=== PATIENT | male | born 1970 | race Caucasian/White ===

== ENCOUNTER → 2017-03-10 | Outpatient (CLI) | payer SELFPAY ==
--- NOTE | 2017-03-10 11:47 | Diagnostic Imaging Report ---
PROCEDURE: MR imaging cervical spine without contrast. TECHNIQUE: Multiplanar, multisequence MR imaging of the cervical spine was performed without contrast. INDICATION: Neck pain. FINDINGS: There is satisfactory alignment of the posterior spinal line. The vertebral body heights are preserved. There is a T2 hyperintense lesion seen within C4 vertebral body measuring 0.6 cm in size. This is associated with isointense T1 signal and is favored to be a vertebral body hemangioma. There is disc desiccation at all levels. The spinal cord has normal caliber, contour and signal. The foramen magnum and upper cervical canal are widely patent. C2/3: There is no disc herniation, no spinal canal stenosis. The foramina demonstrates mild narrowing on the left and no significant narrowing on the right side. C3/4: There is no disc herniation and no spinal canal stenosis. There is uncovertebral and facet hypertrophy resulting in mild foraminal stenosis bilaterally. C4/5: There is no disc herniation. No spinal canal stenosis. The foramina demonstrate no significant stenosis. C5/6: There is no significant disc herniation. No spinal canal stenosis. No foraminal narrowing. C6/7: There is a spur disc complex with minimal spinal canal stenosis reducing the AP dimension of the canal to 9.5 mm. No cord compression. There is foraminal stenosis of moderate degree on the left and minimal stenosis on the right side. C7/T1: No disc herniation, no spinal canal or foraminal stenosis. IMPRESSION: No high-grade stenosis or cord compression at any level. Dictated by: Dictated on workstation # [id number]
== END ==
LOC: RAD 10:23
PROVIDERS: ATTEND Nurse Practitioner Community Health
DX: M54.2 Cervicalgia (principal); G62.9 Polyneuropathy, unspecified; M25.511 Pain in right shoulder; M25.512 Pain in left shoulder
CPT/HCPCS: 72141

== ENCOUNTER 2019-05-06 17:37 | Emergency (ER) | payer SELFPAY ==
[~2019-05-06] VITALS: Ht 175 cm; Wt 124.0 kg
[2019-05-06] MEDS ORDERED: NS IV 1000 ML 1,000 ML IV SCH ×2 (17:57)
[2019-05-06] MEDS ORDERED: PIPERACILLIN SODIUM/TAZOBACTAM 4.5 GM in NS (IVPB) 100 ML IV ONE (18:00)
[2019-05-06] MEDS ORDERED: fentaNYL INJECTION 100 MCG/2 ML AMP IVP ONE (18:00)
[2019-05-06] MEDS ORDERED: VANCOMYCIN INJECTION 1,000 MG in NS (IVPB) 250 ML IV ONE (18:00)
--- NOTE | 2019-05-06 18:09 | ED EENT ---
History of Present Illness General Chief Complaint: Oral/Throat Problems Stated Complaint: THROAT PROBLEMS Nursing Triage Note: patient complaint of abscess of throat, [facility] walk in clinic. recieved antibiotic shot, and po antibiotics. pt trouble swalling, trouble breathing. stated rt side, swelling. Fever of 102 at home Source: patient, spouse Exam Limitations: no limitations History of Present Illness Date Seen by Provider: May 06, 2019 Time Seen by Provider: 17:51 Initial Comments The patient presents to ER from home with his and chief complaint of 2 days of progressively worsening swelling and pain 8 out of 10 presently in his right anterior throat causing pressure on his windpipe and making it impossible to swallow his own secretions since this afternoon. Yesterday the [facility] urgent care prescribed him Augmentin with return precautions. Since he developed fever 101 this afternoon he went to the ER per instructions. No previous cysts or abscesses. He has Crohn's not on any meds. He had Augmenting 1 tablet this AM and last oral intake was around noon. No local GI Dr. Never been to ENT. No SOA. Vocal changes since yesterday. Had a cholecystectomoy and appendectomy. Not on any other meds. PCP at [facility]. Allergies and Home Medications Allergies Coded Allergies: No Known Drug Allergies (Unverified , 04/22/12) Patient Home Medication List Home Medication List Reviewed: Yes Review of Systems Review of Systems Constitutional: chills; No diaphoresis; fever, malaise Eyes: Denies Blindness, Denies Blurred Vision Ears: Denies Dizziness, Denies Pain Nose: denies clots, denies congestion Mouth: see HPI; denies clots, denies loose teeth Throat: pain, swelling (r); denies discharge; hoarse, painful swallowing, difficulty with fluids Respiratory: No cough, No short of breath Cardiovascular: No chest pain, No edema Gastrointestinal: No abdominal pain, No nausea Neurological: Denies Depressed All Other Systems Reviewed Negative Unless Noted: Yes Past Fdjwjgn-Qtpnuv-Qxyice Hx Patient Social History Alcohol Use: Denies Use Recreational Drug Use: No Smoking Status: Never a Smoker Recent Foreign Travel: No Contact w/Someone Who Travel: No Recent Infectious Disease Expo: No Past Medical History Reproductive Disorders: No Sexually Transmitted Disease: No HIV/AIDS: No Crohns Disease Adverse Reaction/Blood Tranf: No Physical Exam Vital Signs Vital Signs - First Documented 05/06/19 17:45 Temp 37.2 Pulse 150 Resp 20 Height, Weight, BMI Height: '" Weight: lbs. oz. kg; 40.00 BMI Method: General Appearance: WD/WN, mild distress Eyes: bilateral eye normal inspection, bilateral eye PERRL, bilateral eye EOMI Ears: bilateral ear auricle normal, bilateral ear canal normal, bilateral ear TM normal Nose: normal inspection; No active bleeding, No discharge Mouth/Throat: normal mouth inspection, pharynx normal, dental tenderness; No excessive drooling Neck: lymphadenopathy (R), tender lateral (r) Cardiovascular: normal peripheral pulses, regular rate, rhythm, no edema Respiratory: lungs clear, normal breath sounds, no respiratory distress, no accessory muscle use Neurologic/Psychiatric: alert, normal mood/affect, oriented x 3 Skin: normal color, warm/dry Progress/Results/Core Measures Results/Orders Lab Results Laboratory Tests Test 05/06/19 18:05 05/06/19 19:13 05/06/19 20:20 05/07/19 00:42 Range/Units White Blood Count 16.6 H 4.3-11.0 10^3/uL Red Blood Count 5.66 4.35-5.85 10^6/uL Hemoglobin 16.0 13.3-17.7 G/DL Hematocrit 46 40-54 % Mean Corpuscular Volume 81 80-99 FL Mean Corpuscular Hemoglobin 28 25-34 PG Mean Corpuscular Hemoglobin Concent 35 32-36 G/DL Red Cell Distribution Width 13.5 10.0-14.5 % Platelet Count 341 130-400 10^3/uL Mean Platelet Volume 10.3 7.4-10.4 FL Neutrophils (%) (Auto) 76 H 42-75 % Lymphocytes (%) (Auto) 14 12-44 % Monocytes (%) (Auto) 11 0-12 % Eosinophils (%) (Auto) 0 0-10 % Basophils (%) (Auto) 0 0-10 % Neutrophils # (Auto) 12.5 H 1.8-7.8 X 10^3 Lymphocytes # (Auto) 2.3 1.0-4.0 X 10^3 Monocytes # (Auto) 1.7 H 0.0-1.0 X 10^3 Eosinophils # (Auto) 0.0 0.0-0.3 10^3/uL Basophils # (Auto) 0.0 0.0-0.1 10^3/uL Neutrophils % (Manual) 80 % Lymphocytes % (Manual) 10 % Monocytes % (Manual) 10 % Blood Morphology Comment NORMAL Prothrombin Time 15.2 H 12.2-14.7 SEC INR Comment 1.2 0.8-1.4 Activated Partial Thromboplast Time 28 24-35 SEC Sodium Level 135 135-145 MMOL/L Potassium Level 3.4 L 3.6-5.0 MMOL/L Chloride Level 100 98-107 MMOL/L Carbon Dioxide Level 22 21-32 MMOL/L Anion Gap 13 5-14 MMOL/L Blood Urea Nitrogen 7 7-18 MG/DL Creatinine 0.94 0.60-1.30 MG/DL Estimat Glomerular Filtration Rate > 60 BUN/Creatinine Ratio 7 Glucose Level 350 H 70-105 MG/DL Lactic Acid Level 2.18 *H 1.57 0.50-2.00 MMOL/L Calcium Level 9.3 8.5-10.1 MG/DL Corrected Calcium 9.2 8.5-10.1 MG/DL Total Bilirubin 1.5 H 0.1-1.0 MG/DL Aspartate Amino Transf (AST/SGOT) 13 5-34 U/L Alanine Aminotransferase (ALT/SGPT) 17 0-55 U/L Alkaline Phosphatase 95 40-136 U/L Total Protein 8.1 6.4-8.2 GM/DL Albumin 4.1 3.2-4.5 GM/DL Urine Color YELLOW Urine Clarity CLEAR Urine pH 5.5 5-9 Urine Specific [place] 1.025 H 1.016-1.022 Urine Protein 1+ H NEGATIVE Urine Glucose (UA) 2+ H NEGATIVE Urine Ketones 1+ H NEGATIVE Urine Nitrite NEGATIVE NEGATIVE Urine Bilirubin 1+ H NEGATIVE Urine Urobilinogen 1.0 < = 1.0 MG/DL Urine Leukocyte Esterase NEGATIVE NEGATIVE Urine RBC (Auto) TRACE-I NEGATIVE Urine RBC 0-2 /HPF Urine WBC 0-2 /HPF Urine Crystals PRESENT H /LPF Urine Amorphous Sediment FEW JOSE URATES H /LPF Urine Bacteria TRACE /HPF Urine Casts NONE /LPF Urine Mucus MODERATE H /LPF Urine Culture Indicated NO My Orders Orders - DESTINI VIERA Ct Neck (Soft Tissue) W (05/06/19 17:57) Cbc With Automated Diff (05/06/19 17:57) Comprehensive Metabolic Panel (05/06/19 17:57) Blood Culture (05/06/19 17:57) Sputum Culture (05/06/19 17:57) Urinalysis (05/06/19 17:57) Urine Culture (05/06/19 17:57) Protime With Inr (05/06/19 17:57) Partial Thromboplastin Time (05/06/19 17:57) Chest 1 View, Ap/Pa Only (05/06/19 17:57) Ed Iv/Invasive Line Start (05/06/19 17:57) Ed Iv/Invasive Line Start (05/06/19 17:57) Vital Signs Adult Sepsis Patie Q15M (05/06/19 17:57) O2 (05/06/19 17:57) Remove Rings In Anticipation O (05/06/19 17:57) Lactic Acid Analyzer (05/06/19 17:57) Ns Iv 1000 Ml (Sodium Chloride 0.9%) (05/06/19 17:57) Piperacillin Sodium/Tazobactam (Zosyn Vi (05/06/19 18:00) Vancomycin Injection (Vancomycin Injecti (05/06/19 18:00) Ed Iv/Invasive Line Start (05/06/19 17:57) Ns Iv 1000 Ml (Sodium Chloride 0.9%) (05/06/19 17:57) Fentanyl Injection (Sublimaze Injection (05/06/19 18:00) Manual Differential (05/06/19 18:05) Insulin (Regular) Human (Humulin R (Per (05/06/19 18:45) Iohexol Injection (Omnipaque 350 Mg/Ml 1 (05/06/19 19:00) Received Contrast (Hold Metformin- Contr (05/06/19 19:00) Ns (Ivpb) (Sodium Chloride 0.9% Ivpb Bag (05/06/19 19:00) Iohexol Injection (Omnipaque 350 Mg/Ml 1 (05/06/19 19:45) Received Contrast (Hold Metformin- Contr (05/06/19 19:45) Ns (Ivpb) (Sodium Chloride 0.9% Ivpb Bag (05/06/19 19:45) Ketorolac Injection (Toradol Injection) (05/06/19 21:15) Dexamethasone Injection (Decadron Inject (05/06/19 22:00) Ns W/Kcl 20 Meq/L (Ns Iv W/Kcl 20 Meq/L) (05/06/19 22:30) Accucheck Stat ONCE (05/07/19 00:43) Medications Given in ED Current Medications Medications Dose Ordered Sig/Tono Route Start Time Stop Time Status Last Admin Dose Admin Dexamethasone Sodium Phosphate 10 mg ONCE ONCE IV 05/06/19 22:00 05/06/19 22:01 DC 05/06/19 22:03 10 MG Fentanyl Citrate 50 mcg ONCE ONCE IVP 05/06/19 18:00 05/06/19 18:03 DC 05/06/19 18:21 50 MCG Insulin Human Regular 5 unit ONCE ONCE SC 05/06/19 18:45 05/06/19 18:46 DC 05/06/19 18:58 5 UNIT Iohexol 75 ml ONCE ONCE IV 05/06/19 19:45 05/06/19 19:46 DC 05/06/19 19:45 75 ML Ketorolac Tromethamine 30 mg ONCE ONCE IVP 05/06/19 21:15 05/06/19 21:16 DC 05/06/19 21:26 30 MG Piperacillin Sod/ Tazobactam Sod 4.5 gm/Sodium Chloride 100 ml @ 200 mls/hr ONCE ONCE IV 05/06/19 18:00 05/06/19 18:29 DC 05/06/19 18:58 200 MLS/HR Potassium Chloride/Sodium Chloride 1,000 ml @ 250 mls/hr Q4H ONCE IV 05/06/19 22:30 05/07/19 02:29 05/06/19 22:57 250 MLS/HR Sodium Chloride 100 ml ONCE ONCE IV 05/06/19 19:45 05/06/19 19:46 DC 05/06/19 19:46 80 ML Vancomycin HCl 1000 mg/Sodium Chloride 250 ml @ 250 mls/hr ONCE ONCE IV 05/06/19 18:00 05/06/19 18:59 DC 05/06/19 19:50 250 MLS/HR Vital Signs/I&O 05/06/19 05/06/19 05/06/19 05/06/19 17:45 19:04 19:04 20:14 Temp 37.2 Pulse 150 137 137 125 Resp 20 17 17 22 B/P (MAP) 159/115 159/115 (130) 151/99 (116) Pulse Ox 93 93 93 O2 Delivery Room Air Room Air Room Air 05/06/19 05/06/19 22:05 22:26 Temp 37.6 Pulse 124 112 Resp 19 20 B/P (MAP) 160/90 (113) 160/90 Pulse Ox 95 95 O2 Delivery Room Air Room Air Progress Progress Note #1: Time: 18:14 Progress Note Febrile tachycardia: Septic workup. 2 L based on an ideal body weight of 92 kg adjusted. We'll select Zosyn and vancomycin and get a CT of the neck with IV contrast. Fentanyl 50 migrans for pain. Progress Note #2: Time: 21:13 Progress Note The patient felt feverish so staff checked his temperature at 102.9 tympanic. We have offered rectal Tylenol or Toradol noting there is a small possibility this could irritate his Crohn's. He has been in remission with his Crohn's for many years and not on any medications to control it and he has stated he would prefer Toradol. Progress Note #3: Time: 21:55 Progress Note Patient was seen and examined by ear nose and throat surgeon Dr. Ross who feels like the phlegmon is not amenable to surgical drainage at this time because the sepsis would recommend hospitalization. He would like since the patient is having some airway compression and vocal changes to have the patient in the ICU. Unfortunately we are on ICU diversion. We will seek care at [place], [place]. The patient is comfortable at this time. Diagnostic Imaging Diagonstic Imaging: CT (With IV contrast) Plain Films/CT/US/NM/MRI: other (soft tissue neck) Comments NAME: [facility] REC#: [id number] PT STATUS: REG ER : 1970 PHYSICIAN: DESTINI VIERA MD ADMIT DATE: 05/06/19/ER Signed Date of Exam:05/06/19 CT NECK (SOFT TISSUE) W PROCEDURE: CT neck soft tissue with contrast. TECHNIQUE: Multiple contiguous axial images were obtained through the neck after the administration of contrast. Auto Exposure Controls were utilized during the CT exam to meet ALARA standards for radiation dose reduction. INDICATION: Pharyngitis and fever. FINDINGS: The findings are unremarkable at the skull base. Adenoidal tissue and the uvula are mildly prominent. The epiglottis is unremarkable. No oropharyngeal abnormality is identified; however, there is moderate mural thickening to the right of midline at the hypopharynx which effaces the right piriform sinus and causes leftward deviation and distortion of the airway to the level of the vocal cords. Area of presumed cellulitis and phlegmon measures approximately 3.9 x 1.9 cm with several tiny low-density foci which could represent very early abscesses. There are also prominent deep cervical lymph nodes, greater on the right. Right retro-mandibular nodule reaches 1.2 cm in diameter. Great vessels in the neck appear to be widely patent. No other focal inflammation or organized fluid collection is identified. IMPRESSION: Right hypopharyngeal cellulitis with probable phlegmon and possible early abscess formation distorting the right piriform sinus and airway at the level of the vestibule. Vocal cords appear to be intact. Direct visualization would be of use. Dictated by: Dictated on workstation # [id number] Dict: 05/06/192002 Trans: 05/06/192023 [id number] Interpreted by: JOCELYN RIOS MD Electronically signed by: JOCELYN RIOS MD 05/06/192023 Reviewed: Reviewed by Me Diagonstic Imaging: Xray Plain Films/CT/US/NM/MRI: chest Comments NAME: [facility] REC#: [id number] PT STATUS: REG ER : 1970 PHYSICIAN: DESTINI VIERA MD ADMIT DATE: 05/06/19/ER Signed Date of Exam:05/06/19 CHEST 1 VIEW, AP/PA ONLY Indication: Pharyngitis Portable upright AP view of the chest is obtained. COMPARISON: No previous study is available for comparison at this time. FINDINGS: Heart size and pulmonary vasculature are within normal limits, and the lungs are clear, bilaterally. IMPRESSION: Unremarkable chest. Dictated by: Dictated on workstation # [id number] Dict: 05/06/191918 Trans: 05/06/191918 [id number] Interpreted by: JOCELYN RIOS MD Electronically signed by: JOCELYN RIOS MD 05/06/191918 Reviewed: Reviewed by Me Consults : Consulting Physician: JIM ROSS MD Consults Notes 2039: Discussed the case with Dr. Ross, ear nose and throat surgeon and he agrees to come see the patient. Departure Impression Primary Impression: Peritonsillar cellulitis Additional Impressions: Tracheal deviation Sepsis Qualified Codes: A41.9 - Sepsis, unspecified organism Disposition: XFER SHT-TRM HOSP Condition: Stable Transfer Transfer Reason: Diversion (ICU) Time Spoke to Accepting Phy: 22:30 Transfer Progress Notes 2219: Dr Lozoya, machine rough rounder at [place], [place] says he is happy to consult but declined to admit. He wants us to go through ENT and make sure that they are willing to accept the patient. He said it would be reasonable for either ENT to admit or the hospitalist to admit and he is happy to consult. 2224: Discussed the case with Dr. Montano, ear nose and throat surgeon. She agrees to consult on the patient but will not be admitting and defers to the hospitalist. She agrees with the plan thus far. 2229: Discussed the case with Dr. Nugent, hospitalist and he agrees to admit the patient to the unit. Transfer Time: 00:45 Transfer Facility: [place], [place] Method of Transfer: EMS Departure-Patient Inst. Referrals: [facility] (PCP/Family) Primary Care Physician DESTINI VIERA May 06, 2019 18:09
[2019-05-06 18:13] LABS: BASOPHILS % (AUTO) 0 % (0-10); EOSINOPHILS % (AUTO) 0 % (0-10); HEMATOCRIT 46 % (40-54); LYMPHOCYTES # (AUTO) 2.3 X 10^3 (1.0-4.0); LYMPHOCYTES % (AUTO) 14 % (12-44); MEAN CORPUSCULAR HEMOGLOBIN 28 PG (25-34); MEAN CORPUSCULAR HGB CONC 35 G/DL (32-36); MEAN CORPUSCULAR VOLUME 81 FL (80-99); MEAN PLATELET VOLUME 10.3 FL (7.4-10.4); MONOCYTES # (AUTO) 1.7 X 10^3 (0.0-1.0); MONOCYTES % (AUTO) 11 % (0-12); NEUTROPHILS # (AUTO) 12.5 X 10^3 (1.8-7.8); NEUTROPHILS % (AUTO) 76 % (42-75); PLATELET COUNT 341 10^3/uL (130-400); RED CELL DISTRIBUTION WIDTH 13.5 % (10.0-14.5); WHITE BLOOD COUNT 16.6 10^3/uL (4.3-11.0)
[2019-05-06 18:24] LABS: INR 1.2 (0.8-1.4); PROTHROMBIN TIME PATIENT 15.2 SEC (12.2-14.7)
[2019-05-06 18:34] LABS: ALANINE AMINOTRANSFERASE 17 U/L (0-55); ALBUMIN 4.1 GM/DL (3.2-4.5); ALKALINE PHOSPHATASE 95 U/L (40-136); BILIRUBIN,TOTAL 1.5 MG/DL (0.1-1.0); BUN/CREATININE RATIO 7; CALCIUM 9.3 MG/DL (8.5-10.1); CARBON DIOXIDE 22 MMOL/L (21-32); CHLORIDE 100 MMOL/L (98-107); CREATININE SERUM 0.94 MG/DL (0.60-1.30); GFR ESTIMATED > 60; GLUCOSE 350 MG/DL (70-105); POTASSIUM 3.4 MMOL/L (3.6-5.0); SODIUM 135 MMOL/L (135-145); TOTAL PROTEIN 8.1 GM/DL (6.4-8.2)
[2019-05-06] MEDS ORDERED: inSUlin (REGULAR) HUMAN 1 UNIT/0.01 ML (CHARGE PER UNIT) SC ONE (18:45)
[2019-05-06 18:49] LABS: LYMPHOCYTES % (MANUAL) 10 %; MONOCYTES % (MANUAL) 10 %; NEUTROPHILS % (MANUAL) 80 %; RBC MORPH NORMAL
[2019-05-06] MEDS ORDERED: NS 100 ML (IVPB) BAG IV ONE ×2 (19:00→19:45)
[2019-05-06] MEDS ORDERED: HOLD METFORMIN - RECEIVED CONTRAST 20 ML VIAL IV SCH ×2 (19:00→19:45)
[2019-05-06] MEDS ORDERED: IOHEXOL 350 MG/ML 100 ML (OMNIPAQUE 350) VIAL IV ONE ×2 (19:00→19:45)
[2019-05-06 19:04] VITALS: BP 159/115
[2019-05-06 19:19] LABS: CLARITY,URINE CLEAR; COLOR,URINE YELLOW; GLUCOSE, URINE (UA) 2+ (NEGATIVE); KETONES,URINE 1+ (NEGATIVE); LEUKOCYTE ESTERASE ,URINE NEGATIVE (NEGATIVE); NITRITE,URINE NEGATIVE (NEGATIVE); PH,URINE 5.5 (5-9); PROTEIN,URINE 1+ (NEGATIVE)
--- NOTE | 2019-05-06 19:21 | Diagnostic Imaging Report ---
Indication: Pharyngitis Portable upright AP view of the chest is obtained. COMPARISON: No previous study is available for comparison at this time. FINDINGS: Heart size and pulmonary vasculature are within normal limits, and the lungs are clear, bilaterally. IMPRESSION: Unremarkable chest. Dictated by: Dictated on workstation # [id number]
[2019-05-06 19:51] LABS: BACTERIA,URINE TRACE /HPF; RBC,URINE 0-2 /HPF; WBC,URINE 0-2 /HPF
[2019-05-06 19:52] LABS: AMORPHOUS SEDIMENT,UR FEW AMOR URATES /LPF
[2019-05-06 19:53] LABS: BILIRUBIN,URINE 1+ (NEGATIVE)
--- NOTE | 2019-05-06 20:10 | Diagnostic Imaging Report ---
PROCEDURE: CT neck soft tissue with contrast. TECHNIQUE: Multiple contiguous axial images were obtained through the neck after the administration of contrast. Auto Exposure Controls were utilized during the CT exam to meet ALARA standards for radiation dose reduction. INDICATION: Pharyngitis and fever. FINDINGS: The findings are unremarkable at the skull base. Adenoidal tissue and the uvula are mildly prominent. The epiglottis is unremarkable. No oropharyngeal abnormality is identified; however, there is moderate mural thickening to the right of midline at the hypopharynx which effaces the right piriform sinus and causes leftward deviation and distortion of the airway to the level of the vocal cords. Area of presumed cellulitis and phlegmon measures approximately 3.9 x 1.9 cm with several tiny low-density foci which could represent very early abscesses. There are also prominent deep cervical lymph nodes, greater on the right. Right retro-mandibular nodule reaches 1.2 cm in diameter. Great vessels in the neck appear to be widely patent. No other focal inflammation or organized fluid collection is identified. IMPRESSION: Right hypopharyngeal cellulitis with probable phlegmon and possible early abscess formation distorting the right piriform sinus and airway at the level of the vestibule. Vocal cords appear to be intact. Direct visualization would be of use. Dictated by: Dictated on workstation # [id number]
[2019-05-06 20:14] VITALS: BP 151/99
[2019-05-06] MEDS ORDERED: KETOROLAC 30 MG/ML VIAL IVP ONE (21:15)
--- NOTE | 2019-05-06 21:41 | NUR ---
dr danielle here seeing the patient.
[2019-05-06] MEDS ORDERED: DEXAMETHASONE 4 MG/ML SDV (DECADRON) IV ONE (22:00)
[2019-05-06 22:05] VITALS: BP 160/90
[2019-05-06] MEDS ORDERED: NS W/KCL 20 MEQ/L 1,000 ML IV ONE (22:30)
--- NOTE | 2019-05-06 23:40 | NUR ---
informed pt/family of anticipated wait time for recieving bed assignment from [facility]. no needs at this time. bp cuff exchanged. call light in reach.
[2019-05-07 00:50] VITALS: BP 154/103
== END 2019-05-07 00:50 | disposition short-term general hospital (02) ==
LOC: EDUNIT# 17:37 → ER 17:38
DX: A41.9 Sepsis, unspecified organism (principal); J36 Peritonsillar abscess; J39.8 Other specified diseases of upper respiratory tract
CPT/HCPCS: 36415; 70491; 71045; 80053; 81000; 82962; 83605; 85007; 85027; 85610; 85730; 87040; 87088; 96361; 96365; 96367; 96372; 96375

== ENCOUNTER 2020-04-08 19:22 | Inpatient (IN) | payer SELFPAY ==
[~2020-04-08] VITALS: Ht 185.4 cm; Wt 137.1 kg
[2020-04-08] MEDS ORDERED: ACETAMINOPHEN 500 MG TAB (TYLENOL) ONE (19:26)
[2020-04-08] MEDS ORDERED: NS IV 1000 ML 1,000 ML ONE (19:26)
[2020-04-08] MEDS ORDERED: IBUPROFEN 800 MG (MOTRIN) TAB PO ONE (19:26)
[2020-04-08] MEDS ORDERED: IBUPROFEN 800 MG (MOTRIN) TAB PO STA (19:31)
[2020-04-08] MEDS ORDERED: ACETAMINOPHEN 500 MG TAB (TYLENOL) PO STA (19:31)
--- NOTE | 2020-04-08 19:40 | NUR ---
97.4 oral temp 102.3 axillary temp
--- NOTE | 2020-04-08 19:40 | ED General ---
General Chief Complaint: Fever-Adult/Adol Stated Complaint: FEVER/LETHARGIC Source of Information: EMS, Old Records (ALL PMH IS FROM OLD RECORDS-ONE VISIT IN 2019 AND ONE VISIT IN 2012) Exam Limitations: Other (PT VERY LETHARGIC AND NOT TALKING MUCH) History of Present Illness Date Seen by Provider: Apr 08, 2020 Time Seen by Provider: 19:20 Initial Comments PT ARRIVES VIA EMS FROM HOME FAMILY CALLED EMS FOR PT WITH LETHARGY ALL DAY TODAY PT REPORTEDLY WAS SEEN BY DR. LIU YESTERDAY AND DX WITH BILATERAL EAR INFECTION AND GIVEN RX'S FOR AMOXIL, ANTIVERT, ZOFRAN EMS REPORT THAT PT HAD TEMP OF 104.2--FAMILY UNAWARE, AND HAVE NOT GIVEN PT ANYTHING FOR SYMPTOMS O2 SAT 86% ON ROOM AIR--NO REPORTED HISTORY OF RESPIRATORY PROBLEMS OR HX OF NEED FOR OXYGEN PT IS DIABETIC, BUT DOES NOT TAKE MEDICATION OR CHECK BLOOD GLUCOSE OR FOLLOW DIET--BLOOD GLUCOSE >300 FOR EMS PT HAS HAD NAUSEA/VOMITING/DIARRHEA, BUT IS UNKNOWN HOW MANY EPISODES PT WAS INCONTINENT OF URINE AT HOME HAS NOT TAKEN ANYTHING FOR SYMPTOMS NO OTHER INFORMATION IS OBTAINABLE AT THIS TIME. WAS CONTACTED LATER AND REPORTS THAT PT BEGAN HAVING SYMPTOMS APPROXIMATELY 1 WEEK AGO, WITH DECREASED INTAKE THE LAST 4-5 DAYS, AND TODAY VERY LETHARGIC AND COULD NOT GET OUT OF BED ALL DAY TODAY NO REPORTED COUGH UNAWARE THAT PT HAD FEVER. STATES HE DOES NOT GO TO DR/DOES NOT HAVE A DR. AND WILL NOT TAKE MEDICATION EVEN IF IT IS PRESCRIBED, AND CANNOT AFFORD ANY MEDICATION HE DOES NOT HAVE INSURANCE. SHE REPORTS THAT PT IS TO BE A FULL CODE SHE REPORTS THAT ONLY SHE AND PT LIVE IN HOME, AND NO SICK CONTACTS AND SHE HAS NOT BEEN ILL NO Allergies and Home Medications Allergies Coded Allergies: No Known Drug Allergies (Unverified , 04/22/12) Patient Home Medication List Home Medication List Reviewed: Yes Review of Systems Review of Systems Constitutional: see HPI, fever, malaise, weakness, other (VERY LIMITED) Respiratory: see HPI (UNKNOWN IF HE HAS HAD COUGH OR SHORTNESS OF BREATH) Gastrointestinal: see HPI, diarrhea, loss of appetite, nausea, vomiting Past Eliukyg-Xgnjhn-Afterv Hx Past Med/Social Hx: Reviewed and Corrections made Patient Social History Alcohol Use: Denies Use Recreational Drug Use: No Smoking Status: Never a Smoker Recent Hopitalizations: No Seasonal Allergies Seasonal Allergies: No Past Medical History Surgeries: Yes (appendectomy, partial colecomy) Abdominal, Appendectomy, Bowel Surgery, Gallbladder Respiratory: No Cardiac: Yes Hypertension Neurological: No Reproductive Disorders: No Sexually Transmitted Disease: No HIV/AIDS: No Genitourinary: No Gastrointestinal: Yes (APPY;CHERYL; PARTIAL COLECTOMY) Crohns Disease, Gall Bladder Disease Musculoskeletal: No Endocrine: Yes (MTP-[id number]-PGAN NOT TAKE MEDS, CHECK GLUCOSE OR FOLLOW DIET) Diabetes, Non-Insulin dep HEENT: Yes (04/2019--PERTONSILLAR ABSCESS/TRANSFERRED TO [place].NO SURGERY ) Cancer: No Psychosocial: No Integumentary: No Blood Disorders: No Adverse Reaction/Blood Tranf: No Physical Exam Vital Signs Capillary Refill : Height, Weight, BMI Height: '" Weight: lbs. oz. kg; 40.00 BMI Method: General Appearance: Other (VERY LETHARGIC, MINIMALLY VERBAL, SKIN VERY WARM AND FLUSHED) HEENT: PERRL/EOMI Neck: Normal Inspection Respiratory: Normal Breath Sounds (BUT DECREASED AERATION IN BASES), No Accessory Muscle Use, No Respiratory Distress Cardiovascular: No Edema, No Murmur, Tachycardia (130'S) Gastrointestinal: Non Tender, Soft Extremity: No Pedal Edema Neurologic/Psychiatric: Other (LETHARGIC, GROSS MOTOR/SENSORY INTACT, MINIMALLY VERBAL --ANSWERS A FEW YES/NO QUESTIONS. ) Skin: Other (FLUSHED, VERY WARM, ) Focused Exam Lactate Level 04/08/20 19:43: Lactic Acid Level 3.23*H Lactic Acid Level Laboratory Tests Test 04/08/20 19:43 Lactic Acid Level 3.23 MMOL/L (0.50-2.00) *H Progress/Results/Core Measures Suspected Sepsis SIRS Temperature: Pulse: Respiratory Rate: Laboratory Tests 04/08/20 19:43: White Blood Count 7.1 Blood Pressure / Mean: 04/08/20 19:43: Lactic Acid Level 3.23*H Laboratory Tests 04/08/20 19:43: Creatinine 1.52H, INR Comment 1.2, Platelet Count 290, Total Bilirubin 0.8 Results/Orders Lab Results Laboratory Tests Test 04/08/20 19:43 04/08/20 20:00 04/08/20 20:20 Range/Units White Blood Count 7.1 4.3-11.0 10^3/uL Red Blood Count 6.00 H 4.30-5.52 10^6/uL Hemoglobin 16.5 13.3-17.7 g/dL Hematocrit 49 40-54 % Mean Corpuscular Volume 82 80-99 fL Mean Corpuscular Hemoglobin 28 25-34 pg Mean Corpuscular Hemoglobin Concent 34 32-36 g/dL Red Cell Distribution Width 12.6 10.0-14.5 % Platelet Count 290 130-400 10^3/uL Mean Platelet Volume 11.5 9.0-12.2 fL Immature Granulocyte % (Auto) 0 % Neutrophils (%) (Auto) 75 42-75 % Lymphocytes (%) (Auto) 18 12-44 % Monocytes (%) (Auto) 7 0-12 % Eosinophils (%) (Auto) 0 0-10 % Basophils (%) (Auto) 0 0-10 % Neutrophils # (Auto) 5.3 1.8-7.8 10^3/uL Lymphocytes # (Auto) 1.3 1.0-4.0 10^3/uL Monocytes # (Auto) 0.5 0.0-1.0 10^3/uL Eosinophils # (Auto) 0.0 0.0-0.3 10^3/uL Basophils # (Auto) 0.0 0.0-0.1 10^3/uL Immature Granulocyte # (Auto) 0.0 0.0-0.1 10^3/uL Erythrocyte Sedimentation Rate 20 0-30 MM/HR Prothrombin Time 15.2 H 12.2-14.7 SEC INR Comment 1.2 0.8-1.4 Activated Partial Thromboplast Time 28 24-35 SEC D-Dimer 0.99 H 0.00-0.49 UG/ML Sodium Level 136 135-145 MMOL/L Potassium Level 2.6 L 3.6-5.0 MMOL/L Chloride Level 99 98-107 MMOL/L Carbon Dioxide Level 21 21-32 MMOL/L Anion Gap 16 H 5-14 MMOL/L Blood Urea Nitrogen 20 H 7-18 MG/DL Creatinine 1.52 H 0.60-1.30 MG/DL Estimat Glomerular Filtration Rate 49 BUN/Creatinine Ratio 13 Glucose Level 402 *H 70-105 MG/DL Lactic Acid Level 3.23 *H 0.50-2.00 MMOL/L Calcium Level 8.8 8.5-10.1 MG/DL Corrected Calcium 9.0 8.5-10.1 MG/DL Magnesium Level 2.2 1.6-2.4 MG/DL Total Bilirubin 0.8 0.1-1.0 MG/DL Aspartate Amino Transf (AST/SGOT) 31 5-34 U/L Alanine Aminotransferase (ALT/SGPT) 31 0-55 U/L Alkaline Phosphatase 68 40-136 U/L Lactate Dehydrogenase 367 H 125-220 U/L Total Creatine Kinase 229 H 30-200 U/L Creatine Kinase MB 0.5 <6.6 NG/ML Myoglobin 99.9 H 10.0-92.0 NG/ML C-Reactive Protein High Sensitivity 13.72 H 0.00-0.50 MG/DL B-Type Natriuretic Peptide 11.5 <100.0 PG/ML Total Protein 7.9 6.4-8.2 GM/DL Albumin 3.7 3.2-4.5 GM/DL Amylase Level 26 25-125 U/L Lipase 41 8-78 U/L Procalcitonin 0.21 H <0.10 NG/ML Coronavirus 2019 (RADHA) Positive H Negative Monoscreen NEGATIVE NEGATIVE Group A Streptococcus Screen NEGATIVE NEGATIVE Urine Color YELLOW Urine Clarity SL CLOUDY Urine pH 6.0 5-9 Urine Specific [place] 1.010 L 1.016-1.022 Urine Protein 1+ H NEGATIVE Urine Glucose (UA) 3+ H NEGATIVE Urine Ketones NEGATIVE NEGATIVE Urine Nitrite NEGATIVE NEGATIVE Urine Bilirubin NEGATIVE NEGATIVE Urine Urobilinogen 0.2 < = 1.0 MG/DL Urine Leukocyte Esterase NEGATIVE NEGATIVE Urine RBC (Auto) TRACE-I NEGATIVE Urine RBC RARE /HPF Urine WBC 0-2 /HPF Urine Squamous Epithelial Cells NONE /HPF Urine Crystals NONE /LPF Urine Bacteria TRACE /HPF Urine Casts PRESENT /LPF Urine Hyaline Casts RARE /LPF Urine Mucus SMALL H /LPF Urine Culture Indicated CULTURE PENDING Urine Opiates Screen NEGATIVE NEGATIVE Urine Oxycodone Screen NEGATIVE NEGATIVE Urine Methadone Screen NEGATIVE NEGATIVE Urine Propoxyphene Screen NEGATIVE NEGATIVE Urine Barbiturates Screen NEGATIVE NEGATIVE Ur Tricyclic Antidepressants Screen NEGATIVE NEGATIVE Urine Phencyclidine Screen NEGATIVE NEGATIVE Urine Amphetamines Screen NEGATIVE NEGATIVE Urine Methamphetamines Screen NEGATIVE NEGATIVE Urine Benzodiazepines Screen NEGATIVE NEGATIVE Urine Cocaine Screen NEGATIVE NEGATIVE Urine Cannabinoids Screen NEGATIVE NEGATIVE Blood Gas Puncture Site L RAD Blood Gas Patient Temperature 38.4 Arterial Blood pH 7.42 7.37-7.43 Arterial Blood Partial Pressure CO2 34 L 35-45 MMHG Arterial Blood Partial Pressure O2 56 L 79-93 MMHG Arterial Blood HCO3 21 L 23-27 MMOL/L Arterial Blood Total CO2 22.3 21.0-31.0 MMOL/L Arterial Blood Oxygen Saturation 85 L 94-100 % Arterial Blood Base Excess -2.2 -2.5-2.5 MMOL/L Shan Test YES-POS Blood Gas Ventilator Setting NO Blood Gas Inspired Oxygen 5LPM Micro Results Microbiology 04/08/20 Influenza Types A,B Antigen (SOPHIA) - Final, Complete My Orders Orders - ROMEO KIM DO Ns Iv 1000 Ml (Sodium Chloride 0.9%) (04/08/20 19:) Ibuprofen Tablet (Motrin Tablet) (04/08/20:) Acetaminophen Tablet (Tylenol Tablet) (04/08/20:) Ed Iv/Invasive Line Start (04/08/20:31) Ekg Tracing (04/08/20:31) Catheter(Urinary) Insert & Ass 03,15 (04/08/20:31) O2 (04/08/20:31) Monitor-Rhythm Ecg Trace Only (04/08/20:) Chest 1 View, Ap/Pa Only (04/08/20:) Amylase (04/08/20:31) Arterial Blood Gas (04/08/20:31) BNP (04/08/20:31) Cbc With Automated Diff (04/08/20:) Comprehensive Metabolic Panel (04/08/20:) Creatine Kinase (04/08/20:) Creatine Kinase Mb (04/08/20:31) Hs C Reactive Protein (04/08/20:) Fibrin Degradation Products (04/08/20:31) Drug Screen Stat (Urine) (04/08/20:) Lactic Acid Analyzer (04/08/20:) Lipase (04/08/20:31) Magnesium (04/08/20:) Procalcitonin (Pct) (04/08/20:) Protime With Inr (04/08/20:31) Partial Thromboplastin Time (04/08/20:31) Ua Culture If Indicated (04/08/20 19:31) Blood Culture (04/08/20 19:31) Influenza A And B Antigens (04/08/20 19:31) Erythrocyte Sedimentation Rate (04/08/20 19:31) Myoglobin Serum (04/08/20 19:31) Ed Iv/Invasive Line Start (04/08/20 19:31) Ns Iv 1000 Ml (Sodium Chloride 0.9%) (04/08/20 19:45) Acetaminophen Tablet (Tylenol Tablet) (04/08/20 19:31) Ibuprofen Tablet (Motrin Tablet) (04/08/20 19:31) LDH (04/08/20 19:31) Coronavirus Sars-Cov-2 So 2018 (04/08/20 19:31) Covid 19 Inhouse Test (04/08/20 19:31) Urine Culture (04/08/20 19:31) Ed Iv/Invasive Line Start (04/08/20 19:31) Vital Signs Adult Sepsis Patie Q15M (04/08/20 19:31) Remove Rings In Anticipation O (04/08/20 19:31) Monotest (04/08/20 19:45) Rapid Strep A Screen (04/08/20 19:45) Arterial Blood Draw (04/08/20 ) Ct Angio Chest W (04/08/20 20:29) Ns W/Kcl 40 Meq/L (Ns Iv W/Kcl 40 Meq/L) (04/08/20 20:30) Insulin (Regular) Human (Novolin R (Per (04/08/20 20:30) Ed Iv/Invasive Line Start (04/08/20 20:30) Ns Iv 1000 Ml (Sodium Chloride 0.9%) (04/08/20 20:30) Dexamethasone Injection (Decadron Inje (04/08/20 20:45) Ceftriaxone For Iv Use (Rocephin For I (04/08/20 20:45) Azithromycin Injection (Zithromax Inject (04/08/20 20:45) Iohexol Injection (Omnipaque 350 Mg/Ml 1 (04/08/20 20:45) Received Contrast (Hold Metformin- Contr (04/08/20 20:45) Ns (Ivpb) (Sodium Chloride 0.9% Ivpb Bag (04/08/20 20:45) Iohexol Injection (Omnipaque 350 Mg/Ml 1 (04/08/20 21:30) Received Contrast (Hold Metformin- Contr (04/08/20 21:30) Ns (Ivpb) (Sodium Chloride 0.9% Ivpb Bag (04/08/20 21:30) Ed Iv/Invasive Line Start (04/08/20 21:32) Ns Iv 1000 Ml (Sodium Chloride 0.9%) (04/08/20 21:45) Enoxaparin Injection (Lovenox Injection) (04/08/20 22:00) Medications Given in ED Current Medications Medications Dose Ordered Sig/Tono Route Start Time Stop Time Status Last Admin Dose Admin Azithromycin 500 mg/Sodium Chloride 250 ml @ 250 mls/hr ONCE ONCE IV 04/08/20 20:45 04/08/20 21:44 DC 04/08/20 21:43 250 MLS/HR Ceftriaxone Sodium 1000 mg/ Sterile Water 10 ml @ 200 mls/hr ONCE ONCE IV 04/08/20 20:45 04/08/20 20:47 DC 04/08/20 21:44 200 MLS/HR Dexamethasone Sodium Phosphate 6 mg ONCE ONCE IV 04/08/20 20:45 04/08/20 20:46 DC 04/08/20 21:44 6 MG Insulin Human Regular 20 unit ONCE ONCE IV 04/08/20 20:30 04/08/20 20:31 DC 04/08/20 21:44 20 UNIT Iohexol 100 ml ONCE ONCE IV 04/08/20 20:45 04/08/20 20:46 DC 04/08/20 21:26 100 ML Sodium Chloride 100 ml ONCE ONCE IV 04/08/20 20:45 04/08/20 20:46 DC 04/08/20 21:26 80 ML Vital Signs/I&O Capillary Refill : Progress Note : Progress Note PLACED IN ISOLATION ROOM PPE WORN AT ALL TIMES COVID-19 TESTING PERFORMED PT AND INFORMED OF NEED FOR QUARANTINE O2 SAT 85-86% ON ROOM AIR--UP TO MID TO UPPER 90'S ON O2 AT 4L/NC GIVEN IV FLUIDS GIVEN TYLENOL AND MOTRIN WITH DECREASE IN TEMPERATURE AT TIME OF ADMIT GIVEN DECADRON GIVEN ROCEPHIN AND ZITHROMAX GIVEN LOVENOX FOR DVT PROPHYLAXIS GIVEN INSULIN NO DETERIORATION IN PT'S CONDITION DURING ER STAY ECG Initial ECG Impression Date: Apr 08, 2020 Initial ECG Impression Time: 19:59 Initial ECG Rate: 120 Initial ECG Rhythm: S.Tach Initial ECG Impression: Nonspecific Changes Initial ECG Comparisson: No Previous ECG Available Diagnostic Imaging Comments CXR--PER RADIOLOGIST REPORT AT 2108 IMPRESSION: Patchy groundglass infiltrates in the mid to lower lung field on both sides is suspicious for atypical pneumonia. Follow-up is recommended. CT CHEST ANGIOGRAM--PER RADIOLOGIST REPORT AT 2144 IMPRESSION: No CT evidence of pulmonary emboli, aortic dissection or aneurysm. There are patchy groundglass infiltrates throughout both lungs, suspicious for atypical pneumonia such as Covid pneumonia. The findings are moderate to severe. Reviewed: Reviewed by Me Departure Communication (Admissions) 2103--SPOKE WITH DR. MERCADO, HOSPITALIST, ACCEPTS PT FOR ADMIT. ADVISES TO ORDER REMDESIVIR AND CONVALESCENT PLASMA, WELL ANTIBIOTICS Impression Primary Impression: Pneumonia due to COVID-19 virus Additional Impressions: Acute respiratory failure due to COVID-19 Sepsis Uncontrolled diabetes mellitus Dehydration Renal insufficiency Hypokalemia Non-compliance Disposition: ADMITTED INPATIENT Condition: Stable Admissions Decision to Admit Reason: Admit from ER (General) Decision to Admit/Date: Apr 08, 2020 Time/Decision to Admit Time: 21:00 Departure-Patient Inst. Referrals: [facility] (PCP/Family) Primary Care Physician ROMEO KIM DO Apr 08, 2020 19:40
--- NOTE | 2020-04-08 19:42 | NUR ---
room air 86% 95% on 5 liters via nasal cannula 125 hr 33 resp 132/90
[2020-04-08] MEDS ORDERED: NS IV 1000 ML 1,000 ML IV SCH ×3 (19:45→21:45)
[2020-04-08 19:59] LABS: BASOPHILS % (AUTO) 0 % (0-10); EOSINOPHILS % (AUTO) 0 % (0-10); HEMATOCRIT 49 % (40-54); HEMOGLOBIN 16.5 g/dL (13.3-17.7); LYMPHOCYTES # (AUTO) 1.3 10^3/uL (1.0-4.0); LYMPHOCYTES % (AUTO) 18 % (12-44); MEAN CORPUSCULAR HEMOGLOBIN 28 pg (25-34); MEAN CORPUSCULAR HGB CONC 34 g/dL (32-36); MEAN CORPUSCULAR VOLUME 82 fL (80-99); MEAN PLATELET VOLUME 11.5 fL (9.0-12.2); MONOCYTES # (AUTO) 0.5 10^3/uL (0.0-1.0); MONOCYTES % (AUTO) 7 % (0-12); NEUTROPHILS # (AUTO) 5.3 10^3/uL (1.8-7.8); NEUTROPHILS % (AUTO) 75 % (42-75); PLATELET COUNT 290 10^3/uL (130-400); WHITE BLOOD COUNT 7.1 10^3/uL (4.3-11.0)
[2020-04-08 20:10] LABS: BILIRUBIN,URINE NEGATIVE (NEGATIVE); CLARITY,URINE SL CLOUDY; COLOR,URINE YELLOW; GLUCOSE, URINE (UA) 3+ (NEGATIVE); KETONES,URINE NEGATIVE (NEGATIVE); LEUKOCYTE ESTERASE ,URINE NEGATIVE (NEGATIVE); NITRITE,URINE NEGATIVE (NEGATIVE); PROTEIN,URINE 1+ (NEGATIVE)
[2020-04-08 20:12] LABS: FIBRIN DEGRADATION PRODUCTS 0.99 UG/ML (0.00-0.49); INR 1.2 (0.8-1.4); PROTHROMBIN TIME PATIENT 15.2 SEC (12.2-14.7)
[2020-04-08 20:16] LABS: BACTERIA,URINE TRACE /HPF; HYALINE CASTS, URINE RARE /LPF; RBC,URINE RARE /HPF; WBC,URINE 0-2 /HPF
[2020-04-08 20:17] LABS: ERYTHROCYTE SEDIMENTATION RATE 20 MM/HR (0-30)
[2020-04-08 20:19] LABS: ALBUMIN 3.7 GM/DL (3.2-4.5); BILIRUBIN,TOTAL 0.8 MG/DL (0.1-1.0); CALCIUM 8.8 MG/DL (8.5-10.1); CREATININE SERUM 1.52 MG/DL (0.60-1.30); MAGNESIUM 2.2 MG/DL (1.6-2.4); POTASSIUM 2.6 MMOL/L (3.6-5.0); TOTAL PROTEIN 7.9 GM/DL (6.4-8.2)
[2020-04-08 20:21] LABS: AMPHETAMINE SCREEN, URINE NEGATIVE (NEGATIVE); BARBITURATE SCREEN URINE NEGATIVE (NEGATIVE); BENZODIAZEPINES SCREEN URINE NEGATIVE (NEGATIVE); CANNABINOID SCREEN, URINE NEGATIVE (NEGATIVE); COCAINE SCREEN URINE NEGATIVE (NEGATIVE); METHADONE STAT NEGATIVE (NEGATIVE); METHAMPHETAMINE SCREEN URINE S NEGATIVE (NEGATIVE); OPIATE SCREEN URINE NEGATIVE (NEGATIVE); OXYCODONE STAT NEGATIVE (NEGATIVE); PROPOXYPHENE STAT NEGATIVE (NEGATIVE); TRICYCLIC ANTIDEPRESSANTS SCRE NEGATIVE (NEGATIVE)
[2020-04-08 20:24] LABS: ABG BASE EXCESS -2.2 MMOL/L (-2.5-2.5); ABG OXYGEN SATURATION 85 % (94-100); ABG PCO2 34 MMHG (35-45); ABG PH 7.42 (7.37-7.43); ABG PO2 56 MMHG (79-93); ABG TCO2 22.3 MMOL/L (21.0-31.0)
[2020-04-08 20:25] LABS: ALLENS TEST YES-POS; INSPIRED O2 5LPM; VENTILATOR NO
[2020-04-08 20:26] LABS: PATIENT TEMP 38.4
[2020-04-08] MEDS ORDERED: NS W/KCL 40 MEQ/L 1,000 ML IV SCH (20:30)
[2020-04-08] MEDS ORDERED: inSUlin (REGULAR) HUMAN 1 UNIT/0.01 ML (CHARGE PER UNIT) IV ONE (20:30)
[2020-04-08 20:39] LABS: CREATINE KINASE MB 0.5 NG/ML (<6.6)
[2020-04-08] MEDS ORDERED: cefTRIAXone FOR IV USE 1,000 MG in WATER (STERILE) FOR INJECTION 10 ML IV ONE (20:45)
[2020-04-08] MEDS ORDERED: IOHEXOL 350 MG/ML 100 ML (OMNIPAQUE 350) VIAL IV ONE ×2 (20:45→21:30)
[2020-04-08] MEDS ORDERED: HOLD METFORMIN - RECEIVED CONTRAST 20 ML VIAL IV SCH ×2 (20:45→21:30)
[2020-04-08] MEDS ORDERED: AZITHROMYCIN INJECTION 500 MG in NS (IVPB) 250 ML IV ONE (20:45)
[2020-04-08] MEDS ORDERED: NS 100 ML (IVPB) BAG IV ONE ×2 (20:45→21:30)
--- NOTE | 2020-04-08 20:51 | Diagnostic Imaging Report ---
INDICATION: Hypoxia and fever. EXAMINATION: Frontal chest was obtained at 8:18 p.m. COMPARISON: 7:20 p.m. FINDINGS: Heart is borderline in size. There are patchy infiltrates in the mid to lower lung field on both sides suspicious for atypical pneumonia. There is no pneumothorax or pleural fluid. IMPRESSION: Patchy groundglass infiltrates in the mid to lower lung field on both sides is suspicious for atypical pneumonia. Follow-up is recommended. Dictated by: Dictated on workstation # [id number]
--- NOTE | 2020-04-08 21:41 | Diagnostic Imaging Report ---
INDICATION: Fever, lethargy and shortness of breath. TECHNIQUE: Multiple contiguous axial images were obtained through the chest after uneventful bolus administration of intravenous contrast. 3D reconstructed CTA MIP acquisitions were also performed. Auto Exposure Controls were utilized during the CT exam to meet ALARA standards for radiation dose reduction. COMPARISON: There is no prior chest CTA for comparison. FINDINGS: The thoracic aorta shows no evidence of aneurysm or dissection. Great vessel origins are patent. The pulmonary parenchymal vessels are well-opacified with no CT evidence of pulmonary emboli. There is no adenopathy in the mediastinum or tina. There is no pleural or pericardial fluid. Visualized portions of the upper abdomen demonstrate diffuse fatty infiltration of the liver. Patient has had previous cholecystectomy. Lung parenchymal windows demonstrate patchy groundglass infiltrates throughout both lungs, compatible with atypical pneumonia of moderate to severe nature. IMPRESSION: No CT evidence of pulmonary emboli, aortic dissection or aneurysm. There are patchy groundglass infiltrates throughout both lungs, suspicious for atypical pneumonia such as Covid pneumonia. The findings are moderate to severe. Dictated by: Dictated on workstation # [id number]
[2020-04-08] MEDS ORDERED: ENOXAPARIN 40 MG/0.4 ML (LOVENOX) SYR SC ONE (22:00)
--- NOTE | 2020-04-08 22:20 | NUR ---
FLUIDS CONTINUED ON FLOOR.
--- NOTE | 2020-04-08 23:19 | NUR ---
RAHAT MARIE admitted to room 405-1, with an admitting diagnosis of COVID, ARF, SEPSIS, DEHYDRATION, UNCONTROLLED DIABETES, on 04/08/20 from ED via CART, accompanied by STAFF. RAHAT MARIE introduced to surroundings, call light, bed controls, phone, TV, temperature control, lights, meal times, smoking policy, visitor policy, side rail policy, bathrooms and showers. Patient Rights given to patient in the handbook. RAHAT MARIE verbalizes understanding that [facility] is not responsible for the loss or damage to any personal effects or valuables that are kept in the patients posession during their hospitalization. The following Patient Care Plans were discussed with the : Discharge Planning, , and. RAHAT MARIE verbalizes understanding of Interdisciplinary Patient Education. Patient and/or family were informed about the Rapid Response Team and its purpose.
[2020-04-08] MEDS ORDERED: IBUPROFEN 800 MG (MOTRIN) TAB PO PRN (23:30)
[2020-04-08] MEDS ORDERED: ONDANSETRON 4 MG/2 ML (SDV) Z0FRAN IV PRN (23:30)
[2020-04-08] MEDS ORDERED: ACETAMINOPHEN 500 MG TAB (TYLENOL) PO PRN (23:30)
[2020-04-08 23:34] VITALS: BP 125/59
[2020-04-09] VITALS (11 sets, daily range): BP systolic 125–176; BP diastolic 59–96
[2020-04-09] MEDS ORDERED: ENOXAPARIN 40 MG/0.4 ML (LOVENOX) SYR ONE (00:08)
--- NOTE | 2020-04-09 00:11 | NUR ---
JUDD WAS CONTACTED ABOUT LOVENOX NOT BEING GIVEN DOWN IN ER AND THAT IT STILL NEEDS TO BE GIVEN.
[2020-04-09] MEDS: NS W/KCL 20 MEQ/L 1,000 ML IV SCH ×3 (00:20→12:12)
--- NOTE | 2020-04-09 00:46 | NUR ---
ER dose of Lovenox administered. Cazares catheter inserted using 18F Coude catheter. Patient tolerated well.
[2020-04-09] MEDS ORDERED: RT-ALBUTEROL INHALER HFA (VENTOLIN HFA) 18 GM IH PRN (01:45)
--- NOTE | 2020-04-09 04:33 | NUR ---
Patient states that he does not believe he has COVID-19, "that is just something the doctors tell everyone".
[2020-04-09 04:42] LABS: BASOPHILS % (AUTO) 0 % (0-10); EOSINOPHILS % (AUTO) 0 % (0-10); HEMATOCRIT 44 % (40-54); HEMOGLOBIN 14.7 g/dL (13.3-17.7); LYMPHOCYTES # (AUTO) 0.8 10^3/uL (1.0-4.0); LYMPHOCYTES % (AUTO) 11 % (12-44); MEAN CORPUSCULAR HEMOGLOBIN 28 pg (25-34); MEAN CORPUSCULAR HGB CONC 34 g/dL (32-36); MEAN CORPUSCULAR VOLUME 83 fL (80-99); MEAN PLATELET VOLUME 11.3 fL (9.0-12.2); MONOCYTES # (AUTO) 0.3 10^3/uL (0.0-1.0); MONOCYTES % (AUTO) 4 % (0-12); NEUTROPHILS # (AUTO) 5.8 10^3/uL (1.8-7.8); NEUTROPHILS % (AUTO) 84 % (42-75); PLATELET COUNT 246 10^3/uL (130-400); WHITE BLOOD COUNT 6.9 10^3/uL (4.3-11.0)
[2020-04-09 04:56] LABS: ALBUMIN 3.2 GM/DL (3.2-4.5); CHLORIDE 107 MMOL/L (98-107); POTASSIUM 3.6 MMOL/L (3.6-5.0); SODIUM 137 MMOL/L (135-145)
[2020-04-09 04:57] LABS: CALCIUM 7.8 MG/DL (8.5-10.1)
[2020-04-09 04:58] LABS: TOTAL PROTEIN 6.5 GM/DL (6.4-8.2)
[2020-04-09 05:00] LABS: BILIRUBIN,TOTAL 0.7 MG/DL (0.1-1.0); CARBON DIOXIDE 16 MMOL/L (21-32)
[2020-04-09 05:02] LABS: ALKALINE PHOSPHATASE 59 U/L (40-136); CREATININE SERUM 1.25 MG/DL (0.60-1.30); GFR ESTIMATED > 60
[2020-04-09 05:03] LABS: BUN/CREATININE RATIO 18
[2020-04-09 05:05] LABS: ALANINE AMINOTRANSFERASE 27 U/L (0-55)
[2020-04-09 05:06] LABS: GLUCOSE 448 MG/DL (70-105)
[2020-04-09] MEDS: inSUlin ASPART (NovoLOG) 1 UNIT/0.01 ML (CHARGE PER UNIT) SC SCH ×3 (05:31→16:59)
--- NOTE | 2020-04-09 05:56 | History & Physical-Hospitalist ---
History of Present Illness HPI/Chief Complaint CC: SOB HPI: This is a 50yoWM clinic Pt of [facility] who has no medical history since he never goes to the doctor who presented with Covid-positive swab results with SOB of hypoxia. He was found to have new onset DM and appears to have high risk for severe JOSÉ MIGUEL. He was placed on protocol for Covid-19 treatment along with oxygen supplementation and overall he will be monitored closely for decompensation because he appears to be very high risk for intubation and respiratory failure. Lovenox was changed to 60 mg BID due to increased BMI. He is a lifetime nonsmoker and does not drink alcohol. He lives at home with his partner and he is retired from the [employer] in [place]. Source: patient, RN/MD Exam Limitations: clinical condition Date Seen 04/09/20 Time Seen by a Provider: 10:00 Attending Physician Loyda Stone MD PCP [facility] Referring Physician Date of Admission Apr 08, 2020 at 21:00 Home Medications & Allergies Home Medications Reviewed patient Home Medication Reconciliation performed by pharmacy medication reconciliations tax technician and/or nursing. Patients Allergies have been reviewed. Allergies Allergies Coded Allergies No Known Drug Allergies (Unverified04/22/12) Past Vmitgtg-Dtvaxv-Frrhab Hx Past Med/Social Hx: Reviewed Nursing Past Med/Soc Hx, Reviewed and Corrections made Patient Social History Marrital Status: cohabiting Employed/Student: retired Alcohol Use: Denies Use Recreational Drug Use: No Smoking Status: Never a Smoker 2nd Hand Smoke Exposure: No Recent Foreign Travel: No Contact w/other who traveled: No Recent Hopitalizations: No Recent Infectious Disease Expo: Yes (pt covid positive) Seasonal Allergies Seasonal Allergies: No Past Medical History Surgeries: Abdominal, Appendectomy, Bowel Surgery, Gallbladder Cardiac: Hypertension Reproductive: No Sexually Transmitted Disease: No HIV/AIDS: No Gastrointestinal: Crohns Disease, Gall Bladder Disease Endocrine: Diabetes, Non-Insulin dep History of Blood Disorders: No Adverse Reaction to Blood Bahena: No Review of Systems Constitutional: see HPI, malaise, weakness Respiratory: cough, dyspnea on exertion Psychiatric/Neurological: Depressed Physical Exam Physical Exam Vital Signs Vital Signs - First Documented 04/08/20 04/09/20 19:25 01:25 Temp 39.1 Pulse 125 Resp 33 B/P (MAP) 132/90 (104) Pulse Ox 96 O2 Delivery Nasal Cannula O2 Flow Rate 5.00 FiO2 28 Capillary Refill : Less Than 3 Seconds Height, Weight, BMI Height: '" Weight: lbs. oz. kg; 35.28 BMI Method: General Appearance: Anxious, Chronically ill, Mild Distress, Obese Eyes: Right Eye Normal Inspection, Right Eye PERRL HEENT: PERRL/EOMI, Normal ENT Inspection, Pharynx Normal, Moist Mucous Me mbranes Neck: Full Range of Motion, Normal Inspection, Non Tender Respiratory: Chest Non Tender, Lungs Clear, Normal Breath Sounds, Accessory Muscle Use, Decreased Breath Sounds Cardiovascular: Regular Rate, Rhythm, No Edema, No Gallop, No JVD, No Murmur, Normal Peripheral Pulses Gastrointestinal: Normal Bowel Sounds, No Organomegaly, No Pulsatile Mass, Non Tender, Soft Back: Normal Inspection, No CVA Tenderness, No Vertebral Tenderness Extremity: Normal Capillary Refill, Normal Inspection, Normal Range of Motion, Non Tender, No Calf Tenderness, No Pedal Edema Neurologic/Psychiatric: Alert, Oriented x3, No Motor/Sensory Deficits, Normal M ood/Affect Skin: Normal Color, Warm/Dry Lymphatic: No Adenopathy Results Results/Procedures Labs Laboratory Tests 04/08/20 19:43 04/09/20 04:26 04/09/20 16:15 04/09/20 18:35 04/09/20 21:50 04/10/20 00:03 04/10/20 02:52 Patient resulted labs reviewed. Assessment/Plan Admission Diagnosis Assessment: COVID-19 PNA Hypoxia Lactic acidosis DM OOC HTN Obesity Presumed JOSÉ MIGUEL Plan: O2 ICU transfer Control sugars High risk for intubation Admission Status: Inpatient Order (span 2 midnights) Reason for Inpatient Admission: COVID-19 hypoxia Diagnosis/Problems Diagnosis/Problems (1) Acute respiratory failure due to COVID-19 Status: Acute (2) Pneumonia due to COVID-19 virus Status: Acute (3) Uncontrolled diabetes mellitus Status: Acute (4) Sepsis (5) Dehydration Status: Acute (6) Non-compliance Status: Acute (7) Renal insufficiency Status: Acute Clinical Quality Measures DVT/VTE Risk/Contraindication: Risk Factor Score Per Nursin RFS Level Per Nursing on Admit: 4+=Very High WISAM LIPSCOMB DO Apr 09, 2020 05:56
--- NOTE | 2020-04-09 05:57 | NUR ---
Patient had a critical glucose of 448. Dr Stone notified. 12UNITS SSI administered per order. Patient asked if he could use the toilet for BM. This nurse suggested patient use BSC instead due to weakness. Patient did have some incontinence of stool in the bed. Patient was assisted to BSC, very weak. Patient had a large, brown liquid stool. Patient reports liquid stools are normal for him.
[2020-04-09] MEDS: RT-ALBUTEROL INHALER HFA (VENTOLIN HFA) 18 GM IH SCH ×3 (07:16→14:30)
[2020-04-09] MEDS ORDERED: REMDESIVIR 200 MG/NS 250 ML IVPB IV ONE ×2 (09:00)
[2020-04-09] MEDS: FAMOTIDINE 20MG/2ML IV (PEPCID) IV SCH (09:57)
[2020-04-09] MEDS: ENOXAPARIN 60 MG/0.6 ML (LOVENOX) SYR SC SCH ×2 (13:21→21:32)
--- NOTE | 2020-04-09 14:03 | NUR ---
"RD ASSESSMENT PMHx: HTN; Crohn's disease; DM (hx of non-compliance); PT INTERACTION: Note pt currently in COVID isolation, per chart review. Note all diet information for nutrition assessment is per Diamante RN, or per chart review. Diamante states current appetite appears good. Note avg PO intake 50% x2meal, per chart review. Diamante states some issues with diarrhea. Note pt has hx of Crohn's disease, per chart review. Note last BM was 04/09, and pt not currently on bowel regimen per chart review. Note recent 7# wt loss x11mon, per chart review. Note unable to determine current level of DM management, and not unable to determine recent HbA1c, per chart review. Note pt has hx of DM non-compliance, per chart review. Note abnormal lab values of BUN 23 H; glu 448 H; and Ca 7.4 L, per chart review. Est. kcal needs: 6890-7526 kcal | 15-18 kcal/kg Est. Pro needs: 96-120 g Pro | 0.8-1.0 g Pro/kg PES STATEMENT: Inadequate oral intake (NI-2.1) related to loss of appetite, as evidenced by chart review, communication with RN, and avg PO intake 50% x2meal. INTERVENTION: Continue with current diet order of Clear Liquid diet. Pt may benefit from diet advancement, if medically able and as tolerated. Pt may benefit from nutrition supplementation if PO intake declines. Did not offer diet education on DM management d/t isolation precautions. Will continue to follow and reassess as pt needs, intake, and status change. Sherrie ISABEL, MS RD LD [phone] cell"
[2020-04-09] MEDS ORDERED: MECL-149 PO (14:11)
[2020-04-09] MEDS ORDERED: AMOX500C2 PO (14:11)
--- NOTE | 2020-04-09 14:11 | NUR ---
SPOKE WITH THE PT (CALLED THE ROOM PHONE), CALLED HIS (HARJIT) AND WENT THRU THE EXT MED HISTORY TO COMPLETE THE MED REC PT WAS NOT ABLE TO GIVE ME ANY INFORMATION ABOUT HIS MEDICATIONS- WHEN I SPOKE WITH HARJIT SHE LET ME KNOW THAT THE ONLY THING RAHAT WAS TAKING IS AMOXICILLIN 500MG AND MECLIZINE 25MG FILLED ON 04-07-2020. OTC MEDS: NONE
[2020-04-09] MEDS ORDERED: inSUlin (REGULAR) HUMAN 1 UNIT/0.01 ML (CHARGE PER UNIT) SC NR (16:15)
[2020-04-09] MEDS ORDERED: LACTATED RINGERS 1,000 ML IV SCH (17:00)
[2020-04-09] MEDS ORDERED: POTASSIUM CL 10MEQ/50ML IVPB 50 ML IV SCH ×3 (17:00→18:15)
[2020-04-09 17:08] LABS: ALBUMIN 3.2 GM/DL (3.2-4.5); CHLORIDE 106 MMOL/L (98-107); POTASSIUM 3.2 MMOL/L (3.6-5.0); SODIUM 135 MMOL/L (135-145)
[2020-04-09 17:09] LABS: CALCIUM 8.1 MG/DL (8.5-10.1)
[2020-04-09 17:10] LABS: TOTAL PROTEIN 6.7 GM/DL (6.4-8.2)
[2020-04-09 17:11] LABS: CARBON DIOXIDE 14 MMOL/L (21-32)
[2020-04-09 17:12] LABS: BILIRUBIN,TOTAL 0.6 MG/DL (0.1-1.0)
[2020-04-09 17:13] LABS: ALKALINE PHOSPHATASE 57 U/L (40-136); PHOSPHORUS 1.5 MG/DL (2.3-4.7)
[2020-04-09 17:14] LABS: CREATININE SERUM 1.17 MG/DL (0.60-1.30); GFR ESTIMATED > 60
[2020-04-09 17:15] LABS: BUN/CREATININE RATIO 16; GLUCOSE 542 MG/DL (70-105)
[2020-04-09 17:16] LABS: MAGNESIUM 2.1 MG/DL (1.6-2.4)
[2020-04-09 17:17] LABS: ALANINE AMINOTRANSFERASE 27 U/L (0-55)
[2020-04-09] MEDS ORDERED: POTASSIUM PHOSPHATE INJ 30 MM in NS (IVPB) 250 ML IV ONE (17:30)
[2020-04-09] MEDS ORDERED: 1/2 NS IV SOLUTION 1,000 ML IV ONE (17:37)
[2020-04-09] MEDS ORDERED: D5 1/2 NS 1000 ML IV SOLUTION 1,000 ML IV ONE (17:37)
--- NOTE | 2020-04-09 17:44 | NUR ---
Dr Galvan and Dr Yañez notified of patient's critical lactic acid level, Dr Galvan placed orders for patient to be transferred to ICU due to concern for DKA. Patient informed and report given to ICU nurse Jessica. Patient transferred at 1740.
[2020-04-09] MEDS ORDERED: D5 1/2 NS 1000 ML IV SOLUTION 1,000 ML IV SCH (18:15)
[2020-04-09] MEDS ORDERED: 1/2 NS IV SOLUTION 1,000 ML IV SCH (18:15)
[2020-04-09] MEDS ORDERED: D5 LR IV SOLUTION 1,000 ML IV ONE (18:16)
[2020-04-09 18:46] LABS: HEMOGLOBIN 14.3 g/dL (13.3-17.7); MEAN PLATELET VOLUME 11.2 fL (9.0-12.2); WHITE BLOOD COUNT 10.3 10^3/uL (4.3-11.0)
[2020-04-09 18:55] LABS: CHLORIDE 106 MMOL/L (98-107); POTASSIUM 2.8 MMOL/L (3.6-5.0); SODIUM 136 MMOL/L (135-145)
[2020-04-09 18:56] LABS: CALCIUM 8.1 MG/DL (8.5-10.1)
[2020-04-09 18:58] LABS: CARBON DIOXIDE 18 MMOL/L (21-32)
[2020-04-09 19:00] LABS: CREATININE SERUM 1.03 MG/DL (0.60-1.30); GFR ESTIMATED > 60; PHOSPHORUS 1.3 MG/DL (2.3-4.7)
[2020-04-09 19:01] LABS: BUN/CREATININE RATIO 17
[2020-04-09 19:03] LABS: MAGNESIUM 2.1 MG/DL (1.6-2.4)
[2020-04-09] MEDS: LACTATED RINGERS 1,000 ML IV SCH ×2 (19:09→20:34)
[2020-04-09 19:14] LABS: GLUCOSE 446 MG/DL (70-105)
[2020-04-09] MEDS: POTASSIUM CL 10MEQ/50ML IVPB 50 ML IV SCH ×6 (19:30→22:30)
[2020-04-09] MEDS: D5 LR IV SOLUTION 1,000 ML IV SCH ×2 (19:34→23:05)
[2020-04-09 20:31] LABS: BILIRUBIN,URINE NEGATIVE (NEGATIVE); CLARITY,URINE CLEAR; COLOR,URINE YELLOW; GLUCOSE, URINE (UA) 3+ (NEGATIVE); KETONES,URINE TRACE (NEGATIVE); LEUKOCYTE ESTERASE ,URINE NEGATIVE (NEGATIVE); NITRITE,URINE NEGATIVE (NEGATIVE); PROTEIN,URINE TRACE (NEGATIVE)
[2020-04-09 20:52] LABS: RBC,URINE >100 /HPF
[2020-04-09 20:53] LABS: AMORPHOUS SEDIMENT,UR RARE AMOR URATES /LPF; BACTERIA,URINE TRACE /HPF
[2020-04-09] MEDS ORDERED: inSUlin (REGULAR) HUMAN 1 UNIT/0.01 ML (CHARGE PER UNIT) SC SCH (21:00)
[2020-04-09] MEDS ORDERED: ENOXAPARIN 40 MG/0.4 ML (LOVENOX) SYR SC SCH (21:00)
[2020-04-09] MEDS ORDERED: WATER (STERILE) FOR INJECTION 10 ML ONE (21:30)
[2020-04-09] MEDS ORDERED: cefTRIAXone 1,000 MG IV (ROCEPHIN) VIAL ONE (21:30)
[2020-04-09] MEDS: AZITHROMYCIN INJECTION 500 MG in NS (IVPB) 250 ML IV SCH (21:31)
[2020-04-09] MEDS: cefTRIAXone FOR IV USE 1,000 MG in WATER (STERILE) FOR INJECTION 10 ML IV SCH (21:35)
[2020-04-09 22:58] LABS: CHLORIDE 105 MMOL/L (98-107); POTASSIUM 3.3 MMOL/L (3.6-5.0); SODIUM 135 MMOL/L (135-145)
[2020-04-09 22:59] LABS: CALCIUM 7.9 MG/DL (8.5-10.1)
[2020-04-09 23:00] LABS: GLUCOSE 357 MG/DL (70-105)
[2020-04-09 23:01] LABS: CARBON DIOXIDE 18 MMOL/L (21-32)
[2020-04-09 23:04] LABS: CREATININE SERUM 0.96 MG/DL (0.60-1.30); GFR ESTIMATED > 60; PHOSPHORUS 1.7 MG/DL (2.3-4.7)
[2020-04-09 23:05] LABS: BUN/CREATININE RATIO 16
[2020-04-09 23:06] LABS: MAGNESIUM 2.2 MG/DL (1.6-2.4)
[2020-04-10] VITALS (23 sets, daily range): BP systolic 129–177; BP diastolic 73–101
[2020-04-10 00:34] LABS: CHLORIDE 105 MMOL/L (98-107); POTASSIUM 3.4 MMOL/L (3.6-5.0); SODIUM 138 MMOL/L (135-145)
[2020-04-10 00:35] LABS: GLUCOSE 257 MG/DL (70-105)
[2020-04-10] MEDS: D5 LR IV SOLUTION 1,000 ML IV SCH ×3 (00:35→06:36)
[2020-04-10] MEDS: LACTATED RINGERS 1,000 ML IV SCH ×5 (00:35→09:00)
[2020-04-10 00:37] LABS: CARBON DIOXIDE 19 MMOL/L (21-32)
[2020-04-10 00:39] LABS: CREATININE SERUM 0.97 MG/DL (0.60-1.30); GFR ESTIMATED > 60; PHOSPHORUS 2.8 MG/DL (2.3-4.7)
[2020-04-10 00:40] LABS: BUN/CREATININE RATIO 14
[2020-04-10 00:42] LABS: MAGNESIUM 2.2 MG/DL (1.6-2.4)
[2020-04-10] MEDS: inSUlin ASPART (NovoLOG) 1 UNIT/0.01 ML (CHARGE PER UNIT) SC SCH ×6 (00:52→20:22)
[2020-04-10 03:08] LABS: BASOPHILS % (AUTO) 0 % (0-10); EOSINOPHILS % (AUTO) 0 % (0-10); HEMATOCRIT 38 % (40-54); HEMOGLOBIN 12.9 g/dL (13.3-17.7); LYMPHOCYTES # (AUTO) 0.9 10^3/uL (1.0-4.0); LYMPHOCYTES % (AUTO) 11 % (12-44); MEAN CORPUSCULAR HEMOGLOBIN 28 pg (25-34); MEAN CORPUSCULAR HGB CONC 34 g/dL (32-36); MEAN CORPUSCULAR VOLUME 82 fL (80-99); MEAN PLATELET VOLUME 11.3 fL (9.0-12.2); MONOCYTES # (AUTO) 0.5 10^3/uL (0.0-1.0); MONOCYTES % (AUTO) 6 % (0-12); NEUTROPHILS # (AUTO) 7.3 10^3/uL (1.8-7.8); NEUTROPHILS % (AUTO) 83 % (42-75); PLATELET COUNT 289 10^3/uL (130-400); WHITE BLOOD COUNT 8.7 10^3/uL (4.3-11.0)
[2020-04-10 03:30] LABS: CHLORIDE 106 MMOL/L (98-107); POTASSIUM 3.1 MMOL/L (3.6-5.0); SODIUM 138 MMOL/L (135-145)
[2020-04-10 03:31] LABS: CALCIUM 7.8 MG/DL (8.5-10.1)
[2020-04-10 03:32] LABS: GLUCOSE 215 MG/DL (70-105)
[2020-04-10 03:34] LABS: CARBON DIOXIDE 21 MMOL/L (21-32)
[2020-04-10 03:36] LABS: CREATININE SERUM 0.86 MG/DL (0.60-1.30); GFR ESTIMATED > 60; PHOSPHORUS 3.4 MG/DL (2.3-4.7)
[2020-04-10 03:37] LABS: BUN/CREATININE RATIO 16
[2020-04-10 03:38] LABS: MAGNESIUM 2.1 MG/DL (1.6-2.4)
--- NOTE | 2020-04-10 05:04 | Pulmonary Consultation ---
History of Present Illness History of Present Illness Date Seen by Provider: Apr 10, 2020 Time Seen by Provider: 04:58 Date of Admission History of Present Illness 50yo admitted to 4th floor secondary to COVID and worsening SOB. Pt transferred to ICU last night secondary to acute DKA and worsening SOB. Allergies and Home Medications Allergies Coded Allergies: No Known Drug Allergies (Unverified , 04/22/12) Home Medications Amoxicillin 500 Mg Capsule, 500 MG PO BID, (Reported) FILLED 04-07-2020 #20/ DAY SUPPLY Meclizine HCl 25 Mg Tablet, 25 MG PO Q6H PRN for DIZZINESS, (Reported) Past Ivwmjkw-Jqhhqn-Sufzxy Hx Past Med/Social Hx: Reviewed and Corrections made Patient Social History Alcohol Use: Denies Use Smoking Status: Never a Smoker 2nd Hand Smoke Exposure: No Recent Infectious Disease Expo: Yes (pt covid positive) Recent Hopitalizations: No Physical Abuse: No Sexual Abuse: No Mistreated: No Fear: No Seasonal Allergies Seasonal Allergies: No Past Medical History Surgeries: Yes Abdominal, Appendectomy, Bowel Surgery, Gallbladder Respiratory: No Cardiac: Yes Hypertension Neurological: No Reproductive Disorders: No Sexually Transmitted Disease: No HIV/AIDS: No Genitourinary: No Gastrointestinal: Yes (APPY;CHERYL; PARTIAL COLECTOMY) Crohns Disease, Gall Bladder Disease Musculoskeletal: No Endocrine: Yes (ELN-[id number] NOT TAKE MEDS, CHECK GLUCOSE OR FOLLOW DIET) Diabetes, Non-Insulin dep HEENT: Yes (04/2019--PERTONSILLAR ABSCESS/TRANSFERRED TO [facility].NO SURGERY ) Cancer: No Psychosocial: No Integumentary: No Blood Disorders: No Adverse Reaction/Blood Tranf: No Sepsis Event Evaluation Height, Weight, BMI Height: '" Weight: lbs. oz. kg; 35.28 BMI Method: Exam Exam Vital Signs Date Time Temp Pulse Resp B/P (MAP) Pulse Ox O2 Delivery O2 Flow Rate FiO2 04/10/20 03:03 91 Vapotherm 30.00 60 04/10/20 02:00 75 150/88 (108) 94 Vapotherm 30.00 70.00 04/10/20 01:11 Vapotherm 30.00 70.00 04/10/20 01:00 80 153/90 (111) 90 Vapotherm 30.00 60.00 04/10/20 00:57 81 04/10/20 00:17 Vapotherm 30.00 60.00 04/10/20 00:05 93 Vapotherm 30.00 60 04/10/20 00:00 92 163/95 (117) 89 High Flow N/C 12.00 04/09/20 23:47 36.0 04/09/20 23:00 88 157/91 (113) 95 High Flow N/C 12.00 04/09/20 22:00 96 18 157/95 (115) 89 High Flow N/C 12.00 04/09/20 21:00 96 18 153/91 (111) 90 High Flow N/C 12.00 04/09/20 20:00 105 18 150/92 (111) 92 High Flow N/C 12.00 04/09/20 20:00 91 High Flow N/C 12.00 04/09/20 19:26 36.1 04/09/20 19:00 103 18 170/92 (118) 90 High Flow N/C 12.00 04/09/20 19:00 98 04/09/20 18:17 37.0 High Flow N/C 12.00 04/09/20 16:00 36.4 108 18 137/79 (98) 90 Nasal Cannula 4.00 04/09/20 14:30 94 Nasal Cannula 3.00 04/09/20 12:09 84 04/09/20 12:00 35.6 81 16 152/76 (101) 95 Nasal Cannula 3.00 04/09/20 10:29 93 Nasal Cannula 3.00 04/09/20 08:29 35.3 82 20 176/96 (122) 94 Nasal Cannula 3.00 04/09/20 08:00 90 Nasal Cannula 4.00 04/09/20 06:30 76 I & O 04/10/20 07:00 Intake Total 1450 ml Output Total 2400 ml Balance -950 ml Height & Weight Height: '" Weight: lbs. oz. kg; 35.28 BMI Method: General Appearance: Other (VERY LETHARGIC, MINIMALLY VERBAL, SKIN VERY WARM AND FLUSHED) HEENT: PERRL/EOMI Neck: Normal Inspection Respiratory: Normal Breath Sounds (BUT DECREASED AERATION IN BASES), No Accessory Muscle Use, No Respiratory Distress Cardiovascular: No Edema, No Murmur, Tachycardia (130'S) Capillary Refill: Less Than 3 Seconds Extremity: No Pedal Edema Neurologic/Psychiatric: Other (LETHARGIC, GROSS MOTOR/SENSORY INTACT, MINIMALLY VERBAL --ANSWERS A FEW YES/NO QUESTIONS. ) Skin: Other (FLUSHED, VERY WARM, ) Results Lab Laboratory Tests 04/08/20 19:43 04/09/20 04:26 04/09/20 16:15 04/09/20 18:35 04/09/20 21:50 04/10/20 00:03 04/10/20 02:52 Assessment/Plan Assessment/Plan Acute respiratory failure secondary to COVID -Currently on Vapotherm at 60% -Currently on Remdesivir - Will D/C secondary to pt requiring high flow oxygen -Decadron -CVP -Repeat DDIMer -Influenza is negative Secondary pneumonia -Continue rocephin and azithromycin -Rae cultures Hypokalemia -Replace Gi/DVT ppx MAREN SINGH DO Apr 10, 2020 05:04
[2020-04-10] MEDS: POTASSIUM CL 10MEQ/50ML IVPB 50 ML IV SCH ×4 (05:35→14:49)
[2020-04-10] MEDS ORDERED: inSUlin ASPART (NovoLOG) 1 UNIT/0.01 ML (CHARGE PER UNIT) SC SCH (06:00)
[2020-04-10] MEDS: RT-ALBUTEROL INHALER HFA (VENTOLIN HFA) 18 GM IH SCH ×4 (06:35→19:05)
--- NOTE | 2020-04-10 07:35 | Diagnostic Imaging Report ---
CHEST 1 VIEW, AP/PA ONLY Indication: Dyspnea. Comparison: 04/08/2020 Findings: Worsening of multifocal peripheral pulmonary consolidations in both lungs. No pleural effusion or pneumothorax. Normal cardiomediastinal silhouette. Impression: 1. Worsening of bibasilar pulmonary consolidations likely due to multifocal pneumonia. Dictated by: Dictated on workstation # [id number]
--- NOTE | 2020-04-10 08:52 | Progress Note - Hospitalist ---
Subjective HPI/CC On Admission Date Seen by Provider: Apr 10, 2020 CC: SOB HPI: This is a 50yoWM clinic Pt of [facility] who has no medical history since he never goes to the doctor who presented with Covid-positive swab results with SOB of hypoxia. He was found to have new onset DM and appears to have high risk for severe JOSÉ MIGUEL. He was placed on protocol for Covid-19 treatment along with oxygen supplementation and overall he will be monitored closely for decompensation because he appears to be very high risk for intubation and respiratory failure. Lovenox was changed to 60 mg BID due to increased BMI. He is a lifetime nonsmoker and does not drink alcohol. He lives at home with his partner and he is retired from the [employer] in [place]. Focused Exam Lactate Level 04/09/20 21:50: Lactic Acid Level 2.93*H 04/10/20 00:03: Lactic Acid Level 2.46*H 04/10/20 02:52: Lactic Acid Level 2.00 Objective Exam Vital Signs Vital Signs Date Time Temp Pulse Resp B/P (MAP) Pulse Ox O2 Delivery O2 Flow Rate FiO2 04/10/20 10:18 95 Vapotherm 40.00 90 04/10/20 06:36 76 04/10/20 06:00 154/91 (112) 04/10/20 04:00 35.8 04/09/20 22:00 18 Capillary Refill : Less Than 3 SecondsLess Than 3 Seconds Results/Procedures Lab Laboratory Tests 04/09/20 16:15 04/09/20 18:35 04/09/20 21:50 04/10/20 00:03 04/10/20 02:52 Patient resulted labs reviewed. Diagnosis/Problems Diagnosis/Problems (1) Acute respiratory failure due to COVID-19 Status: Acute (2) Pneumonia due to COVID-19 virus Status: Acute (3) Uncontrolled diabetes mellitus Status: Acute (4) Sepsis (5) Dehydration Status: Acute (6) Non-compliance Status: Acute (7) Renal insufficiency Status: Acute Clinical Quality Measures DVT/VTE Risk/Contraindication: Risk Factor Score Per Nursin RFS Level Per Nursing on Admit: 4+=Very High WISAM LIPSCOMB DO Apr 10, 2020 08:52
[2020-04-10] MEDS ORDERED: REMDESIVIR 100 MG/NS 250 ML IVPB IV SCH ×2 (09:00)
[2020-04-10] MEDS: ENOXAPARIN 60 MG/0.6 ML (LOVENOX) SYR SC SCH ×2 (09:02→21:30)
[2020-04-10] MEDS: FAMOTIDINE 20MG/2ML IV (PEPCID) IV SCH (09:02)
[2020-04-10] MEDS: AZITHROMYCIN INJECTION 500 MG in NS (IVPB) 250 ML IV SCH (20:22)
[2020-04-10] MEDS ORDERED: cefTRIAXone 1,000 MG IV (ROCEPHIN) VIAL ONE (21:14)
[2020-04-10] MEDS ORDERED: WATER (STERILE) FOR INJECTION 10 ML ONE (21:15)
[2020-04-10] MEDS: cefTRIAXone FOR IV USE 1,000 MG in WATER (STERILE) FOR INJECTION 10 ML IV SCH (21:30)
[2020-04-11] VITALS (27 sets, daily range): BP systolic 129–175; BP diastolic 86–111
[2020-04-11] MEDS: inSUlin ASPART (NovoLOG) 1 UNIT/0.01 ML (CHARGE PER UNIT) SC SCH ×7 (00:06→23:40)
[2020-04-11] MEDS: LACTATED RINGERS 1,000 ML IV SCH ×2 (00:56→08:24)
[2020-04-11 02:25] LABS: BASOPHILS % (AUTO) 0 % (0-10); EOSINOPHILS % (AUTO) 0 % (0-10)
[2020-04-11 02:26] LABS: HEMATOCRIT 34 % (40-54); HEMOGLOBIN 11.5 g/dL (13.3-17.7); LYMPHOCYTES # (AUTO) 0.8 10^3/uL (1.0-4.0); LYMPHOCYTES % (AUTO) 12 % (12-44); MEAN CORPUSCULAR HEMOGLOBIN 28 pg (25-34); MEAN CORPUSCULAR HGB CONC 34 g/dL (32-36); MEAN CORPUSCULAR VOLUME 83 fL (80-99); MEAN PLATELET VOLUME 11.5 fL (9.0-12.2); MONOCYTES # (AUTO) 0.5 10^3/uL (0.0-1.0); MONOCYTES % (AUTO) 7 % (0-12); NEUTROPHILS # (AUTO) 5.3 10^3/uL (1.8-7.8); NEUTROPHILS % (AUTO) 80 % (42-75); WHITE BLOOD COUNT 6.6 10^3/uL (4.3-11.0)
[2020-04-11 02:35] LABS: PLATELET COUNT 223 10^3/uL (130-400)
[2020-04-11 02:40] LABS: CHLORIDE 107 MMOL/L (98-107); POTASSIUM 3.2 MMOL/L (3.6-5.0); SODIUM 140 MMOL/L (135-145)
[2020-04-11 02:41] LABS: CALCIUM 7.4 MG/DL (8.5-10.1)
[2020-04-11 02:42] LABS: GLUCOSE 181 MG/DL (70-105)
[2020-04-11 02:43] LABS: CARBON DIOXIDE 19 MMOL/L (21-32)
[2020-04-11 02:45] LABS: PHOSPHORUS 2.5 MG/DL (2.3-4.7)
[2020-04-11 02:46] LABS: CREATININE SERUM 0.62 MG/DL (0.60-1.30); GFR ESTIMATED > 60
[2020-04-11 02:47] LABS: BUN/CREATININE RATIO 19
[2020-04-11 02:48] LABS: MAGNESIUM 1.7 MG/DL (1.6-2.4)
--- NOTE | 2020-04-11 05:12 | Pulmonary Progress Note ---
Subjective Time Seen by a Provider: 05:09 Subjective/Events-last exam Pt is requiring 100% Vapotherm. Sepsis Event Evaluation Height, Weight, BMI Height: '" Weight: lbs. oz. kg; 35.28 BMI Method: Focused Exam Lactate Level 04/09/20 21:50: Lactic Acid Level 2.93*H 04/10/20 00:03: Lactic Acid Level 2.46*H 04/10/20 02:52: Lactic Acid Level 2.00 Exam Exam Vital Signs Date Time Temp Pulse Resp B/P (MAP) Pulse Ox O2 Delivery O2 Flow Rate FiO2 04/11/20 05:00 72 173/104 (127) 92 Vapotherm 30.00 100.00 04/11/20 04:00 64 165/101 (119) 95 Vapotherm 30.00 100.00 04/11/20 03:00 72 175/106 (131) 93 Vapotherm 30.00 100.00 04/11/20 02:10 93 Vapotherm 40.00 90 04/11/20 02:00 79 160/95 (120) 86 Vapotherm 30.00 100.00 04/11/20 01:00 67 152/93 (114) 90 Vapotherm 30.00 100.00 04/11/20 00:44 68 04/11/20 00:00 72 154/93 (105) 96 Vapotherm 30.00 100.00 04/10/20 23:17 Vapotherm 30.00 100.00 04/10/20 23:09 35.0 04/10/20 23:00 75 160/100 (126) 92 Vapotherm 30.00 70.00 04/10/20 22:00 69 151/97 (115) 97 Vapotherm 30.00 70.00 04/10/20 21:50 94 Vapotherm 40.00 90 04/10/20 21:00 79 157/98 (117) 92 Vapotherm 30.00 70.00 04/10/20 20:00 86 158/101 (134) 95 Vapotherm 30.00 70.00 04/10/20 20:00 95 Vapotherm 40.00 90 04/10/20 20:00 Vapotherm 30.00 70.00 04/10/20 19:26 35.8 04/10/20 19:05 95 Vapotherm 40.00 90 04/10/20 19:00 85 157/99 (113) 95 04/10/20 19:00 85 157/99 (118) 95 Vapotherm 30.00 70.00 04/10/20 19:00 89 04/10/20 18:15 96 93 04/10/20 18:00 96 157/88 (111) 92 Vapotherm 30.00 70.00 04/10/20 18:00 95 157/88 (113) 92 04/10/20 17:15 95 91 04/10/20 17:00 83 177/98 (124) 88 Vapotherm 30.00 70.00 04/10/20 17:00 94 177/98 (125) 90 04/10/20 16:15 90 90 04/10/20 16:00 96 157/99 (118) 91 Vapotherm 30.00 70.00 04/10/20 15:55 36.6 04/10/20 15:00 93 152/88 (109) 93 Vapotherm 30.00 70.00 04/10/20 14:07 96 Vapotherm 40.00 90 04/10/20 14:00 77 134/75 (94) 92 Vapotherm 30.00 70.00 04/10/20 13:00 83 129/73 (91) 90 Vapotherm 30.00 70.00 04/10/20 12:34 78 04/10/20 12:00 78 162/89 (113) 92 Vapotherm 30.00 70.00 04/10/20 10:18 95 Vapotherm 40.00 90 04/10/20 10:00 80 148/90 (109) 88 Vapotherm 30.00 70.00 04/10/20 09:00 80 148/90 (109) 90 Vapotherm 30.00 70.00 04/10/20 08:00 71 150/91 (110) 94 Vapotherm 30.00 70.00 04/10/20 08:00 95 Vapotherm 40.00 100 04/10/20 07:00 74 148/93 (111) 96 Vapotherm 30.00 70.00 04/10/20 06:36 76 04/10/20 06:35 95 Vapotherm 35.00 80 04/10/20 06:00 79 154/91 (112) 86 Vapotherm 30.00 70.00 I & O 04/11/20 07:00 Intake Total 1790 ml Output Total 2175 ml Balance -385 ml Height & Weight Height: '" Weight: lbs. oz. kg; 35.28 BMI Method: General Appearance: Anxious, Chronically ill, Moderate Distress, Obese HEENT: PERRL/EOMI, Normal ENT Inspection, Pharynx Normal, Moist Mucous Membranes Neck: Full Range of Motion, Normal Inspection, Non Tender Respiratory: Chest Non Tender, Lungs Clear, Normal Breath Sounds, Accessory Muscle Use, Decreased Breath Sounds Cardiovascular: Regular Rate, Rhythm, No Edema, No Gallop, No JVD, No Murmur, Normal Peripheral Pulses Capillary Refill: Less Than 3 Seconds Extremity: Normal Capillary Refill, Normal Inspection, Normal Range of Motion, Non Tender, No Calf Tenderness, No Pedal Edema Neurologic/Psychiatric: Alert, Oriented x3, No Motor/Sensory Deficits, Normal Mood/Affect Skin: Normal Color, Warm/Dry Lymphatic: No Adenopathy Results Lab Laboratory Tests 04/09/20 16:15 04/09/20 18:35 04/09/20 21:50 04/10/20 00:03 04/10/20 02:52 04/11/20 02:07 Assessment/Plan Assessment/Plan Acute respiratory failure secondary to COVID -Currently on Vapotherm at 100% -BiPAP prn -Low threshold for intubation - Remdesivir - Does not qualify -Decadron -CVP -Repeat DDIMer -Influenza is negative Secondary pneumonia -Continue rocephin and azithromycin -Rae cultures Agitation -Start risperdol and PRN Haldol -PRN Morphine Hypokalemia -Replace Gi/DVT ppx MAREN SINGH DO Apr 11, 2020 05:12
[2020-04-11] MEDS ORDERED: morphine INJ 4 MG/ML 1 ML (VIAL/SYRINGE) IVP PRN (05:15)
[2020-04-11] MEDS: MAGNESIUM 1 GM/100 ML IVPB 100 ML IV SCH ×3 (05:15→08:22)
[2020-04-11] MEDS ORDERED: HALOPERIDOL 5 MG/ML (HALDOL) VIAL IM PRN (05:15)
[2020-04-11] MEDS: RT-ALBUTEROL INHALER HFA (VENTOLIN HFA) 18 GM IH SCH ×5 (06:34→23:43)
[2020-04-11] MEDS ORDERED: POTASSIUM PHOSPHATE INJ 30 MM in NS (IVPB) 250 ML IV ONE (08:00)
--- NOTE | 2020-04-11 08:02 | Diagnostic Imaging Report ---
Indication: Dyspnea Portable chest shows cardiomegaly with normal vascularity. There are bilateral infiltrates. There is no effusion or pneumothorax. Right arm PICC line is present with tip in the right atrium. IMPRESSION: Stable infiltrates compared to 04/10/2020. The PICC line tip is in the inferior right atrium. Dictated by: Dictated on workstation # [id number]
[2020-04-11] MEDS: FAMOTIDINE 20MG/2ML IV (PEPCID) IV SCH (08:23)
[2020-04-11] MEDS: risperiDONE 0.5 MG (RisperDAL) TABLET PO SCH ×2 (08:23→20:58)
[2020-04-11] MEDS: ENOXAPARIN 60 MG/0.6 ML (LOVENOX) SYR SC SCH ×2 (08:23→20:57)
--- NOTE | 2020-04-11 10:09 | NUR ---
Spoke with Kristina Pt's at this time with an update
[2020-04-11] MEDS: meTOprolol TARTRATE 25 MG (LOPRESSOR) TABLET PO SCH ×2 (16:37→20:58)
[2020-04-11] MEDS ORDERED: cefTRIAXone 1,000 MG IV (ROCEPHIN) VIAL ONE (20:40)
[2020-04-11] MEDS ORDERED: WATER (STERILE) FOR INJECTION 10 ML ONE (20:40)
[2020-04-11] MEDS: AZITHROMYCIN INJECTION 500 MG in NS (IVPB) 250 ML IV SCH (20:57)
[2020-04-11] MEDS: cefTRIAXone FOR IV USE 1,000 MG in WATER (STERILE) FOR INJECTION 10 ML IV SCH (20:57)
--- NOTE | 2020-04-11 21:00 | NUR ---
Telephone update given to patient at this time.
[2020-04-12] VITALS (24 sets, daily range): BP systolic 135–169; BP diastolic 46–102
[2020-04-12] MEDS: RT-ALBUTEROL INHALER HFA (VENTOLIN HFA) 18 GM IH SCH ×6 (02:27→21:32)
[2020-04-12 03:15] LABS: BASOPHILS % (AUTO) 0 % (0-10); EOSINOPHILS % (AUTO) 0 % (0-10); HEMATOCRIT 38 % (40-54); HEMOGLOBIN 12.7 g/dL (13.3-17.7); LYMPHOCYTES # (AUTO) 1.1 10^3/uL (1.0-4.0); LYMPHOCYTES % (AUTO) 14 % (12-44); MEAN CORPUSCULAR HEMOGLOBIN 28 pg (25-34); MEAN CORPUSCULAR HGB CONC 34 g/dL (32-36); MEAN CORPUSCULAR VOLUME 82 fL (80-99); MEAN PLATELET VOLUME 11.1 fL (9.0-12.2); MONOCYTES # (AUTO) 0.6 10^3/uL (0.0-1.0); MONOCYTES % (AUTO) 8 % (0-12); NEUTROPHILS # (AUTO) 5.8 10^3/uL (1.8-7.8); NEUTROPHILS % (AUTO) 77 % (42-75); PLATELET COUNT 320 10^3/uL (130-400); WHITE BLOOD COUNT 7.6 10^3/uL (4.3-11.0)
[2020-04-12 03:31] LABS: CHLORIDE 105 MMOL/L (98-107); POTASSIUM 2.9 MMOL/L (3.6-5.0); SODIUM 143 MMOL/L (135-145)
[2020-04-12 03:32] LABS: CALCIUM 7.9 MG/DL (8.5-10.1)
[2020-04-12 03:33] LABS: ABG BASE EXCESS 5.8 MMOL/L (-2.5-2.5); ABG OXYGEN SATURATION 68 % (94-100); ABG PCO2 45 MMHG (35-45); ABG PH 7.44 (7.37-7.43); ABG TCO2 31.6 MMOL/L (21.0-31.0)
[2020-04-12 03:33] LABS: GLUCOSE 201 MG/DL (70-105)
[2020-04-12 03:35] LABS: CARBON DIOXIDE 27 MMOL/L (21-32)
[2020-04-12 03:37] LABS: CREATININE SERUM 0.69 MG/DL (0.60-1.30); GFR ESTIMATED > 60; PHOSPHORUS 3.3 MG/DL (2.3-4.7)
[2020-04-12 03:38] LABS: BUN/CREATININE RATIO 23
[2020-04-12 03:52] LABS: ABG PO2 38 MMHG (79-93)
[2020-04-12 03:53] LABS: ALLENS TEST NO; INSPIRED O2 85%; VENTILATOR NO
[2020-04-12 03:54] LABS: PATIENT TEMP 36
[2020-04-12] MEDS: MAGNESIUM 1 GM/100 ML IVPB 100 ML IV SCH (04:21)
[2020-04-12] MEDS: inSUlin ASPART (NovoLOG) 1 UNIT/0.01 ML (CHARGE PER UNIT) SC SCH ×6 (04:21→23:05)
[2020-04-12] MEDS: KCL 20 MEQ TAB (K-DUR) PO SCH (04:22)
[2020-04-12] MEDS: LACTATED RINGERS 1,000 ML IV SCH ×2 (04:23→23:46)
--- NOTE | 2020-04-12 05:11 | Pulmonary Progress Note ---
Subjective Date Seen by a Provider: Apr 12, 2020 Time Seen by a Provider: 05:09 Subjective/Events-last exam Pt is on BiPAP currently at 60% Sepsis Event Evaluation Height, Weight, BMI Height: '" Weight: lbs. oz. kg; 35.28 BMI Method: Focused Exam Lactate Level 04/09/20 21:50: Lactic Acid Level 2.93*H 04/10/20 00:03: Lactic Acid Level 2.46*H 04/10/20 02:52: Lactic Acid Level 2.00 Exam Exam Vital Signs Date Time Temp Pulse Resp B/P (MAP) Pulse Ox O2 Delivery O2 Flow Rate FiO2 04/12/20 05:00 55 14 155/96 (115) 91 NIV Bilevel 85.00 04/12/20 04:00 56 14 154/99 (117) 92 NIV Bilevel 85.00 04/12/20 03:00 64 14 154/95 (114) 91 NIV Bilevel 85.00 04/12/20 02:30 36.0 NIV Bilevel 85.00 04/12/20 02:27 59 15 94 90.00 04/12/20 02:00 56 14 162/89 (113) 96 NIV Bilevel 90.00 04/12/20 01:00 62 14 147/81 (103) 93 NIV Bilevel 90.00 04/12/20 00:48 62 04/12/20 00:00 67 14 151/84 (106) 94 NIV Bilevel 90.00 04/11/20 23:43 60 16 94 90.00 04/11/20 23:35 36.5 NIV Bilevel 90.00 04/11/20 23:00 72 14 134/90 (105) 96 NIV Bilevel 90.00 04/11/20 22:00 74 14 129/86 (100) 95 NIV Bilevel 90.00 04/11/20 21:30 NIV Bilevel 90.00 04/11/20 21:05 Vapotherm 40.00 100.00 04/11/20 21:00 65 14 155/105 (122) 92 NIV Bilevel 90.00 04/11/20 20:59 NIV Bilevel 90.00 04/11/20 20:02 58 16 95 90.00 04/11/20 20:00 65 14 166/100 (122) 96 NIV Bilevel 85.00 04/11/20 20:00 95 NIV Bilevel 90 04/11/20 19:11 61 04/11/20 19:00 35.6 65 14 153/94 (113) 92 NIV Bilevel 90.00 04/11/20 18:00 66 159/94 (115) 93 Vapotherm 30.00 100.00 04/11/20 17:00 70 172/109 (130) 92 Vapotherm 30.00 100.00 04/11/20 16:25 36.2 70 95 80 04/11/20 16:00 70 163/102 (122) 95 Vapotherm 30.00 100.00 04/11/20 15:29 36.2 04/11/20 15:00 72 174/104 (127) 95 Vapotherm 30.00 100.00 04/11/20 14:22 Vapotherm 30.00 80.00 04/11/20 14:18 71 22 97 80.00 04/11/20 14:00 68 97 Vapotherm 30.00 100.00 04/11/20 13:00 74 158/93 (114) 93 Vapotherm 30.00 100.00 04/11/20 12:43 73 04/11/20 12:00 76 133/111 (118) 96 Vapotherm 30.00 100.00 04/11/20 11:40 35.9 04/11/20 11:00 75 152/92 (112) 93 Vapotherm 30.00 100.00 04/11/20 10:26 67 16 92 100.00 04/11/20 10:00 68 144/89 (107) 92 Vapotherm 30.00 100.00 04/11/20 09:00 67 154/92 (112) 91 Vapotherm 30.00 100.00 04/11/20 08:00 95 NIV Bilevel 100.00 93 04/11/20 08:00 75 154/97 (116) 90 Vapotherm 30.00 100.00 04/11/20 07:30 36.1 04/11/20 07:00 66 151/94 (113) 92 Vapotherm 30.00 100.00 04/11/20 06:36 68 04/11/20 06:35 74 19 91 100.00 04/11/20 06:00 70 159/100 (119) 94 Vapotherm 30.00 100.00 I & O 04/12/20 07:00 Intake Total 1605 ml Output Total 2300 ml Balance -695 ml Height & Weight Height: '" Weight: lbs. oz. kg; 35.28 BMI Method: General Appearance: Anxious, Chronically ill, Moderate Distress, Obese HEENT: PERRL/EOMI, Normal ENT Inspection, Pharynx Normal, Moist Mucous Membranes Neck: Full Range of Motion, Normal Inspection, Non Tender Respiratory: Chest Non Tender, Lungs Clear, Normal Breath Sounds, Accessory Muscle Use, Decreased Breath Sounds Cardiovascular: Regular Rate, Rhythm, No Edema, No Gallop, No JVD, No Murmur, Normal Peripheral Pulses Capillary Refill: Less Than 3 Seconds Extremity: Normal Capillary Refill, Normal Inspection, Normal Range of Motion, Non Tender, No Calf Tenderness, No Pedal Edema Neurologic/Psychiatric: Alert, Oriented x3, No Motor/Sensory Deficits, Normal Mood/Affect Skin: Normal Color, Warm/Dry Lymphatic: No Adenopathy Results Lab Laboratory Tests 04/11/20 02:07 04/12/20 02:58 Assessment/Plan Assessment/Plan Acute respiratory failure secondary to COVID -Currently on BiPAP 85% -ABG is venous -Low threshold for intubation -CXR pending - Remdesivir - Does not qualify -Decadron -CVP -Repeat DDIMer -Influenza is negative Secondary pneumonia -Continue rocephin and azithromycin -Rae cultures Hypokalemia -Replace Agitation -Start risperdol and PRN Haldol -PRN Morphine Gi/DVT ppx MAREN SINGH DO Apr 12, 2020 05:11
[2020-04-12] MEDS: POTASSIUM CL 10MEQ/50ML IVPB 50 ML IV SCH ×6 (05:17→11:26)
--- NOTE | 2020-04-12 08:39 | Diagnostic Imaging Report ---
INDICATION: Dyspnea. Comparison made to prior examination 04/11/2020. FINDINGS: Heart size is stable. There are patchy bilateral pulmonary infiltrates. There is no pleural effusion or pneumothorax. Mediastinum is unremarkable. The right upper extremity PICC line has its tip in the superior vena cava. IMPRESSION: Patchy bilateral pulmonary infiltrates suspect for atypical pneumonia possibly COVID. An underlying central pulmonary venous congestion cannot be excluded. Dictated by: Dictated on workstation # [id number]
[2020-04-12] MEDS: FAMOTIDINE 20MG/2ML IV (PEPCID) IV SCH (08:48)
[2020-04-12] MEDS: risperiDONE 0.5 MG (RisperDAL) TABLET PO SCH ×2 (08:48→20:36)
[2020-04-12] MEDS: meTOprolol TARTRATE 25 MG (LOPRESSOR) TABLET PO SCH ×2 (08:48→20:36)
[2020-04-12] MEDS: ENOXAPARIN 60 MG/0.6 ML (LOVENOX) SYR SC SCH ×2 (08:50→20:36)
--- NOTE | 2020-04-12 09:49 | NUR ---
Updated pt's , Kristina at this time.
[2020-04-12] MEDS: AZITHROMYCIN INJECTION 500 MG in NS (IVPB) 250 ML IV SCH (19:34)
[2020-04-12] MEDS ORDERED: cefTRIAXone 1,000 MG IV (ROCEPHIN) VIAL ONE (19:56)
[2020-04-12] MEDS ORDERED: WATER (STERILE) FOR INJECTION 10 ML ONE (19:56)
[2020-04-12] MEDS: cefTRIAXone FOR IV USE 1,000 MG in WATER (STERILE) FOR INJECTION 10 ML IV SCH (20:36)
--- NOTE | 2020-04-12 20:43 | NUR ---
Patient wallet placed in his tennis shoe.
--- NOTE | 2020-04-12 21:23 | NUR ---
Telephone update given to patient at this time.
--- NOTE | 2020-04-12 23:15 | NUR ---
Call to E ICU to report SBP in the 160's. Orders to follow.
[2020-04-12] MEDS: LABETALOL HCL 20 MG/4 ML VIAL IV PRN (23:40)
[2020-04-13] VITALS (27 sets, daily range): BP systolic 144–188; BP diastolic 81–111
[2020-04-13] MEDS: RT-ALBUTEROL INHALER HFA (VENTOLIN HFA) 18 GM IH SCH ×7 (02:15→23:04)
[2020-04-13] MEDS: LABETALOL HCL 20 MG/4 ML VIAL IV PRN ×3 (02:39→16:57)
[2020-04-13 03:06] LABS: BASOPHILS % (AUTO) 0 % (0-10); EOSINOPHILS % (AUTO) 0 % (0-10); HEMATOCRIT 38 % (40-54); HEMOGLOBIN 12.8 g/dL (13.3-17.7); LYMPHOCYTES # (AUTO) 1.3 10^3/uL (1.0-4.0); LYMPHOCYTES % (AUTO) 17 % (12-44); MEAN CORPUSCULAR HEMOGLOBIN 28 pg (25-34); MEAN CORPUSCULAR HGB CONC 34 g/dL (32-36); MEAN CORPUSCULAR VOLUME 83 fL (80-99); MEAN PLATELET VOLUME 10.9 fL (9.0-12.2); MONOCYTES # (AUTO) 0.6 10^3/uL (0.0-1.0); MONOCYTES % (AUTO) 8 % (0-12); NEUTROPHILS # (AUTO) 5.4 10^3/uL (1.8-7.8); NEUTROPHILS % (AUTO) 73 % (42-75); PLATELET COUNT 339 10^3/uL (130-400); WHITE BLOOD COUNT 7.4 10^3/uL (4.3-11.0)
[2020-04-13 03:27] LABS: MAGNESIUM 1.9 MG/DL (1.6-2.4); PHOSPHORUS 3.7 MG/DL (2.3-4.7)
[2020-04-13] MEDS: inSUlin ASPART (NovoLOG) 1 UNIT/0.01 ML (CHARGE PER UNIT) SC SCH ×5 (04:44→20:10)
[2020-04-13] MEDS: MAGNESIUM 1 GM/100 ML IVPB 100 ML IV SCH (04:45)
[2020-04-13] MEDS: KCL 20 MEQ TAB (K-DUR) PO SCH (04:45)
[2020-04-13] MEDS: POTASSIUM CL 10MEQ/50ML IVPB 50 ML IV SCH ×5 (04:45→07:29)
--- NOTE | 2020-04-13 07:50 | Diagnostic Imaging Report ---
EXAMINATION: Chest 1 view HISTORY: COVID positive. Followup. COMPARISON: 04/12/2020. FINDINGS: Stable right PICC. Unchanged patchy opacities are seen throughout the lungs. No large pleural effusion or pneumothorax. Stable cardiac silhouette. IMPRESSION: 1. Stable chest with stable patchy opacities throughout the lungs. 2. Stable right PICC. Dictated by: Dictated on workstation # [id number]
[2020-04-13] MEDS: meTOprolol TARTRATE 25 MG (LOPRESSOR) TABLET PO SCH ×2 (08:30→20:10)
[2020-04-13] MEDS: risperiDONE 0.5 MG (RisperDAL) TABLET PO SCH ×2 (08:30→20:11)
[2020-04-13] MEDS: FAMOTIDINE 20MG/2ML IV (PEPCID) IV SCH (08:30)
[2020-04-13] MEDS: ENOXAPARIN 60 MG/0.6 ML (LOVENOX) SYR SC SCH ×2 (08:35→20:11)
[2020-04-13 09:44] LABS: ALANINE AMINOTRANSFERASE 22 U/L (0-55); ALBUMIN 2.6 GM/DL (3.2-4.5); ALKALINE PHOSPHATASE 58 U/L (40-136); BILIRUBIN,TOTAL 0.6 MG/DL (0.1-1.0); BUN/CREATININE RATIO 24; CALCIUM 7.8 MG/DL (8.5-10.1); CARBON DIOXIDE 26 MMOL/L (21-32); CHLORIDE 103 MMOL/L (98-107); CREATININE SERUM 0.63 MG/DL (0.60-1.30); GFR ESTIMATED > 60; GLUCOSE 141 MG/DL (70-105); POTASSIUM 3.2 MMOL/L (3.6-5.0); SODIUM 142 MMOL/L (135-145); TOTAL PROTEIN 5.4 GM/DL (6.4-8.2)
--- NOTE | 2020-04-13 10:39 | Progress Note - Hospitalist ---
MYNOR MCGARRY, 04/13/20 1039: Subjective HPI/CC On Admission CC: SOB HPI: This is a 50yoWM clinic Pt of [facility] who has no medical history since he never goes to the doctor who presented with Covid-positive swab results with SOB of hypoxia. He was found to have new onset DM and appears to have high risk for severe JOSÉ MIGUEL. He was placed on protocol for Covid-19 treatment along with oxygen supplementation and overall he will be monitored closely for decompensation because he appears to be very high risk for intubation and respiratory failure. Lovenox was changed to 60 mg BID due to increased BMI. He is a lifetime nonsmoker and does not drink alcohol. He lives at home with his partner and he is retired from the [employer] system in [place]. Subjective/Events-last exam Mr. Escudero was seen and examined by Dr. Bowers in the ICU for acute hypoxic respiratory failure secondary to COVID19. Patient states he feels he is improvin g. He is currently on vapotherm 40% FiO2, satting 97%. His CXR today is improved from prior. Currently on day 4 of both decadron and rocephin, completed course of azithromycin 04/12. I&O net negative for entire admission. Objective Exam Vital Signs Vital Signs Date Time Temp Pulse Resp B/P (MAP) Pulse Ox O2 Delivery O2 Flow Rate FiO2 04/13/20 10:00 74 154/89 (110) 95 Vapotherm 40.00 90.00 04/13/20 08:21 36.1 04/13/20 08:08 95 04/13/20 02:15 17 Capillary Refill : Less Than 3 SecondsLess Than 3 Seconds Respiratory: Lungs Clear, Normal Breath Sounds Cardiovascular: Regular Rate, Rhythm, Normal Peripheral Pulses Gastrointestinal: Non Tender, Soft Results/Procedures Lab Laboratory Tests 04/13/20 02:47 Patient resulted labs reviewed. Assessment/Plan Assessment and Plan Assess & Plan/Chief Complaint Acute respiratory failure secondary to COVID19 infection * Currently on vapotherm 40% FiO2, satting 97% * Will monitor closely for decompensation * CXR improved * Patient does not qualify for remdesivir * Decadron day 4 Secondary pneumonia * Continue rocephin, day 4 * Completed course of azithromycin 04/12 * Albuterol Hypertension * Will monitor closely * Does not have a current diagnosis of hypertension prior to admission Hypokalemia * Replace Agitation * Continue risperdol and PRN haldol * PRN Morphine Diet: CHO 60g GI/DVT ppx: famotidine, lovenox FULL CODE Clinical Quality Measures DVT/VTE Risk/Contraindication: Risk Factor Score Per Nursin RFS Level Per Nursing on Admit: 4+=Very High ELLYN BOWERS MD 04/13/20 1503: Subjective HPI/CC On Admission Date Seen by Provider: Apr 13, 2020 Time Seen by Provider: 08:35 Review of Systems Pulmonary: Dyspnea Neurological: Weakness Objective Exam General Appearance: Obese, Other Neck: Other (Short full neck) Respiratory: Chest Non Tender, Lungs Clear, Normal Breath Sounds, No Accessory Muscle Use, Other (Increased respiratory rate) Cardiovascular: Regular Rate, Rhythm Gastrointestinal: Non Tender, Soft Extremity: Pedal Edema Neurologic/Psychiatric: Alert, Oriented x3, Normal Mood/Affect Results/Procedures Imaging: Reviewed Imaging Films, Reviewed Imaging Report Supervisory-Addendum Brief Verification & Attestation Participated in pt care: history, MDM, physical Personally performed: exam, history, MDM, supervision of care Care discussed with: Medical Student, other (Nursing) Procedures: n/a Mr. Sanchez seems to be better today. He was alert and oriented and had eaten today. He had no complaints and no questions other than when was he going to get out of here. Oxygenation slightly improved from yesterday MYNOR MCGARRY, Apr 13, 2020 10:39 ELLYN BOWERS MD Apr 13, 2020 15:03
--- NOTE | 2020-04-13 14:30 | NUR ---
Initial visit: Pt was tearful and shared feelings of fear. During our conversation, he transitioned to sharing feelings of hopefulness and trust in God. He does not have a lane community at this time, and states he and his feel "alone" in the community. Pt shared that his personal lane in God is helping him through this time of struggle and uncertainty. Volunteer Assistant facilitated sharing of the pt's personal beliefs as a means of reflection and encouraging inner strength. He is communicating with his on his cellphone. Pt welcomed prayer. Volunteer Assistant closed the room curtain for privacy upon exiting.
[2020-04-13] MEDS: cefTRIAXone FOR IV USE 1,000 MG in WATER (STERILE) FOR INJECTION 10 ML IV SCH (20:10)
[2020-04-13] MEDS: LACTATED RINGERS 1,000 ML IV SCH (21:21)
[2020-04-14] VITALS (17 sets, daily range): BP systolic 132–183; BP diastolic 84–113
[2020-04-14] MEDS: RT-ALBUTEROL INHALER HFA (VENTOLIN HFA) 18 GM IH SCH ×4 (02:32→14:24)
[2020-04-14 03:40] LABS: BASOPHILS % (AUTO) 0 % (0-10); EOSINOPHILS # (AUTO) 0.1 10^3/uL (0.0-0.3); EOSINOPHILS % (AUTO) 1 % (0-10); HEMATOCRIT 39 % (40-54); HEMOGLOBIN 12.9 g/dL (13.3-17.7); LYMPHOCYTES # (AUTO) 1.6 10^3/uL (1.0-4.0); LYMPHOCYTES % (AUTO) 19 % (12-44); MEAN CORPUSCULAR HEMOGLOBIN 28 pg (25-34); MEAN CORPUSCULAR HGB CONC 34 g/dL (32-36); MEAN CORPUSCULAR VOLUME 83 fL (80-99); MEAN PLATELET VOLUME 10.5 fL (9.0-12.2); MONOCYTES # (AUTO) 0.7 10^3/uL (0.0-1.0); MONOCYTES % (AUTO) 8 % (0-12); NEUTROPHILS # (AUTO) 5.9 10^3/uL (1.8-7.8); NEUTROPHILS % (AUTO) 69 % (42-75); PLATELET COUNT 355 10^3/uL (130-400); WHITE BLOOD COUNT 8.5 10^3/uL (4.3-11.0)
[2020-04-14 03:48] LABS: CHLORIDE 103 MMOL/L (98-107); POTASSIUM 3.1 MMOL/L (3.6-5.0); SODIUM 142 MMOL/L (135-145)
[2020-04-14 03:50] LABS: GLUCOSE 170 MG/DL (70-105)
[2020-04-14 03:51] LABS: CARBON DIOXIDE 29 MMOL/L (21-32)
[2020-04-14 03:53] LABS: PHOSPHORUS 3.3 MG/DL (2.3-4.7)
[2020-04-14 03:54] LABS: BUN/CREATININE RATIO 17; CREATININE SERUM 0.69 MG/DL (0.60-1.30); GFR ESTIMATED > 60
[2020-04-14 03:56] LABS: MAGNESIUM 1.8 MG/DL (1.6-2.4)
[2020-04-14] MEDS: POTASSIUM CL 10MEQ/50ML IVPB 50 ML IV SCH (04:23)
[2020-04-14] MEDS: MAGNESIUM 1 GM/100 ML IVPB 100 ML IV SCH (04:23)
[2020-04-14] MEDS: KCL 20 MEQ TAB (K-DUR) PO SCH (04:24)
[2020-04-14] MEDS: inSUlin ASPART (NovoLOG) 1 UNIT/0.01 ML (CHARGE PER UNIT) SC SCH ×4 (07:17→20:34)
[2020-04-14] MEDS: ENOXAPARIN 60 MG/0.6 ML (LOVENOX) SYR SC SCH ×2 (08:40→20:33)
[2020-04-14] MEDS: risperiDONE 0.5 MG (RisperDAL) TABLET PO SCH ×2 (08:41→20:33)
[2020-04-14] MEDS: meTOprolol TARTRATE 25 MG (LOPRESSOR) TABLET PO SCH ×2 (08:41→20:33)
[2020-04-14] MEDS: FAMOTIDINE 20MG/2ML IV (PEPCID) IV SCH (08:41)
[2020-04-14] MEDS ORDERED: KCL 20 MEQ TAB (K-DUR) PO ONE ×2 (09:00→11:00)
--- NOTE | 2020-04-14 09:42 | Diagnostic Imaging Report ---
Clinical indications: Patient is COVID positive with shortness of air. IC management. Exam: Portable chest x-ray upright view. Comparisons: Chest x-ray dated 04/13/2020. Findings: There is slight improved aeration of the left superior perihilar region. Otherwise remainder of the bilateral patchy lung infiltrates are stable. Is no pleural effusion or normal thorax. Upper limits of normal heart size for portable projection. Pulmonary vasculature is obscured. Right PICC line again seen in stable position. IMPRESSION: There is slight improved aeration of the left superior perihilar region. Otherwise stable diffuse bilateral lung infiltrates. Dictated by: Dictated on workstation # [id number]
--- NOTE | 2020-04-14 11:20 | Progress Note - Hospitalist ---
MYNOR MCGARRY, 04/14/20 1120: Subjective HPI/CC On Admission Time Seen by Provider: 08:40 Subjective/Events-last exam Mr. Escudero was seen and examined by Dr. Bowers in the ICU for acute hypoxic respiratory failure secondary to COVID19. Patient is lethargic today and dysarthric. Having increased oxygen requirements, now on vapotherm 85% FiO2. Patient is requesting BiPAP but currently stable on vapotherm. Objective Exam Vital Signs Vital Signs Date Time Temp Pulse Resp B/P (MAP) Pulse Ox O2 Delivery O2 Flow Rate FiO2 04/14/20 10:31 91 Vapotherm 35.00 85 04/14/20 10:00 77 145/90 (108) 04/14/20 09:11 36.5 04/13/20 02:15 17 Capillary Refill : Less Than 3 SecondsLess Than 3 Seconds General Appearance: Mild Distress Respiratory: Crackles (R lung) Cardiovascular: Regular Rate, Rhythm, Normal Peripheral Pulses Gastrointestinal: Normal Bowel Sounds, Soft Neurologic/Psychiatric: Motor Weakness Results/Procedures Lab Laboratory Tests 04/14/20 03:30 Patient resulted labs reviewed. Imaging: Reviewed Imaging Films, Reviewed Imaging Report Assessment/Plan Assessment and Plan Assess & Plan/Chief Complaint Acute respiratory failure secondary to COVID19 infection * Currently on vapotherm 85% FiO2, 35 flow rate, satting 95-98% * Will monitor closely for decompensation * CXR improved * Patient does not qualify for remdesivir * Decadron day 5 * Up to chair with meals to increase strength * Will d/c Cazares to help with mobility Secondary pneumonia * Continue rocephin, day 5 * Completed course of azithromycin 04/12 * Albuterol Hypertension * Will monitor closely * Does not have a current diagnosis of hypertension prior to admission Hypokalemia * Replace Agitation * Continue risperdol and PRN haldol * PRN Morphine Diet: CHO 60g GI/DVT ppx: famotidine, lovenox FULL CODE Critical Care: Critically Ill Patient Clinical Quality Measures DVT/VTE Risk/Contraindication: Risk Factor Score Per Nursin RFS Level Per Nursing on Admit: 4+=Very High ELLYN BOWERS MD 04/14/20 1335: Subjective HPI/CC On Admission Date Seen by Provider: Apr 14, 2020 Supervisory-Addendum Brief Verification & Attestation Participated in pt care: history, MDM, physical Personally performed: exam, history, MDM, supervision of care Care discussed with: Medical Student, other (Nurse) Procedures: n/a Results interpretation: Verified all documentation Verification and Attestation of Medical Student E/M Service A medical student performed and documented this service in my presence. I reviewed and verified all information documented by the medical student and made modifications to such information, when appropriate. I personally performed the physical exam and medical decision making. Ellyn Bowers, Apr 14, 2020,13:35 Patient is very marginal. Potassium is slightly low today. He seems more lethargic today than he had been and actually just wants to go home. We discussed getting him up to a chair which he would like to do we also discussed discussed taking out his Cazares catheter but he can almost not even sit up without full assistance so I fear that that would tax him anything more. He remains precarious MYNOR MCGARRY, Apr 14, 2020 11:20 ELLYN BOWERS MD Apr 14, 2020 13:35
--- NOTE | 2020-04-14 17:00 | NUR ---
Patient arrived to room via wheelchair. Report received from RHYS Ch. I agree with previous RN's assessment and will assume care at this time. Patient sitting up in bed eating dinner with all belongings and call light within reach. Will continue to monitor.
[2020-04-14] MEDS ORDERED: cefTRIAXone 1,000 MG IV (ROCEPHIN) VIAL ONE (19:43)
[2020-04-14] MEDS ORDERED: WATER (STERILE) FOR INJECTION 10 ML ONE (19:43)
[2020-04-14] MEDS: cefTRIAXone FOR IV USE 1,000 MG in WATER (STERILE) FOR INJECTION 10 ML IV SCH (20:33)
[2020-04-14] MEDS: LACTATED RINGERS 1,000 ML IV SCH (20:44)
[2020-04-15 00:07] VITALS: BP 156/89
[2020-04-15 04:02] VITALS: BP 145/86
[2020-04-15 04:36] LABS: BASOPHILS % (AUTO) 0 % (0-10); EOSINOPHILS # (AUTO) 0.1 10^3/uL (0.0-0.3); EOSINOPHILS % (AUTO) 1 % (0-10); HEMATOCRIT 40 % (40-54); HEMOGLOBIN 13.3 g/dL (13.3-17.7); LYMPHOCYTES # (AUTO) 1.9 10^3/uL (1.0-4.0); LYMPHOCYTES % (AUTO) 19 % (12-44); MEAN CORPUSCULAR HEMOGLOBIN 28 pg (25-34); MEAN CORPUSCULAR HGB CONC 33 g/dL (32-36); MEAN CORPUSCULAR VOLUME 84 fL (80-99); MEAN PLATELET VOLUME 10.6 fL (9.0-12.2); MONOCYTES # (AUTO) 0.8 10^3/uL (0.0-1.0); MONOCYTES % (AUTO) 8 % (0-12); NEUTROPHILS # (AUTO) 6.8 10^3/uL (1.8-7.8); NEUTROPHILS % (AUTO) 69 % (42-75); PLATELET COUNT 379 10^3/uL (130-400); WHITE BLOOD COUNT 9.9 10^3/uL (4.3-11.0)
[2020-04-15 04:48] LABS: CHLORIDE 103 MMOL/L (98-107); POTASSIUM 3.5 MMOL/L (3.6-5.0); SODIUM 142 MMOL/L (135-145)
[2020-04-15 04:49] LABS: CALCIUM 8.2 MG/DL (8.5-10.1)
[2020-04-15 04:50] LABS: GLUCOSE 147 MG/DL (70-105)
[2020-04-15 04:51] LABS: CARBON DIOXIDE 30 MMOL/L (21-32)
[2020-04-15 04:53] LABS: PHOSPHORUS 3.7 MG/DL (2.3-4.7)
[2020-04-15 04:54] LABS: CREATININE SERUM 0.68 MG/DL (0.60-1.30); GFR ESTIMATED > 60
[2020-04-15 04:55] LABS: BUN/CREATININE RATIO 21
[2020-04-15 04:56] LABS: MAGNESIUM 1.9 MG/DL (1.6-2.4)
[2020-04-15] MEDS: inSUlin ASPART (NovoLOG) 1 UNIT/0.01 ML (CHARGE PER UNIT) SC SCH ×4 (05:10→20:37)
[2020-04-15] MEDS: MAGNESIUM 1 GM/100 ML IVPB 100 ML IV SCH (05:10)
[2020-04-15] MEDS: POTASSIUM CL 10MEQ/50ML IVPB 50 ML IV SCH (05:10)
[2020-04-15] MEDS: KCL 20 MEQ TAB (K-DUR) PO SCH (05:13)
[2020-04-15] MEDS ORDERED: KCL 20 MEQ TAB (K-DUR) PO ONE (05:15)
[2020-04-15] MEDS: RT-ALBUTEROL INHALER HFA (VENTOLIN HFA) 18 GM IH SCH ×5 (07:16→21:19)
[2020-04-15 07:37] VITALS: BP 157/90
--- NOTE | 2020-04-15 08:05 | Progress Note - Hospitalist ---
Subjective HPI/CC On Admission Date Seen by Provider: Apr 15, 2020 Time Seen by Provider: 12:00 Subjective/Events-last exam Patient doing well Much improved Weaning O2 DC cath Review of Systems General: Fatigue, Malaise Objective Exam Vital Signs Vital Signs Date Time Temp Pulse Resp B/P (MAP) Pulse Ox O2 Delivery O2 Flow Rate FiO2 04/15/20 19:36 111 18 94 High Flow N/C 4.00 04/15/20 16:47 152/84 (106) 04/15/20 15:47 36.1 04/15/20 14:18 70 Capillary Refill : Less Than 3 SecondsLess Than 3 Seconds General Appearance: No Apparent Distress, WD/WN, Chronically ill Respiratory: Chest Non Tender, Lungs Clear, Normal Breath Sounds, No Accessory Muscle Use, No Respiratory Distress Cardiovascular: Regular Rate, Rhythm, No Edema, No Gallop, No JVD, No Murmur, Normal Peripheral Pulses Neurologic/Psychiatric: Alert, Oriented x3, No Motor/Sensory Deficits, Depressed Affect Results/Procedures Lab Laboratory Tests 04/15/20 04:18 Patient resulted labs reviewed. Imaging: Reviewed Imaging Films, Reviewed Imaging Report Assessment/Plan Assessment and Plan Assess & Plan/Chief Complaint Assessment: COVID-19 PNA Hypoxia Lactic acidosis DM OOC HTN Obesity Presumed JOSÉ MIGUEL Plan: O2 ICU transfer Control sugars High risk for intubation 04/15/20: Improved Weaning O2 DC catheter Monitor closely Critical Care Critically Ill Patient Diagnosis/Problems Diagnosis/Problems (1) Acute respiratory failure due to COVID-19 Status: Acute (2) Pneumonia due to COVID-19 virus Status: Acute (3) Uncontrolled diabetes mellitus Status: Acute (4) Sepsis (5) Dehydration Status: Acute (6) Non-compliance Status: Acute (7) Renal insufficiency Status: Acute Clinical Quality Measures DVT/VTE Risk/Contraindication: Risk Factor Score Per Nursin RFS Level Per Nursing on Admit: 4+=Very High WISAM LIPSCOMB DO Apr 15, 2020 08:05
[2020-04-15] MEDS: ENOXAPARIN 60 MG/0.6 ML (LOVENOX) SYR SC SCH ×2 (10:34→20:37)
[2020-04-15] MEDS: FAMOTIDINE 20MG/2ML IV (PEPCID) IV SCH (10:34)
[2020-04-15] MEDS: meTOprolol TARTRATE 25 MG (LOPRESSOR) TABLET PO SCH ×2 (10:35→20:36)
[2020-04-15] MEDS: risperiDONE 0.5 MG (RisperDAL) TABLET PO SCH ×2 (10:35→20:36)
--- NOTE | 2020-04-15 10:40 | NUR ---
PT VAPOTHERM DECREASED TO 30L @ 75% AT THIS TIME. PT TOLERATES WELL. O2 SATS MAINTAIN AT 92%.
[2020-04-15 11:26] VITALS: BP 149/91
[2020-04-15 15:47] VITALS: BP 183/106
[2020-04-15] MEDS: LABETALOL HCL 20 MG/4 ML VIAL IV PRN (16:31)
[2020-04-15 16:47] VITALS: BP 152/84
[2020-04-16 00:12] VITALS: BP 130/60
[2020-04-16] MEDS: RT-ALBUTEROL INHALER HFA (VENTOLIN HFA) 18 GM IH SCH ×6 (02:26→22:16)
[2020-04-16 05:23] LABS: BASOPHILS % (AUTO) 0 % (0-10); EOSINOPHILS # (AUTO) 0.1 10^3/uL (0.0-0.3); EOSINOPHILS % (AUTO) 1 % (0-10); HEMATOCRIT 40 % (40-54); HEMOGLOBIN 13.1 g/dL (13.3-17.7); LYMPHOCYTES # (AUTO) 1.9 10^3/uL (1.0-4.0); LYMPHOCYTES % (AUTO) 22 % (12-44); MEAN CORPUSCULAR HEMOGLOBIN 28 pg (25-34); MEAN CORPUSCULAR HGB CONC 33 g/dL (32-36); MEAN CORPUSCULAR VOLUME 85 fL (80-99); MEAN PLATELET VOLUME 10.5 fL (9.0-12.2); MONOCYTES # (AUTO) 0.7 10^3/uL (0.0-1.0); MONOCYTES % (AUTO) 8 % (0-12); NEUTROPHILS # (AUTO) 5.8 10^3/uL (1.8-7.8); NEUTROPHILS % (AUTO) 66 % (42-75); PLATELET COUNT 350 10^3/uL (130-400); WHITE BLOOD COUNT 8.8 10^3/uL (4.3-11.0)
[2020-04-16 05:45] LABS: CHLORIDE 106 MMOL/L (98-107); POTASSIUM 3.5 MMOL/L (3.6-5.0); SODIUM 143 MMOL/L (135-145)
[2020-04-16 05:46] LABS: CALCIUM 8.3 MG/DL (8.5-10.1)
[2020-04-16 05:47] LABS: GLUCOSE 142 MG/DL (70-105)
[2020-04-16 05:48] LABS: CARBON DIOXIDE 29 MMOL/L (21-32)
[2020-04-16] MEDS: POTASSIUM CL 10MEQ/50ML IVPB 50 ML IV SCH (05:49)
[2020-04-16] MEDS: inSUlin ASPART (NovoLOG) 1 UNIT/0.01 ML (CHARGE PER UNIT) SC SCH ×4 (05:50→21:02)
[2020-04-16 05:51] LABS: CREATININE SERUM 0.68 MG/DL (0.60-1.30); GFR ESTIMATED > 60; PHOSPHORUS 4.6 MG/DL (2.3-4.7)
[2020-04-16 05:52] LABS: BUN/CREATININE RATIO 26
[2020-04-16 05:53] LABS: MAGNESIUM 2.1 MG/DL (1.6-2.4)
[2020-04-16] MEDS: MAGNESIUM 1 GM/100 ML IVPB 100 ML IV SCH (05:54)
[2020-04-16] MEDS: KCL 20 MEQ TAB (K-DUR) PO SCH (05:55)
[2020-04-16] MEDS ORDERED: KCL 20 MEQ TAB (K-DUR) PO ONE (06:00)
[2020-04-16 07:37] VITALS: BP 179/105
[2020-04-16] MEDS: meTOprolol TARTRATE 25 MG (LOPRESSOR) TABLET PO SCH ×2 (09:52→21:01)
[2020-04-16] MEDS: FAMOTIDINE 20MG/2ML IV (PEPCID) IV SCH (09:52)
[2020-04-16] MEDS: ENOXAPARIN 60 MG/0.6 ML (LOVENOX) SYR SC SCH ×2 (09:53→21:01)
[2020-04-16] MEDS: LABETALOL HCL 20 MG/4 ML VIAL IV PRN (10:01)
[2020-04-16] MEDS ORDERED: lisINopril 20 MG (PRINIVIL) TABLET PO SCH (12:15)
[2020-04-16] MEDS ORDERED: risperiDONE 0.5 MG (RisperDAL) TABLET PO PRN (12:15)
--- NOTE | 2020-04-16 12:38 | Progress Note ---
Subjective Subjective/Events-last exam Patient doing well this AM. Off oxygen. Has been up walking around the room. Appetite improving Review of Systems Pulmonary: Dyspnea, Cough Cardiovascular: No: Chest Pain, Palpitations Gastrointestinal: No: Nausea, Vomiting, Abdominal Pain Neurological: No: Weakness, Incoordination Objective Exam Last Set of Vital Signs Vital Signs Date Time Temp Pulse Resp B/P (MAP) Pulse Ox O2 Delivery O2 Flow Rate FiO2 04/16/20 10:55 97 Room Air 3.00 04/16/20 07:37 36.0 99 20 179/105 (129) 04/15/20 14:18 70 Capillary Refill : Less Than 3 SecondsLess Than 3 Seconds I&O Intake and Output 04/16/20 00:00 Intake Total 1570 ml Output Total 1525 ml Balance 45 ml Intake Oral 1560 ml IV Total 10 ml Output Urine Total 1525 ml # Voids 3 General: Alert, Oriented X3, Cooperative, No Acute Distress HEENT: Mucous Memb Moist/[place] Lungs: Clear to Auscultation, Normal Air Movement Heart: Regular Rate, No Murmurs Abdomen: Normal Bowel Sounds, Soft, No Tenderness, No Masses Extremities: No Edema, No Tenderness/Swelling Neuro: Normal Speech, Strength at 5/5 X4 Ext, Sensation Intact, Cranial Nerves 3-12 NL Psych/Mental Status: Mental Status NL, Mood NL Results/Procedures Lab Laboratory Tests 04/15/20 15:45: Glucometer 344H 04/15/20 19:36: Glucometer 323H 04/16/20 05:11: White Blood Count 8.8, Red Blood Count 4.75, Hemoglobin 13.1L, Hematocrit 40, Mean Corpuscular Volume 85, Mean Corpuscular Hemoglobin 28, Mean Corpuscular Hemoglobin Concent 33, Red Cell Distribution Width 13.0, Platelet Count 350, Mean Platelet Volume 10.5, Immature Granulocyte % (Auto) 3, Neutrophils (%) (Auto) 66, Lymphocytes (%) (Auto) 22, Monocytes (%) (Auto) 8, Eosinophils (%) (Auto) 1, Basophils (%) (Auto) 0, Neutrophils # (Auto) 5.8, Lymphocytes # (Auto) 1.9, Monocytes # (Auto) 0.7, Eosinophils # (Auto) 0.1, Basophils # (Auto) 0.0, Immature Granulocyte # (Auto) 0.3H, Sodium Level 143, Potassium Level 3.5L, Chloride Level 106, Carbon Dioxide Level 29, Anion Gap 8, Blood Urea Nitrogen 18, Creatinine 0.68, Estimat Glomerular Filtration Rate > 60, BUN/Creatinine Ratio 26, Glucose Level 142H, Calcium Level 8.3L, Phosphorus Level 4.6, Magnesium Level 2.1 04/16/20 10:53: Glucometer 212H Microbiology 04/09/20 MRSA Screen - Final, Complete MRSA not isolated 04/08/20 Urine Culture - Final, Complete NO GROWTH 04/08/20 Blood Culture - Final, Complete No growth Assessment/Plan Assessment/Plan Assessment & Plan 50 yo M that was admitted for acute respiratory failure due to Covid, now improving and off oxygen Acute Respiratory Failure: Resolved Sepsis: Resolved Covid-19 Hypoxia Type 2 Diabetes: New Diagnosis HTN RADHA: Resolved Plan: - Ambulatory oxygen study and continuous nocturnal oxygen - Titration steroids - Will start Metformin 500 mg BID, will likely need second medication - Start Lisinopril for HTN and renal protection - Continue Lovenox - Close f.u with PCP Wisam Espinosa Clinical Quality Measures DVT/VTE Risk/Contraindication: Risk Factor Score Per Nursin RFS Level Per Nursing on Admit: 4+=Very High LYDIA SLAUGHTER MD Apr 16, 2020 12:38
--- NOTE | 2020-04-16 13:29 | NUR ---
PT DID NOT DROP BELOW 92% DURING WALK STUDY ON ROOM AIR. Addendum: 04/16/20 at 1329 by MAYO MURO RT Amended: Links added.
[2020-04-16 15:40] VITALS: BP 179/102
--- NOTE | 2020-04-16 18:23 | NUR ---
"RD ASSESSMENT PMHx: HTN; Crohn's disease; DM (hx of non-compliance); PT INTERACTION: Note pt is currently in COVID isolation per chart review. Note all diet information for follow-up is per Xuan JOINER or per chart review. Xuan states pt is eating good. Note avg PO intake 69% x4d, per chart review. Xuan states no issues with n/v/c/d that she is aware of. Note last BM was 04/16, and pt not currently on bowel regimen per chart review. Est. kcal needs: 3700-1224 kcal | 15-18 kcal/kg Est. Pro needs: 113-142 g Pro | 0.8-1.0 g Pro/kg PES STATEMENT: Inadequate oral intake (NI-2.1) related to loss of appetite, as evidenced by chart review, and avg PO intake 69% x4d. INTERVENTION: Continue with current diet order of Regular diet. Pt may benefit from consistent CHO diet restriction as pt has hx of DM. Will continue to follow and reassess as pt needs, intake, and status change. Sherrie ISABEL, MS RD LD [phone] cell"
[2020-04-16] MEDS: lisINopril 20 MG (PRINIVIL) TABLET PO SCH (21:01)
[2020-04-17 00:03] VITALS: BP 178/110
[2020-04-17] MEDS: RT-ALBUTEROL INHALER HFA (VENTOLIN HFA) 18 GM IH SCH ×3 (02:12→11:04)
[2020-04-17] MEDS: inSUlin ASPART (NovoLOG) 1 UNIT/0.01 ML (CHARGE PER UNIT) SC SCH (05:21)
[2020-04-17 06:21] LABS: BASOPHILS % (AUTO) 0 % (0-10); EOSINOPHILS # (AUTO) 0.1 10^3/uL (0.0-0.3); EOSINOPHILS % (AUTO) 1 % (0-10); HEMATOCRIT 41 % (40-54); HEMOGLOBIN 13.5 g/dL (13.3-17.7); LYMPHOCYTES # (AUTO) 2.4 10^3/uL (1.0-4.0); LYMPHOCYTES % (AUTO) 27 % (12-44); MEAN CORPUSCULAR HEMOGLOBIN 28 pg (25-34); MEAN CORPUSCULAR HGB CONC 33 g/dL (32-36); MEAN CORPUSCULAR VOLUME 85 fL (80-99); MEAN PLATELET VOLUME 10.9 fL (9.0-12.2); MONOCYTES # (AUTO) 0.8 10^3/uL (0.0-1.0); MONOCYTES % (AUTO) 9 % (0-12); NEUTROPHILS # (AUTO) 5.2 10^3/uL (1.8-7.8); NEUTROPHILS % (AUTO) 60 % (42-75); PLATELET COUNT 373 10^3/uL (130-400); WHITE BLOOD COUNT 8.6 10^3/uL (4.3-11.0)
[2020-04-17 06:34] LABS: CHLORIDE 106 MMOL/L (98-107); POTASSIUM 3.9 MMOL/L (3.6-5.0); SODIUM 143 MMOL/L (135-145)
[2020-04-17 06:35] LABS: CALCIUM 8.5 MG/DL (8.5-10.1); GLUCOSE 124 MG/DL (70-105)
[2020-04-17 06:37] LABS: CARBON DIOXIDE 29 MMOL/L (21-32)
[2020-04-17] MEDS: KCL 20 MEQ TAB (K-DUR) PO SCH (06:38)
[2020-04-17 06:39] LABS: CREATININE SERUM 0.71 MG/DL (0.60-1.30); GFR ESTIMATED > 60; PHOSPHORUS 4.6 MG/DL (2.3-4.7)
[2020-04-17 06:40] LABS: BUN/CREATININE RATIO 24
[2020-04-17 06:41] LABS: MAGNESIUM 2.1 MG/DL (1.6-2.4)
[2020-04-17 08:00] VITALS: BP 166/94
[2020-04-17] MEDS: ENOXAPARIN 60 MG/0.6 ML (LOVENOX) SYR SC SCH (08:36)
[2020-04-17] MEDS: meTOprolol TARTRATE 25 MG (LOPRESSOR) TABLET PO SCH (08:36)
[2020-04-17] MEDS: lisINopril 20 MG (PRINIVIL) TABLET PO SCH (08:36)
--- NOTE | 2020-04-17 11:11 | Discharge Summary ---
Diagnosis/Chief Complaint Date of Admission Apr 08, 2020 at 21:00 Date of Discharge 04/17/2020 Admission Diagnosis Admission Diagnosis Covid-19 Hypoxia Non Insulin Dependent DM HTN Obesity BMI 39 Discharge Diagnosis See Above Discharge Summary-Simple/Stand Consultations Dr Galvan: Pulm Discharge Physical Examination Allergies: Coded Allergies: No Known Drug Allergies (Unverified , 04/22/12) Vitals & I&Os Vital Sign - Last 12Hours Date Time Temp Pulse Resp B/P (MAP) Pulse Ox O2 Delivery O2 Flow Rate FiO2 04/17/20 11:04 90 Room Air 04/17/20 08:00 35.7 104 18 166/94 (118) 04/16/20 19:54 93 04/16/20 10:55 3.00 Intake and Output 04/17/20 00:00 Intake Total 900 ml Balance 900 ml General Appearance: Alert, Oriented X3, Cooperative, Other (Hard of hearing) Respiratory: Clear to Auscultation, Normal Air Movement, Other (Normal work of breathing) Cardiovascular: Regular Rate, No Murmurs Abdominal: Normal Bowel Sounds, Soft, No Tenderness Extremities: No Edema, No Tenderness/Swelling Skin: No Rashes Neuro: Strength at 5/5 X4 Ext, Sensation Intact, Cranial Nerves 3-12 NL Psych/Mental Status: Mental Status NL, Mood NL Hospital Course Was the Problem List Reviewed?: Yes See final discharge diagnosis. Discussion & Recommendations 50 yo M that presented with worsening shortness of breath and hypoxia after testing positive with COVID-19. Patient was found to have A1c >11 and HTN. Previ ously not under treatment for either. Was started on medications for DM and HTN. Patient was able to titrate off oxygen at rest, with activity and at night and did not have any oxygen needs. Will have close f.u with new PCP Wisam Espinosa. Discharge Condition at discharge Stable Instructions to patient/family Please see electronic discharge instructions given to patient. Discharge Medications Reviewed and agree with Discharge Medication list on patient's Discharge Instruction sheet Clinical Quality Measures DVT/VTE Risk/Contraindication: Risk Factor Score Per Nursin RFS Level Per Nursing on Admit: 4+=Very High Copy Copies To 1: SANUJ, LYDIA Rocha MD Apr 17, 2020 11:11
[2020-04-17] MEDS ORDERED: METF-478 PO (11:17)
[2020-04-17] MEDS ORDERED: PRD20T PO (11:17)
[2020-04-17] MEDS ORDERED: METO-333 PO (11:17)
[2020-04-17] MEDS ORDERED: LISI-552 PO (11:17)
--- NOTE | 2020-04-17 11:20 | Discharge Summary ---
Discharge [facility] Reconcile Patient Problems Problems Reviewed?: Yes Discharge Medications New, Converted or Re-Newed RX: Transmitted to Pharmacy New Medications: Metformin HCl (Metformin HCl ER) 500 Mg Tab.er.24 500 MG PO DAILY, #30 TAB Prednisone (Prednisone) 20 Mg Tab 20 MG PO DAILY, #20 TAB Take 3 tabs(60mg)daily x 3 days then 2 tabs x 3 days then 1 tab x 3 days, then 1/2 tab daily x 4 days Lisinopril (Lisinopril) 20 Mg Tablet 20 MG PO DAILY, #30 TAB Metoprolol Tartrate (Metoprolol Tartrate) 25 Mg Tablet 25 MG PO BID, #60 TAB Discontinued Medications: Amoxicillin (Amoxicillin) 500 Mg Capsule 500 MG PO BID, CAP FILLED 04-07-2020 #20/10 DAY SUPPLY Meclizine HCl (Meclizine HCl) 25 Mg Tablet 25 MG PO Q6H PRN for DIZZINESS, TAB Patient Instructions Goal/Follow Up Appt: F.u with Wisam Espinosa on Apr 25 @ 1140 Activity & Diet Discharge Diet: ADA Diet Activity as Tolerated: Yes Orders-Post D/C & Referrals Pneu Vac Indicated: Yes Copy Copies To 1: Wisam BILLS HOLLY R MD Apr 17, 2020 11:20
== END 2020-04-17 12:00 | disposition home or self-care (01) | DRG 871 ==
LOC: EDUNIT# 19:22 → ER 19:23 → 4TH 21:00 → EDLOC 21:00 → ICU 04-09 17:35 → 4TH 04-14 17:32
PROVIDERS: ADMIT Internal Medicine; ATTEND Internal Medicine
PROC: XW033E5 Introduction of Remdesivir Anti-infective into Peripheral Vein, Percutaneous Approach, New Technology Group 5 (ICD-10-PCS; principal; 2020-04-09)
DX: A41.9 Sepsis, unspecified organism (principal); U07.1 COVID-19; E11.10 Type 2 diabetes mellitus with ketoacidosis without coma; J12.82 Pneumonia due to coronavirus disease 2019; J96.01 Acute respiratory failure with hypoxia; N17.9 Acute kidney failure, unspecified; I10 Essential (primary) hypertension; E86.0 Dehydration; E87.6 Hypokalemia; R45.1 Restlessness and agitation; E66.9 Obesity, unspecified; Z68.39 Body mass index [BMI] 39.0-39.9, adult; R32 Unspecified urinary incontinence; Z91.19 Patient's noncompliance with other medical treatment and regimen; H66.93 Otitis media, unspecified, bilateral; G47.33 Obstructive sleep apnea (adult) (pediatric); Z79.2 Long term (current) use of antibiotics
CPT/HCPCS: 36415; 36569; 36600; 71045; 71275; 76937; 80048; 80053; 80306; 81000; 82010; 82150; 82550; 82553; 82728; 82805; 82962; 83036; 83605; 83615; 83690; 83735; 83874; 83880; 84100; 84145; 85025; 85027; 85379; 85610; 85652; 85730; 86141; 86308; 86900; 86901; 87040; 87081; 87088; 87430; 87635; 87804; 93005; 93041; 94640; 94660; 94760; 94761; 96374; 96375

== ENCOUNTER → 2020-08-16 | Outpatient (CLI) | payer SELFPAY ==
[~2020-08-16] MED LIST: AMOX500C2 PO; LISI20TA26 PO; MECL-149 PO; METF-478 PO; METO-333 PO; PRD20T PO
--- NOTE | 2020-08-16 15:17 | Diagnostic Imaging Report ---
PROCEDURE: CT head without contrast. TECHNIQUE: Multiple contiguous axial images were obtained through the brain without the use of intravenous contrast. Auto Exposure Controls were utilized during the CT exam to meet ALARA standards for radiation dose reduction. INDICATION: Slurred speech. Correlation is made with prior head CT from 04/23/2012. Ventricular size and sulcal pattern appears stable. Patient has several lacunar infarcts have occurred since prior CT from 2012 in the left basal ganglia in the region of the left caudate head as well as internal capsule on the left side. No sulcal effacement or midline shift is identified. No acute intra-axial or extra-axial hemorrhage is detected. Cisterns are patent. Visualized paranasal sinuses are clear. IMPRESSION: Chronic changes. No acute intracranial process is detected. Dictated by: Dictated on workstation # [id number]
== END ==
LOC: RAD 14:32
PROVIDERS: ATTEND Physician Assistant
DX: R47.81 Slurred speech (principal); R26.9 Unspecified abnormalities of gait and mobility
CPT/HCPCS: 70450

== ENCOUNTER 2020-09-12 08:29 | Emergency (ER) | payer SELFPAY ==
[~2020-09-12] VITALS: Ht 175 cm; Wt 127.2 kg
[2020-09-12] MEDS ORDERED: NS IV 1000 ML 1,000 ML IV ONE (08:45)
[2020-09-12 08:47] LABS: BASOPHILS # (AUTO) 0.1 10^3/uL (0.0-0.1); BASOPHILS % (AUTO) 1 % (0-10); EOSINOPHILS # (AUTO) 0.2 10^3/uL (0.0-0.3); EOSINOPHILS % (AUTO) 2 % (0-10); HEMATOCRIT 43 % (40-54); HEMOGLOBIN 14.9 g/dL (13.3-17.7); LYMPHOCYTES # (AUTO) 2.4 10^3/uL (1.0-4.0); LYMPHOCYTES % (AUTO) 23 % (12-44); MEAN CORPUSCULAR HEMOGLOBIN 28 pg (25-34); MEAN CORPUSCULAR HGB CONC 34 g/dL (32-36); MEAN CORPUSCULAR VOLUME 82 fL (80-99); MEAN PLATELET VOLUME 9.8 fL (9.0-12.2); MONOCYTES # (AUTO) 0.8 10^3/uL (0.0-1.0); MONOCYTES % (AUTO) 7 % (0-12); NEUTROPHILS % (AUTO) 67 % (42-75); PLATELET COUNT 300 10^3/uL (130-400); WHITE BLOOD COUNT 10.3 10^3/uL (4.3-11.0)
[2020-09-12 08:56] LABS: ALBUMIN 3.9 GM/DL (3.2-4.5)
[2020-09-12 08:57] LABS: CHLORIDE 102 MMOL/L (98-107); POTASSIUM 3.1 MMOL/L (3.6-5.0); SODIUM 141 MMOL/L (135-145)
[2020-09-12 08:58] LABS: CALCIUM 9.1 MG/DL (8.5-10.1)
[2020-09-12 08:59] LABS: GLUCOSE 211 MG/DL (70-105); TOTAL PROTEIN 7.2 GM/DL (6.4-8.2)
[2020-09-12 09:00] LABS: CARBON DIOXIDE 25 MMOL/L (21-32)
[2020-09-12 09:01] LABS: BILIRUBIN,TOTAL 1.1 MG/DL (0.1-1.0)
[2020-09-12 09:02] LABS: ALKALINE PHOSPHATASE 78 U/L (40-136)
[2020-09-12 09:03] LABS: CREATININE SERUM 0.94 MG/DL (0.60-1.30); GFR ESTIMATED > 60
[2020-09-12 09:04] LABS: BUN/CREATININE RATIO 6
[2020-09-12 09:05] LABS: ALANINE AMINOTRANSFERASE 10 U/L (0-55)
--- NOTE | 2020-09-12 09:09 | ED Neurological Problem ---
General Chief Complaint: Neurological Problems Stated Complaint: WEAKNESS,POSSIBLE TIA Source: patient, EMS Exam Limitations: no limitations History of Present Illness Date Seen by Provider: Sep 12, 2020 Time Seen by Provider: 08:35 Initial Comments Here with report of global weakness. Patient apparently had COVID-19 infection in April and has had prolonged weakness afterwards. He apparently had a mini stroke about 3 weeks ago. He was recovering from that and today was taking a shower when he became significantly weak and had difficulty with speech. Did not seem to be left-sided or right-sided. He was able to get his 's attention who called EMS. They noted that he had significant weakness and was n ot speaking very much. This is subsequently improved and he is more near baseline on arrival to the ED. He remembers the details. He is alert and oriented and follows simple commands and answers questions appropriately. Denies any pain. Denies being on any blood thinners. Was well at 7 AM and symptoms onset at 0750. Timing/Duration: 1/2 hour Severity: moderate Associated Symptoms: No fever/chills, No nausea/vomiting; trouble walking, we akness Allergies and Home Medications Allergies Coded Allergies: No Known Drug Allergies (Unverified , 04/22/12) Home Medications Lisinopril 20 Mg Tablet, 20 MG PO DAILY Prescribed by: LYDIA SLAUGHTER on 04/17/201116 Metformin HCl 500 Mg Tab.er.24, 500 MG PO DAILY Prescribed by: LYDIA SLAUGHTER on 04/17/201116 Metoprolol Tartrate 25 Mg Tablet, 25 MG PO BID Prescribed by: LYDIA SLAUGHTER on 04/17/201116 Prednisone 20 Mg Tab, 20 MG PO DAILY Take 3 tabs(60mg)daily x 3 days then 2 tabs x 3 days then 1 tab x 3 days, then 1/2 tab daily x 4 days Prescribed by: LYDIA SLUAGHTER on 04/17/20 111 Patient Home Medication List Home Medication List Reviewed: Yes Review of Systems Review of Systems Constitutional: see HPI; No chills, No fever Eyes: Blurred Vision; Denies Pain Ears, Nose, Mouth, Throat: denies nose pain, denies throat pain Respiratory: No cough Cardiovascular: No chest pain, No edema Gastrointestinal: No abdominal pain, No nausea, No vomiting Genitourinary: no symptoms reported Musculoskeletal: no symptoms reported Skin: no symptoms reported Psychiatric/Neurological: See HPI All Other Systems Reviewed Negative Unless Noted: Yes Past Bfyemzx-Uypqbu-Azqdky Hx Past Med/Social Hx: Reviewed Nursing Past Med/Soc Hx Patient Social History Alcohol Use: Denies Use Smoking Status: Never a Smoker 2nd Hand Smoke Exposure: No Recent Hopitalizations: No Seasonal Allergies Seasonal Allergies: No Past Medical History Surgeries: Yes Abdominal, Appendectomy, Bowel Surgery, Gallbladder Respiratory: No Cardiac: Yes Hypertension Neurological: No Reproductive Disorders: No Sexually Transmitted Disease: No HIV/AIDS: No Genitourinary: No Gastrointestinal: Yes (APPY;CHERYL; PARTIAL COLECTOMY) Crohns Disease, Gall Bladder Disease Musculoskeletal: No Endocrine: Yes ([id number] NOT TAKE MEDS, CHECK GLUCOSE OR FOLLOW DIET) Diabetes, Non-Insulin dep HEENT: Yes (04/2019--PERTONSILLAR ABSCESS/TRANSFERRED TO LOWNDES.NO SURGERY ) Cancer: No Psychosocial: No Integumentary: No Blood Disorders: No Adverse Reaction/Blood Tranf: No Family Medical History Reviewed Nursing Family Hx Physical Exam Vital Signs Vital Signs - First Documented 09/12/20 08:29 Temp 35.3 Pulse 91 Resp 18 B/P (MAP) 149/99 (116) Pulse Ox 94 O2 Delivery Room Air Capillary Refill : Height, Weight, BMI Height: '" Weight: lbs. oz. kg; 35.28 BMI Method: General Appearance: WD/WN, no apparent distress Neck: full range of motion, supple Progress/Results/Core Measures Results/Orders Lab Results Laboratory Tests Test 09/12/20 08:34 09/12/20 10:33 Range/Units White Blood Count 10.3 4.3-11.0 10^3/uL Red Blood Count 5.26 4.30-5.52 10^6/uL Hemoglobin 14.9 13.3-17.7 g/dL Hematocrit 43 40-54 % Mean Corpuscular Volume 82 80-99 fL Mean Corpuscular Hemoglobin 28 25-34 pg Mean Corpuscular Hemoglobin Concent 34 32-36 g/dL Red Cell Distribution Width 12.9 10.0-14.5 % Platelet Count 300 130-400 10^3/uL Mean Platelet Volume 9.8 9.0-12.2 fL Immature Granulocyte % (Auto) 0 % Neutrophils (%) (Auto) 67 42-75 % Lymphocytes (%) (Auto) 23 12-44 % Monocytes (%) (Auto) 7 0-12 % Eosinophils (%) (Auto) 2 0-10 % Basophils (%) (Auto) 1 0-10 % Neutrophils # (Auto) 7.0 1.8-7.8 10^3/uL Lymphocytes # (Auto) 2.4 1.0-4.0 10^3/uL Monocytes # (Auto) 0.8 0.0-1.0 10^3/uL Eosinophils # (Auto) 0.2 0.0-0.3 10^3/uL Basophils # (Auto) 0.1 0.0-0.1 10^3/uL Immature Granulocyte # (Auto) 0.0 0.0-0.1 10^3/uL Prothrombin Time 14.4 12.2-14.7 SEC INR Comment 1.1 0.8-1.4 Activated Partial Thromboplast Time 20 L 24-35 SEC D-Dimer <= 0.27 0.00-0.49 UG/ML Sodium Level 141 135-145 MMOL/L Potassium Level 3.1 L 3.6-5.0 MMOL/L Chloride Level 102 98-107 MMOL/L Carbon Dioxide Level 25 21-32 MMOL/L Anion Gap 14 5-14 MMOL/L Blood Urea Nitrogen 6 L 7-18 MG/DL Creatinine 0.94 0.60-1.30 MG/DL Estimat Glomerular Filtration Rate > 60 BUN/Creatinine Ratio 6 Glucose Level 211 H 70-105 MG/DL Calcium Level 9.1 8.5-10.1 MG/DL Corrected Calcium 9.2 8.5-10.1 MG/DL Total Bilirubin 1.1 H 0.1-1.0 MG/DL Aspartate Amino Transf (AST/SGOT) 10 5-34 U/L Alanine Aminotransferase (ALT/SGPT) 10 0-55 U/L Alkaline Phosphatase 78 40-136 U/L Troponin I < 0.028 <0.028 NG/ML Total Protein 7.2 6.4-8.2 GM/DL Albumin 3.9 3.2-4.5 GM/DL Urine Color YELLOW Urine Clarity CLEAR Urine pH 7.0 5-9 Urine Specific [place] 1.015 L 1.016-1.022 Urine Protein NEGATIVE NEGATIVE Urine Glucose (UA) NEGATIVE NEGATIVE Urine Ketones NEGATIVE NEGATIVE Urine Nitrite NEGATIVE NEGATIVE Urine Bilirubin NEGATIVE NEGATIVE Urine Urobilinogen 0.2 < = 1.0 MG/DL Urine Leukocyte Esterase NEGATIVE NEGATIVE Urine RBC (Auto) NEGATIVE NEGATIVE Urine RBC NONE /HPF Urine WBC 0-2 /HPF Urine Crystals PRESENT H /LPF Urine Amorphous Sediment FEW JOSE URATES H /LPF Urine Bacteria NEGATIVE /HPF Urine Casts PRESENT /LPF Urine Hyaline Casts 0-2 H /LPF Urine Mucus SMALL H /LPF Urine Culture Indicated NO My Orders Orders - MARIE HINOJOSA MD Cbc With Automated Diff (09/12/20 08:39) Protime With Inr (09/12/20 08:39) Partial Thromboplastin Time (09/12/20 08:39) Comprehensive Metabolic Panel (09/12/20 08:39) Fibrin Degradation Products (09/12/20 08:39) Troponin I (09/12/20 08:39) Ua Culture If Indicated (09/12/20 08:39) Chest 1 View, Ap/Pa Only (09/12/20 08:39) Ekg Tracing (09/12/20 08:39) Nothing By Mouth (09/12/20 Breakfast) Accucheck Stat ONCE (09/12/20 08:39) Ed Iv/Invasive Line Start (09/12/20 08:39) Vital Signs Stroke Patient Q15M (09/12/20 08:39) Ct Head Wo-R/O Stroke (09/12/20 08:39) O2 (09/12/20 08:39) Intake & Output 06,14,22 (09/12/20 08:39) Monitor-Rhythm Ecg Trace Only (09/12/20 08:39) Dysphagia Screening Tool (09/12/20 08:39) Lipid Panel (09/13/20 06:00) Ns Iv 1000 Ml (Sodium Chloride 0.9%) (09/12/20 08:45) Medications Given in ED Current Medications Medications Dose Ordered Sig/Tono Route Start Time Stop Time Status Last Admin Dose Admin Sodium Chloride 1,000 ml @ 0 mls/hr Q0M ONCE IV 09/12/20 08:45 09/12/20 08:46 DC 09/12/20 09:45 1,000 MLS/HR Vital Signs/I&O 09/12/20 08:29 Temp 35.3 Pulse 91 Resp 18 B/P (MAP) 149/99 (116) Pulse Ox 94 O2 Delivery Room Air Progress Progress Note : Progress Note Seen and evaluated. Stroke screen initiated. Normal saline 1 L bolus ordered. Monitor patient. 1125: Patient has resolved symptoms and has improved after fluid administration. at bedside and agrees that patient is at baseline. No new acute findings. Safe for discharge home at this point. I did discuss the case with Dr. López. She will assist with setting up appointment at clinic this week for recheck and further evaluation. Patient is not on aspirin so we will initiate full dose aspirin today. states that she will give that to him as soon as she gets home. He is currently not on anything for hyperglycemia as well. They are working through different options at the clinic and I will defer to the clinic for that as well as consideration for statin due to history of stroke. This was discussed with Dr. López as well. I will send a copy of the chart to the clinic. Discharged home with return precautions. Patient and family verbalized understanding of instructions and agreement with plan. Initial ECG Impression Date: Sep 12, 2020 Initial ECG Impression Time: 08:49 Initial ECG Rate: 84 Initial ECG Rhythm: Normal Sinus Comment Sinus rhythm with left ventricular hypertrophy. Normal axis. No evidence of ST elevation PR. Interpreted by me. Similar to previous of 04/08/2020 but rate is slower. Diagnostic Imaging Diagonstic Imaging: CT Plain Films/CT/US/NM/MRI: head Comments [facility], [place] NAME: RAHAT MARIE [facility] REC#: [id number] PT STATUS: REG ER : 1970 PHYSICIAN: MARIE HINOJOSA MD ADMIT DATE: 09/12/20/ER Draft Date of Exam:09/12/20 CT HEAD WO-R/O STROKE PROCEDURE: CT head wo r/o stroke. TECHNIQUE: Multiple contiguous axial images were obtained through the brain without the use of intravenous contrast. Auto Exposure Controls were utilized during the CT exam to meet ALARA standards for radiation dose reduction. INDICATION: Weakness and possible stroke. COMPARISON: 08/16/2020. FINDINGS: The ventricular size is stable. Areas of old infarcts in the left basal ganglia, right basal ganglia, and adjacent to the frontal horns bilaterally appear stable. There is no sulcal effacement. There is no midline shift. No acute intra-axial or extra-axial hemorrhage is detected. The cisterns are patent. The visualized paranasal sinuses are clear. IMPRESSION: Stable chronic changes since the examination of 1 month earlier. No acute intracranial process is detected. Dictated on workstation # [id number] Dict: 09/12/20 0906 Trans: 09/12/20 0909 [id number] Interpreted by: STEVAN VOGEL MD Electronically signed by: Diagonstic Imaging: Xray Plain Films/CT/US/NM/MRI: chest Comments [facility] [place] NAME: RAHAT MARIE [facility] REC#: [id number] PT STATUS: REG ER : 1970 PHYSICIAN: MARIE HINOJOSA MD ADMIT DATE: 09/12/20/ER Draft Date of Exam:09/12/20 CHEST 1 VIEW, AP/PA ONLY INDICATION: Weakness. Time of exam 9:59 AM Correlation is made with prior chest from 04/14/2020. The heart size is normal. The pulmonary vascularity is unremarkable. The lungs are clear. No infiltrate, effusion or pneumothorax is detected. Impression: No acute cardiopulmonary process is detected. Dictated on workstation # [id number] Dict: 09/12/20 1012 Trans: 09/12/20 1015 [facility] [id number] Interpreted by: STEAVN VOGEL MD Electronically signed by: Departure Impression Primary Impression: Transient cerebral ischemia Qualified Codes: G45.9 - Transient cerebral ischemic attack, unspecified Additional Impression: Dehydration Disposition: 01 HOME, SELF-CARE Condition: Improved Departure-Patient Inst. Decision time for Depature: 11:41 Referrals: [facility] (PCP/Family) Primary Care Physician Patient Instructions: Dehydration, Adult (DC), Transient Ischemic Attack (DC) Add. Discharge Instructions: All discharge instructions reviewed with patient and/or family. Voiced understanding. Drink an adequate amount of fluids and eat a normal diet. Avoid sugars or salt in your diet. Follow-up with the clinic this week for recheck and further evaluation. If you have not heard from the call center by this afternoon, call them for your appointment. Your case was discussed with Dr. López who was assisting with the appointment. You should initiate aspirin 325 mg 1 tablet daily of the enteric-coated aspirin and continue this until instructed different by your doctor. Return for worse pain, fever, vomiting, weakness, breathing problems, slurred speech, vision problems or other concerns as needed. Copy Copies To 1: JAGDEEP LÓPEZ MD, TIMOTHY D MD Sep 12, 2020 09:09
[2020-09-12 09:10] LABS: FIBRIN DEGRADATION PRODUCTS <= 0.27 UG/ML (0.00-0.49); INR 1.1 (0.8-1.4); PARTIAL THROMBOPLASTIN TIME 20 SEC (24-35); PROTHROMBIN TIME PATIENT 14.4 SEC (12.2-14.7)
--- NOTE | 2020-09-12 10:15 | Diagnostic Imaging Report ---
INDICATION: Weakness. Time of exam 9:59 AM Correlation is made with prior chest from 04/14/2020. The heart size is normal. The pulmonary vascularity is unremarkable. The lungs are clear. No infiltrate, effusion or pneumothorax is detected. Impression: No acute cardiopulmonary process is detected. Dictated by: Dictated on workstation # [id number]
[2020-09-12 10:42] LABS: BILIRUBIN,URINE NEGATIVE (NEGATIVE); CLARITY,URINE CLEAR; COLOR,URINE YELLOW; GLUCOSE, URINE (UA) NEGATIVE (NEGATIVE); KETONES,URINE NEGATIVE (NEGATIVE); LEUKOCYTE ESTERASE ,URINE NEGATIVE (NEGATIVE); NITRITE,URINE NEGATIVE (NEGATIVE); PROTEIN,URINE NEGATIVE (NEGATIVE)
[2020-09-12 10:55] LABS: BACTERIA,URINE NEGATIVE /HPF; WBC,URINE 0-2 /HPF
[2020-09-12 10:56] LABS: AMORPHOUS SEDIMENT,UR FEW AMOR URATES /LPF; HYALINE CASTS, URINE 0-2 /LPF
[2020-09-12 11:48] VITALS: BP 183/102
== END 2020-09-12 11:57 | disposition home or self-care (01) ==
LOC: EDUNIT# 08:29 → ER 08:30
DX: G45.9 Transient cerebral ischemic attack, unspecified (principal); E86.0 Dehydration; I10 Essential (primary) hypertension; E11.65 Type 2 diabetes mellitus with hyperglycemia; Z79.84 Long term (current) use of oral hypoglycemic drugs; Z79.899 Other long term (current) drug therapy
CPT/HCPCS: 36415; 70450; 71045; 80053; 81000; 84484; 85025; 85379; 85610; 85730; 93005; 93041

== ENCOUNTER 2021-03-02 08:16 | Emergency (ER) | payer SELFPAY ==
[~2021-03-02] VITALS: Ht 175 cm; Wt 127.0 kg
--- NOTE | 2021-03-02 08:51 | ED General ---
General Chief Complaint: General Problems/Pain Stated Complaint: FALL Source of Information: Patient, Caregiver (family - step son), Old Records Exam Limitations: No Limitations History of Present Illness Date Seen by Provider: Mar 02, 2021 Time Seen by Provider: 08:30 Initial Comments Patient is a 51-year-old male who presents to the emergency department by ambulance today with a chief complaint of generalized weakness. His stepson is at the bedside for further history. Relates that he had a hospitalization with [facility] in March of this year. He has had progressive decline and disability since that time. According to the medical record and the son TIA versus stroke earlier in the year. Patient has a history of hypertension and diabetes. He is on Plavix. He did have 2 falls yesterday, he states he just feels weak. No reported fevers or chills. A little bit of a cough. No real shortness of breath or chest pain. No abdominal pain. He has chronic diarrhea. No swelling in his legs or cramping in his calves. No problems with urination. Patient denies headache. He complains of a little dizziness with standing. Soy who is at the bedside states that his mom is out of town in [place] about 2 hours away and when she is gone his brother assists their stepdad. This morning he was over at the house and they were trying to get him up into the bathroom when he became so weak in the knees they had to set them down twice. He is treated at [facility] and reportedly saw his providers on Thursday and Thursday of this week Patient has small abrasions to the left elbow and left knee as a result of falls yesterday. All other review of systems reviewed and negative except as stated. Timing/Duration: 5-6 Days Severity: Moderate Modifying Factors: improves with Immobilization Associated Systoms: Weakness, Other (dizzy with standing) Allergies and Home Medications Allergies Coded Allergies: No Known Drug Allergies (Unverified , 04/22/12) Patient Home Medication List Home Medication List Reviewed: Yes Lisinopril (Lisinopril) 20 Mg Tablet, 20 MG PO DAILY Prescribed by: LYDIA SLAUGHTER on 04/17/20 111 Metformin HCl (Metformin HCl ER) 500 Mg Tab.er.24, 500 MG PO DAILY Prescribed by: LYDIA SLAUGHTER on 04/17/20 111 Metoprolol Tartrate (Metoprolol Tartrate) 25 Mg Tablet, 25 MG PO BID Prescribed by: LYDIA SLAUGHTER on 04/17/201116 Prednisone (Prednisone) 20 Mg Tab, 20 MG PO DAILY Prescribed by: LYDIA SLAUGHTER on 04/17/20 111 Review of Systems Review of Systems Constitutional: see HPI EENTM: no symptoms reported Respiratory: cough Cardiovascular: no symptoms reported Gastrointestinal: diarrhea (chronic) Genitourinary: no symptoms reported Musculoskeletal: no symptoms reported Skin: other (abrasions) Psychiatric/Neurological: Other (dizziness) All Other Systems Reviewed Negative Unless Noted: Yes Past Mzggyjo-Ixxstu-Ygxerv Hx Seasonal Allergies Seasonal Allergies: No Past Medical History Surgeries: Yes Abdominal, Appendectomy, Bowel Surgery, Gallbladder Respiratory: No Cardiac: Yes Hypertension Neurological: No Reproductive Disorders: No Sexually Transmitted Disease: No HIV/AIDS: No Genitourinary: No Gastrointestinal: Yes (APPY;CHERYL; PARTIAL COLECTOMY) Crohns Disease, Gall Bladder Disease Musculoskeletal: No Endocrine: Yes ([id number]-[id number] NOT TAKE MEDS, CHECK GLUCOSE OR FOLLOW DIET) Diabetes, Non-Insulin dep HEENT: Yes (04/2019--PERTONSILLAR ABSCESS/TRANSFERRED TO SPEED.NO SURGERY ) Cancer: No Psychosocial: No Integumentary: No Blood Disorders: No Adverse Reaction/Blood Tranf: No Physical Exam Vital Signs Vital Signs - First Documented 03/02/21 03/02/21 08:17 09:08 Temp 35.8 Pulse 87 Resp 18 B/P (MAP) 131/87 (102) Pulse Ox 95 O2 Delivery Nasal Cannula O2 Flow Rate 2.00 FiO2 95 Capillary Refill : Height, Weight, BMI Height: '" Weight: lbs. oz. kg; 41.00 BMI Method: General Appearance: No Apparent Distress, WD/WN Eyes: Bilateral Eye Normal Inspection, Bilateral Eye PERRL, Bilateral Eye EOMI HEENT: PERRL/EOMI Neck: Normal Inspection Respiratory: Lungs Clear, Normal Breath Sounds, No Accessory Muscle Use, No Respiratory Distress, Other (O2 sats 90-96% on RA) Cardiovascular: Regular Rate, Rhythm (80's), Normal Peripheral Pulses Gastrointestinal: Normal Bowel Sounds, Non Tender, Soft Extremity: Normal Inspection, Normal Range of Motion, No Calf Tenderness, No Pedal Edema Neurologic/Psychiatric: Alert, Oriented x3, No Motor/Sensory Deficits, Other (flat affect; slow responses; a little confused as to when he last saw his PCP) Skin: Normal Color, Warm/Dry, Other (abrasions left elbow and left knee) Focused Exam Lactate Level 03/02/21 09:00: Lactic Acid Level 3.74*H 03/02/21 11:19: Lactic Acid Level 1.94 Lactic Acid Level Laboratory Tests Test 03/02/21 09:00 03/02/21 11:19 Lactic Acid Level 3.74 MMOL/L (0.50-2.00) *H 1.94 MMOL/L (0.50-2.00) Progress/Results/Core Measures Suspected Sepsis SIRS Temperature: Pulse: Respiratory Rate: Laboratory Tests 03/02/21 08:30: White Blood Count 10.7 Blood Pressure / Mean: 03/02/21 09:00: Lactic Acid Level 3.74*H 03/02/21 11:19: Lactic Acid Level 1.94 Laboratory Tests 03/02/21 08:30: Creatinine 1.24, INR Comment 1.1, Platelet Count 354, Total Bilirubin 1.2H Results/Orders Lab Results Laboratory Tests Test 03/02/21 00:00 03/02/21 08:22 03/02/21 08:30 03/02/21 09:00 Range/Units Glucometer 284 H 70-110 MG/DL White Blood Count 10.7 4.3-11.0 10^3/uL Red Blood Count 5.30 4.30-5.52 10^6/uL Hemoglobin 14.9 13.3-17.7 g/dL Hematocrit 45 40-54 % Mean Corpuscular Volume 84 80-99 fL Mean Corpuscular Hemoglobin 28 25-34 pg Mean Corpuscular Hemoglobin Concent 33 32-36 g/dL Red Cell Distribution Width 13.0 10.0-14.5 % Platelet Count 354 130-400 10^3/uL Mean Platelet Volume 10.4 9.0-12.2 fL Immature Granulocyte % (Auto) 1 % Neutrophils (%) (Auto) 69 42-75 % Lymphocytes (%) (Auto) 20 12-44 % Monocytes (%) (Auto) 9 0-12 % Eosinophils (%) (Auto) 2 0-10 % Basophils (%) (Auto) 1 0-10 % Neutrophils # (Auto) 7.3 1.8-7.8 10^3/uL Lymphocytes # (Auto) 2.1 1.0-4.0 10^3/uL Monocytes # (Auto) 1.0 0.0-1.0 10^3/uL Eosinophils # (Auto) 0.2 0.0-0.3 10^3/uL Basophils # (Auto) 0.1 0.0-0.1 10^3/uL Immature Granulocyte # (Auto) 0.1 0.0-0.1 10^3/uL Prothrombin Time 14.6 12.2-14.7 SEC INR Comment 1.1 0.8-1.4 Activated Partial Thromboplast Time 26 24-35 SEC D-Dimer 0.28 0.00-0.49 UG/ML Sodium Level 139 135-145 MMOL/L Potassium Level 3.3 L 3.6-5.0 MMOL/L Chloride Level 98 98-107 MMOL/L Carbon Dioxide Level 29 21-32 MMOL/L Anion Gap 12 5-14 MMOL/L Blood Urea Nitrogen 18 7-18 MG/DL Creatinine 1.24 0.60-1.30 MG/DL Estimat Glomerular Filtration Rate 61 BUN/Creatinine Ratio 15 Glucose Level 291 H 70-105 MG/DL Calcium Level 9.3 8.5-10.1 MG/DL Corrected Calcium 9.4 8.5-10.1 MG/DL Total Bilirubin 1.2 H 0.1-1.0 MG/DL Aspartate Amino Transf (AST/SGOT) 9 5-34 U/L Alanine Aminotransferase (ALT/SGPT) 15 0-55 U/L Alkaline Phosphatase 93 40-136 U/L Total Protein 7.3 6.4-8.2 GM/DL Albumin 3.9 3.2-4.5 GM/DL Lactic Acid Level 3.74 *H 0.50-2.00 MMOL/L Test 03/02/21 11:19 Range/Units Lactic Acid Level 1.94 0.50-2.00 MMOL/L My Orders Orders - DOMITILA ABEL MD Cbc With Automated Diff (03/02/21 08:44) Comprehensive Metabolic Panel (03/02/21 08:44) Blood Culture (03/02/21 08:44) Sputum Culture (03/02/21 08:44) Urinalysis (03/02/21 08:44) Urine Culture (03/02/21 08:44) Protime With Inr (03/02/21 08:44) Partial Thromboplastin Time (03/02/21 08:44) Chest 1 View, Ap/Pa Only (03/02/21 08:44) Ed Iv/Invasive Line Start (03/02/21 08:44) Ed Iv/Invasive Line Start (03/02/21 08:44) Vital Signs Adult Sepsis Patie Q15M (03/02/21 08:44) O2 (03/02/21 08:44) Remove Rings In Anticipation O (03/02/21 08:44) Lactic Acid Analyzer (03/02/21 08:44) Fibrin Degradation Products (03/02/21 08:44) Ns Iv 1000 Ml (Sodium Chloride 0.9%) (03/02/21 09:45) Bladder Scan (03/02/21 09:39) General/Regular (03/02/21 Lunch) Vital Signs/I&O 03/02/21 03/02/21 08:17 09:08 Temp 35.8 Pulse 87 Resp 18 B/P (MAP) 131/87 (102) Pulse Ox 95 95 O2 Delivery Nasal Cannula Nasal Cannula O2 Flow Rate 2.00 2.00 FiO2 95 Capillary Refill : Progress Note #1: Time: 10:11 Progress Note Bladder scan revealed only about 36ml. Will load with fluids, rest of workup unremarkable except for lactic acid. Which is slightly greater than 3. Suspect dehydration rather than sepsis. Patient without any infectious complaints. No fever, tachycardia (although betablocker on board). no source for infection as of yet. No urine has been evaluated yet, however. Will reassess. Progress Note #2: Time: 12:35 Progress Note Still waiting on voided specimen from patient. He has been treated with a liter of normal saline here in the department, he has been drinking water and offered a lunch tray. His labs show that his lactic acid has improved. On reassessment the patient looks much better. Vital signs remained stable, his eyes are little brighter. His is now present at the bedside and states that even she feels like he looks better than yesterday. Would like to have a urine to prove that he has no urinary tract infection however it looks like we may not get one. He is asymptomatic from urinary tract infection. Will offer discharge and see if they want to follow-up with their primary care provider through [facility] to check his urine later next week. I spoke with the and the patient, they are agreeable, would like to maybe go ahead and be discharged home. If he develops any symptoms over the weekend such as dysuria, urgency or frequency or fever they will recheck with her primary care provider at [facility]. We will get him sitting up in the bed and standi ng and make sure that he is able to get around independently. He looks good, feels a lot better after his IV fluids. Departure Impression Primary Impression: Generalized weakness Additional Impression: Dehydration Disposition: HOME, SELF-CARE Condition: Stable Departure-Patient Inst. Decision time for Depature: 12:41 Referrals: [facility] (PCP/Family) Primary Care Physician Patient Instructions: Weakness ED, Dehydration, Adult (DC) Add. Discharge Instructions: Try to push fluids over the course of the next 24 hours in order to maintain hydration. Continue your daily medications as prescribed. If you develop any burning with urination or fever, nausea or abdominal pain please come back to the emergency room for reevaluation. Please follow-up with your primary care physician as needed. Copy Copies To 1: BLAYNE ONEILL KATHRYN M MD Mar 02, 2021 08:51
[2021-03-02 08:53] LABS: BASOPHILS # (AUTO) 0.1 10^3/uL (0.0-0.1); BASOPHILS % (AUTO) 1 % (0-10); EOSINOPHILS # (AUTO) 0.2 10^3/uL (0.0-0.3); EOSINOPHILS % (AUTO) 2 % (0-10); HEMATOCRIT 45 % (40-54); HEMOGLOBIN 14.9 g/dL (13.3-17.7); LYMPHOCYTES # (AUTO) 2.1 10^3/uL (1.0-4.0); LYMPHOCYTES % (AUTO) 20 % (12-44); MEAN CORPUSCULAR HEMOGLOBIN 28 pg (25-34); MEAN CORPUSCULAR HGB CONC 33 g/dL (32-36); MEAN CORPUSCULAR VOLUME 84 fL (80-99); MEAN PLATELET VOLUME 10.4 fL (9.0-12.2); MONOCYTES % (AUTO) 9 % (0-12); NEUTROPHILS # (AUTO) 7.3 10^3/uL (1.8-7.8); NEUTROPHILS % (AUTO) 69 % (42-75); PLATELET COUNT 354 10^3/uL (130-400); WHITE BLOOD COUNT 10.7 10^3/uL (4.3-11.0)
[2021-03-02 08:57] LABS: ALBUMIN 3.9 GM/DL (3.2-4.5)
[2021-03-02 08:58] LABS: POTASSIUM 3.3 MMOL/L (3.6-5.0)
[2021-03-02 08:59] LABS: CALCIUM 9.3 MG/DL (8.5-10.1)
[2021-03-02 09:00] LABS: TOTAL PROTEIN 7.3 GM/DL (6.4-8.2)
[2021-03-02 09:02] LABS: BILIRUBIN,TOTAL 1.2 MG/DL (0.1-1.0); FIBRIN DEGRADATION PRODUCTS 0.28 UG/ML (0.00-0.49); INR 1.1 (0.8-1.4); PROTHROMBIN TIME PATIENT 14.6 SEC (12.2-14.7)
[2021-03-02 09:04] LABS: CREATININE SERUM 1.24 MG/DL (0.60-1.30)
--- NOTE | 2021-03-02 09:21 | Diagnostic Imaging Report ---
Portable erect AP chest at 9:07. Indication: Increased weakness, lethargy. The heart size is at the upper limits of normal but stable when compared to 09/12/2020. The lungs remain clear. There still no sign of failure, pneumonia or pleural effusion. The mediastinum is not widened. The osseous structures are intact. Impression: Stable chest. There has been no adverse change since the prior exam. Dictated by: Dictated on workstation # [id number]
[2021-03-02] MEDS ORDERED: NS IV 1000 ML 1,000 ML IV SCH (09:45)
[2021-03-02 12:58] VITALS: BP 128/69
== END 2021-03-02 13:17 | disposition home or self-care (01) ==
LOC: EDUNIT# 08:16 → ER 08:18
DX: S80.212A Abrasion, left knee, initial encounter (principal); S50.312A Abrasion of left elbow, initial encounter; E86.0 Dehydration; R29.6 Repeated falls; I10 Essential (primary) hypertension; E11.9 Type 2 diabetes mellitus without complications; Z90.49 Acquired absence of other specified parts of digestive tract; Z91.14 Patient's other noncompliance with medication regimen; Z86.16 Personal history of COVID-19; Z79.52 Long term (current) use of systemic steroids; Z79.01 Long term (current) use of anticoagulants; Z79.84 Long term (current) use of oral hypoglycemic drugs; Z79.899 Other long term (current) drug therapy; W19.XXXA Unspecified fall, initial encounter
CPT/HCPCS: 36415; 71045; 80053; 82947; 83605; 85025; 85379; 85610; 85730; 87040

== ENCOUNTER 2021-04-11 16:47 | Emergency (ER) | payer SELFPAY ==
[~2021-04-11] VITALS: Ht 175.3 cm; Wt 127.0 kg
[2021-04-11] MEDS ORDERED: LACTATED RINGERS 2,000 ML IV SCH (17:45)
--- NOTE | 2021-04-11 17:46 | ED General ---
General Chief Complaint: Abdominal/GI Problems Stated Complaint: DIARRHEA Nursing Triage Note: PT AMBULATE TO ROOM WITH C/O DIARRHEA X2 DAYS. PT DENIES N/V, ABD PAIN. PT REPORTS HX OF CROHNS DISEASE. PT REPORTS MULTIPLE STROKES RELATED TO COVID. Source of Information: Patient, Family Exam Limitations: No Limitations (DOMITILA ABEL MD) History of Present Illness Date Seen by Provider: Apr 11, 2021 Time Seen by Provider: 17:38 Initial Comments Patient is a 51-year-old male who presents to the emergency room with a chief complaint of generalized weakness, fatigue, multiple episodes of diarrhea over the last week and a half. He does this on a [id number]-gf-[id number] basis, his states usually when he gets IV fluids it perks him up and he improves. He has a history of severe COVID-pneumonia/respiratory failure and subsequent ischemic strokes that lit left him quite debilitated. He follows at [facility]. He is unable to see a GI doctor for the recurrent bouts of diarrhea secondary to insurance problems. anticipates having insurance within the next week. Patient denies any recent illnesses such as fevers, chills, upper respiratory congestion. No chest pain or shortness of breath. No abdominal pain. No black or bloody stools. He has urinated fairly frequently throughout the day every time he has a bowel movement. reports too numerous to count stools, nonblack nonbloody. He does state that he feels very weak, he is a little lightheaded and dizzy when he stands up. Of note he is significantly tachycardic with a heart rate of 137 on my initial evaluation All other review of systems reviewed and negative except as stated. Timing/Duration: 1 Week (1 to 2 weeks) Severity: Moderate Associated Systoms: Malaise, Weakness (DOMITILA ABEL MD) Allergies and Home Medications Allergies Coded Allergies: No Known Drug Allergies (Unverified , 04/22/12) Patient Home Medication List Home Medication List Reviewed: Yes (DOMITILA ABEL MD) Lisinopril (Lisinopril) 20 Mg Tablet, 20 MG PO DAILY Prescribed by: LYDIA SLAUGHTER on 04/17/20 111 Metformin HCl (Metformin HCl ER) 500 Mg Tab.er.24, 500 MG PO DAILY Prescribed by: LYDIA SLAUGHTER on 04/17/20 1117 Metoprolol Tartrate (Metoprolol Tartrate) 25 Mg Tablet, 25 MG PO BID Prescribed by: LYDIA SLAUGHTER on 04/17/201116 Prednisone (Prednisone) 20 Mg Tab, 20 MG PO DAILY Prescribed by: LYDIA SLAUGHTER on 04/17/201116 Review of Systems Review of Systems Constitutional: see HPI EENTM: no symptoms reported Respiratory: no symptoms reported Gastrointestinal: diarrhea Genitourinary: no symptoms reported Musculoskeletal: no symptoms reported Skin: no symptoms reported (DOMITILA ABEL MD) All Other Systems Reviewed Negative Unless Noted: Yes (DOMITILA ABEL MD) Past Lmesdje-Jbjasj-Xrqpop Hx Patient Social History Tobacco Use?: No Smoking Status: Never a Smoker Smokeless Tobacco Frequency: Never a User Use of E-Cig and/or Vaping dev: No Use of E-Cig and/or Vaping Tam: Never a User Substance use?: No Alcohol Use?: No (DOMITILA ABEL MD) Immunizations Up To Date First/Initial COVID19 Vaccinat: 03/2020 Second COVID19 Vaccination Cole: 03/2020 COVID19 Vaccine Emt Intermediate: WeDuc (DOMITILA ABEL MD) Seasonal Allergies Seasonal Allergies: No (DOMITILA ABEL MD) Past Medical History Surgery/Hospitalization HX: POST COVID, DIABETES, AND CROHNS DISEASE Surgeries: Yes Abdominal, Appendectomy, Bowel Surgery, Gallbladder Respiratory: No Cardiac: Yes Hypertension Neurological: No Reproductive Disorders: No Sexually Transmitted Disease: No HIV/AIDS: No Genitourinary: No Gastrointestinal: Yes (APPY;CHERYL; PARTIAL COLECTOMY) Crohns Disease, Gall Bladder Disease Musculoskeletal: No Endocrine: Yes (EUA-[id number] NOT TAKE MEDS, CHECK GLUCOSE OR FOLLOW DIET) Diabetes, Non-Insulin dep HEENT: Yes (04/2019--PERTONSILLAR ABSCESS/TRANSFERRED TO [place].NO SURGERY ) Cancer: No Psychosocial: No Integumentary: No Blood Disorders: No Adverse Reaction/Blood Tranf: No (DOMITILA ABEL MD) Physical Exam Vital Signs Vital Signs - First Documented 04/11/21 16:57 Temp 36.8 Pulse 135 Resp 19 B/P (MAP) 120/95 (103) O2 Delivery Room Air (JUDY,ROMEO K DO) Vital Signs Capillary Refill : Less Than 3 Seconds (DOMITILA ABEL MD) Height, Weight, BMI Height: '" Weight: lbs. oz. kg; 41.00 BMI Method: General Appearance: No Apparent Distress Eyes: Bilateral Eye Normal Inspection, Bilateral Eye PERRL, Bilateral Eye EOMI HEENT: PERRL/EOMI, Moist Mucous Membranes Neck: Normal Inspection Respiratory: Lungs Clear, Normal Breath Sounds, No Accessory Muscle Use, No Respiratory Distress Cardiovascular: Regular Rate, Rhythm, Normal Peripheral Pulses, Tachycardia (137) Gastrointestinal: Non Tender, Soft, Abnormal Bowel Sounds (Hypoactive) Extremity: Normal Capillary Refill, Normal Inspection, Normal Range of Motion, No Pedal Edema Neurologic/Psychiatric: Alert, Oriented x3, No Motor/Sensory Deficits, Normal Mood/Affect, Other (At neurologic baseline per . Slow deliberate speech, flat affect) Skin: Normal Color, Warm/Dry (DOMITILA ABEL MD) Progress/Results/Core Measures Suspected Sepsis SIRS Temperature: Pulse: 135 Respiratory Rate: 19 Blood Pressure 120 /95 Mean: 103 (DOMITILA ABEL MD) Results/Orders Lab Results Laboratory Tests Test 04/11/21 17:04 04/11/21 18:58 04/11/21 19:55 Range/Units White Blood Count 9.0 4.3-11.0 10^3/uL Red Blood Count 5.25 4.30-5.52 10^6/uL Hemoglobin 14.8 13.3-17.7 g/dL Hematocrit 44 40-54 % Mean Corpuscular Volume 83 80-99 fL Mean Corpuscular Hemoglobin 28 25-34 pg Mean Corpuscular Hemoglobin Concent 34 32-36 g/dL Red Cell Distribution Width 13.2 10.0-14.5 % Platelet Count 328 130-400 10^3/uL Mean Platelet Volume 10.7 9.0-12.2 fL Immature Granulocyte % (Auto) 0 % Neutrophils (%) (Auto) 57 42-75 % Lymphocytes (%) (Auto) 28 12-44 % Monocytes (%) (Auto) 10 0-12 % Eosinophils (%) (Auto) 5 0-10 % Basophils (%) (Auto) 0 0-10 % Neutrophils # (Auto) 5.1 1.8-7.8 10^3/uL Lymphocytes # (Auto) 2.5 1.0-4.0 10^3/uL Monocytes # (Auto) 0.9 0.0-1.0 10^3/uL Eosinophils # (Auto) 0.5 H 0.0-0.3 10^3/uL Basophils # (Auto) 0.0 0.0-0.1 10^3/uL Immature Granulocyte # (Auto) 0.0 0.0-0.1 10^3/uL Sodium Level 138 135-145 MMOL/L Potassium Level 3.1 L 3.6-5.0 MMOL/L Chloride Level 101 98-107 MMOL/L Carbon Dioxide Level 23 21-32 MMOL/L Anion Gap 14 5-14 MMOL/L Blood Urea Nitrogen 7 7-18 MG/DL Creatinine 0.96 0.60-1.30 MG/DL Estimat Glomerular Filtration Rate 95 BUN/Creatinine Ratio 7 Glucose Level 504 *H 70-105 MG/DL Calcium Level 8.9 8.5-10.1 MG/DL Beta-Hydroxybutyrate (Chem panel) 0.10 0.00-0.27 MMOL/L Urine Color YELLOW Urine Clarity CLEAR Urine pH 6.0 5-9 Urine Specific [place] 1.010 L 1.016-1.022 Urine Protein NEGATIVE NEGATIVE Urine Glucose (UA) 3+ H NEGATIVE Urine Ketones NEGATIVE NEGATIVE Urine Nitrite NEGATIVE NEGATIVE Urine Bilirubin NEGATIVE NEGATIVE Urine Urobilinogen 0.2 < = 1.0 MG/DL Urine Leukocyte Esterase NEGATIVE NEGATIVE Urine RBC (Auto) NEGATIVE NEGATIVE Urine RBC NONE /HPF Urine WBC NONE /HPF Urine Squamous Epithelial Cells 0-2 /HPF Urine Crystals NONE /LPF Urine Bacteria NEGATIVE /HPF Urine Casts NONE /LPF Urine Mucus NEGATIVE /LPF Urine Culture Indicated NO Glucometer 316 H 70-110 MG/DL (JUDY,ROMEO K DO) My Orders Orders - JDUY,ROMEO K DO Insulin (Regular) Human (Novolin R (Per (04/11/21 18:30) Ed Iv/Invasive Line Start (04/11/21 18:21) Ns Iv 1000 Ml (Sodium Chloride 0.9%) (04/11/21 18:30) Potassium Chloride (Tablet) (Klor Con Ta (04/11/21 18:30) Ua Culture If Indicated (04/11/21 18:28) Beta Hydroxybutyrate (04/11/21 18:28) Accucheck Stat ONCE (04/11/21 19:30) Ed Iv/Invasive Line Start (04/11/21 19:57) Ns Iv 1000 Ml (Sodium Chloride 0.9%) (04/11/21 20:00) Accucheck Stat ONCE (04/11/21 20:08) (ROMEO TAYLOR DO) Medications Given in ED Current Medications Medications Dose Ordered Sig/Tono Route Start Time Stop Time Status Last Admin Dose Admin Insulin Human Regular 15 unit ONCE ONCE IV 04/11/21 18:30 04/11/21 18:31 DC 04/11/21 18:52 15 UNIT Potassium Chloride 40 meq ONCE ONCE PO 04/11/21 18:30 04/11/21 18:31 DC 04/11/21 18:52 40 MEQ (ROMEO TAYLOR DO) Vital Signs/I&O 04/11/21 16:57 Temp 36.8 Pulse 135 Resp 19 B/P (MAP) 120/95 (103) O2 Delivery Room Air (ROMEO TAYLOR DO) Vital Signs/I&O Capillary Refill : Less Than 3 Seconds (DOMITILA ABEL MD) Blood Pressure Mean: 103 Progress Note : Time: 17:46 Progress Note care passed to Dr Taylor with labs pending and pending re-evaluation after IVF bolus (DOMITILA ABEL MD) Progress Note : Progress Note 1800--ASSUMED CARE OF PATIENT FROM DR. ABEL, LABS PENDING, PT WITH HR AROUND 110'S AT THIS TIME AND PT HAS NO COMPLAINTS. PT WATCHING PORNOGRAPHIC MATERIAL ON HIS PHONE AT THIS TIME. PT HAS BEEN GIVEN IV FLUIDS AND ORAL POTASSIUM REPEAT ACCUCHECK 316. REPEAT ACCUCHECK PRIOR TO DISMISSAL 293 NO COMPLAINTS AT DISMISSAL (ROMEO TAYLOR DO) ECG Initial ECG Impression Date: Apr 11, 2021 Initial ECG Impression Time: 18:01 Initial ECG Rate: 128 Initial ECG Rhythm: S.Tach Initial ECG Impression: Nonspecific Changes (ROMEO TAYLOR DO) Departure Communication (Admissions) 1939--DISCUSSED WITH DR. SLAUGHTER. WILL HAVE PT FOLLOW UP IN CLINIC AND FOR THE FUTURE, CAN ARRANGE FOR OUTPATIENT IV FLUIDS NEEDED. (ROMEO TAYLOR DO) Impression Primary Impression: Generalized weakness Additional Impressions: Uncontrolled diabetes mellitus Dehydration Hypokalemia Disposition: 01 HOME, SELF-CARE Condition: Improved Departure-Patient Inst. Referrals: [facility] (PCP/Family) Primary Care Physician Patient Instructions: DIABETES, Dehydration, Adult (DC), Diarrhea in Adolescents and Adults Add. Discharge Instructions: CONTINUE YOUR MEDICATIONS PRESCRIBED CHECK YOUR BLOOD SUGARS AT LEAST 3 TIMES A DAY AND KEEP DIARY FOLLOW UP WITH [facility] IN THE NEXT FEW DAYS FOR FOLLOW UP CARE. RETURN TO ER IF SYMPTOMS WORSEN All discharge instructions reviewed with patient and/or family. Voiced understanding. DOMITILA ABEL MD Apr 11, 2021 17:46 ROMEO TAYLOR DO Apr 11, 2021 18:43
[2021-04-11 17:50] LABS: BASOPHILS % (AUTO) 0 % (0-10); EOSINOPHILS # (AUTO) 0.5 10^3/uL (0.0-0.3); EOSINOPHILS % (AUTO) 5 % (0-10); HEMATOCRIT 44 % (40-54); HEMOGLOBIN 14.8 g/dL (13.3-17.7); LYMPHOCYTES # (AUTO) 2.5 10^3/uL (1.0-4.0); LYMPHOCYTES % (AUTO) 28 % (12-44); MEAN CORPUSCULAR HEMOGLOBIN 28 pg (25-34); MEAN CORPUSCULAR HGB CONC 34 g/dL (32-36); MEAN CORPUSCULAR VOLUME 83 fL (80-99); MEAN PLATELET VOLUME 10.7 fL (9.0-12.2); MONOCYTES # (AUTO) 0.9 10^3/uL (0.0-1.0); MONOCYTES % (AUTO) 10 % (0-12); NEUTROPHILS # (AUTO) 5.1 10^3/uL (1.8-7.8); NEUTROPHILS % (AUTO) 57 % (42-75); PLATELET COUNT 328 10^3/uL (130-400)
[2021-04-11 17:51] LABS: POTASSIUM 3.1 MMOL/L (3.6-5.0)
[2021-04-11 17:52] LABS: CALCIUM 8.9 MG/DL (8.5-10.1)
[2021-04-11 17:56] LABS: CREATININE SERUM 0.96 MG/DL (0.60-1.30)
[2021-04-11] MEDS ORDERED: NS IV 1000 ML 1,000 ML IV SCH ×2 (18:30→20:00)
[2021-04-11] MEDS ORDERED: inSUlin (REGULAR) HUMAN 1 UNIT/0.01 ML (CHARGE PER UNIT) IV ONE (18:30)
[2021-04-11] MEDS ORDERED: KCL 10 MEQ TAB (MICRO K) PO ONE (18:30)
[2021-04-11 19:05] LABS: BILIRUBIN,URINE NEGATIVE (NEGATIVE); CLARITY,URINE CLEAR; COLOR,URINE YELLOW; GLUCOSE, URINE (UA) 3+ (NEGATIVE); KETONES,URINE NEGATIVE (NEGATIVE); LEUKOCYTE ESTERASE ,URINE NEGATIVE (NEGATIVE); NITRITE,URINE NEGATIVE (NEGATIVE); PROTEIN,URINE NEGATIVE (NEGATIVE)
[2021-04-11 19:12] LABS: BACTERIA,URINE NEGATIVE /HPF; SQUAMOUS EPITHELIAL CELL,UR 0-2 /HPF
[2021-04-11 20:47] VITALS: BP 151/112
== END 2021-04-11 20:47 | disposition home or self-care (01) ==
LOC: EDUNIT# 16:47 → ER 16:49
DX: R53.1 Weakness (principal); R19.7 Diarrhea, unspecified; K50.90 Crohn's disease, unspecified, without complications; E86.0 Dehydration; E87.6 Hypokalemia; E11.65 Type 2 diabetes mellitus with hyperglycemia; J44.9 Chronic obstructive pulmonary disease, unspecified; I10 Essential (primary) hypertension; Z86.16 Personal history of COVID-19; Z79.84 Long term (current) use of oral hypoglycemic drugs; Z91.19 Patient's noncompliance with other medical treatment and regimen; Z86.73 Personal history of transient ischemic attack (TIA), and cerebral infarction without residual deficits; Z79.52 Long term (current) use of systemic steroids
CPT/HCPCS: 36415; 80048; 81000; 82010; 82947; 85025; 93005; 96361; 96374

== ENCOUNTER 2021-05-07 16:06 | Emergency (ER) | payer SELFPAY ==
[~2021-05-07] VITALS: Ht 175 cm; Wt 126.0 kg
[2021-05-07 16:13] VITALS: BP 166/86
[2021-05-07 16:34] LABS: BASOPHILS # (AUTO) 0.1 10^3/uL (0.0-0.1); BASOPHILS % (AUTO) 1 % (0-10); EOSINOPHILS # (AUTO) 0.3 10^3/uL (0.0-0.3); EOSINOPHILS % (AUTO) 3 % (0-10); HEMATOCRIT 47 % (40-54); HEMOGLOBIN 15.6 g/dL (13.3-17.7); LYMPHOCYTES # (AUTO) 2.6 10^3/uL (1.0-4.0); LYMPHOCYTES % (AUTO) 29 % (12-44); MEAN CORPUSCULAR HEMOGLOBIN 28 pg (25-34); MEAN CORPUSCULAR HGB CONC 33 g/dL (32-36); MEAN CORPUSCULAR VOLUME 84 fL (80-99); MEAN PLATELET VOLUME 10.7 fL (9.0-12.2); MONOCYTES # (AUTO) 0.9 10^3/uL (0.0-1.0); MONOCYTES % (AUTO) 10 % (0-12); NEUTROPHILS # (AUTO) 5.1 10^3/uL (1.8-7.8); NEUTROPHILS % (AUTO) 57 % (42-75); PLATELET COUNT 304 10^3/uL (130-400); WHITE BLOOD COUNT 8.9 10^3/uL (4.3-11.0)
[2021-05-07 16:36] LABS: ALBUMIN 4.2 GM/DL (3.2-4.5)
[2021-05-07 16:37] LABS: CHLORIDE 100 MMOL/L (98-107); POTASSIUM 3.4 MMOL/L (3.6-5.0); SODIUM 135 MMOL/L (135-145)
[2021-05-07 16:38] LABS: CALCIUM 9.5 MG/DL (8.5-10.1)
[2021-05-07 16:39] LABS: TOTAL PROTEIN 7.7 GM/DL (6.4-8.2)
[2021-05-07 16:40] LABS: CARBON DIOXIDE 21 MMOL/L (21-32)
[2021-05-07 16:41] LABS: BILIRUBIN,TOTAL 1.3 MG/DL (0.1-1.0)
[2021-05-07 16:43] LABS: ALKALINE PHOSPHATASE 111 U/L (40-136); CREATININE SERUM 1.19 MG/DL (0.60-1.30); FIBRIN DEGRADATION PRODUCTS <= 0.27 UG/ML (0.00-0.49); GFR ESTIMATED 73; INR 1.1 (0.8-1.4); PARTIAL THROMBOPLASTIN TIME 30 SEC (24-35); PROTHROMBIN TIME PATIENT 14.2 SEC (12.2-14.7)
[2021-05-07 16:44] LABS: BUN/CREATININE RATIO 8
[2021-05-07 16:46] LABS: ALANINE AMINOTRANSFERASE 19 U/L (0-55)
[2021-05-07 16:54] LABS: GLUCOSE 510 MG/DL (70-105)
[2021-05-07] MEDS ORDERED: inSUlin (REGULAR) HUMAN 1 UNIT/0.01 ML (CHARGE PER UNIT) SC STA (16:57)
--- NOTE | 2021-05-07 16:57 | Diagnostic Imaging Report ---
EXAMINATION: Chest 1 view HISTORY: Weakness. COMPARISON: 03/02/2021. FINDINGS: The lungs are clear without edema or pneumonia. No pleural effusion or pneumothorax. Heart size is normal. IMPRESSION: 1. Clear lungs. Dictated by: Dictated on workstation # [id number]
--- NOTE | 2021-05-07 16:58 | Diagnostic Imaging Report ---
PROCEDURE: CT head wo r/o stroke. TECHNIQUE: Multiple contiguous axial images were obtained through the brain without the use of intravenous contrast. Auto Exposure Controls were utilized during the CT exam to meet ALARA standards for radiation dose reduction. INDICATION: Left upper and lower extremity weakness. Previous history of CVA. COMPARISON: 09/12/2020. FINDINGS: The midline structures are not displaced. Several small old lacunar sized infarcts are seen in the deep white matter with encephalomalacia. There is no midline shift, mass effect, hydrocephalus, or hemorrhage. Santana-white differentiation is otherwise reasonably well maintained and there is no sulcal effacement. There are no abnormal extra-axial fluid collections or hemorrhage. The basilar cisterns appear normal. The sinuses, orbits, and mastoid air cells are unremarkable. Bone windows show no calvarial changes. IMPRESSION: There are a few scattered areas of old lacunar sized infarcts with associated small areas of encephalomalacia. Overall, no acute finding is identified by nonenhanced CT criteria. If symptoms warrant or persist, an MRI would be of further value. Dictated by: Dictated on workstation # [id number]
[2021-05-07] MEDS ORDERED: NS IV 1000 ML 1,000 ML IV ONE ×2 (17:00→18:00)
--- NOTE | 2021-05-07 17:44 | ED Neurological Problem ---
General Chief Complaint: Neuro-Stroke Like Symptoms Stated Complaint: LEFT SIDE WEAKNESS Nursing Triage Note: PT AMB TO RM 3 PT CO OF WEAKNESS OF L UPPER AN LOWER EXT. 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 PT IS ALERT, SPEECH IS SLOW. Source: patient, family Exam Limitations: no limitations (MARIE HINOJOSA MD) History of Present Illness Date Seen by Provider: May 07, 2021 Time Seen by Provider: 16:20 Initial Comments Here with report of increasing weakness over the last few days including areas of previous stroke on the left side. Speech is slow but patient is alert and oriented and is able to describe current symptoms and history. Apparently had multiple strokes after Covid infection. He is typically incontinent of urine and stool. He is usually able to move around with a walker but has had increasing left-sided weakness over the last 48 hours. He is diabetic. Denies fever, chills, sore throat, runny nose or cough. Denies any other illness or symptoms other than the weakness and fatigue. Timing/Duration: increasing, other (2 days) Severity: moderate Associated Symptoms: fatigue; No fever/chills, No nausea/vomiting; slurred speech (Chronic), trouble walking, weakness (MARIE HINOJOSA MD) Allergies and Home Medications Allergies Coded Allergies: No Known Drug Allergies (Unverified , 04/22/12) Patient Home Medication List Home Medication List Reviewed: Yes (MARIE HINOJOSA MD) Lisinopril (Lisinopril) 20 Mg Tablet, 20 MG PO DAILY Prescribed by: LYDIA SLAUGHTER on 04/17/201116 Metoprolol Tartrate (Metoprolol Tartrate) 25 Mg Tablet, 25 MG PO BID Prescribed by: LYDIA SLAUGHTER on 04/17/201116 Discontinued Medications Metformin HCl (Metformin HCl ER) 500 Mg Tab.er.24, 500 MG PO DAILY Discontinued Reason: No Longer Taking Prescribed by: LYDIA SLAUGHTER on 04/17/201116 Last Action: Discontinued Prednisone (Prednisone) 20 Mg Tab, 20 MG PO DAILY Discontinued Reason: No Longer Taking Prescribed by: LYDIA SLAUGHTER on 04/17/201116 Last Action: Discontinued Review of Systems Review of Systems Constitutional: see HPI; No chills; fever Ears, Nose, Mouth, Throat: denies nose pain, denies throat pain Respiratory: No cough, No short of breath Cardiovascular: No chest pain, No edema Gastrointestinal: No nausea, No vomiting Genitourinary: No dysuria, No pain Musculoskeletal: see HPI Skin: no symptoms reported Psychiatric/Neurological: See HPI (MARIE HINOJOSA MD) All Other Systems Reviewed Negative Unless Noted: Yes (MARIE HINOJOSA MD) Past Muqcsvb-[id number]-Nuacdj Hx Patient Social History Tobacco Use?: No Substance use?: No Alcohol Use?: No Pt feels they are or have been: No (MARIE HINOJOSA MD) Immunizations Up To Date First/Initial COVID19 Vaccinat: 03/2020 Second COVID19 Vaccination Cole: 03/2020 (MARIE HINOJOSA MD) Seasonal Allergies Seasonal Allergies: No (MARIE HINOJOSA MD) Past Medical History Surgery/Hospitalization HX: POST COVID, DIABETES, AND CROHNS DISEASE, STROKES Surgeries: Yes Abdominal, Appendectomy, Bowel Surgery, Gallbladder Respiratory: No Cardiac: Yes Hypertension Neurological: No Reproductive Disorders: No Sexually Transmitted Disease: No HIV/AIDS: No Genitourinary: No Gastrointestinal: Yes (APPY;CHERYL; PARTIAL COLECTOMY) Crohns Disease, Gall Bladder Disease Musculoskeletal: No Endocrine: Yes ([id number] NOT TAKE MEDS, CHECK GLUCOSE OR FOLLOW DIET) Diabetes, Non-Insulin dep HEENT: Yes (04/2019--PERTONSILLAR ABSCESS/TRANSFERRED TO [place].NO SURGERY ) Cancer: No Psychosocial: No Integumentary: No Blood Disorders: No Adverse Reaction/Blood Tranf: No (MARIE HINOJOSA MD) Family Medical History Reviewed Nursing Family Hx (MARIE HINOJOSA MD) No Pertinent Family Hx (MARIE HINOJOSA MD) Physical Exam Vital Signs Vital Signs - First Documented 05/07/21 16:13 Temp 35.9 Pulse 110 Resp 18 B/P (MAP) 166/86 (112) Pulse Ox 92 O2 Delivery Room Air (DESTINI VIERA) Vital Signs Capillary Refill : Less Than 3 Seconds (MARIE HINOJOSA MD) Height, Weight, BMI Height: '" Weight: lbs. oz. kg; 41.00 BMI Method: General Appearance: WD/WN, no apparent distress HEENT: PERRL/EOMI, pharynx normal Neck: full range of motion, supple Respiratory: lungs clear, normal breath sounds Cardiovascular: no murmur, tachycardia Peripheral Pulses: 2+ Dorsalis Pedis (R), 2+ Left Dors-Pedis (L), 2+ Radial Pulses (R), 2+ Radial Pulses (L) Gastrointestinal: non tender, soft Back: normal inspection, no CVA tenderness, no vertebral tenderness Extremities: non-tender, no calf tenderness Neurologic/Psychiatric: alert, oriented x 3 Crainal Nerves: abnormal speech Coordination/Gait: ABN nose to finger (L) Motor/Sensory: weak motor strength LUE, weak motor strength LLE Skin: normal color, warm/dry (MARIE HINOJOSA MD) Stroke NIH Stroke Scale Assessment Level of Consciousness: 0=Alert (0), Level of Consciousness-Questions: 0=Answers both month/age (0), LOC Commands: 0=Performs both tasks (0), Visual Venegas: 0=No visual loss (0), Facial Movement (Facial Paresis): 0=Normal symmetrical mnt (0), Motor Function-Arms Right: 0=No drift (0), Motor Function-Arms Left: 2=Some effort/gravity (2), Motor Function-Legs Right: 0=No drift (0), Motor Function-Legs Left: 2=Some effort/gravity (2), Limb Ataxia: 2=Present in two limbs (2), Sensory: 0=Normal:no loss (0), Best Language: 0=No aphasia (0), Dysarthria: 1=Mild to moderate loss (1), Extinction & Inattention: 0=No abnormality (0), Total: Progress/Results/Core Measures Results/Orders Lab Results Laboratory Tests Test 05/07/21 16:16 05/07/21 17:45 05/07/21 19:18 Range/Units White Blood Count 8.9 4.3-11.0 10^3/uL Red Blood Count 5.54 H 4.30-5.52 10^6/uL Hemoglobin 15.6 13.3-17.7 g/dL Hematocrit 47 40-54 % Mean Corpuscular Volume 84 80-99 fL Mean Corpuscular Hemoglobin 28 25-34 pg Mean Corpuscular Hemoglobin Concent 33 32-36 g/dL Red Cell Distribution Width 12.6 10.0-14.5 % Platelet Count 304 130-400 10^3/uL Mean Platelet Volume 10.7 9.0-12.2 fL Immature Granulocyte % (Auto) 0 % Neutrophils (%) (Auto) 57 42-75 % Lymphocytes (%) (Auto) 29 12-44 % Monocytes (%) (Auto) 10 0-12 % Eosinophils (%) (Auto) 3 0-10 % Basophils (%) (Auto) 1 0-10 % Neutrophils # (Auto) 5.1 1.8-7.8 10^3/uL Lymphocytes # (Auto) 2.6 1.0-4.0 10^3/uL Monocytes # (Auto) 0.9 0.0-1.0 10^3/uL Eosinophils # (Auto) 0.3 0.0-0.3 10^3/uL Basophils # (Auto) 0.1 0.0-0.1 10^3/uL Immature Granulocyte # (Auto) 0.0 0.0-0.1 10^3/uL Prothrombin Time 14.2 12.2-14.7 SEC INR Comment 1.1 0.8-1.4 Activated Partial Thromboplast Time 30 24-35 SEC D-Dimer <= 0.27 0.00-0.49 UG/ML Sodium Level 135 135-145 MMOL/L Potassium Level 3.4 L 3.6-5.0 MMOL/L Chloride Level 100 98-107 MMOL/L Carbon Dioxide Level 21 21-32 MMOL/L Anion Gap 14 5-14 MMOL/L Blood Urea Nitrogen 10 7-18 MG/DL Creatinine 1.19 0.60-1.30 MG/DL Estimat Glomerular Filtration Rate 73 BUN/Creatinine Ratio 8 Glucose Level 510 *H 70-105 MG/DL Calcium Level 9.5 8.5-10.1 MG/DL Corrected Calcium 9.3 8.5-10.1 MG/DL Total Bilirubin 1.3 H 0.1-1.0 MG/DL Aspartate Amino Transf (AST/SGOT) 12 5-34 U/L Alanine Aminotransferase (ALT/SGPT) 19 0-55 U/L Alkaline Phosphatase 111 40-136 U/L Troponin I < 0.028 <0.028 NG/ML Total Protein 7.7 6.4-8.2 GM/DL Albumin 4.2 3.2-4.5 GM/DL Glucometer 391 H 70-110 MG/DL Urine Color YELLOW Urine Clarity CLEAR Urine pH 5.5 5-9 Urine Specific [place] 1.010 L 1.016-1.022 Urine Protein NEGATIVE NEGATIVE Urine Glucose (UA) 3+ H NEGATIVE Urine Ketones NEGATIVE NEGATIVE Urine Nitrite NEGATIVE NEGATIVE Urine Bilirubin NEGATIVE NEGATIVE Urine Urobilinogen 0.2 < = 1.0 MG/DL Urine Leukocyte Esterase NEGATIVE NEGATIVE Urine RBC (Auto) NEGATIVE NEGATIVE Urine RBC NONE /HPF Urine WBC RARE /HPF Urine Squamous Epithelial Cells 0-2 /HPF Urine Crystals NONE /LPF Urine Bacteria TRACE /HPF Urine Casts NONE /LPF Urine Mucus NEGATIVE /LPF Urine Culture Indicated NO (DESTINI VIERA) Medications Given in ED Current Medications Medications Dose Ordered Sig/Tono Route Start Time Stop Time Status Last Admin Dose Admin Sodium Chloride 1,000 ml @ 0 mls/hr Q0M ONCE IV 05/07/21 17:00 05/07/21 17:01 DC 05/07/21 16:56 1,000 MLS/HR Sodium Chloride 1,000 ml @ 0 mls/hr Q0M ONCE IV 05/07/21 18:00 05/07/21 18:01 DC 05/07/21 18:03 1,000 MLS/HR (DESTINI VIERA) Vital Signs/I&O 05/07/21 05/07/21 16:13 16:13 Temp 35.9 Pulse 110 Resp 18 B/P (MAP) 166/86 (112) Pulse Ox 92 94 O2 Delivery Room Air (DESTINI VIERA) Blood Pressure Mean: 112 Progress Progress Note : Progress Note Seen and evaluated. IV, labs, UA, chest x-ray, CT head stroke protocol initiated. Normal saline 1 L bolus ordered. 1700: Blood sugar noted to be quite elevated and regular insulin 15 units subcu ordered. Pending UA. Monitor patient. 1800: Repeat normal saline 1 L bolus. We are still trying to obtain UA. Labs are otherwise unremarkable except for the hyperglycemia which we are treating now. CT does not show a new findings. I have discussed the case with Dr. Slaughter and she will try to get a clinic appointment this week to initiate insulin therapy for hyperglycemia. This was discussed with the patient and family as well. They are very appreciative of that. Monitor patient. (MARIE HINOJOSA MD) Progress Note : Time: 18:38 Progress Note Assumed care of the patient at shift change. Patient is set up to follow-up [facility] Dr. Slaughter this week to initiate insulin therapy for hyperglycemia. Patient's sugar has responded to insulin. Education on diabetes and diet have been shared with the patient and will be reinforced by this provider. Waiting on a urinalysis because of the elevated blood glucose and history of urinary frequency concern for UTI. (DESTINI VIERA) Initial ECG Impression Date: May 07, 2021 Initial ECG Impression Time: 16:16 Initial ECG Rate: 108 Initial ECG Rhythm: S.Tach Comment Sinus tachycardia with normal axis. LVH noted. No evidence of ST elevation FL. Similar to 09/12/2020. Interpreted by me. (MARIE HINOJOSA MD) Diagnostic Imaging Diagonstic Imaging: CT Plain Films/CT/US/NM/MRI: head Comments [facility], [place] NAME: RAHAT [facility] REC#: [id number] PT STATUS: REG ER : 1970 PHYSICIAN: MARIE HINOJOSA MD ADMIT DATE: 05/07/21/ER Draft Date of Exam:05/07/21 CT HEAD WO-R/O STROKE PROCEDURE: CT head wo r/o stroke. TECHNIQUE: Multiple contiguous axial images were obtained through the brain without the use of intravenous contrast. Auto Exposure Controls were utilized during the CT exam to meet ALARA standards for radiation dose reduction. INDICATION: Left upper and lower extremity weakness. Previous history of CVA. COMPARISON: 09/12/2020. FINDINGS: The midline structures are not displaced. Several small old lacunar sized infarcts are seen in the deep white matter with encephalomalacia. There is no midline shift, mass effect, hydrocephalus, or hemorrhage. Santana-white differentiation is otherwise reasonably well maintained and there is no sulcal effacement. There are no abnormal extra-axial fluid collections or hemorrhage. The basilar cisterns appear normal. The sinuses, orbits, and mastoid air cells are unremarkable. Bone windows show no calvarial changes. IMPRESSION: There are a few scattered areas of old lacunar sized infarcts with associated small areas of encephalomalacia. Overall, no acute finding is identified by nonenhanced CT criteria. If symptoms warrant or persist, an MRI would be of further value. Dictated on workstation # [id number] Dict: 05/07/211651 Trans: 05/07/211656 [id number] Interpreted by: NYA PRASAD MD Electronically signed by: Dayan Imaging: Xray Plain Films/CT/US/NM/MRI: chest Comments [facility], [place] NAME: RAHAT [facility] REC#: [id number] PT STATUS: REG ER : 1970 PHYSICIAN: MARIE HINOJOSA MD ADMIT DATE: 05/07/21/ER Signed Date of Exam:05/07/21 CHEST 1 VIEW, AP/PA ONLY EXAMINATION: Chest 1 view HISTORY: Weakness. COMPARISON: 03/02/2021. FINDINGS: The lungs are clear without edema or pneumonia. No pleural effusion or pneumothorax. Heart size is normal. IMPRESSION: 1. Clear lungs. Dictated by: Dictated on workstation # [id number] Dict: 05/07/211653 Trans: 05/07/211704 [id number] Interpreted by: LOGAN ROMERO MD Electronically signed by: LOGAN ROMERO MD 05/07/211704 (MARIE HINOJOSA MD) Departure Impression Primary Impression: Uncontrolled diabetes mellitus with hyperglycemia, without long-term current use of insulin Additional Impressions: Left-sided weakness Dehydration Disposition: 01 HOME, SELF-CARE Condition: Stable Departure-Patient Inst. Decision time for Depature: 19:34 (DESTINI VIERA) Referrals: [facility] (PCP/Family) Primary Care Physician Patient Instructions: Dehydration, Adult ED, High Blood Sugar, Adult ED Add. Discharge Instructions: All discharge instructions reviewed with patient and/or family. Voiced understanding. Drink plenty of nonsugary fluids and eat a diet low in sugar and carbohydrates. You need to follow-up with the clinic this week for recheck and further evaluation. You can work with them for possibly starting insulin. I did discuss the case with Dr. Slaughter and she will work to get your appointment this week. Call the clinic tomorrow afternoon if he has not heard from them for appointment. Let them know that the case was discussed with Dr. Slaughter. Return for worse pain, fever, vomiting, weakness, breathing problems or other concerns as needed. MARIE HINOJOSA MD May 07, 2021 17:44 DESTINI VIERA May 07, 2021 18:39
[2021-05-07 19:23] LABS: BILIRUBIN,URINE NEGATIVE (NEGATIVE); CLARITY,URINE CLEAR; COLOR,URINE YELLOW; GLUCOSE, URINE (UA) 3+ (NEGATIVE); KETONES,URINE NEGATIVE (NEGATIVE); LEUKOCYTE ESTERASE ,URINE NEGATIVE (NEGATIVE); NITRITE,URINE NEGATIVE (NEGATIVE); PH,URINE 5.5 (5-9); PROTEIN,URINE NEGATIVE (NEGATIVE)
[2021-05-07 19:31] LABS: BACTERIA,URINE TRACE /HPF; SQUAMOUS EPITHELIAL CELL,UR 0-2 /HPF; WBC,URINE RARE /HPF
== END 2021-05-07 19:56 | disposition home or self-care (01) ==
LOC: EDUNIT# 16:06 → ER 16:08
DX: E11.65 Type 2 diabetes mellitus with hyperglycemia (principal); I10 Essential (primary) hypertension; Z79.4 Long term (current) use of insulin; Z79.899 Other long term (current) drug therapy
CPT/HCPCS: 36415; 70450; 71045; 80053; 81000; 82947; 84484; 85025; 85379; 85610; 85730; 93005; 93041

== ENCOUNTER 2021-10-05 19:16 | Inpatient (IN) | payer MEDICAID ==
[~2021-10-05] VITALS: Ht 172 cm; Wt 125.4 kg
[2021-10-05 19:43] LABS: BASOPHILS # (AUTO) 0.1 10^3/uL (0.0-0.1); BASOPHILS % (AUTO) 1 % (0-10); EOSINOPHILS # (AUTO) 0.4 10^3/uL (0.0-0.3); EOSINOPHILS % (AUTO) 4 % (0-10); HEMATOCRIT 45 % (40-54); HEMOGLOBIN 14.6 g/dL (13.3-17.7); LYMPHOCYTES # (AUTO) 2.4 10^3/uL (1.0-4.0); LYMPHOCYTES % (AUTO) 26 % (12-44); MEAN CORPUSCULAR HEMOGLOBIN 27 pg (25-34); MEAN CORPUSCULAR HGB CONC 33 g/dL (32-36); MEAN CORPUSCULAR VOLUME 84 fL (80-99); MEAN PLATELET VOLUME 10.4 fL (9.0-12.2); MONOCYTES # (AUTO) 0.7 10^3/uL (0.0-1.0); MONOCYTES % (AUTO) 8 % (0-12); NEUTROPHILS # (AUTO) 5.8 10^3/uL (1.8-7.8); NEUTROPHILS % (AUTO) 62 % (42-75); PLATELET COUNT 355 10^3/uL (130-400); WHITE BLOOD COUNT 9.4 10^3/uL (4.3-11.0)
--- NOTE | 2021-10-05 19:54 | ED Neurological Problem ---
General Chief Complaint: Neuro-Stroke Like Symptoms Stated Complaint: POSS STROKE Nursing Triage Note: TO ED VIA [facility] FROM HOME. 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 POSSIBLE HX OF TIA'S DURING TIME OF HAVING COVID APPROX 1 YEAR AGO. BLOOD SUGAR 265 MG/DL EN ROUTE FOR EMS. PT AWAKE ON ARRIVAL AND TAKEN IMMEDIATELY TO CT. Source: EMS Exam Limitations: clinical condition History of Present Illness Date Seen by Provider: Oct 05, 2021 Time Seen by Provider: 19:43 Initial Comments Patient is a 51yo male, h/o COVID about 1.5y ago and multiple neurologic insults during hospitalization for Covid at that time (TIA vs strokes). He has had chronic debility since then with several ED visits for weakness and strokelike symptoms. Apparently his sons were at home with him and he had a fall in the bathroom with increased weakness to the left side. Unsure of LOC as sons are not here at this time for history. The patient (with significantly slurred speech) is able to tell me that his is working in [place] - which is consistent with prior visits to our ER. He does state he has a mild headache. Otherwise his speech is so slurred he is very difficult to understand. GLobally he is able to move all 4 extremities (with weakness) and appears to have intact sensation throughout. He appears to be cognizant of his surroundings. ROS quite difficult due to difficulty with speech, Timing/Duration: 1-3 hours Severity: moderate Associated Symptoms: nausea/vomiting (?), slurred speech, weakness Allergies and Home Medications Allergies Coded Allergies: No Known Drug Allergies (Unverified , 04/22/12) Patient Home Medication List Home Medication List Reviewed: Yes Lisinopril (Lisinopril) 20 Mg Tablet, 20 MG PO DAILY Prescribed by: LYDIA SLAUGHTER on 04/17/20 1117 Metoprolol Tartrate (Metoprolol Tartrate) 25 Mg Tablet, 25 MG PO BID Prescribed by: LYDIA SLAUGHTER on 04/17/20 1117 Review of Systems Review of Systems Constitutional: see HPI uanable to obtain due to patient's significant slurred speech Past Nqduaqx-Hirknb-Mvxugm Hx Immunizations Up To Date First/Initial COVID19 Vaccinat: 03/2020 Second COVID19 Vaccination Cole: 03/2020 Third COVID19 Vaccination Date: 03/2020 Seasonal Allergies Seasonal Allergies: No Past Medical History Surgery/Hospitalization HX: POST COVID, DIABETES, AND CROHNS DISEASE, STROKES Surgeries: Yes Abdominal, Appendectomy, Bowel Surgery, Gallbladder Respiratory: No Cardiac: Yes Hypertension Neurological: No Reproductive Disorders: No Sexually Transmitted Disease: No HIV/AIDS: No Genitourinary: No Gastrointestinal: Yes (APPY;CHERYL; PARTIAL COLECTOMY) Crohns Disease, Gall Bladder Disease Musculoskeletal: No Endocrine: Yes (SAL-LUWHDFSPA-QNBC NOT TAKE MEDS, CHECK GLUCOSE OR FOLLOW DIET) Diabetes, Non-Insulin dep HEENT: Yes (04/2019--PERTONSILLAR ABSCESS/TRANSFERRED TO [facility].NO SURGERY ) Cancer: No Psychosocial: No Integumentary: No Blood Disorders: No Adverse Reaction/Blood Tranf: No Family Medical History No Pertinent Family Hx Physical Exam Vital Signs Vital Signs - First Documented 10/05/21 10/05/21 19:17 19:59 Temp 36.9 Pulse 99 Resp 16 B/P (MAP) 151/84 (106) Pulse Ox 94 O2 Delivery Room Air O2 Flow Rate 2.00 Capillary Refill : Less Than 3 Seconds Height, Weight, BMI Height: '" Weight: lbs. oz. kg; 41.00 BMI Method: General Appearance: WD/WN, no apparent distress HEENT: PERRL/EOMI, other (dry oral mucosa) Respiratory: lungs clear, normal breath sounds, no respiratory distress, no accessory muscle use Cardiovascular: regular rate, rhythm Gastrointestinal: normal bowel sounds, non tender, soft, other (obese) Extremities: normal inspection Neurologic/Psychiatric: no motor/sensory deficits, alert, normal mood/affect Crainal Nerves: PERRL, abnormal speech; No facial asymmetry, No facial droop, No facial paresthesias, No facial weakness, No gaze palsy, No hearing deficit (R), No hearing deficit (L), No tongue deviation to R, No tongue deviation to L Coordination/Gait: other (unable to particiapte) Motor/Sensory: No sensory deficit; weak motor strength RLE Skin: normal color, warm/dry Progress/Results/Core Measures Results/Orders Lab Results Laboratory Tests Test 10/05/21 19:10 10/05/21 19:35 10/05/21 19:42 10/05/21 19:45 Range/Units White Blood Count 9.4 4.3-11.0 10^3/uL Red Blood Count 5.33 4.30-5.52 10^6/uL Hemoglobin 14.6 13.3-17.7 g/dL Hematocrit 45 40-54 % Mean Corpuscular Volume 84 80-99 fL Mean Corpuscular Hemoglobin 27 25-34 pg Mean Corpuscular Hemoglobin Concent 33 32-36 g/dL Red Cell Distribution Width 13.5 10.0-14.5 % Platelet Count 355 130-400 10^3/uL Mean Platelet Volume 10.4 9.0-12.2 fL Immature Granulocyte % (Auto) 0 % Neutrophils (%) (Auto) 62 42-75 % Lymphocytes (%) (Auto) 26 12-44 % Monocytes (%) (Auto) 8 0-12 % Eosinophils (%) (Auto) 4 0-10 % Basophils (%) (Auto) 1 0-10 % Neutrophils # (Auto) 5.8 1.8-7.8 10^3/uL Lymphocytes # (Auto) 2.4 1.0-4.0 10^3/uL Monocytes # (Auto) 0.7 0.0-1.0 10^3/uL Eosinophils # (Auto) 0.4 H 0.0-0.3 10^3/uL Basophils # (Auto) 0.1 0.0-0.1 10^3/uL Immature Granulocyte # (Auto) 0.0 0.0-0.1 10^3/uL Sodium Level 140 135-145 MMOL/L Potassium Level 3.3 L 3.6-5.0 MMOL/L Chloride Level 103 98-107 MMOL/L Carbon Dioxide Level 21 21-32 MMOL/L Anion Gap 16 H 5-14 MMOL/L Blood Urea Nitrogen 14 7-18 MG/DL Creatinine 0.96 0.60-1.30 MG/DL Estimat Glomerular Filtration Rate 95 BUN/Creatinine Ratio 15 Glucose Level 271 H 70-105 MG/DL Calcium Level 9.2 8.5-10.1 MG/DL Corrected Calcium 9.2 8.5-10.1 MG/DL Total Bilirubin 1.1 H 0.1-1.0 MG/DL Aspartate Amino Transf (AST/SGOT) 12 5-34 U/L Alanine Aminotransferase (ALT/SGPT) 16 0-55 U/L Alkaline Phosphatase 107 40-136 U/L Troponin I < 0.028 <0.028 NG/ML Total Protein 7.7 6.4-8.2 GM/DL Albumin 4.0 3.2-4.5 GM/DL Glucometer 234 H 70-110 MG/DL Prothrombin Time 13.5 12.2-14.7 SEC INR Comment 1.0 0.8-1.4 Activated Partial Thromboplast Time 30 24-35 SEC D-Dimer 0.28 0.00-0.49 UG/ML Test 10/05/21 19:55 Range/Units Urine Color YELLOW Urine Clarity CLEAR Urine pH 5.5 5-9 Urine Specific [place] 1.010 L 1.016-1.022 Urine Protein NEGATIVE NEGATIVE Urine Glucose (UA) 3+ H NEGATIVE Urine Ketones NEGATIVE NEGATIVE Urine Nitrite NEGATIVE NEGATIVE Urine Bilirubin NEGATIVE NEGATIVE Urine Urobilinogen 1.0 < = 1.0 MG/DL Urine Leukocyte Esterase NEGATIVE NEGATIVE Urine RBC (Auto) NEGATIVE NEGATIVE Urine RBC NONE /HPF Urine WBC 0-2 /HPF Urine Squamous Epithelial Cells NONE /HPF Urine Renal Epithelial Cells NONE /HPF Urine Crystals NONE /LPF Urine Bacteria NEGATIVE /HPF Urine Casts NONE /LPF Urine Mucus NEGATIVE /LPF Urine Culture Indicated NO My Orders Orders - DOMITILA ABEL MD Cbc With Automated Diff (10/05/21 19:38) Protime With Inr (10/05/21 19:38) Partial Thromboplastin Time (10/05/21 19:38) Comprehensive Metabolic Panel (10/05/21 19:38) Fibrin Degradation Products (10/05/21 19:38) Troponin I [place] (10/05/21 19:38) Ua Culture If Indicated (10/05/21 19:38) Accucheck Stat ONCE (10/05/21 19:38) Ed Iv/Invasive Line Start (10/05/21 19:38) Ed Iv/Invasive Line Start (10/05/21 19:38) Vital Signs Stroke Patient Q15M (10/05/21 19:38) O2 (10/05/21 19:38) Intake & Output 06,14,22 (10/05/21 19:38) Monitor-Rhythm Ecg Trace Only (10/05/21 19:38) Dysphagia Screening Tool Q10MX1 (10/05/21 19:38) Post Thrombolytic Adminstratio (10/05/21 19:38) Lipid Panel (10/06/21 06:00) Ekg Tracing (10/05/21 19:40) Straight Cath For Spec.-Adult (10/05/21 19:53) Ns Iv 1000 Ml (Sodium Chloride 0.9%) (10/05/21 20:15) Ct Angio Head/Neck (10/05/21 20:53) Iohexol Injection (Omnipaque 350 Mg/Ml 1 (10/05/21 21:45) Received Contrast (Hold Metformin- Contr (10/05/21 21:45) Ns (Ivpb) (Sodium Chloride 0.9% Ivpb Bag (10/05/21 21:45) Salicylate (10/05/21 22:21) Acetaminophen (10/05/21 22:21) Drug Screen Stat (Urine) (10/05/21 22:21) Alcohol (10/05/21 22:21) Medications Given in ED Current Medications Medications Dose Ordered Sig/Tono Route Start Time Stop Time Status Last Admin Dose Admin Iohexol 75 ml ONCE ONCE IV 10/05/21 21:45 10/05/21 22:00 DC 10/05/21 21:46 75 ML Sodium Chloride 100 ml ONCE ONCE IV 10/05/21 21:45 10/05/21 22:00 DC 10/05/21 21:46 80 ML Vital Signs/I&O 10/05/21 10/05/21 19:17 19:59 Temp 36.9 Pulse 99 Resp 16 B/P (MAP) 151/84 (106) Pulse Ox 94 O2 Delivery Room Air Nasal Cannula O2 Flow Rate 2.00 Blood Pressure Mean: 106 FSBG Bedside Testing Finger Stick Blood Glucose: 234 Blood Glucose Action Taken: DR ABEL NOTIFIED Progress Progress Note #1: Time: 09:29 Progress Note family arrived ( and son). son present states that he was not present at the time of the episode at home - but he got the call about 6pm - he is not certain of exact time of onset - possibly around 5:30. even before. is very concerned about specifically his ability to speak - he is much more slurred than normal. I re-examined him again - he is almost symmetrically weak in all extremities - much better able to overcome gravity and hold strength in UE than LE. sensation intact. Unable to assess limb ataxia due to his profound weakness. Progress Note #2: Time: 22:12 Progress Note discussed with Dr Montes - JASPAL stroke/neuro. recommends MRI and outpatient workup for neurologic decline. Not a candidate for any intervention (TPA or clot retrieval). Progress Note #3: Time: 22:20 Progress Note Discussed plan of care as recommended by JASPAL neuro with the . She states that her is telling her that he took 8 acetaminophen tablets at some point today but he cannot articulate at what time. He is using his phone to try to communicate with her. He does have a neurologist that he sees at [place], Dr. Grant. He has had previous MRI at [place]. We will admit for monitoring and add toxicology labs. He is on Plavix already. discussed with Dr Mosher - will admit to Step down Initial ECG Impression Date: Oct 05, 2021 Initial ECG Impression Time: 19:40 Initial ECG Rate: 96 Initial ECG Rhythm: Normal Sinus Initial ECG Intervals DC 215 QRS 108 QTc 430 Comment NO ectopy no ST elevation or depression observed Diagnostic Imaging Diagonstic Imaging: CT Plain Films/CT/US/NM/MRI: head Comments [facility]. [place], [place] NAME: RAHAT MARIE [facility] REC#: [id number] PT STATUS: REG ER : 1970 PHYSICIAN: JERRY JAIME ADMIT DATE: 10/05/21/ER Draft Date of Exam:10/05/21 CT HEAD WO-R/O STROKE PROCEDURE: CT head w/o r/o stroke. TECHNIQUE: Multiple contiguous axial images were obtained through the brain without the use of intravenous contrast. Auto Exposure Controls were utilized during the CT exam to meet ALARA standards for radiation dose reduction. INDICATION: Stroke. COMPARISON: Prior examination from 05/07/2021. FINDINGS: The ventricles and sulci are within normal limits. There are a few lacunar infarcts. There is no hydrocephalus. There is no midline shift. There is no mass, hemorrhage or extra-axial fluid collection. The calvarium is intact. Sinuses and mastoid air cells are clear. IMPRESSION: Atrophy and some mild chronic microvascular ischemic disease with a few lacunar infarcts, particularly in the left basal ganglia and to a lesser degree right basal ganglia. No other acute intracranial abnormality. If there is high clinical concern for an acute CVA further evaluation with MRI should be considered. Dictated on workstation # [id number] Dict: 10/05/211952 Trans: 10/05/211956 [id number] Interpreted by: KENJI DE JESUS MD Electronically signed by: Departure Communication (Admissions) Time/Spoke to Admitting Phy: 22:[address] Mosher - Observation admission Impression Primary Impression: Generalized weakness Additional Impressions: Dysarthria Diabetes Qualified Codes: E11.9 - Type 2 diabetes mellitus without complications; Z79.4 - FCI (current) use of insulin Disposition: ADMITTED INPATIENT Condition: Stable Admissions Decision to Admit Reason: Admit from ER (General) Decision to Admit/Date: Oct 05, 2021 Time/Decision to Admit Time: 22:31 Departure-Patient Inst. Referrals: [facility][1[facility] (PCP/Family) Primary Care Physician DOMITILA ABEL MD Oct 05, 2021 19:54
[2021-10-05 19:57] LABS: ALANINE AMINOTRANSFERASE 16 U/L (0-55); ALKALINE PHOSPHATASE 107 U/L (40-136); BILIRUBIN,TOTAL 1.1 MG/DL (0.1-1.0); BUN/CREATININE RATIO 15; CALCIUM 9.2 MG/DL (8.5-10.1); CARBON DIOXIDE 21 MMOL/L (21-32); CHLORIDE 103 MMOL/L (98-107); CREATININE SERUM 0.96 MG/DL (0.60-1.30); GFR ESTIMATED 95; GLUCOSE 271 MG/DL (70-105); POTASSIUM 3.3 MMOL/L (3.6-5.0); SODIUM 140 MMOL/L (135-145); TOTAL PROTEIN 7.7 GM/DL (6.4-8.2)
--- NOTE | 2021-10-05 19:58 | Diagnostic Imaging Report ---
PROCEDURE: CT head w/o r/o stroke. TECHNIQUE: Multiple contiguous axial images were obtained through the brain without the use of intravenous contrast. Auto Exposure Controls were utilized during the CT exam to meet ALARA standards for radiation dose reduction. INDICATION: Stroke. COMPARISON: Prior examination from 05/07/2021. FINDINGS: The ventricles and sulci are within normal limits. There are a few lacunar infarcts. There is no hydrocephalus. There is no midline shift. There is no mass, hemorrhage or extra-axial fluid collection. The calvarium is intact. Sinuses and mastoid air cells are clear. IMPRESSION: Atrophy and some mild chronic microvascular ischemic disease with a few lacunar infarcts, particularly in the left basal ganglia and to a lesser degree right basal ganglia. No other acute intracranial abnormality. If there is high clinical concern for an acute CVA further evaluation with MRI should be considered. Dictated by: Dictated on workstation # [id number]
[2021-10-05 20:10] LABS: BILIRUBIN,URINE NEGATIVE (NEGATIVE); CLARITY,URINE CLEAR; COLOR,URINE YELLOW; GLUCOSE, URINE (UA) 3+ (NEGATIVE); KETONES,URINE NEGATIVE (NEGATIVE); LEUKOCYTE ESTERASE ,URINE NEGATIVE (NEGATIVE); NITRITE,URINE NEGATIVE (NEGATIVE); PH,URINE 5.5 (5-9); PROTEIN,URINE NEGATIVE (NEGATIVE)
[2021-10-05] MEDS ORDERED: NS IV 1000 ML 1,000 ML IV SCH (20:15)
[2021-10-05 20:16] LABS: FIBRIN DEGRADATION PRODUCTS 0.28 UG/ML (0.00-0.49); PROTHROMBIN TIME PATIENT 13.5 SEC (12.2-14.7)
[2021-10-05 20:22] LABS: BACTERIA,URINE NEGATIVE /HPF; WBC,URINE 0-2 /HPF
[2021-10-05] MEDS ORDERED: NS 100 ML (IVPB) BAG IV ONE (21:45)
[2021-10-05] MEDS ORDERED: HOLD METFORMIN - RECEIVED CONTRAST 20 ML VIAL IV SCH (21:45)
[2021-10-05] MEDS ORDERED: IOHEXOL 350 MG/ML 100 ML (OMNIPAQUE 350) VIAL IV ONE (21:45)
--- NOTE | 2021-10-05 21:51 | Diagnostic Imaging Report ---
PROCEDURE: CT angiography of the head and CT angiography of the neck with and without contrast. TECHNIQUE: Contiguous noncontrast images were obtained from the skull base through the vertex. After intravenous contrast administration, helical CT angiography of the neck was performed. Source data was reformatted into 3D MIP projections. Delayed post contrast acquisition was also obtained. Auto Exposure Controls were utilized during the CT exam to meet ALARA standards for radiation dose reduction. INDICATION: Right weakness and slurred speech. FINDINGS: There is prominence of the ventricles and sulci. There are lacunar infarcts in the basal ganglia bilaterally, left greater than right. There is no hydrocephalus. There is no midline shift. There is no intracranial mass, hemorrhage or extra-axial fluid collection. There is no evidence of a large vessel occlusion intracranially. Sinuses and mastoid air cells are clear. The globes and intraorbital structures are unremarkable. The nasopharyngeal, oropharyngeal and hypopharyngeal tissues are symmetrical and without mass effect. There appears to be a lymph node in the left parotid gland. Parotid gland is otherwise prominent but unremarkable. The submandibular glands are unremarkable. The thyroid gland is normal in appearance. The lung apices are clear. The common carotid arteries and internal carotid arteries are widely patent. There is no dissection, stenosis or occlusion. Right vertebral artery appears to be hypoplastic. Left vertebral artery is widely patent and fills the basilar artery. There is no significant atherosclerotic plaque about the carotid bifurcations, bilaterally. There are degenerative changes in the cervical spine. Prevertebral soft tissues are within normal limits. Epiglottis is unremarkable. IMPRESSION: 1. No evidence of large vessel occlusion intracranially. There is some atrophy and chronic microvascular ischemic disease with lacunar infarcts in basal ganglia, bilaterally, left greater than right. 2. Internal carotid arteries are widely patent. There is no dissection, stenosis or occlusion. Additionally, there is no significant plaque about either carotid bifurcation. 3. Hypoplastic right vertebral artery. Left vertebral artery is widely patent. 4. Prominent parotid glands with a lymph node in the left parotid gland. 5. No other acute abnormality in the neck. Dictated by: Dictated on workstation # [id number]
[2021-10-05 22:42] LABS: ACETAMINOPHEN < 10 UG/ML (10-30); SALICYLATE < 5.0 MG/DL (5.0-20.0)
[2021-10-05 22:42] LABS: AMPHETAMINE SCREEN, URINE NEGATIVE (NEGATIVE); BARBITURATE SCREEN URINE NEGATIVE (NEGATIVE); BENZODIAZEPINES SCREEN URINE NEGATIVE (NEGATIVE); CANNABINOID SCREEN, URINE NEGATIVE (NEGATIVE); COCAINE SCREEN URINE NEGATIVE (NEGATIVE); METHADONE STAT NEGATIVE (NEGATIVE); OPIATE SCREEN URINE NEGATIVE (NEGATIVE); OXYCODONE STAT NEGATIVE (NEGATIVE); PROPOXYPHENE STAT NEGATIVE (NEGATIVE); TRICYCLIC ANTIDEPRESSANTS SCRE NEGATIVE (NEGATIVE)
[2021-10-06] VITALS (19 sets, daily range): BP systolic 118–207; BP diastolic 67–127
[2021-10-06] MEDS ORDERED: RT-ALBUTEROL SULF 2.5 MG/3 ML PRE-MIX VIAL INH PRN (00:30)
[2021-10-06] MEDS: NS IV 1000 ML 1,000 ML IV SCH ×2 (01:29→13:46)
[2021-10-06] MEDS: inSUlin ASPART (NovoLOG) 1 UNIT/0.01 ML (CHARGE PER UNIT) SC SCH ×4 (06:44→21:13)
[2021-10-06 07:16] LABS: TRIGLYCERIDES 108 MG/DL (<150); VLDL CHOLESTEROL 22 MG/DL (5-40)
[2021-10-06 07:21] LABS: CHOLESTEROL 109 MG/DL (< 200)
[2021-10-06 07:22] LABS: HDL CHOLESTEROL 29 MG/DL (40-60)
[2021-10-06] MEDS ORDERED: lisINopril 20 MG (PRINIVIL) TABLET PO SCH (09:00)
[2021-10-06] MEDS: meTOprolol TARTRATE 25 MG (LOPRESSOR) TABLET PO SCH ×2 (09:53→21:05)
[2021-10-06] MEDS ORDERED: LIDOCAINE UROJET 2% GEL 10 ML PKG ONE (09:57)
--- NOTE | 2021-10-06 10:15 | Tele-ICU Consult ---
History of Present Illness History of Present Illness Date Seen by Provider: Oct 06, 2021 Time Seen by Provider: 10:15 Date of Admission (Tele-ICU Physician , consultation) Available chart/ vitals / labs / Images reviewed H&P is from ER notes Patient's information available about PMH, Shx, Fhx allergy reviewed in EMR. ROS as per chart and RN report Now in ICU, hemodynamically stable Video assessment done using teleICU camera, rest of exam as per RN Discussed with RN. ( Unable to assess his profound weakness via camera , patient is not talking to RN Consultants: Hospital course: (10/06) 51/M- Weakness, dysarthria, mult- tia/?cva admits since covid mid 2020. Fell at home. Imaging w/ chronic infarcts, possible MRI if cont. neuro exam changes. ? new cva. // asa, plavix, insulin. A/P Suspected CVA- as per notes - was discussed by ER MD with JASPAL neuro " Dr Montes - JASPAL stroke/neuro. recommends MRI and outpatient workup for neurologic decline. Not a candidate for any intervention (TPA or clot retrieval)." - await MRI - order neuro check q 4 - to follow - keep BP 140-180 presuming a new strole - if none , will controll BP more agressively - as per PCP - ? needs speach eval - cont Plavix HTN - as above Lines : (Central Line Necessity Reviewed) Cazares: void OG: Nutrition: Analgesia: Anxiety/ delirium VTE Prophylaxis: scd Stress Ulcer Prophylaxis: na Glycemic Control: Plans in collaboration with bedside consultants and IM MDs. Discussed with RN to reach out if any questions or concerns A total of 25 minutes of critical care time was devoted to this patient today, required to treat and/or prevent further deterioration of critical care condition ( as above ) . Allergies and Home Medications Allergies Coded Allergies: No Known Drug Allergies (Unverified , 04/22/12) Home Medications Lisinopril 20 Mg Tablet, 20 MG PO DAILY Prescribed by: LYDIA SLAUGHTER on 04/17/20 111 Metoprolol Tartrate 25 Mg Tablet, 25 MG PO BID Prescribed by: LYDIA SLAUGHTER on 04/17/20 1117 Past Medical/Social/Family Hx Immunizations Up To Date First/Initial COVID19 Vaccinat: 03/2020 Second COVID19 Vaccination Cole: 03/2020 Current Status Primary Language: Lithuanian Preferred Spoken Language: Lithuanian Review of Systems Constitutional: other Focused Exam Height, Weight, BMI Height: '" Weight: lbs. oz. kg; 41.00 BMI Method: Exam Exam Patient acknowledged, consented, and participated in this virtual visit which was conducted using real time audio/video Vital Signs Date Time Temp Pulse Resp B/P (MAP) Pulse Ox O2 Delivery O2 Flow Rate FiO2 10/06/21 08:00 104 21 159/91 (113) 95 Nasal Cannula 3.00 10/06/21 07:00 101 10/06/21 06:00 114 26 207/127 (153) 91 Nasal Cannula 3.00 10/06/21 05:00 107 26 172/107 (128) 93 Nasal Cannula 3.00 10/06/21 04:39 36.8 10/06/21 04:00 111 24 159/93 (115) 90 Nasal Cannula 3.00 10/06/21 03:00 89 25 126/83 (97) 93 Nasal Cannula 3.00 10/06/21 02:30 87 25 149/89 (109) 95 Nasal Cannula 3.00 10/06/21 02:00 86 32 165/96 (119) 94 Nasal Cannula 3.00 10/06/21 01:30 94 25 151/102 (118) 98 Nasal Cannula 3.00 10/06/21 01:00 84 27 137/81 (99) 97 Nasal Cannula 3.00 10/06/21 00:51 92 10/06/21 00:36 96 10/06/21 00:30 93 26 129/85 (100) 94 Nasal Cannula 3.00 10/06/21 00:20 36.9 99 94 21 10/06/21 00:15 101 21 133/100 (111) 94 Nasal Cannula 3.00 10/06/21 00:00 98 16 164/106 (125) 96 Nasal Cannula 3.00 10/06/21 00:00 36.2 10/05/21 23:15 36.9 98 16 161/116 97 Nasal Cannula 2.00 10/05/21 19:59 Nasal Cannula 2.00 10/05/21 19:17 36.9 99 16 151/84 (106) 94 Room Air I & O 10/06/21 07:00 Intake Total 1000 ml Balance 1000 ml Height & Weight Height: '" Weight: lbs. oz. kg; 41.00 BMI Method: General Appearance: No Apparent Distress Capillary Refill: Less Than 3 Seconds Gastrointestinal: normal bowel sounds, non tender, soft, other (obese) Results Lab Laboratory Tests 10/05/21 19:10 Assessment/Plan Assessment/Plan 1 MARC GRIMES MD Oct 06, 2021 10:15
[2021-10-06] MEDS ORDERED: LIDOCAINE UROJET 2% GEL 10 ML PKG TOP ONE (11:15)
[2021-10-06] MEDS ORDERED: amLODIPine 5 MG (NORVASC) TAB ONE (11:30)
[2021-10-06] MEDS ORDERED: amLODIPine 5 MG (NORVASC) TAB PO ONE (11:30)
[2021-10-06] MEDS: ASPIRIN 81 MG CHEW (CHILDREN'S ASA) PO SCH (11:36)
[2021-10-06] MEDS: CLOPIDOGREL 75 MG (PLAVIX) TABLET PO SCH (11:36)
--- NOTE | 2021-10-06 12:47 | History & Physical-Hospitalist ---
History of Present Illness HPI/Chief Complaint Patient is a 51yo male, h/o COVID about 1.5y ago and multiple neurologic insults during hospitalization for Covid at that time (TIA vs strokes). He has had chronic debility since then with several ED visits for weakness and strokelike symptoms. Apparently his sons were at home with him and he had a fall in the bathroom with increased weakness to the left side. Unsure of LOC as sons are not here at this time for history. The patient (with significantly slurred speech) is able to tell me that his is working in [place] - which is consistent with prior visits to our ER. He does state he has a mild headache. Otherwise his speech is so slurred he is very difficult to understand. Upon my arrival patient exhibited right neglect tongue was sticking out mildly swollen without erythema. The patient is eyes were open and did orient to voice he was slow to respond and very dysarthric unintelligible speech. He was able to follow simple commands but when asked to use his right hand to touch my finger he only moved his left hand and was able to do so with good control of the left hand. His came later in the day and reports that he had been seeing neurologist Dr. Velasquez had a rather extensive work-up was started on aspirin and Plavix but no apparent large vessel disease was noted. He had an echocardiogram gram and there is been no evidence for atrial fibrillation. He was having no neurologic issues previous to COVID infection in March 2020. He had been doing well at home until the night of his admission when his right leg apparently gave out he stumbled forward they helped him to the bed and again noted that he was dysarthric and his tongue appeared to be swollen. There were no rash issues reported he was confused but there was no loss of consciousness and no reported pallor. He had been feeling well up until that point. Date Seen 10/06/21 Time Seen by a Provider: 07:30 Attending Physician [place] PCP Admitting Physician: Sundar Archibald MD Attending Physician: Sundar Archibald MD Referring Physician Date of Admission Oct 05, 2021 at 22:29 Home Medications & Allergies Home Medications Reviewed patient Home Medication Reconciliation performed by pharmacy medication reconciliations division order technician and/or nursing. Patients Allergies have been reviewed. Allergies Allergies Coded Allergies No Known Drug Allergies (Unverified04/22/12) Past Afgiloj-Riqpad-Okaueh Hx Immunizations Up To Date First/Initial COVID19 Vaccinat: 03/2020 Second COVID19 Vaccination Cole: 03/2020 Seasonal Allergies Seasonal Allergies: No Current Status Primary Language: Lao Preferred Spoken Language: Lao Past Medical History Surgeries: Abdominal, Appendectomy, Bowel Surgery, Gallbladder Hypertension Sexually Transmitted Disease: No HIV/AIDS: No Crohns Disease, Gall Bladder Disease Diabetes, Non-Insulin dep Blood Disorders: No Adverse Reaction/Blood Tranf: No Family Medical History No Pertinent Family Hx Review of Systems Constitutional: see HPI Physical Exam Physical Exam Vital Signs Vital Signs - First Documented 10/05/21 10/05/21 10/06/21 19:17 19:59 00:20 Temp 36.9 Pulse 99 Resp 16 B/P (MAP) 151/84 (106) Pulse Ox 94 O2 Delivery Room Air O2 Flow Rate 2.00 FiO2 21 Capillary Refill : Less Than 3 Seconds Height, Weight, BMI Height: '" Weight: lbs. oz. kg; 41.00 BMI Method: General Appearance: No Apparent Distress, Obese HEENT: PERRL/EOMI, Other ( tongue mildly edematous not significantly firm no erythema no evidence for trauma no evidence for stridor) Neck: Full Range of Motion, Normal Inspection, Non Tender Respiratory: Chest Non Tender, Lungs Clear, Normal Breath Sounds, No Accessory Muscle Use, No Respiratory Distress Cardiovascular: Regular Rate, Rhythm, No Edema, No Gallop, No JVD, No Murmur, Normal Peripheral Pulses Gastrointestinal: Normal Bowel Sounds, No Organomegaly, No Pulsatile Mass, Non Tender, Soft Extremity: No Pedal Edema Neurologic/Psychiatric: Other (Mildly lethargic exhibiting right neglect with 2+ right mathematical sciences professor strength 4+ left mathematical sciences professor strength not moving the right forearm upper arm or right lower extremity. Babinski upgoing on the right but also on the left as well although much more prominent on the right) Skin: Normal Color, Warm/Dry Results Results/Procedures Labs Laboratory Tests 10/05/21 19:10 Patient resulted labs reviewed. Assessment/Plan Admission Diagnosis 1. 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 CTA of the head reveals no significant blockage reported extensive recent work-up negative. The patient had been on aspirin and Plavix for the past year according to . The stroke team at was consulted with no further recommendations other than continuing aspirin and Plavix and obtaining an MRI when available which we will do with and without contrast in the morning. 2. Possible angioedema of the tongue will hold lisinopril and continue to monitor in the unit for any evidence of airways obstruction. For this reason we will initiate n.p.o. status as well as a stroke with speech consultation for swallow evaluation in the morning. 3. History of hypertension holding antihypertensive medication for now. Admission Status: Inpatient Order (span 2 midnights) Reason for Inpatient Admission: See admission diagnosis SUNDAR ARCHIBALD MD Oct 06, 2021 12:47
[2021-10-07] VITALS (9 sets, daily range): BP systolic 124–170; BP diastolic 77–114
[2021-10-07] MEDS: NS IV 1000 ML 1,000 ML IV SCH ×2 (03:04→16:22)
[2021-10-07 06:06] LABS: POTASSIUM 3.4 MMOL/L (3.6-5.0)
[2021-10-07 06:08] LABS: CALCIUM 8.8 MG/DL (8.5-10.1)
[2021-10-07 06:12] LABS: CREATININE SERUM 0.68 MG/DL (0.60-1.30)
[2021-10-07] MEDS: inSUlin ASPART (NovoLOG) 1 UNIT/0.01 ML (CHARGE PER UNIT) SC SCH ×4 (06:18→21:23)
[2021-10-07 06:29] LABS: BASOPHILS # (AUTO) 0.1 10^3/uL (0.0-0.1); BASOPHILS % (AUTO) 1 % (0-10); EOSINOPHILS # (AUTO) 0.2 10^3/uL (0.0-0.3); EOSINOPHILS % (AUTO) 2 % (0-10); HEMATOCRIT 43 % (40-54); HEMOGLOBIN 13.2 g/dL (13.3-17.7); LYMPHOCYTES # (AUTO) 1.9 10^3/uL (1.0-4.0); LYMPHOCYTES % (AUTO) 19 % (12-44); MEAN CORPUSCULAR HEMOGLOBIN 27 pg (25-34); MEAN CORPUSCULAR HGB CONC 31 g/dL (32-36); MEAN CORPUSCULAR VOLUME 88 fL (80-99); MEAN PLATELET VOLUME 10.4 fL (9.0-12.2); MONOCYTES % (AUTO) 10 % (0-12); NEUTROPHILS # (AUTO) 7.1 10^3/uL (1.8-7.8); NEUTROPHILS % (AUTO) 69 % (42-75); PLATELET COUNT 329 10^3/uL (130-400); WHITE BLOOD COUNT 10.3 10^3/uL (4.3-11.0)
[2021-10-07 06:31] LABS: ALBUMIN 3.6 GM/DL (3.2-4.5)
[2021-10-07 06:34] LABS: TOTAL PROTEIN 6.8 GM/DL (6.4-8.2)
[2021-10-07 06:35] LABS: BILIRUBIN,TOTAL 1.5 MG/DL (0.1-1.0)
[2021-10-07 06:39] LABS: BILIRUBIN,DIRECT 0.6 MG/DL (0.0-0.3); BILIRUBIN,INDIRECT 0.9 MG/DL
--- NOTE | 2021-10-07 07:36 | Diagnostic Imaging Report ---
INDICATION: Respiratory distress. Compared 05/07/2021. FINDINGS: There is very poor expansion of the left lung with diffuse patchy left lung opacity in part atelectasis, however, pneumonia superimposed not excluded. The right lung is clear. The heart size stable. IMPRESSION: Left lung volume loss and nonspecific infiltrates, likely a combination of pneumonia and partial atelectasis. Dictated by: Dictated on workstation # [id number]
--- NOTE | 2021-10-07 09:03 | Speech Therapy Progress Note ---
Therapy Progress Note Speech pathology attempted the consulted evaluation at 0820. At this time, the patient is undergoing a procedure. ST will re-attempt as able and appropriate. Thank you. MINI ZAMORA Oct 07, 2021 09:03
[2021-10-07] MEDS ORDERED: CYAN50TA3 PO (10:03)
[2021-10-07] MEDS ORDERED: CLOP75TA28 PO (10:03)
[2021-10-07] MEDS ORDERED: INSU100I29 SC (10:03)
[2021-10-07] MEDS ORDERED: DAPA10TA PO (10:03)
[2021-10-07] MEDS ORDERED: LISI20TA26 PO (10:03)
[2021-10-07] MEDS ORDERED: LIRA0.6P3 SQ (10:03)
[2021-10-07] MEDS ORDERED: ATOR40TA70 PO (10:03)
[2021-10-07] MEDS ORDERED: FAMO20TA5 PO (10:03)
[2021-10-07] MEDS ORDERED: ASPI-1238 PO (10:03)
--- NOTE | 2021-10-07 10:35 | Consultation-Cardiology ---
HPI-Cardiology Cardiology Consultation: Date of Consultation 10/07/21 Time Seen by a Provider: 10:00 Date of Admission 10-06-21 Attending Physician [place] Admitting Physician Admitting Physician: Sundar Mosher MD Attending Physician: Julia Lipscomb DO Consulting Physician Jonnie Huang MD HPI: Chief Complaint: CVA Mr. Escudero is a 51 yr old male admitted to [facility] from the ED with CVA. He is unable to converse. He does nod his head in answer to questions. Spouse is at the bedside. She reports he lives at home with her and is mobile with use of a cane at times. He had gotten up yesterday to use the bathroom and began to fall. He grabbed a coat hook and it pulled out of the wall resulting in a fall. His sons were able to get him up and then got him into the shower to clean up. He spouse reports the sons helped him to his recliner and called EMS. He developed slurred speech, facial droop, tongue swelling and right sided weakness . He has chronic left sided weakness from a previous stroke. He is unable to move his RUE or RLE. He nods to no chest pain, SOB, palpitations. His reports he is having difficulty swallowing today. He does have sleep apnea, but is not using a CPAP. He follows with neurology services at [facility], Dr. Grant. Review of Systems-Cardiology Review of Systems Other comments ROS to the extent it could be obtained is as per HPI PWR-Vqbfks-Ltoita Hx Patient Social History 2nd Hand Smoke Exposure: No Past Medical History PMH As described under Assessment. Family Medical History Family Medical History: Pt spouse reports he has no known family h/o CAD Allergies and Home Medications Allergies Coded Allergies: CARMEN Inhibitors (Verified Allergy, Unknown, 10/07/21) angioedema Patient Home Medication List Aspirin (Aspirin EC) 81 Mg Tablet., 81 MG PO DAILY, (Reported) Entered as Reported by: RIYA HOUSTON on 10/07/21 1003 Last Action: Continued Atorvastatin Calcium (Atorvastatin Calcium) 40 Mg Tablet, 40 MG PO DAILY, (Reported) Entered as Reported by: RIYA HOUSTON on 10/07/21 1003 Last Action: Continued Clopidogrel Bisulfate (Clopidogrel) 75 Mg Tablet, 75 MG PO DAILY, (Reported) Entered as Reported by: RIYA HOUSTON on 10/07/211002 Last Action: Continued Cyanocobalamin (Vitamin B-12) (Vitamin B-12) 50 Mcg Tablet, 50 MCG PO DAILY, (Reported) Entered as Reported by: RIYA HOUSTON on 10/07/211002 Last Action: Converted Dapagliflozin Propanediol (Farxiga) 10 Mg Tablet, 10 MG PO HS, (Reported) Entered as Reported by: RIYA HOUSTON on 10/07/211002 Last Action: Converted Famotidine (Famotidine) 20 Mg Tablet, 20 MG PO BID, (Reported) Entered as Reported by: RIYA HOUSTON on 10/07/211002 Last Action: Continued Insulin Detemir (Levemir Flextouch) 100 Unit/Ml (3 Ml) Insuln.pen, 18 UNITS SC BID, (Reported) Entered as Reported by: RIYA HOUSTON on 10/07/211002 Last Action: Converted Liraglutide (Victoza 3-Luis) 0.6 Mg/0.1 Ml (18 Mg/3 Ml) Pen.injctr, 1.8 MG SQ HS, (Reported) Entered as Reported by: RIYA HOUSTON on 10/07/211002 Last Action: Converted Lisinopril (Lisinopril) 20 Mg Tablet, 20 MG PO DAILY, (Reported) Entered as Reported by: RIYA HOUSTON on 10/07/211002 Last Action: Held Discontinued Medications Lisinopril (Lisinopril) 20 Mg Tablet, 20 MG PO DAILY Discontinued Reason: No Longer Taking Prescribed by: LYDIA SLAUGHTER on 04/17/201116 Last Action: Discontinued Metoprolol Tartrate (Metoprolol Tartrate) 25 Mg Tablet, 25 MG PO BID Discontinued Reason: No Longer Taking Prescribed by: LYDIA SLAUGHTER on 04/17/201116 Last Action: Discontinued Physical Exam-Cardiology Physical Exam Vital Signs/I&O 10/08/21 10/09/21 10/09/21 10/09/21 22:12 00:00 00:25 00:40 Temp 36.5 Pulse 101 Resp 22 B/P (MAP) 171/91 (117) 167/83 (111) 169/97 (121) Pulse Ox 93 95 O2 Delivery Vapotherm Vapotherm O2 Flow Rate 30.00 30.00 80.00 FiO2 80 10/09/21 10/09/21 10/09/21 10/09/21 01:00 02:14 04:00 04:50 Temp 36.9 Pulse 97 93 Resp 16 B/P (MAP) 149/83 (105) Pulse Ox 90 92 92 O2 Delivery Vapotherm Vapotherm Vapotherm O2 Flow Rate 30.00 30.00 40.00 80.00 FiO2 80 100 10/09/21 10/09/21 10/09/21 07:00 07:12 08:00 Temp 37.1 Pulse 96 92 Resp 20 B/P (MAP) 153/85 (107) Pulse Ox 95 O2 Delivery Vapotherm Vapotherm O2 Flow Rate 40.00 40.00 95.00 95.00 10/09/21 00:00 Intake Total 100 ml Output Total 950 ml Balance -850 ml Capillary Refill : Less Than 3 Seconds Constitutional: well-developed, other (non-verbal - nods head slowly in response to questions) Neck: No carotid bruit; carotid pulses are 2 + bilaterally Respiratory: No accessory muscle use, No respiratory distress; chest expansion is symmetric, chest is bilaterally symmetric, lungs clear to auscultation Cardiovascular: regular rate-rhythm; No JVD; tachycardia, S1 and S2 Gastrointestinal: No tender; soft, round, audible bowel sounds Extremities: no lower extremity edema bilateral Neurologic/Psychiatric: other (RUE and RLE flaccid, facial droop right sided; LLE and LUE chronically weak 4/5) Skin: No rash on exposed areas, No ulcerations on exposed areas Data Review Labs Laboratory Tests 10/08/21 12:00: Glucometer 129H 10/08/21 15:28: Glucometer 114H 10/08/21 20:36: Glucometer 98 10/08/21 23:32: Glucometer 99 10/09/21 06:08: White Blood Count 8.8, Red Blood Count 4.70, Hemoglobin 13.1L, Hematocrit 40, Mean Corpuscular Volume 86, Mean Corpuscular Hemoglobin 28, Mean Corpuscular Hemoglobin Concent 33, Red Cell Distribution Width 13.2, Platelet Count 312, Mean Platelet Volume 10.1, Immature Granulocyte % (Auto) 0, Neutrophils (%) (Auto) 68, Lymphocytes (%) (Auto) 17, Monocytes (%) (Auto) 11, Eosinophils (%) (Auto) 3, Basophils (%) (Auto) 1, Neutrophils # (Auto) 6.0, Lymphocytes # (Auto) 1.5, Monocytes # (Auto) 1.0, Eosinophils # (Auto) 0.2, Basophils # (Auto) 0.1, Immature Granulocyte # (Auto) 0.0, Sodium Level 139, Potassium Level 3.3L, Chloride Level 106, Carbon Dioxide Level 24, Anion Gap 9, Blood Urea Nitrogen 10, Creatinine 0.61, Estimat Glomerular Filtration Rate 116, BUN/Creatinine Ratio 16, Glucose Level 108H, Calcium Level 8.7, Corrected Calcium 9.1, Magnesium Level 1.8, Total Bilirubin 1.6H, Aspartate Amino Transf (AST/SGOT) 10, Alanine Aminotransferase (ALT/SGPT) 8, Alkaline Phosphatase 77, Total Protein 6.8, Albumin 3.5 Microbiology 10/08/21 MRSA Screen - Final, Complete MRSA not isolated Radiology [place], [place] NAME: RAHAT ESCUDERO [facility] REC#: [id number] PT STATUS: REG ER : 1970 PHYSICIAN: JERRY JAIME ADMIT DATE: 10/05/21/ER Draft Date of Exam:10/05/21 CT HEAD WO-R/O STROKE PROCEDURE: CT head w/o r/o stroke. TECHNIQUE: Multiple contiguous axial images were obtained through the brain without the use of intravenous contrast. Auto Exposure Controls were utilized during the CT exam to meet ALARA standards for radiation dose reduction. INDICATION: Stroke. COMPARISON: Prior examination from 05/07/2021. FINDINGS: The ventricles and sulci are within normal limits. There are a few lacunar infarcts. There is no hydrocephalus. There is no midline shift. There is no mass, hemorrhage or extra-axial fluid collection. The calvarium is intact. Sinuses and mastoid air cells are clear. IMPRESSION: Atrophy and some mild chronic microvascular ischemic disease with a few lacunar infarcts, particularly in the left basal ganglia and to a lesser degree right basal ganglia. No other acute intracranial abnormality. If there is high clinical concern for an acute CVA further evaluation with MRI should be considered. Dictated on workstation # [id number] Dict: 10/05/211952 Trans: 10/05/211956 [facility] [id number] Interpreted by: KENJI DE JESUS MD Electronically signed by:NAME: RAHAT ESCUDERO [facility] REC#: [id number] PT STATUS: ADM IN : 1970 PHYSICIAN: JULIA LIPSCOMB DO ADMIT DATE: 10/06/21/[place] Draft Date of Exam:10/07/21 US CAROTID CHILO COMPLETE [id number] PROCEDURE: US carotid duplex bilateral. TECHNIQUE: Multiple Real-time grayscale images were obtained over the carotid arteries in various projections bilaterally. Additional spectral analysis and color Doppler duplex images were also obtained. INDICATION: Followup post-CVA. FINDINGS: The left carotid system and vertebral system could not be adequately interrogated due to patient position and pain. Real-time imaging shows minimal atherosclerotic plaquing within the right carotid bulb and internal and external carotid arteries. Waveforms and peak velocities are normal with normal carotid ratios. IMPRESSION: 1. Very limited exam. The right carotid artery shows no hemodynamic disease with minimal plaquing. 2. Left carotid system and vertebral arteries were not adequately evaluated due to patient's pain and position. 3. Previous CT angiography of the neck on 10/05/2021 suggested the carotid and vertebral arteries to be widely patent without significant stenosis. Parameters based on the consensus panel Santana-Scale and Doppler ultrasound criteria published January 2003, Radiology, Volume 229. DOPPLER (peak systolic velocity M/S Right Left CCA 1.12 1.33 ICA Proximal .50 NOT SEEN ICA Mid .63 NOT SEEN ICA Distal .76 NOT SEEN RATIO .68 N/A ECA .93 NOT SEEN VERT NOT SEEN NOT SEEN Dictated on workstation # [id number] Dict: 10/07/21 1034 Trans: 10/07/21 1047 [id number] Interpreted by: KADIE PERSAUD MD Electronically signed by: ECG Impression ECG Comment SR with first degree AV block A/P-Cardiology Assessment/Admission Diagnosis CVA with right sided hemiparesis, aphasia - reported h/o several CVA/TIA's following COVID infection in 2020 with left sided weakness - presents this time with righ sided hemiparesis/aphasia/dysphagia - The stroke team at was consulted with no further recommendations other than continuing aspirin and Plavix and obtaining an MRI - Management per stroke team - Follows with Dr. Grant of neurology services at [facility] - Carotid [id number]/[id number]: Very limited exam. The right carotid artery shows no hemodynamic disease with minimal plaquing. Left carotid system and vertebral arteries were not adequately evaluated due to patient's pain and position. Previous CT angiography of the neck on 10/05/2021 suggested the carotid and vertebral arteries to be widely patent without significant stenosis. ?Angioedema - Lisinopril stopped Fall at home Sleep apnea - non-complaint with sleep study ? aspiration - NPO HTN Crohn's dz - h/o colectomy DM 2 Discussion and Recomendations CVA - management per stroke team - please see recs per [facility] as above - source undetermined - consider implant of ILR to r/o possible a-fib/flutter as cause BP not well controlled - add BB Monitor lab closely Further recs will be based on hospital course We would like to thank Dr. Lipscomb for this consult EREN FLOWERS Oct 07, 2021 10:35
--- NOTE | 2021-10-07 10:46 | Physical Therapy Evaluation ---
PT Evaluation-General Medical Diagnosis Admission Date Oct 06, 2021 at 16:19 Medical Diagnosis: CVA Onset Date: Oct 06, 2021 Therapy Diagnosis Therapy Diagnosis: impaired mobility, hemiparesis Precautions Precautions/Isolations: Aspiration, Fall Prevention, Standard Precautions Referral Physician: Julia Yañez DO Reason for Referral: Evaluation/Treatment Medical History Additional Medical History Past Medical History Surgeries: Abdominal, Appendectomy, Bowel Surgery, Gallbladder Hypertension Sexually Transmitted Disease: No HIV/AIDS: No Crohns Disease, Gall Bladder Disease Diabetes, Non-Insulin dep Blood Disorders: No Adverse Reaction/Blood Tranf: No Reviewed History: Yes Social History Home: Single Level Current Living Status: Spouse Entry Into Home: Stairs Without Railing one step to enter and then another Prior Prior Level of Function SCALE: Activities may be completed with or without assistive devices. 0-Ybnamtlskg-vjnpbig completes the activity by him/herself with no assistance from a helper. 5-Set-up or Clean-up Assistance-helper sets up or cleans up; patient completes activity. Brewster assists only prior to or following the activity. 4-Supervision or Touching Assistance-helper provides verbal cues and/or touching/steadying and/or contact guard assistance as patient completes activity. Assistance may be provided throughout the activity or intermittently. 3-Partial/Moderate Assistance-helper does LESS THAN HALF the effort. Brewster lifts, holds or supports trunk or limbs, but provides less than half the effort. 2-Substantial/Maximal Assistance-helper does MORE THAN HALF the effort. Brewster lifts or holds trunk or limbs and provides more than half the effort. 4-Crvqdbvct-tedhol does ALL the effort. Patient does none of the effort to complete the activity. Or, the assistance of 2 or more helpers is required for the patient to complete the activity. If activity was not attempted, code reason: 7-Patient Refused. 9-Not Applicable-not attempted and the patient did not perform the activity before the current illness, exacerbation or injury. 10-Not Attempted due to Environmental Limitations-(lack of equipment, weather restraints, etc.). 88-Not Attempted due to Medical Conditions or Safety Concerns. Bed Mobility: 6 Transfers (B,C,W/C): 6 Gait: 6 Stairs: 6 Indoor Mobility (Ambulation): Independent Stairs: Independent Prior Devices Use: Walker (4 wheeled) PT Evaluation-Current Subjective Patient in bed pre tx, agrees to PT, states he has some low back pain. Pt/Family Goals none stated Objective Patient Orientation: Person, Unable to Assess, Non-Verbal/Aphasic Attachments: Oxygen, Cazares Catheter, IV ROM/Strength Strength Lower Extremities RLE grossly 0/5 and has increased tone Transfers Roll Left to Right (QC): 1 Sit to Lying (QC): 1 Lying to Sitting/Side of Bed(Q: 1 Patient is dependent for supine <-> sit, he is able to sit for a few minutes with mod assist for sitting balance, he leans to the right side but can help using his left arm if he has something to hold onto, he doesn't do very well by using his left arm on the bed. Patient's head leans pretty severely to the left side, he cannot right it and is resistant to assist to right it. Balance Sitting Static: Poor Sitting Dynamic: Poor Assessment/Needs Patient in bed post tx with nurse call, phone, tray, all needs met, in room. Patient has impaired mobility, hemiparesis, impaired balance. He needs assist of 2 for supine <-> sit and assist with sitting balance. Rehab Potential: Guarded PT Doll Wig Maker Rooted Hair Goals Doll Wig Maker Rooted Hair Goals PT Skilled Nursing Goals Time Frame: Oct 14, 2021 Roll Left & Right (QC): 3 Sit to Lying (QC): 3 Lying-Sitting on Side/Bed(QC): 3 Sit to Stand (QC): 3 Chair/Mme-ji-Vutab Xfer(QC): 2 PT Plan Problem List Problem List: Activity Tolerance, Functional Strength, Safety, Balance, Gait, Transfer, Bed Mobility, ROM Treatment/Plan Treatment Plan: Continue Plan of Care Treatment Plan: Bed Mobility, Education, Functional Activity Flori, Functional Strength, Gait, Safety, Therapeutic Exercise, Transfers Treatment Duration: Oct 14, 2021 Frequency: 6 times per week Estimated Hrs Per Day: .25 hour per day Patient and/or Family Agrees t: Yes Safety Risks/Education Patient Education: Correct Positioning, Safety Issues Teaching Recipient: Patient Teaching Methods: Demonstration, Discussion Response to Teaching: Reinforcement Needed Discharge Recommendations Plan Patient will perform bed mobility and transfer training, balance and endurance training, functional strengthening, and education, to improve functional mobility and independence at home. Therapy Discharge Recommendati: Scheduled Assistance, Post Acute PT Time/GCodes Time In: 1012 Time Out: 1026 Total Billed Treatment Time: 14 Total Billed Treatment 1 visit EVM 14' CHELSEA CAMARGO PT Oct 07, 2021 10:46
--- NOTE | 2021-10-07 10:47 | Diagnostic Imaging Report ---
PROCEDURE: US carotid duplex bilateral. TECHNIQUE: Multiple Real-time grayscale images were obtained over the carotid arteries in various projections bilaterally. Additional spectral analysis and color Doppler duplex images were also obtained. INDICATION: Followup post-CVA. FINDINGS: The left carotid system and vertebral system could not be adequately interrogated due to patient position and pain. Real-time imaging shows minimal atherosclerotic plaquing within the right carotid bulb and internal and external carotid arteries. Waveforms and peak velocities are normal with normal carotid ratios. IMPRESSION: 1. Very limited exam. The right carotid artery shows no hemodynamic disease with minimal plaquing. 2. Left carotid system and vertebral arteries were not adequately evaluated due to patient's pain and position. 3. Previous CT angiography of the neck on 10/05/2021 suggested the carotid and vertebral arteries to be widely patent without significant stenosis. Parameters based on the consensus panel Santana-Scale and Doppler ultrasound criteria published January 2003, Radiology, Volume 229. DOPPLER (peak systolic velocity M/S Right Left CCA 1.12 1.33 ICA Proximal .50 NOT SEEN ICA Mid .63 NOT SEEN ICA Distal .76 NOT SEEN RATIO .68 N/A ECA .93 NOT SEEN VERT NOT SEEN NOT SEEN Dictated by: Dictated on workstation # [id number]
--- NOTE | 2021-10-07 10:54 | Speech Therapy Progress Note ---
Therapy Progress Note Speech pathology re-attempted the clinical bedside swallowing evaluation at 1025. At this time, the patient was receiving care from cardiology following by an additional evaluation. Due to this, the clinician will re-attempt at a later time. Thank you. MINI ZAMORA Oct 07, 2021 10:54
[2021-10-07] MEDS: CLOPIDOGREL 75 MG (PLAVIX) TABLET PO SCH (11:32)
[2021-10-07] MEDS: ASPIRIN 81 MG CHEW (CHILDREN'S ASA) PO SCH (11:32)
[2021-10-07] MEDS: meTOprolol TARTRATE 25 MG (LOPRESSOR) TABLET PO SCH (11:32)
[2021-10-07] MEDS: ENOXAPARIN 40 MG/0.4 ML (LOVENOX) SYR SC SCH (12:09)
--- NOTE | 2021-10-07 12:13 | Progress Note - Hospitalist ---
MIKI MENDEZ A MED STUDENT 10/07/21 1213: Subjective HPI/CC On Admission Patient is a 51yo male, h/o COVID about 1.5y ago and multiple neurologic insults during hospitalization for Covid at that time (TIA vs strokes). He has had chronic debility since then with several ED visits for weakness and strokelike symptoms. Apparently his sons were at home with him and he had a fall in the bathroom with increased weakness to the left side. Unsure of LOC as sons are not here at this time for history. The patient (with significantly slurred speech) is able to tell me that his is working in [place] - which is consistent with prior visits to our ER. He does state he has a mild headache. Otherwise his speech is so slurred he is very difficult to understand. Upon my arrival patient exhibited right neglect tongue was sticking out mildly swollen without erythema. The patient is eyes were open and did orient to voice he was slow to respond and very dysarthric unintelligible speech. He was able to follow simple commands but when asked to use his right hand to touch my finger he only moved his left hand and was able to do so with good control of the left hand. His came later in the day and reports that he had been seeing neurologist Dr. Velasquez had a rather extensive work-up was started on aspirin and Plavix but no apparent large vessel disease was noted. He had an echocardiogram gram and there is been no evidence for atrial fibrillation. He was having no neurologic issues previous to COVID infection in March 2020. He had been doing well at home until the night of his admission when his right leg apparently gave out he stumbled forward they helped him to the bed and again noted that he was dysarthric and his tongue appeared to be swollen. There were no rash issues reported he was confused but there was no loss of consciousness and no reported pallor. He had been feeling well up until that point. Subjective/Events-last exam Gonzalo is a 51 yo male who was admitted for right sided weakness and slurred speech. Pt has hx of HTN, diabetes, crohns disease and multiple CVAs following COVID. Pts primary historian is his , who states at baseline prior to this event he had left sided weakness and mild slurred speech. Since this event he has developed right sided weakness and increased slurred speech. She does report his tongue swelling has improved today. MRI was recommended, but could not be co mpleted d/t body habitus. Review of Systems General: No Chills, No Night Sweats HEENT: No Head Aches, No Visual Changes Pulmonary: No Dyspnea, No Cough Cardiovascular: No: Chest Pain, Palpitations Gastrointestinal: No: Nausea, Vomiting Genitourinary: No Dysuria, No Frequency Musculoskeletal: No: neck pain, shoulder pain Neurological: Weakness, Change in speech Objective Exam Vital Signs Vital Signs Date Time Temp Pulse Resp B/P (MAP) Pulse Ox O2 Delivery O2 Flow Rate FiO2 10/07/21 11:56 105 20 151/87 (108) 94 Vapotherm 20.00 50.00 10/07/21 08:38 100 10/07/21 07:51 35.6 Capillary Refill : Less Than 3 Seconds General Appearance: WD/WN, Obese HEENT: Other (enlarged tongue with protrusion but no deviation to one side) Neck: Non Tender, Supple Respiratory: Chest Non Tender, Lungs Clear, Normal Breath Sounds Cardiovascular: Regular Rate, Rhythm, No Edema Gastrointestinal: Normal Bowel Sounds, Non Tender, Soft Extremity: Normal Capillary Refill, Pedal Edema (mild non pitting edema) Neurologic/Psychiatric: Alert, Oriented x3, Aphasia, Motor Weakness, Other (Motor strength 4+ on left upper and lower extremities, Motor strength 0 on rig ht upper and lower extremity) Skin: Normal Color, Warm/Dry Results/Procedures Lab Laboratory Tests 10/07/21 05:30 Patient resulted labs reviewed. 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 Angioedema of tongue HTN Acute CVA with Right hemiparesis and dysarthria -Carotid ultrasound -Cardiology consulted, appreciate their recommendations -EKG ordered -CT head showed atrophy and chronic ischemic microvascular changes with lunar infarcts in Left basal ganglia -CTA showed no large vessel occlusion -MRI recommended, but couldn't be done d/t body habitus -Speech therapy, Physical therapy and Occupational therapy -NPO Angioedema of tongue -Hold lisinopril -NPO -Speech therapy consulted HTN -Permissive HTN following stroke -Amlodipine and Metoprolol currently Diabetes -SSI Diet-NPO DVT prophylaxis- SCDs JULIA LIPSCOMB DO 10/08/21 0558: Subjective HPI/CC On Admission Date Seen by Provider: Oct 07, 2021 Time Seen by Provider: 09:30 Subjective/Events-last exam Pt is about the same Right sided weakness is profound In-patient rehab eval PT and OT ordered Can't fit in the MRI due to abdominal girth Lovenox will be ordered Hopefully we will be able to initiate oral medication due to dysphagia Cardiology will be consulted to evaluate cryptogenic stroke Has had issues since he suffered from Covid March 2020 Review of Systems Neurological: Change in speech, Confusion Objective Exam General Appearance: No Apparent Distress, WD/WN, Chronically ill, Obese Cardiovascular: Regular Rate, Rhythm Neurologic/Psychiatric: Alert, Oriented x3, Aphasia, Motor Weakness Assessment/Plan Assessment and Plan Assess & Plan/Chief Complaint CVA management Hold ACEi Speech therapy for diet IRF Supervisory-Addendum Brief Verification & Attestation Participated in pt care: history, MDM, physical Personally performed: exam, history, MDM, supervision of care Care discussed with: Medical Student Procedures: n/a Results interpretation: Verified all documentation Verification and Attestation of Medical Student E/M Service A medical student performed and documented this service in my presence. I reviewed and verified all information documented by the medical student and made modifications to such information, when appropriate. I personally performed the physical exam and medical decision making. Julia Lipscomb, Oct 08, 2021,05:56 MIKI MENDEZ MED STUDENT Oct 07, 2021 12:13 JULIA LIPSCOMB DO Oct 08, 2021 05:58
--- NOTE | 2021-10-07 14:19 | ST Dysphagia Evaluation ---
Speech Evaluation-General Medical Diagnosis CVA Onset Date: Oct 06, 2021 Therapy Diagnosis Therapy Diagnosis: Severe Oropharyngeal Dysphagia Precautions Precautions: Fall, Aspiration Precautions/Isolations: Aspiration, Fall Prevention, Standard Precautions Referral Referring Physician: Dr. Mosher Reason for Referral: Evaluation/Treatment Medical History Current History The patient is a 51 year-old male with a past medical history of COVID, TIA, strokes, diabetes, HTN, and Crohn's disease, who presented to [facility] with right sided weakness and slurred speech. Head CT: 10/05/2021: IMPRESSION: Atrophy and some mild chronic microvascular ischemic disease with a few lacunar infarcts, particularly in the left basal ganglia and to a lesser degree right basal ganglia. No other acute intracranial abnormality. If there is high clinical concern for an acute CVA further evaluation with MRI should be considered. CXR: 10/07/2021: Left lung volume loss and nonspecific infiltrates, likely a combination of pneumonia and partial atelectasis. Reviewed History: Yes Social History Current Living Status: Spouse Speech PLF/Current-Dysphagia Prior Level of Function The patient was unable to provide information to the clinician regarding his prior swallowing history due to his current expressive aphasia. To note, the patient is able to communicate with nonverbal gestures, facial expressions, writing, and spelling. The patient's was present who stated the patient displayed s/s of suspected aspiration with P.O. intake since his prior stroke, "coughing and choking" throughout each meal. Additionally, the patient's stated the patient has dentures but does not wear his dentures. The patient consumes a soft diet with thin liquids. At this time, the patient is currently N.P.O. Subjective The patient was re-positioned upright in bed by the clinician. Pillows were used to position head in a mid-line position, as preference to the left was displayed. Per patient's , the patient's head positioning is similar at home as his head rests to the left in his lift chair. The patient was alert and agreed to participation in the clinical bedside swallowing evaluation. The patient's remains at bedside. Cognitive Status Patient Orientation: Person, Non-Verbal/Aphasic Oral Motor Skills Dentition: Edentalous Ability to Follow Directions: Fair Oral Expression Ability: Severe Impairment Observation: Excessive Secretions Oral, Excessive Excretion Hypopharynx, Oral Cavity Suction, Hypopharynx Suction Face Facial Symmetry: Asymmetrical (Right facial droop/weakness.) Oral-Facial Assessment Oral-Facial Dentition: Normal Labial Seal Description: Poor Coordination Lingual Protrusion: Abnormal (Lingual protrusion present at rest. Open mouth posture.) Lingual ROM: Abnormal Lingual Strength: Abnormal Volitional Dry Swallow: No Voluntary Cough: No Can Clear Throat Volitionally: No Productive Cough: Yes Productive Throat Clear: Yes Dysphagia Evaluation Consistencies Presented: Thin Liquid (Ice chips, teaspoon.), Pureed Oral Phase: Anterior Spillage, Unable to Form Bolus, Reduced Oral Transit The patient was able to minimally remove the bolus item from the teaspoon. Immediate anterior spillage was present with the ice chip and teaspoon of water. Limited to zero lingual and oral manipulation was present with the ice chip. Maximum verbal prompting was required for posterior transfer of the melted ice chip material, as oral holding was present. Pharyngeal Phase: Delayed Swallow Laryngeal elevation was present to palpation. The patient demonstrated s/s of suspected aspiration with his own saliva, ice chips, teaspoons of thin liquid, and a half teaspoon of puree characterized by an immediate cough, a red face, watery eyes, a wet vocal quality and a reduction is SpO2% from 94% to 87%. SpO2% returned to 94% prior to the clinician's exit from the room. Funct. Velo/Pharyngeal Symptom: Clears Throat, Cough After Swallow, Wet Voice Dietary Recommendations: NPO Liquid Recommendations: NPO Recommendations: - Strict N.P.O. - Frequent and excellent oral care to reduce the transfer of oral bacteria to the lungs should aspiration of secretions occur. - Moist oral swabs (with the water removed) for oral comfort. - The patient should attempted to swallow his own secretions, relying less on the [place]. as his own secretions are excellent oropharyngeal swallowing rehabilitation. - Speech pathology to re-assess the oropharyngeal swallowing function daily. The results and recommendations were discussed extensively with the patient, the patient's , and the RN. All present verbalized comprehension of the material and denied additional questions at this time. Dysphagia Evaluation Summary The patient demonstrated severe oropharyngeal dysphagia characterized by reduced facial, oral, and lingual strength and coordination, a delayed onset of the pharyngeal swallow, and poor airway protection in the presence of bolus material. The patient demonstrated s/s of suspected aspiration with his own saliva, ice chips, teaspoons of thin liquid, and a half teaspoon of puree characterized by an immediate cough, a red face, watery eyes, a wet vocal quality and a reduction is SpO2% from 94% to 87%. SpO2% returned to 94% prior to the clinician's exit from the room. Speech Short Term Goals Short Term Goals Short Term Goals 1. The patient will tolerate the least restrictive consistency of P.O. trials for possible advancement of a P.O. diet consistency. Time Frame-STG: Three Weeks. 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 The patient will tolerate the least restrictive consistency without s/s of suspected aspiration. Time Frame: One Week. Speech-Plan Treatment Plan Speech Therapy Treatment Plan: Continue Plan of Care Treatment Duration: Oct 21, 2021 Frequency: 4 times per week (Four to five times per week.) Estimated Hrs Per Day: .25 hour per day Rehab Potential: Guarded Barriers to Learning: At this time, the clinician questions the patient's ability to tolerate extensive periods of skilled treatment and rehabilitation. Pt/Family Agrees to Plan: Yes Safety Risks/Education Teaching Recipient: Patient, Significant Other Teaching Methods: Discussion Response to Teaching: Verbalize Understanding, Reinforcement Needed Education Topics Provided: Results, Recommendations, S/s of Suspected Aspiration, Aspiration Risks, Aspiration Pneumonia, Anatomy and Physiology of the Swallow Function Time Speech Therapy Time In: 13:00 Speech Therapy Time Out: 13:30 Total Billed Time: 30 Billed Treatment Time 1, ANNEL MORENO [facility] Oct 07, 2021 14:19
--- NOTE | 2021-10-07 14:21 | Occupational Therapy Eval ---
OT Evaluation-General/PLF Medical Diagnosis Admission Date Oct 06, 2021 at 16:19 Medical Diagnosis: CVA Onset Date: Oct 06, 2021 Therapy Diagnosis Therapy Diagnosis: decreased ADL status and weakness Precautions Precautions/Isolations: Aspiration, Fall Prevention, Standard Precautions Referral Physician: Julia Yañez DO Medical History Additional Medical History H/o COVID 1.5yrs ago with multiple CVAs during hospitalization. Several ED admits since then d/t weakness and stroke-like symptoms. Pt also has hx of HTN, Chrohns, and DM. Current History Pt fell in bathroom leading to increased L weakness with slurred speech, R neglect tongue. Imaging shows pt suffered CVA. Social History Home: Single Level Current Living Status: Spouse Entry Into Home: Stairs Without Railing ADL-Prior Level of Function SCALE: Activities may be completed with or without assistive devices. 4-Nlucjlgbcb-pokpvjj completes the activity by him/herself with no assistance from a helper. 5-Set-up or Clean-up Assistance-helper sets up or cleans up; patient completes activity. Treadwell assists only prior to or following the activity. 4-Supervision or Touching Assistance-helper provides verbal cues and/or touching/steadying and/or contact guard assistance as patient completes activity. Assistance may be provided throughout the activity or intermittently. 3-Partial/Moderate Assistance-helper does LESS THAN HALF the effort. Treadwell lifts, holds or supports trunk or limbs, but provides less than half the effort. 2-Substantial/Maximal Assistance-helper does MORE THAN HALF the effort. Treadwell lifts or holds trunk or limbs and provides more than half the effort. 6-Cbuawxswq-yzprpu does ALL the effort. Patient does none of the effort to complete the activity. Or, the assistance of 2 or more helpers is required for the patient to complete the activity. If activity was not attempted, code reason: 7-Patient Refused. 9-Not Applicable-not attempted and the patient did not perform the activity before the current illness, exacerbation or injury. 10-Not Attempted due to Environmental Limitations-(lack of equipment, weather restraints, etc.). 88-Not Attempted due to Medical Conditions or Safety Concerns. ADL PLOF Comments provided information about pt's PLOF. In the time between covid and this recent CVA, pt was able to walk and had L sided weakness. He required some level of assistance with all ADLs. said pt could use LUE but had limited strength and coordination, RUE WFL. He receives services from different agencies, including [employer]. is primary caretaker grounds, but son will take care of pt when is at work on the weekends. 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 Pt was not able to verbally communicate, so provided eval information. Pt communicated via hand gestures with delayed response time. Mental Status/Objective Patient Orientation: Person, Non-Verbal/Aphasic Attachments: Drains, Cazares Catheter, IV, Oxygen (Vapotherm), Telemetry Current Glasses/Contacts: No Hearing Aids: No Hand Dominance: Right Upper Extremity ROM Limited in LUE; No AROM noted in RUE Upper Extremity Sensation Pt reports numbness and tingling in RUE. Was able to tell OT was touching RUE but reported the sensation was different. Upper Extremity Strength No active movement noted/palpated in RUE during evaluation. LUE grossly 2+/5 ADL-Treatment Eating (QC): 88 (NPO) Oral Hygiene (QC): 9 (Pt/ declined, as pt doesn't have teeth and doesn't complete at baseline.) Shower/Bathe Self (QC): 1 (Per clinical judgement, assist x2 required for task) Upper Body Dressing (QC): 2 (Per clinical judgment, max-total assist required.) Lower Body Dressing (QC): 1 (Per clinical judgement, assist x2 required) On/Off Footwear (QC): 1 (Per clinical judgement) Other Treatments Pt remained supine in bed throughout duration of tx. PLOF and living conditions was obtained by , but pt would use hand gestures in agreement. He participated in UE screen and used washcloth to wipe face. Pt used suction throughout tx in L hand, independently. Pt and were educated on the purpose and benefit of skilled OT services, verbalized understanding and pt gave thumbs up in approval. OT informed and pt in OT POC, they were in agreement. Per PT report, pt required total assist for supine to/from sit transfers, mod A sitting balance for a couple of minutes (leans towards R side). Post tx, pt in bed, call light in reach and all needs met, present. 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 2=Patient will verbalize/demonstrate understanding of assistive devices/modifications for ADL. 3=Patient will improve strength/tolerance for activity to enable patient to perform ADL's. OT Education/Plan Problem List/Assessment Assessment: Decreased Activ Tolerance, Decreased UE Strength, Impaired Bed Mobility, Impaired Coordination, Impaired Funct Balance, Impaired I ADL's, Impaired Self-Care Skills, Restricted Funct UE ROM Pt would benefit from skilled OT services in order to increase functional use of RUE, improve independence and safety with ADLs and functional mobility, and for neuromuscular reeducation in order to maximize LOF for safe return home with spouse. Discharge Recommendations Plan/Recommendations: Continue POC Therapy Discharge Recommendati: Post Acute OT (SNF) Comment At this time, this clinician questions pt's ability to tolerate extensive periods of skilled therapy and rehab, he would benefit from continued skilled OT service at discharge. OT currently recommends SNF at discharge. Treatment Plan/Plan of Care Patient would benefit from OT for education, treatment and training to promote independence in ADL's, mobility, safety and/or upper extremity function for ADL's. Plan of Care: ADL Retraining, Functional Mobility, UE Funct Exercise/Act, UE Neuromus Re-Ed/Coord Treatment Duration: Nov 08, 2021 Frequency: 5 times per week Estimated Hrs Per Day: .25 hour per day Rehab Potential: Guarded Time/GCodes Start Time: 13:49 Stop Time: 14:10 Total Time Billed (hr/min): 21 Billed Treatment Time 1, NEO MAK OT Oct 07, 2021 14:21
[2021-10-07] MEDS ORDERED: SALINE NASAL SPRAY (OCEAN) 45 ML BTL PRN (18:00)
[2021-10-07] MEDS: meTOprolol 5 MG/5 ML (LOPRESSOR) VIAL IV SCH (18:03)
[2021-10-07] MEDS ORDERED: NON-FORMULARY MEDICATION 1 EA EA (Dapagliflozin Propanediol (Farxiga) 10 MG) PO SCH (21:00)
[2021-10-07] MEDS ORDERED: NON-FORMULARY MEDICATION 1 EA EA (Liraglutide (Victoza 3-Pak) 1.8 MG) SQ SCH (21:00)
--- NOTE | 2021-10-07 21:07 | Consultation-Cardiology ---
HPI-Cardiology Cardiology Consultation: Date of Consultation 10/07/21 Time Seen by a Provider: 20:10 Date of Admission Attending Physician [place] Admitting Physician Admitting Physician: Sundar Mosher MD Attending Physician: Julia Yañez DO Consulting Physician RUPA BALTAZAR MD, MA, FACP, FACC, [facility], CCDS HPI: Chief Complaint: CVA Mr. Escudero is a 51 yr old male admitted to [facility] from the ED with CVA. He is unable to converse. He does nod his head in answer to questions. Spouse is at the bedside. She reports he lives at home with her and is mobile with use of a cane at times. He had gotten up yesterday to use the bathroom and began to fall. He grabbed a coat hook and it pulled out of the wall resulting in a fall. His sons were able to get him up and then got him into the shower to clean up. He spouse reports the sons helped him to his recliner and called EMS. He developed slurred speech, facial droop, tongue swelling and right sided weakness. He has chronic left sided weakness from a previous stroke. He is unable to move his RUE or RLE. He nods to no chest pain, SOB, palpitations. His reports he is having difficulty swallowing today. He does have sleep apnea, but is not using a CPAP. He follows with neurology services at [facility], Dr. Gratn. ELD-Wucbef-Cbsgmx Hx Patient Social History 2nd Hand Smoke Exposure: No Past Medical History PMH As described under Assessment. Family Medical History Family Medical History: Pt spouse reports he has no known family h/o CAD Allergies and Home Medications Allergies Coded Allergies: CARMEN Inhibitors (Verified Allergy, Unknown, 10/07/21) angioedema Patient Home Medication List Home Medication List Reviewed: Yes Aspirin (Aspirin EC) 81 Mg Tablet., 81 MG PO DAILY, (Reported) Entered as Reported by: RIYA HOUSTON on 10/07/21 100 Last Action: Continued Atorvastatin Calcium (Atorvastatin Calcium) 40 Mg Tablet, 40 MG PO DAILY, (Reported) Entered as Reported by: RIYA HOUSTON on 10/07/21 100 Last Action: Continued Clopidogrel Bisulfate (Clopidogrel) 75 Mg Tablet, 75 MG PO DAILY, (Reported) Entered as Reported by: RIYA HOUSTON on 7/02/18 1003 Last Action: Continued Cyanocobalamin (Vitamin B-12) (Vitamin B-12) 50 Mcg Tablet, 50 MCG PO DAILY, (Reported) Entered as Reported by: RIYA HOUSTON on 10/07/211002 Last Action: Converted Dapagliflozin Propanediol (Farxiga) 10 Mg Tablet, 10 MG PO HS, (Reported) Entered as Reported by: RIYA HOUSTON on 10/07/211002 Last Action: Converted Famotidine (Famotidine) 20 Mg Tablet, 20 MG PO BID, (Reported) Entered as Reported by: RIYA HOUSTON on 10/07/211002 Last Action: Continued Insulin Detemir (Levemir Flextouch) 100 Unit/Ml (3 Ml) Insuln.pen, 18 UNITS SC BID, (Reported) Entered as Reported by: RIYA HOUSTON on 10/07/211002 Last Action: Converted Liraglutide (Victoza 3-Luis) 0.6 Mg/0.1 Ml (18 Mg/3 Ml) Pen.injctr, 1.8 MG SQ HS, (Reported) Entered as Reported by: RIYA HOUSTON on 10/07/211002 Last Action: Converted Lisinopril (Lisinopril) 20 Mg Tablet, 20 MG PO DAILY, (Reported) Entered as Reported by: RIYA HOUSTON on 10/07/211002 Last Action: Held Discontinued Medications Lisinopril (Lisinopril) 20 Mg Tablet, 20 MG PO DAILY Discontinued Reason: No Longer Taking Prescribed by: LYDIA SLAUGHTER on 04/17/201116 Last Action: Discontinued Metoprolol Tartrate (Metoprolol Tartrate) 25 Mg Tablet, 25 MG PO BID Discontinued Reason: No Longer Taking Prescribed by: LYDIA SLAUGHTER on 04/17/201116 Last Action: Discontinued Physical Exam-Cardiology Physical Exam Vital Signs/I&O 10/07/21 10/07/21 10/07/21 10/07/21 11:56 12:00 13:00 16:00 Temp 36.6 35.2 Pulse 105 101 95 Resp 20 16 B/P (MAP) 151/87 (108) 160/93 (115) Pulse Ox 94 95 O2 Delivery Vapotherm Vapotherm O2 Flow Rate 20.00 25.00 50.00 80.00 10/07/21 20:00 Temp 36.0 Pulse 96 Resp 24 B/P (MAP) 129/99 (109) Pulse Ox 95 O2 Delivery Vapotherm O2 Flow Rate 30.00 80.00 10/06/21 23:59 Intake Total 0 ml Output Total 725 ml Balance -725 ml Capillary Refill : Less Than 3 Seconds Constitutional: well-developed, other (non-verbal - nods head slowly in response to questions) Neck: No carotid bruit; carotid pulses are 2 + bilaterally Respiratory: No accessory muscle use, No respiratory distress; chest expansion is symmetric, chest is bilaterally symmetric, lungs clear to auscultation Cardiovascular: regular rate-rhythm; No JVD; tachycardia, S1 and S2 Gastrointestinal: No tender; soft, round, audible bowel sounds Extremities: no lower extremity edema bilateral Neurologic/Psychiatric: other (RUE and RLE flaccid, facial droop right sided; LLE and LUE chronically weak 4/5) Skin: No rash on exposed areas, No ulcerations on exposed areas Data Review Labs Laboratory Tests 10/06/21 21:07: Glucometer 135H 10/07/21 05:30: White Blood Count 10.3, Red Blood Count 4.87, Hemoglobin 13.2L, Hematocrit 43, Mean Corpuscular Volume 88, Mean Corpuscular Hemoglobin 27, Mean Corpuscular Hemoglobin Concent 31L, Red Cell Distribution Width 13.6, Platelet Count 329, Mean Platelet Volume 10.4, Immature Granulocyte % (Auto) 0, Neutrophils (%) (Auto) 69, Lymphocytes (%) (Auto) 19, Monocytes (%) (Auto) 10, Eosinophils (%) (Auto) 2, Basophils (%) (Auto) 1, Neutrophils # (Auto) 7.1, Lymphocytes # (Auto) 1.9, Monocytes # (Auto) 1.0, Eosinophils # (Auto) 0.2, Basophils # (Auto) 0.1, Immature Granulocyte # (Auto) 0.0, Sodium Level 142, Potassium Level 3.4L, Chloride Level 107, Carbon Dioxide Level 22, Anion Gap 13, Blood Urea Nitrogen 11, Creatinine 0.68, Estimat Glomerular Filtration Rate 112, BUN/Creatinine Ratio 16, Glucose Level 147H, Calcium Level 8.8, Total Bilirubin 1.5H, Direct Bilirubin 0.6H, Indirect Bilirubin 0.9, Aspartate Amino Transf (AST/SGOT) 12, Alanine Aminotransferase (ALT/SGPT) 11, Alkaline Phosphatase 81, Total Protein 6.8, Albumin 3.6 10/07/21 11:04: Glucometer 158H 10/07/21 16:12: Glucometer 124H 10/07/21 20:33: Glucometer 116H A/P-Cardiology Assessment/Admission Diagnosis CVA with right sided hemiparesis, aphasia - reported h/o several CVA/TIA's following COVID infection in 2020 with left sided weakness - presents this time with righ sided hemiparesis/aphasia/dysphagia - The stroke team at was consulted with no further recommendations other than continuing aspirin and Plavix and obtaining an MRI - Management per stroke team - Follows with Dr. Grant of neurology services at [facility] - Carotid u/s7-02-18: Very limited exam. The right carotid artery shows no hemodynamic disease with minimal plaquing. Left carotid system and vertebral arteries were not adequately evaluated due to patient's pain and position. Previous CT angiography of the neck on 10/05/2021 suggested the carotid and vertebral arteries to be widely patent without significant stenosis. ?Angioedema - Lisinopril stopped Fall at home Sleep apnea - non-complaint with sleep study ? aspiration - NPO HTN Crohn's dz - h/o colectomy DM 2 Discussion and Recomendations CVA - management per stroke team - please see recs per [facility] as above - source undetermined - consider implant of ILR to r/o possible a-fib/flutter as cause BP not well controlled - add BB Monitor lab closely Further recs will be based on hospital course We would like to thank Dr. Yañez for this consult RUPA BALTAZAR MD FACP FAC CCDS Oct 07, 2021 21:07
[2021-10-07] MEDS: FAMOTIDINE 20 MG (PEPCID) TABLET PO SCH (21:22)
[2021-10-08] VITALS: BP 162/87
[2021-10-08] MEDS: meTOprolol 5 MG/5 ML (LOPRESSOR) VIAL IV SCH ×4 (01:06→18:25)
[2021-10-08] MEDS: ENOXAPARIN 40 MG/0.4 ML (LOVENOX) SYR SC SCH ×2 (01:06→12:10)
[2021-10-08 04:00] VITALS: BP 130/86
[2021-10-08] MEDS: NS IV 1000 ML 1,000 ML IV SCH ×2 (05:45→18:42)
[2021-10-08] MEDS: inSUlin ASPART (NovoLOG) 1 UNIT/0.01 ML (CHARGE PER UNIT) SC SCH ×4 (06:40→21:22)
[2021-10-08 08:00] VITALS: BP 162/95
[2021-10-08] MEDS: ASPIRIN E.C. 81 MG (ECOTRIN) TAB PO SCH (09:00)
[2021-10-08] MEDS: CLOPIDOGREL 75 MG (PLAVIX) TABLET PO SCH (09:00)
[2021-10-08] MEDS ORDERED: CYANOCOBALAMIN 50 MCG PO SCH (09:00)
[2021-10-08] MEDS: FAMOTIDINE 20 MG (PEPCID) TABLET PO SCH ×2 (09:00→21:22)
[2021-10-08 09:03] LABS: BASOPHILS # (AUTO) 0.1 10^3/uL (0.0-0.1); BASOPHILS % (AUTO) 1 % (0-10); EOSINOPHILS # (AUTO) 0.3 10^3/uL (0.0-0.3); EOSINOPHILS % (AUTO) 3 % (0-10); HEMATOCRIT 42 % (40-54); HEMOGLOBIN 13.5 g/dL (13.3-17.7); LYMPHOCYTES # (AUTO) 1.4 10^3/uL (1.0-4.0); LYMPHOCYTES % (AUTO) 12 % (12-44); MEAN CORPUSCULAR HEMOGLOBIN 28 pg (25-34); MEAN CORPUSCULAR HGB CONC 32 g/dL (32-36); MEAN CORPUSCULAR VOLUME 86 fL (80-99); MEAN PLATELET VOLUME 9.9 fL (9.0-12.2); MONOCYTES % (AUTO) 9 % (0-12); NEUTROPHILS # (AUTO) 8.9 10^3/uL (1.8-7.8); NEUTROPHILS % (AUTO) 76 % (42-75); PLATELET COUNT 315 10^3/uL (130-400); WHITE BLOOD COUNT 11.8 10^3/uL (4.3-11.0)
[2021-10-08 09:23] LABS: ALBUMIN 3.6 GM/DL (3.2-4.5); BILIRUBIN,TOTAL 1.5 MG/DL (0.1-1.0); CALCIUM 8.8 MG/DL (8.5-10.1); CREATININE SERUM 0.67 MG/DL (0.60-1.30); POTASSIUM 3.4 MMOL/L (3.6-5.0); TOTAL PROTEIN 6.6 GM/DL (6.4-8.2)
[2021-10-08] MEDS ORDERED: LIDOCAINE 1% INJ 20 ML VIAL ONE (09:36)
--- NOTE | 2021-10-08 09:48 | Progress Note - Cardiology ---
Cardiology SOAP Progress Note Subjective: Spouse at the bedside He is using a communication board Remains non-verbal No c/o pain, CP or SOB Remains NPO Objective: I&O/Vital Signs 10/08/21 10/09/21 10/09/21 10/09/21 22:12 00:00 00:25 00:40 Temp 36.5 Pulse 101 Resp 22 B/P (MAP) 171/91 (117) 167/83 (111) 169/97 (121) Pulse Ox 93 95 O2 Delivery Vapotherm Vapotherm O2 Flow Rate 30.00 30.00 80.00 FiO2 80 10/09/21 10/09/21 10/09/21 10/09/21 01:00 02:14 04:00 04:50 Temp 36.9 Pulse 97 93 Resp 16 B/P (MAP) 149/83 (105) Pulse Ox 90 92 92 O2 Delivery Vapotherm Vapotherm Vapotherm O2 Flow Rate 30.00 30.00 40.00 80.00 FiO2 80 100 10/09/21 10/09/21 10/09/21 07:00 07:12 08:00 Temp 37.1 Pulse 96 92 Resp 20 B/P (MAP) 153/85 (107) Pulse Ox 95 O2 Delivery Vapotherm Vapotherm O2 Flow Rate 40.00 40.00 95.00 95.00 10/09/21 00:00 Intake Total 100 ml Output Total 950 ml Balance -850 ml Constitutional: well-developed, other (non-verbal - nods head slowly in response to questions) Respiratory: No accessory muscle use, No respiratory distress; chest expansion is symmetric, chest is bilaterally symmetric, lungs clear to auscultation Cardiovascular: regular rate-rhythm; No JVD; tachycardia, S1 and S2 Gastrointestional: No tender; soft, round, audible bowel sounds Extremities: no lower extremity edema bilateral Neurologic/Psychiatric: other (RUE and RLE flaccid, facial droop right sided; LLE and LUE chronically weak 4/5) Skin: No rash on exposed areas, No ulcerations on exposed areas Results/Procedures: Labs Laboratory Tests 10/08/21 12:00: Glucometer 129H 10/08/21 15:28: Glucometer 114H 10/08/21 20:36: Glucometer 98 10/08/21 23:32: Glucometer 99 10/09/21 06:08: White Blood Count 8.8, Red Blood Count 4.70, Hemoglobin 13.1L, Hematocrit 40, Mean Corpuscular Volume 86, Mean Corpuscular Hemoglobin 28, Mean Corpuscular Hemoglobin Concent 33, Red Cell Distribution Width 13.2, Platelet Count 312, Mean Platelet Volume 10.1, Immature Granulocyte % (Auto) 0, Neutrophils (%) (Auto) 68, Lymphocytes (%) (Auto) 17, Monocytes (%) (Auto) 11, Eosinophils (%) (Auto) 3, Basophils (%) (Auto) 1, Neutrophils # (Auto) 6.0, Lymphocytes # (Auto) 1.5, Monocytes # (Auto) 1.0, Eosinophils # (Auto) 0.2, Basophils # (Auto) 0.1, Immature Granulocyte # (Auto) 0.0, Sodium Level 139, Potassium Level 3.3L, Chloride Level 106, Carbon Dioxide Level 24, Anion Gap 9, Blood Urea Nitrogen 10, Creatinine 0.61, Estimat Glomerular Filtration Rate 116, BUN/Creatinine Ratio 16, Glucose Level 108H, Calcium Level 8.7, Corrected Calcium 9.1, Magnesium Level 1.8, Total Bilirubin 1.6H, Aspartate Amino Transf (AST/SGOT) 10, Alanine Aminotransferase (ALT/SGPT) 8, Alkaline Phosphatase 77, Total Protein 6.8, Albumin 3.5 Microbiology 10/08/21 MRSA Screen - Final, Complete MRSA not isolated A/P: Assessment: CVA with right sided hemiparesis, aphasia - reported h/o several CVA/TIA's following COVID infection in 2020 with left sided weakness - presents this time with righ sided hemiparesis/aphasia/dysphagia - The stroke team at was consulted with no further recommendations other than continuing aspirin and Plavix and obtaining an MRI - Management per stroke team - Follows with Dr. Grant of neurology services at [facility] - Carotid u/s7-02-18: Very limited exam. The right carotid artery shows no hemodynamic disease with minimal plaquing. Left carotid system and vertebral arteries were not adequately evaluated due to patient's pain and position. Previous CT angiography of the neck on 10/05/2021 suggested the carotid and vertebral arteries to be widely patent without significant stenosis. ?Angioedema - Lisinopril stopped Fall at home Sleep apnea - non-complaint with sleep study ? aspiration - NPO HTN Crohn's dz - h/o colectomy DM 2 Plan: CVA - management per stroke team - please see recs per [facility] as above - source undetermined - agreeable to implant of ILR to r/o possible a- fib/flutter as cause - planned for later today BP not well controlled Remains NPO d/t concerns of aspiration - Continue IV Lopressor - start Catapress patch Monitor lab closely Replace electrolytes EREN FLOWERS [facility] Oct 08, 2021 09:48
[2021-10-08] MEDS ORDERED: cloNIDine 0.2 MG PATCH (CATAPRES TTS) TDSY TD ONE (10:00)
--- NOTE | 2021-10-08 10:00 | Occupational Ther Daily Note ---
OT Current Status-Daily Note Subjective Pt laying in bed with family present upon OT/PT arrival, pt agreeable to therapy cotreat d/t complex medical needs. Pt's speech is still not clear, but he attempted to verbally communicate with therapists throughout session. Mental Status/Objective Patient Orientation: Person, Non-Verbal/Aphasic Attachments: Drains, Cazares Catheter, IV, Oxygen, Telemetry ADL-Treatment Therapy Code Descriptions/Definitions Functional [place] Measure: 0=Not Assessed/NA 4=Minimal Assistance 1=Total Assistance 5=Supervision or Setup 2=Maximal Assistance 6=Modified [place] 3=Moderate Assistance 7=Complete IndependenceSCALE: Activities may be completed with or without assistive devices. 6-Irdogxsgjc-rtptfqn completes the activity by him/herself with no assistance from a helper. 5-Set-up or Clean-up Assistance-helper sets up or cleans up; patient completes activity. [place] assists only prior to or following the activity. 4-Supervision or Touching Assistance-helper provides verbal cues and/or touching/steadying and/or contact guard assistance as patient completes activity. Assistance may be provided throughout the activity or intermittently. 3-Partial/Moderate Assistance-helper does LESS THAN HALF the effort. [place] lifts, holds or supports trunk or limbs, but provides less than half the effort. 2-Substantial/Maximal Assistance-helper does MORE THAN HALF the effort. [place] lifts or holds trunk or limbs and provides more than half the effort. 5-Lbnlgtfys-[place]ostee does ALL the effort. Patient does none of the effort to complete the activity. Or, the assistance of 2 or more helpers is required for the patient to complete the activity. If activity was not attempted, code reason: 7-Patient Refused. 9-Not Applicable-not attempted and the patient did not perform the activity before the current illness, exacerbation or injury. 10-Not Attempted due to Environmental Limitations-(lack of equipment, weather restraints, etc.). 88-Not Attempted due to Medical Conditions or Safety Concerns. Other Treatment Pt required total assistx2 to transfer supine to seated EOB. Pt required mod-max assistx2-3 to maintain seated EOB balance with proper positioning and equal BUE weight bearing, ~8mins. Pt and family educated on the purpose of activity in strengthening core stability muscles needed to complete seated ADLs and serve as a precursor to functional transfers. Pt required v/c's throughout activity to maintain midline position, bear weight into RUE, and maintain head in upright position. Pt attempted to stand with total A from PT, but he couldn't get his bottom off of the bed. . Pt required total assistx2-3 to return seated EOB to supine. Post tx, pt supine in bed with call light in reach and all needs met. Education OT Patient Education: Correct positioning, Energy conservation, Instructions to caregiver, Progress toward Goal/Update tx plan, Purpose of tx/functional act ivities, Rehab process, Transfer techniques Teaching Recipient: Patient, Family, Significant Other Teaching Methods: Discussion Response to Teaching: Verbalize Understanding, Reinforcement Needed OT Jail Goals Jail Goals Time Frame: Nov 08, 2021 Eating (QC): 3 Toileting Hygiene (QC): 3 Shower/Bathe Self (QC): 2 Upper Body Dressing (QC): 3 Lower Body Dressing (QC): 2 On/Off Footwear (QC): 2 Additional Goals: 1-Demonstrate ADL Tasks, 2-Verbalize Understanding, 3- ImproveStrength/Flori 1=Demonstrate adherence to instructed precautions during ADL tasks. 2=Patient will verbalize/demonstrate understanding of assistive d evices/modifications for ADL. 3=Patient will improve strength/tolerance for activity to enable patient to perform ADL's. OT Education/Plan Problem List/Assessment Assessment: Decreased Activ Tolerance, Decreased Safety Aware, Decreased UE Strength, Impaired Bed Mobility, Impaired Coordination, Impaired Funct Balance, Impaired I ADL's, Impaired Self-Care Skills, Restricted Funct UE ROM Pt would benefit from skilled OT services in order to increase functional use of RUE, improve independence and safety with ADLs and functional mobility, and for neuromuscular reeducation in order to maximize LOF for safe return home with spouse. Discharge Recommendations Plan/Recommendations: Continue POC Treatment Plan/Plan of Care Patient would benefit from OT for education, treatment and training to promote independence in ADL's, mobility, safety and/or upper extremity function for ADL's. Plan of Care: ADL Retraining, Functional Mobility, UE Funct Exercise/Act, UE Neuromus Re-Ed/Coord Treatment Duration: Nov 08, 2021 Frequency: 5 times per week Estimated Hrs Per Day: .25 hour per day Rehab Potential: Guarded Time/GCodes Start Time: 09:31 Stop Time: 09:46 Total Time Billed (hr/min): 15 Billed Treatment Time 1, FA NEO DUMONT OT Oct 08, 2021 10:00
--- NOTE | 2021-10-08 10:06 | Speech Therapy Daily Note ---
Speech Daily Progress Note Subjective Date Seen by Provider: Oct 08, 2021 Time Seen by Provider: 08:50 The patient was repositioned upright for safe swallowing. The patient is alert and agreeable to participation in the skilled dysphagia treatment session. The patient's and family member remain at bedside. The patient remains with a head tilt to the left regardless of re-positioning attempts. Objective The patient was positioned upright in bed for safe swallowing. The patient is receiving 30 lpm of supplemental oxygen via high flow nasal cannula with SpO2% at 90% prior to P.O. trials. The patient is visualized to elicit a spontaneous swallow of his secretions, immediately displaying a rigorous cough, red face, and watery eyes. The suspected signs of aspiration lead the clinician to believe the patient is not handling his own secretions. The patient is provided with an ice chip. The patient displays minimal lingual m anipulation, holding the ice chip for 27 seconds prior to posterior transfer initiation. An immediate red face, rigorous cough and reduction in SpO2% to 87% were displayed following the swallow. A coated teaspoon of puree was attempted (three attempts). The patient orally holds the puree bolus for periods longer than 35 seconds with each trial, displaying anterior bolus loss and pocketing of material in the left buccal cavity. With maximum verbal cueing, posterior transfer and elicitation of a pharyngeal swallow occurred. An immediate wet vocal quality was displayed. Due to the overt s/s of suspected aspiration with thin liquid and puree consistencies, trials were terminated at this time for patient safety. The patient was encouraged to continue attempts of swallowing his own secretions, as the [place] remains present and the patient continuously suctions anterior loss of secretions throughout the session. The patient's stated the patient frequently coughed on his secretions prior to the most recent str vernell. The clinician continues to suspect a level of baseline dysphagia prior to the patient's most recent admission. Minimal improvement and progress was made during today's oropharyngeal swallow treatment session. The clinician continues to recommend: - Strict N.P.O. - Frequent and excellent oral care to reduce the transfer of oral bacteria to the lungs should aspiration of secretions occur. - Moist oral swabs (with the water removed) for oral comfort. - The patient should attempt to swallow his own secretions, relying less on the [place]. as his own secretions are excellent oropharyngeal swallowing rehabilitation. - Speech pathology to re-assess the oropharyngeal swallowing function daily. The results and recommendations were discussed extensively with the patient and the patient's . All present verbalized comprehension of the material and denied additional questions at this time. The clinician continues to recommend skilled speech pathology services at the pen[facility] versus skilled nursing acute care facility level due to the clinician's concerns regarding the patient's ability to tolerate intensive rehab ilitation. Assessment Assessment Current Status: Fair Progress Treatment Plan Continue Plan of Care Speech Short Term Goals Short Term Goals Short Term Goals 1. The patient will tolerate the least restrictive consistency of P.O. trials for possible advancement of a P.O. diet consistency. Time Frame-STG: Three Weeks. Speech Hot Tamale Man Goals Senior Care Goals 1. The patient will tolerate the least restrictive consistency without s/s of suspected aspiration. Time Frame: One Week. Speech-Plan Treatment Plan Speech Therapy Treatment Plan: Continue Plan of Care Treatment Duration: Oct 21, 2021 Frequency: 4 times per week (Four to five times per week.) Estimated Hrs Per Day: .25 hour per day Rehab Potential: Guarded Pt/Family Agrees to Plan: Yes Safety Risks/Education Teaching Recipient: Patient, Family, Significant Other Teaching Methods: Discussion Response to Teaching: Verbalize Understanding Education Topics Provided: Recommendations, Progression of Skilled Therapy, S/s of Suspected Aspiration Time Speech Therapy Time In: 08:50 Speech Therapy Time Out: 09:10 Total Billed Time: 20 Billed Treatment Time ANNEL Blake MINI ZAMORA Oct 08, 2021 10:06
--- NOTE | 2021-10-08 10:09 | ST Cognitive Linguistic Eval ---
Speech Evaluation-General Medical Diagnosis CVA Onset Date: Oct 06, 2021 Therapy Diagnosis Therapy Diagnosis: Severe Dysarthria, Moderate Expressive Aphasia Precautions Precautions: Fall, Aspiration Precautions/Isolations: Aspiration, Fall Prevention, Standard Precautions Referral Referring Physician: Dr. Mosher Reason for Referral: Evaluation/Treatment Medical History Current History The patient is a 51 year-old male with a past medical history of COVID, TIA, strokes, diabetes, HTN, and Crohn's disease, who presented to [facility] with right sided weakness and slurred speech. Head CT: 10/05/2021: IMPRESSION: Atrophy and some mild chronic microvascular ischemic disease with a few lacunar infarcts, particularly in the left basal ganglia and to a lesser degree right basal ganglia. No other acute intracranial abnormality. If there is high clinical concern for an acute CVA further evalu ation with MRI should be considered. CXR: 10/07/2021: Left lung volume loss and nonspecific infiltrates, likely a combination of pneumonia and partial atelectasis. Reviewed History: Yes Social History Current Living Status: Spouse Speech PLF-Current Status Prior Level of Function Per patient's , the patient was able to fluently communicate verbally prior to his recent admission. The patient's does report frequent coughing and choking on his own secretions. Subjective The patient was positioned upright in bed for increased alertness. The patient was agreeable to participation in the cognitive linguistic evaluation. The patient displays a left head tilt and left eye gaze. Right side neglect is evident throughout spontaneous conversation and interactions. The patient attempts to hold his head at midline with his left hand, however, is mostly unsuccessful. Per patient's , the patient displayed a preference to a left head tilt positioning due to his current lift chair. The patient's and family member remain present for the evaluation. Language Eval: Auditory Comprehends Simple Yes/No Ques: Functional Follows 1-Step Commands: Functional (With additional response time provided.) Language Eval: Verbal Language Completes Spontaneous Greeting: Functional (Does lift hand in a "wave" position.) Imitates Simple Words/Phrases: Moderate (The patient attempts single word repetition.) Requests Basic Needs: Moderate (With the use of yes/no questions or the communication board for spelling.) Objective Cognitive Domain Cognitive evaluation is deferred at this time pending an improvement to the patient's expressive language and overall communication. Objective Oral Motor/Speech Production The patient displayed severe dysarthria on this date, slightly improved from verbal language attempts the day prior. The patient presents with a right facial droop, decreased right labial retraction and protrusion. Lingual protrusion is slightly to the left and appears edematous, however, the patient's states the patient's tongue is at baseline. Markedly decreased articulatory precision. The patient's intelligibility is further decreased due to the presence of his own secretions displaying anterior spillage. At this time, the patient is judged to be less than 20% intelligible in the known, single word context. Impression The patient displayed severe dysarthria and moderate expressive language impairments. The patient is able to follow simple, one-step commands with repetition and increased processing time. The patient is able to communicate his wants and needs through spelling, writin g, and yes/no questions/responses. At this time, the patient's progress is most appropriate for senior living versus long-term acute care placement. Speech Short Term Goals Short Term Goals Short Term Goals 1. The patient will tolerate the least restrictive consistency of P.O. trials for possible advancement of a P.O. diet consistency. 2. The patient will demonstrate intelligibility strategies with 50% accuracy and maximum clinician verbal and visual cueing. Time Frame-STG: Three Weeks. Speech Usp Goals Usp Goals 1. The patient will tolerate the least restrictive consistency without s/s of suspected aspiration. 2. The patient will improve expressive communication for increased safety with discharge to the least restricted environment. Time Frame: One Week. Speech-Plan Treatment Plan Speech Therapy Treatment Plan: Continue Plan of Care Treatment Duration: Oct 21, 2021 Frequency: 4 times per week (Four to five times per week.) Estimated Hrs Per Day: .25 hour per day Rehab Potential: Poor Safety Risks/Education Teaching Recipient: Patient, Family, Significant Other Teaching Methods: Discussion Response to Teaching: Verbalize Understanding Education Topics Provided: Results, Recommendations, Plan of Care Time Speech Therapy Time In: 09:10 Speech Therapy Time Out: 09:30 Total Billed Time: 20 Billed Treatment Time 1, LIBERTAD BOLTONYMINI Oct 08, 2021 10:09
--- NOTE | 2021-10-08 10:10 | Physical Therapy Daily Note ---
PT Daily Note-Current Subjective Patient in bed pre tx, agrees to PT, has no complaints of pain. Appearance Patient in bed post tx with nurse call, phone, tray, family in room. Mental Status Patient Orientation: Person, Unable to Assess, Non-Verbal/Aphasic Attachments: Oxygen (vapotherm), Cazares Catheter, IV Transfers SCALE: Activities may be completed with or without assistive devices. 6-Zyspbixvze-dvrigcp completes the activity by him/herself with no assistance from a helper. 5-Set-up or Clean-up Assistance-helper sets up or cleans up; patient completes activity. Lester assists only prior to or following the activity. 4-Supervision or Touching Assistance-helper provides verbal cues and/or touching/steadying and/or contact guard assistance as patient completes activity. Assistance may be provided throughout the activity or intermittently. 3-Partial/Moderate Assistance-helper does LESS THAN HALF the effort. Lester lifts, holds or supports trunk or limbs, but provides less than half the effort. 2-Substantial/Maximal Assistance-helper does MORE THAN HALF the effort. Lester lifts or holds trunk or limbs and provides more than half the effort. 5-Depvpqtgk-vxbgek does ALL the effort. Patient does none of the effort to complete the activity. Or, the assistance of 2 or more helpers is required for the patient to complete the activity. If activity was not attempted, code reason: 7-Patient Refused. 9-Not Applicable-not attempted and the patient did not perform the activity before the current illness, exacerbation or injury. 10-Not Attempted due to Environmental Limitations-(lack of equipment, weather restraints, etc.). 88-Not Attempted due to Medical Conditions or Safety Concerns. Roll Left & Right (QC): 1 Sit to Lying (QC): 1 Lying to Sitting/Side of Bed(Q: 1 Patient dependent of 2 people for supine to sit, he is able to sit for several minutes, needs mod assist to maintain sitting balance, he cannot voluntarily move his right leg, he can assist sitting with his left arm, attempted to stand but it was dependent and patient couldn't even get his bottom off the bed. Dependent of 2 to lay back down and scoot up. Treatments bed mobility, sitting balance, attempted standing Assessment Current Status: Poor Progress Patient will most likely need a chcf upon DC, he may be able to propel a manual WC with some assist but will probably need a ron for transfers. PT Alf Goals Alf Goals PT Utilities And Maintenance Supervisor Goals Time Frame: Oct 14, 2021 Roll Left & Right (QC): 3 Sit to Lying (QC): 3 Lying-Sitting on Side/Bed(QC): 3 Sit to Stand (QC): 3 Chair/Kpp-hb-Klpgo Xfer(QC): 2 PT Plan Problem List Problem List: Activity Tolerance, Functional Strength, Safety, Balance, Gait, Transfer, Bed Mobility, ROM Treatment/Plan Treatment Plan: Continue Plan of Care Treatment Plan: Bed Mobility, Education, Functional Activity Flori, Functional Strength, Gait, Safety, Therapeutic Exercise, Transfers Treatment Duration: Oct 14, 2021 Frequency: 6 times per week Estimated Hrs Per Day: .25 hour per day Patient and/or Family Agrees t: Yes Safety Risks/Education Patient Education: Correct Positioning, Safety Issues Teaching Recipient: Patient Teaching Methods: Demonstration, Discussion Response to Teaching: Reinforcement Needed Time/GCodes Time In: 927 Time Out: 944 Total Billed Treatment Time: 17 Total Billed Treatment 1 visit FA CHELSEA MARCUS PT Oct 08, 2021 10:10
--- NOTE | 2021-10-08 11:10 | Progress Note - Hospitalist ---
MIKI MENDEZ MED STUDENT 10/08/21 1110: Subjective HPI/CC On Admission Date Seen by Provider: Oct 08, 2021 Time Seen by Provider: 08:15 Patient is a 51yo male, h/o COVID about 1.5y ago and multiple neurologic insults during hospitalization for Covid at that time (TIA vs strokes). He has had chronic debility since then with several ED visits for weakness and strokelike symptoms. Apparently his sons were at home with him and he had a fall in the bathroom with increased weakness to the left side. Unsure of LOC as sons are not here at this time for history. The patient (with significantly slurred speech) is able to tell me that his is working in [place] - which is consistent with prior visits to our ER. He does state he has a mild headache. Otherwise his speech is so slurred he is very difficult to understand. Upon my arrival patient exhibited right neglect tongue was sticking out mildly swollen without erythema. The patient is eyes were open and did orient to voice he was slow to respond and very dysarthric unintelligible speech. He was able to follow simple commands but when asked to use his right hand to touch my finger he only moved his left hand and was able to do so with good control of the left hand. His came later in the day and reports that he had been seeing neurologist Dr. Velasquez had a rather extensive work-up was started on aspirin and Plavix but no apparent large vessel disease was noted. He had an echocardiogram gram and there is been no evidence for atrial fibrillation. He was having no neurologic issues previous to COVID infection in March 2020. He had been doing well at home until the night of his admission when his right leg apparently gave out he stumbled forward they helped him to the bed and again noted that he was dysarthric and his tongue appeared to be swollen. There were no rash issues reported he was confused but there was no loss of consciousness and no reported pallor. He had been feeling well up until that point. Subjective/Events-last exam Pt making small, but impressive improvements today with speech and strength. Pt was able to wave with left hand and say "goodbye" today. His speech was unintelligable yesterday, but is much improved today. Pt's reports she is pleased with how well he is doing. Pt denies pain or discomfort. has concerns of thick mucus production that they have been suctioning. Pt is still NPO following speech therapy eval. Review of Systems General: No Chills, No Fatigue HEENT: No Head Aches, No Visual Changes Pulmonary: No Dyspnea, No Cough Cardiovascular: No: Chest Pain, Palpitations Gastrointestinal: No: Nausea, Vomiting Genitourinary: No Dysuria, No Frequency Neurological: Weakness, Change in speech (improved) Objective Exam Vital Signs Vital Signs Date Time Temp Pulse Resp B/P (MAP) Pulse Ox O2 Delivery O2 Flow Rate FiO2 10/08/21 08:18 90 Vapotherm 30.00 80 10/08/21 08:00 36.2 109 12 162/95 (117) Capillary Refill : Less Than 3 Seconds General Appearance: No Apparent Distress, Obese HEENT: PERRL/EOMI, Other (tongue edema and protrusion improved from yesterday) Respiratory: Chest Non Tender, No Accessory Muscle Use, No Respiratory Distress, Rhonci (in upper lobes bilaterally), Other (lower lobes CTAB) Cardiovascular: Regular Rate, Rhythm, No Murmur Gastrointestinal: Normal Bowel Sounds, Non Tender, Soft Extremity: Normal Capillary Refill, No Pedal Edema Neurologic/Psychiatric: Alert, Oriented x3, Motor Weakness, Other Skin: Normal Color, Warm/Dry Lymphatic: No Adenopathy Results/Procedures Lab Laboratory Tests 10/08/21 08:50 Patient resulted labs reviewed. 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 Angioedema of tongue HTN Acute CVA with Right hemiparesis and dysarthria -Carotid ultrasound unremarkable -Cardiology consulted, appreciate their recommendations -CT head showed atrophy and chronic ischemic microvascular changes with lunar infarcts in Left basal ganglia -CTA showed no large vessel occlusion -MRI recommended, but couldn't be done d/t body habitus -Speech therapy, Physical therapy and Occupational therapy -Inpatient Rehab Facility eval -NPO Angioedema of tongue -Hold lisinopril -Speech therapy advised NPO HTN -Permissive HTN following stroke -Improved Diabetes -SSI Diet-NPO DVT prophylaxis- SCDs JULIA LIPSCOMB DO 10/09/21 0549: Subjective Subjective/Events-last exam Pt is about the same More coherent and expressive aphasia improved Maintain on Vapotherm Hemoglobin was 11.8 BP was 130/86 In-patient rehab submitted to insurance Review of Systems General: Fatigue, Malaise HEENT: Dysphasia Neurological: Change in speech (improved) Objective Exam General Appearance: No Apparent Distress, WD/WN, Chronically ill, Obese Respiratory: Lungs Clear, Normal Breath Sounds Cardiovascular: Regular Rate, Rhythm Assessment/Plan Assessment and Plan Assess & Plan/Chief Complaint Speech therapy Aspiration risk IRF Supervisory-Addendum Brief Verification & Attestation Participated in pt care: history, MDM, physical Personally performed: exam, history, MDM, supervision of care Care discussed with: Medical Student Procedures: n/a Results interpretation: Verified all documentation Verification and Attestation of Medical Student E/M Service A medical student performed and documented this service in my presence. I reviewed and verified all information documented by the medical student and made modifications to such information, when appropriate. I personally performed the physical exam and medical decision making. Julia Lipscomb, Oct 09, 2021,05:48 MIKI MENDEZ MED STUDENT Oct 08, 2021 11:10 JULIA LIPSCOMB DO Oct 09, 2021 05:49
--- NOTE | 2021-10-08 11:37 | Progress Note - Cardiology ---
Cardiology SOAP Progress Note Subjective: Communication difficult due to aphasia He does not indicated shortness of breath or cp Objective: I&O/Vital Signs 10/08/21 10/08/21 10/08/21 10/08/21 00:00 01:00 04:00 07:00 Pulse 91 85 88 90 Resp 36 B/P (MAP) 162/87 (112) 130/86 (101) Pulse Ox 95 88 O2 Delivery Vapotherm Vapotherm O2 Flow Rate 30.00 30.00 80.00 80.00 10/08/21 10/08/21 08:00 08:18 Temp 36.2 Pulse 109 Resp 12 B/P (MAP) 162/95 (117) Pulse Ox 90 90 O2 Delivery Vapotherm Vapotherm O2 Flow Rate 30.00 30.00 80.00 FiO2 80 10/08/21 00:00 Intake Total 0 ml Output Total 1225 ml Balance -1225 ml Constitutional: well-developed, other (non-verbal - nods head slowly in response to questions) Respiratory: No accessory muscle use, No respiratory distress; chest expansion is symmetric, chest is bilaterally symmetric, lungs clear to auscultation Cardiovascular: regular rate-rhythm; No JVD; tachycardia, S1 and S2 Gastrointestional: No tender; soft, round, audible bowel sounds Extremities: no lower extremity edema bilateral Neurologic/Psychiatric: other (RUE and RLE flaccid, facial droop right sided; LLE and LUE chronically weak 4/5) Skin: No rash on exposed areas, No ulcerations on exposed areas Results/Procedures: Labs Laboratory Tests 10/07/21 16:12: Glucometer 124H 10/07/21 20:33: Glucometer 116H 10/08/21 06:31: Glucometer 151H 10/08/21 08:50: White Blood Count 11.8H, Red Blood Count 4.86, Hemoglobin 13.5, Hematocrit 42, Mean Corpuscular Volume 86, Mean Corpuscular Hemoglobin 28, Mean Corpuscular Hemoglobin Concent 32, Red Cell Distribution Width 13.5, Platelet Count 315, Mean Platelet Volume 9.9, Immature Granulocyte % (Auto) 0, Neutrophils (%) (Auto) 76H, Lymphocytes (%) (Auto) 12, Monocytes (%) (Auto) 9, Eosinophils (%) (Auto) 3, Basophils (%) (Auto) 1, Neutrophils # (Auto) 8.9H, Lymphocytes # (Auto) 1.4, Monocytes # (Auto) 1.0, Eosinophils # (Auto) 0.3, Basophils # (Auto) 0.1, Immature Granulocyte # (Auto) 0.0, Sodium Level 141, Potassium Level 3.4L, Chloride Level 106, Carbon Dioxide Level 23, Anion Gap 12, Blood Urea Nitrogen 10, Creatinine 0.67, Estimat Glomerular Filtration Rate 112, BUN/Creatinine Ratio 15, Glucose Level 131H, Calcium Level 8.8, Corrected Calcium 9.1, Total Bilirubin 1.5H, Aspartate Amino Transf (AST/SGOT) 12, Alanine Aminotransferase (ALT/SGPT) 12, Alkaline Phosphatase 77, Total Protein 6.6, Albumin 3.6 Laboratory Tests 10/07/21 05:30 10/08/21 08:50 A/P: Assessment: CVA with right sided hemiparesis, aphasia - reported h/o several CVA/TIA's following COVID infection in 2020 with left sided weakness - presents this time with righ sided hemiparesis/aphasia/dysphagia - The stroke team at was consulted with no further recommendations other than continuing aspirin and Plavix and obtaining an MRI - Management per stroke team - Follows with Dr. Grant of neurology services at [facility] - Carotid [id number]: Very limited exam. The right carotid artery shows no hemodynamic disease with minimal plaquing. Left carotid system and vertebral arteries were not adequately evaluated due to patient's pain and position. Pr evious CT angiography of the neck on 10/05/2021 suggested the carotid and vertebral arteries to be widely patent without significant stenosis - ILR implanted on 10/08/21 to eval for occult A Fib as the source of his CVA ?Angioedema - Lisinopril stopped Fall at home Sleep apnea - non-complaint with sleep study ? aspiration - NPO HTN Crohn's dz - h/o colectomy DM 2 Plan: CVA - management per stroke team - please see recs per [facility] as above - source undetermined - implanted ILR today to r/o possible a-fib/flutter as cause BP not well controlled Remains NPO d/t concerns of aspiration - Continue IV Lopressor - start Catapress patch Monitor lab closely Replace electrolytes RUPA BALTAZAR MD FACP FACC CCDS Oct 08, 2021 11:37
[2021-10-08 12:00] VITALS: BP 167/112
[2021-10-08] MEDS: POTASSIUM CL 10MEQ/50ML IVPB 50 ML IV SCH ×2 (12:11→14:12)
[2021-10-08 16:00] VITALS: BP 158/88
--- NOTE | 2021-10-08 17:13 | OPERATIVE REPORT ---
DATE OF SERVICE: 10/08/2021 INDICATIONS: The patient is a 51-year-old gentleman who has been admitted with a cerebrovascular accident that is nonhemorrhagic and for which no clear source is evident. Implantable loop recorder implantation was carried out to evaluate for occult atrial fibrillation as a source of his stroke. DESCRIPTION OF PROCEDURE: Informed consent was obtained. The left prepectoral area was prepared and draped in the usual sterile fashion. Lidocaine 1% was used for local anesthesia. The tools provided with the Ioxus LINQ device were used to make a subcutaneous pocket anterior to the fourth intercostal space into which the device was placed and the wound edges were closed using Dermabond and Steri-Strips. He tolerated the procedure well. The serial number of the device is [id number]. Job ID: [id number] DocumentID: [id number] Dictated Date: 10/08/2021 11:34:04 Apple Turner Date: 10/08/2021 17:12:59 Dictated By: RUPA BALTAZAR MD, MA, FACP, FACC,
[2021-10-08 20:00] VITALS: BP 154/99
[2021-10-08] MEDS: EMPAGLIFLOZIN 10 MG TABLET (JARDIANCE) PO SCH (21:21)
[2021-10-09] VITALS (13 sets, daily range): BP systolic 134–180; BP diastolic 81–108
[2021-10-09] MEDS: ENOXAPARIN 40 MG/0.4 ML (LOVENOX) SYR SC SCH ×2 (00:25→13:38)
[2021-10-09] MEDS: meTOprolol 5 MG/5 ML (LOPRESSOR) VIAL IV SCH ×4 (00:25→18:16)
[2021-10-09 06:11] LABS: BASOPHILS # (AUTO) 0.1 10^3/uL (0.0-0.1); BASOPHILS % (AUTO) 1 % (0-10); EOSINOPHILS # (AUTO) 0.2 10^3/uL (0.0-0.3); EOSINOPHILS % (AUTO) 3 % (0-10); HEMATOCRIT 40 % (40-54); HEMOGLOBIN 13.1 g/dL (13.3-17.7); LYMPHOCYTES # (AUTO) 1.5 10^3/uL (1.0-4.0); LYMPHOCYTES % (AUTO) 17 % (12-44); MEAN CORPUSCULAR HEMOGLOBIN 28 pg (25-34); MEAN CORPUSCULAR HGB CONC 33 g/dL (32-36); MEAN CORPUSCULAR VOLUME 86 fL (80-99); MEAN PLATELET VOLUME 10.1 fL (9.0-12.2); MONOCYTES % (AUTO) 11 % (0-12); NEUTROPHILS % (AUTO) 68 % (42-75); PLATELET COUNT 312 10^3/uL (130-400); WHITE BLOOD COUNT 8.8 10^3/uL (4.3-11.0)
[2021-10-09 06:21] LABS: ALBUMIN 3.5 GM/DL (3.2-4.5); POTASSIUM 3.3 MMOL/L (3.6-5.0)
[2021-10-09 06:22] LABS: CALCIUM 8.7 MG/DL (8.5-10.1)
[2021-10-09 06:23] LABS: TOTAL PROTEIN 6.8 GM/DL (6.4-8.2)
[2021-10-09 06:25] LABS: BILIRUBIN,TOTAL 1.6 MG/DL (0.1-1.0)
[2021-10-09 06:27] LABS: CREATININE SERUM 0.61 MG/DL (0.60-1.30)
[2021-10-09 06:30] LABS: MAGNESIUM 1.8 MG/DL (1.6-2.4)
[2021-10-09] MEDS: inSUlin ASPART (NovoLOG) 1 UNIT/0.01 ML (CHARGE PER UNIT) SC SCH ×4 (07:03→21:06)
[2021-10-09] MEDS: FAMOTIDINE 20 MG (PEPCID) TABLET PO SCH ×2 (09:21→20:49)
[2021-10-09] MEDS: ASPIRIN E.C. 81 MG (ECOTRIN) TAB PO SCH (09:21)
[2021-10-09] MEDS: CLOPIDOGREL 75 MG (PLAVIX) TABLET PO SCH (09:21)
--- NOTE | 2021-10-09 09:26 | Speech Therapy Daily Note ---
Speech Daily Progress Note Subjective Date Seen by Provider: Oct 09, 2021 Time Seen by Provider: 08:25 The patient was lying in bed, awake and alert upon entrance to his room by the clinician. The patient made immediate eye contact following a verbal greeting from the clinician. The patient's remains at bedside. The patient was agreeable to participation in the skilled speech pathology treatment session. The patient continues to use the Yankeur to clear oral secretions, with visible anterior loss of oral secretions present. The patient additionally displays ri gorous coughing following "dry" swallow attempts which the clinician believes is secondary to aspiration of his own secretions. The patient remains on 40 lpm with 95% via high flow nasal cannula with SpO2% at 94% prior to P.O. trials. Objective The patient's mouth we cleaned with a moist oral swab and suctioning prior to administration of P.O. bolus trials. The patient's vocal quality is "wet" at baseline. The patient is provided three ice chips, three teaspoons of water, and three coated teaspoons of puree. The patient displayed a delayed, rigorous cough, red face, and watery eyes following each ice chip and teaspoon of water trial. Additionally, SpO2% decreased to 89%. Following a return to baselined SpO2% levels, coated teaspoons of puree were administered. The patient demonstrated an immediate, rigorous cough, red face, and watery eyes with one of three puree trials. The patient orally held each puree trial for approximately 35 seconds prior to minimal lingual and oral manipulation. The patient's vocal quality was overtly "wet" following P.O. trials. P.O. trials were terminated at this time for patient safe ty and due to the overt s/s of suspected aspiration displayed with each trial. The patient continues to communicate wants and needs efficiently through non- verbal gestures, a communication board (spelling), and yes/no responses. The patient is able to vocalize following requests from the clinician and was encouraged to continue expressive verbal communication attempts regardless of the dysarthria present. The clinician discussed with the patient's and the patient the continued recommendations of N.P.O., the minimal progress with the oropharyngeal swallow function, and possible timeline of rehabilitation. Per patient's , the patient's swallowing function has been in it's current state for the past "17 months" since his initial stroke. Due to this information, the clinician suspects prolonged rehabilitation with a guarded outcome. The clinician continues to recommend: - Strict N.P.O. - Frequent and excellent oral care to reduce the transfer of oral bacteria to the lungs should aspiration of secretions occur. - Moist oral swabs (with the water removed) for oral comfort. - The patient should attempt to swallow his own secretions, relying less on the Yankeur. as his own secretions are excellent oropharyngeal swallowing rehabilitation. - Speech pathology to re-assess the oropharyngeal swallowing function daily. The patient's primary physician and RN were present following the session and agreed to initiated discussions and plans for possible PEG tube placement. The clinician agrees with this plan of care at this time. Assessment Assessment Current Status: Poor Progress Treatment Plan Continue Plan of Care Speech Short Term Goals Short Term Goals Short Term Goals 1. The patient will tolerate the least restrictive consistency of P.O. trials for possible advancement of a P.O. diet consistency. 2. The patient will demonstrate intelligibility strategies with 50% accuracy and maximum clinician verbal and visual cueing. Time Frame-STG: Three Weeks. Speech Alf Goals Alf Goals 1. The patient will tolerate the least restrictive consistency without s/s of suspected aspiration. 2. The patient will improve expressive communication for increased safety with discharge to the least restricted environment. Time Frame: One Week. Speech-Plan Treatment Plan Speech Therapy Treatment Plan: Continue Plan of Care Treatment Duration: Oct 21, 2021 Frequency: 4 times per week (Four to five times per week.) Estimated Hrs Per Day: .25 hour per day Rehab Potential: Poor Safety Risks/Education Teaching Recipient: Patient, Significant Other Teaching Methods: Discussion Response to Teaching: Verbalize Understanding Education Topics Provided: Results, Recommendations, Plan of Care Time Speech Therapy Time In: 08:25 Speech Therapy Time Out: 09:25 Total Billed Time: 60 Billed Treatment Time 1, LIBERTAD UP [facility]IZAB[facility] ST Oct 09, 2021 09:26
--- NOTE | 2021-10-09 09:59 | Diagnostic Imaging Report ---
Indication: Hypoxia. Time of Exam: 9:35 AM Correlation is made with prior chest from 10/07/2021. Heart is enlarged. There is a cardiac loop recorder overlying the left chest. There is central vascularity prominence but no overt failure. No effusion or pneumothorax is seen. Impression: Cardiomegaly and central congestion. Dictated by: Dictated on workstation # [id number]
--- NOTE | 2021-10-09 10:09 | Progress Note - Cardiology ---
Cardiology SOAP Progress Note Subjective: No new c/o Remains NPO d/t dysphagia Objective: I&O/Vital Signs 10/10/21 10/10/21 10/10/21 10/11/21 21:00 22:10 23:55 01:00 Pulse 85 86 81 Resp 25 17 B/P (MAP) 149/95 (113) Pulse Ox 95 95 O2 Delivery NIV Bilevel NIV Bilevel O2 Flow Rate 40.00 FiO2 45 10/11/21 10/11/21 10/11/21 10/11/21 02:20 03:57 04:30 04:33 Temp 36.3 Pulse 86 80 Resp 18 17 B/P (MAP) 136/89 (105) Pulse Ox 98 93 95 O2 Delivery NIV Bilevel Vapotherm Vapotherm O2 Flow Rate 40.00 35.00 35.00 70.00 FiO2 70 10/11/21 10/11/21 10/11/21 10/11/21 04:37 07:00 07:49 07:53 Temp 36.9 Pulse 90 93 Resp 16 B/P (MAP) 157/95 (115) Pulse Ox 97 95 O2 Delivery Vapotherm Vapotherm O2 Flow Rate 35.00 35.00 70.00 FiO2 70 10/10/21 23:59 Output Total 1250 ml Balance -1250 ml Constitutional: well-developed, other (non-verbal - nods head slowly in response to questions) Respiratory: No accessory muscle use, No respiratory distress; chest expansion is symmetric, chest is bilaterally symmetric, lungs clear to auscultation Cardiovascular: regular rate-rhythm; No JVD; tachycardia, S1 and S2 Gastrointestional: No tender; soft, round, audible bowel sounds Extremities: no lower extremity edema bilateral Neurologic/Psychiatric: other (RUE and RLE flaccid, facial droop right sided; LLE and LUE chronically weak 4/5) Skin: No rash on exposed areas, No ulcerations on exposed areas Results/Procedures: Labs Laboratory Tests 10/10/21 12:27: Glucometer 108 10/10/21 18:32: Glucometer 121H 10/11/21 05:25: White Blood Count 9.7, Red Blood Count 4.53, Hemoglobin 12.4L, Hematocrit 39L, Mean Corpuscular Volume 86, Mean Corpuscular Hemoglobin 27, Mean Corpuscular Hemoglobin Concent 32, Red Cell Distribution Width 13.4, Platelet Count 351, Mean Platelet Volume 9.8, Immature Granulocyte % (Auto) 1, Neutrophils (%) (Auto) 68, Lymphocytes (%) (Auto) 17, Monocytes (%) (Auto) 11, Eosinophils (%) (Auto) 3, Basophils (%) (Auto) 1, Neutrophils # (Auto) 6.6, Lymphocytes # (Auto) 1.7, Monocytes # (Auto) 1.0, Eosinophils # (Auto) 0.3, Basophils # (Auto) 0.1, Immature Granulocyte # (Auto) 0.1, Sodium Level 142, Potassium Level 3.6, Chl oride Level 107, Carbon Dioxide Level 21, Anion Gap 14, Blood Urea Nitrogen 11, Creatinine 0.62, Estimat Glomerular Filtration Rate 115, BUN/Creatinine Ratio 18, Glucose Level 90, Calcium Level 8.9, Corrected Calcium 9.4, Total Bilirubin 1.2H, Aspartate Amino Transf (AST/SGOT) 11, Alanine Aminotransferase (ALT/SGPT) 9, Alkaline Phosphatase 66, Total Protein 6.7, Albumin 3.4 Microbiology 10/08/21 MRSA Screen - Final, Complete MRSA not isolated Procedures NAME: [facility] REC#: [id number] PT STATUS: ADM IN : 1970 PHYSICIAN: WISAM LIPSCOMB DO ADMIT DATE: 10/06/21/[facility] Draft Date of Exam:10/09/21 CHEST 1 VIEW, AP/PA ONLY Indication: Hypoxia. Time of Exam: 9:35 AM Correlation is made with prior chest from 10/07/2021. Heart is enlarged. There is a cardiac loop recorder overlying the left chest. There is central vascularity prominence but no overt failure. No effusion or pneumothorax is seen. Impression: Cardiomegaly and central congestion. Dictated on workstation # [id number] Dict: 10/09/21 0955 Trans: 10/09/21 0959 CV [id number] Interpreted by: STEVAN VOGEL MD Electronically signed by: A/P: Assessment: CVA with right sided hemiparesis, aphasia, dysphagia - reported h/o several CVA/TIA's following COVID infection in 2020 with left sided weakness - presents this time with righ sided hemiparesis/aphasia/dysphagia - The stroke team at was consulted with no further recommendations other than continuing aspirin and Plavix and obtaining an MRI - Management per stroke team - Follows with Dr. Grant of neurology services at [facility] - Carotid u/10-07-21: Very limited exam. The right carotid artery shows no hemo dynamic disease with minimal plaquing. Left carotid system and vertebral arteries were not adequately evaluated due to patient's pain and position. Previous CT angiography of the neck on 10/05/2021 suggested the carotid and vertebral arteries to be widely patent without significant stenosis - ILR implanted on 10/08/21 to eval for occult A Fib as the source of his CVA ?Angioedema - Lisinopril stopped Fall at home Sleep apnea - non-complaint with sleep study ? aspiration - NPO HTN Crohn's dz - h/o colectomy DM 2 Plan: CVA - management per stroke team - please see recs per [facility] as above - source undetermined - implanted ILR 10-08-21 to r/o possible a-fib/flutter as cause BP not well controlled Remains NPO d/t concerns of aspiration - Continue IV Lopressor - start Catapress patch - advise NG or G-tube placement of administration of nourishment and medications - management per medical services Monitor lab closely Replace electrolytes EREN FLOWERS Oct 09, 2021 10:09
--- NOTE | 2021-10-09 10:14 | Progress Note - Hospitalist ---
MIKI MENDEZ MED STUDENT 10/09/21 1014: Subjective HPI/CC On Admission Date Seen by Provider: Oct 09, 2021 Time Seen by Provider: 08:00 Patient is a 51yo male, h/o COVID about 1.5y ago and multiple neurologic insults during hospitalization for Covid at that time (TIA vs strokes). He has had chronic debility since then with several ED visits for weakness and strokelike symptoms. Apparently his sons were at home with him and he had a fall in the bathroom with increased weakness to the left side. Unsure of LOC as sons are not here at this time for history. The patient (with significantly slurred speech) is able to tell me that his is working in [place] - which is consistent with prior visits to our ER. He does state he has a mild headache. Otherwise his speech is so slurred he is very difficult to understand. Upon my arrival patient exhibited right neglect tongue was sticking out mildly swollen without erythema. The patient is eyes were open and did orient to voice he was slow to respond and very dysarthric unintelligible speech. He was able to follow simple commands but when asked to use his right hand to touch my finger he only moved his left hand and was able to do so with good control of the left hand. His came later in the day and reports that he had been seeing neurologist Dr. Velasquez had a rather extensive work-up was started on aspirin and Plavix but no apparent large vessel disease was noted. He had an echocardiogram gram and there is been no evidence for atrial fibrillation. He was having no neurologic issues previous to COVID infection in March 2020. He had been doing well at home until the night of his admission when his right leg apparently gave out he stumbled forward they helped him to the bed and again noted that he was dysarthric and his tongue appeared to be swollen. There were no rash issues reported he was confused but there was no loss of consciousness and no reported pallor. He had been feeling well up until that point. Subjective/Events-last exam Pt lying in bed comfortably this morning with no concerns. is at bed side and has no concerns. Pt had loop recorder placed yesterday with no complications. IRF eval is pending insurance approval. Objective Exam Vital Signs Vital Signs Date Time Temp Pulse Resp B/P (MAP) Pulse Ox O2 Delivery O2 Flow Rate FiO2 10/09/21 08:00 37.1 92 20 153/85 (107) 95 Vapotherm 40.00 95.00 10/09/21 04:50 100 Capillary Refill : Less Than 3 Seconds General Appearance: No Apparent Distress, WD/WN HEENT: PERRL/EOMI, Pharynx Normal Neck: Full Range of Motion, Normal Inspection Respiratory: Rales (at apex bilaterally) Cardiovascular: No Murmur Gastrointestinal: Normal Bowel Sounds, No Organomegaly Extremity: Normal Capillary Refill, Normal Inspection Neurologic/Psychiatric: Alert, Oriented x3, Motor Weakness (4+ strength on LLE and LUE, 0 strength on RUE and RLE) Skin: Normal Color, Warm/Dry Lymphatic: No Adenopathy Results/Procedures Lab Laboratory Tests 10/09/21 06:08 Patient resulted labs reviewed. 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 -Carotid ultrasound unremarkable -Cardiology consulted, appreciate their recommendations -CT head showed atrophy and chronic ischemic microvascular changes with lunar infarcts in Left basal ganglia -CTA showed no large vessel occlusion -MRI recommended, but couldn't be done d/t body habitus -Speech therapy, Physical therapy and Occupational therapy -Inpatient Rehab Facility eval pending insurance approval -NPO -Consulted general surgery for PEG tube placement, appreciate their assistance Acute respiratory distress requiring supplemental oxygen -Vapotherm 40L and 95% O2 -Will order CXR and ABG Angioedema of tongue -Hold lisinopril -Speech therapy advised NPO HTN -Permissive HTN following stroke -Improved Diabetes -SSI Diet-NPO, PEG tube to be placed today DVT prophylaxis- SCDs JULIA LIPSCOMB DO 10/10/21 0545: Subjective Subjective/Events-last exam Pt is doing about the same Aspiration risk so PEG tube will be placed by Dr. Marshall today Loop recorder already placed Will need BiPAP due to ABG showing CO2 retention and hypoxia Review of Systems General: Fatigue, Malaise Pulmonary: Dyspnea Objective Exam General Appearance: No Apparent Distress, WD/WN, Chronically ill, Obese Respiratory: No Accessory Muscle Use, No Respiratory Distress, Decreased Breath Sounds, Rales (at apex bilaterally), Wheezing Cardiovascular: Regular Rate, Rhythm Neurologic/Psychiatric: Alert, Oriented x3, Motor Weakness (4+ strength on LLE and LUE, 0 strength on RUE and RLE) Assessment/Plan Assessment and Plan Assess & Plan/Chief Complaint ABG BiPAP PEG Supervisory-Addendum Brief Verification & Attestation Participated in pt care: history, MDM, physical Personally performed: exam, history, MDM, supervision of care Care discussed with: Medical Student Procedures: n/a Results interpretation: Verified all documentation Verification and Attestation of Medical Student E/M Service A medical student performed and documented this service in my presence. I reviewed and verified all information documented by the medical student and made modifications to such information, when appropriate. I personally performed the physical exam and medical decision making. Julia Lipscomb, Oct 10, 2021,05:44 MIKI MENDEZ MED STUDENT Oct 09, 2021 10:14 JULIA LIPSCOMB DO Oct 10, 2021 05:45
[2021-10-09] MEDS: NS IV 1000 ML 1,000 ML IV SCH ×2 (10:25→21:43)
--- NOTE | 2021-10-09 10:44 | Progress Note-Pre Operative ---
Pre-Operative Progress Note H&P Reviewed The H&P was reviewed, patient examined and no changes noted. Date Seen by Provider: Oct 09, 2021 Time Seen by Provider: 10:45 Date H&P Reviewed: Oct 09, 2021 Time H&P Reviewed: 10:45 Pre-Operative Diagnosis: dysphagia, stroke GRAY BIGGS MD Oct 09, 2021 10:44
--- NOTE | 2021-10-09 11:05 | CONSULTATION REPORT ---
DATE OF SERVICE: 10/09/2021 ATTENDING SPECIAL CLIENT BUS DRIVER: [facility]. ADMITTING PHYSICIAN: Dr. Sundar Mosher. HISTORY OF PRESENT ILLNESS: The patient is a 51-year-old male, who initially had significant issues with COVID infection approximately March 2020. He had TIA versus stroke-like symptoms and has had chronic debility since that time. At home, he had a fall in the bathroom with increased weakness on the left side. They are unsure of the loss of consciousness at that time. The patient also was found to have slurred speech as well. The patient did have a CT scan performed, which did show some lacunar infarcts of the left basal ganglia. This was nonspecific and an MRI was recommended; however, the patient's body habitus prohibited this. Further recommendations by tertiary center recommended aspirin and Plavix. The patient has had issues with dysphagia and speech pathology has been consulted and the patient does have continued difficulty with swallowing, dysarthria as well as inability to swallow secretions. 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 PAST SURGICAL HISTORY: Appendectomy, laparoscopic cholecystectomy, and some form of gastrointestinal surgery. ALLERGIES: No known drug allergies. MEDICATIONS: Aspirin 81 mg daily, atorvastatin 40 mg daily, Plavix 75 mg daily, dapagliflozin 10 mg daily, famotidine 20 mg b.i.d., detemir insulin 18 units b.i.d., liraglutide 1.8 mg each day at bedtime, and lisinopril 20 mg daily. SOCIAL HISTORY: No known history of smoking or alcohol. FAMILY HISTORY: Noncontributory. REVIEW OF SYSTEMS: A well-nourished male, currently awake and alert and does respond to voice; however, does have some issues with dysarthria. He does not report any cough or shortness of breath. Difficulties swallowing as well as holding in secretions. No nausea, vomiting. No known diarrhea, no constipation, no red blood per rectum, no dark tarry stools. No fever, chills, no recent inadvertent weight loss. All other review of systems negative. PHYSICAL EXAMINATION: VITAL SIGNS: Temperature 37.1, blood pressure 153/85, pulse 92, respirations 20, and pulse ox 95% on 40% of Vapotherm. CHEST: Scattered rhonchi bilaterally. HEART: Regular, no murmurs. EXTREMITIES: +1/3 bilateral lower extremity edema, negative Homans sign. HEENT: No scleral icterus. NECK: No cervical lymphadenopathy. ABDOMEN: Soft, nontender, and nondistended. SKIN: Warm, dry. LABORATORY DATA: WBC 8.8, hemoglobin 13.1, hematocrit 40, and platelets 312. BUN 10, creatinine 0.61. ASSESSMENT AND PLAN: A 51-year-old male with likely left-sided cerebrovascular accident with dysarthria, dysphagia, and difficulty swallowing secretions. Due to his symptomatology, in discussion with the patient and family, they would like to proceed with a percutaneous endoscopic gastrostomy tube placement, which we will proceed with scheduling. Patient was seen by anesthesia and due to high O2 demand feel at this time wound likely need ET intubation. This was explained to the patient and family and they would like to hold off on the procedure for now. Job ID: [id number] DocumentID: [id number] Dictated Date: 10/09/2021 10:43:33 Or Assistant Date: 10/09/2021 11:04:23 Dictated By: GRAY BIGGS MD MTDD
[2021-10-09 11:09] LABS: ABG BASE EXCESS 1.7 MMOL/L (-2.5-2.5); ABG OXYGEN SATURATION 86 % (94-100); ABG PCO2 52 MMHG (35-45); ABG PO2 50 MMHG (79-93); ABG TCO2 28.5 MMOL/L (21.0-31.0)
[2021-10-09 11:29] LABS: ABG PH 7.34 (7.37-7.43)
[2021-10-09] MEDS: POTASSIUM CL 10MEQ/50ML IVPB 50 ML IV SCH ×4 (11:34→17:01)
[2021-10-09 11:40] LABS: ALLENS TEST YES-POS; INSPIRED O2 95%; VENTILATOR NO
[2021-10-09 11:41] LABS: PATIENT TEMP 37
--- NOTE | 2021-10-09 12:59 | Progress Note - Cardiology ---
Cardiology SOAP Progress Note Subjective: Communication difficult due to aphasia Does not indicate cp or shortness of breath Objective: I&O/Vital Signs 10/09/21 10/09/21 10/09/21 10/09/21 01:00 02:14 04:00 04:50 Temp 36.9 Pulse 97 93 Resp 16 B/P (MAP) 149/83 (105) Pulse Ox 90 92 92 O2 Delivery Vapotherm Vapotherm Vapotherm O2 Flow Rate 30.00 30.00 40.00 80.00 FiO2 80 100 10/09/21 10/09/21 10/09/21 10/09/21 07:00 07:12 08:00 12:00 Temp 37.1 36.3 Pulse 96 92 107 Resp 20 14 B/P (MAP) 153/85 (107) 180/105 (130) Pulse Ox 95 95 O2 Delivery Vapotherm Vapotherm Vapotherm O2 Flow Rate 40.00 40.00 40.00 95.00 95.00 95.00 10/09/21 12:38 Pulse 96 Resp 21 Pulse Ox 97 O2 Flow Rate 100.00 10/09/21 00:00 Intake Total 100 ml Output Total 950 ml Balance -850 ml Constitutional: well-developed, other (non-verbal - nods head slowly in response to questions) Respiratory: No accessory muscle use, No respiratory distress; chest expansion is symmetric, chest is bilaterally symmetric, lungs clear to auscultation Cardiovascular: regular rate-rhythm; No JVD; tachycardia, S1 and S2 Gastrointestional: No tender; soft, round, audible bowel sounds Extremities: no lower extremity edema bilateral Neurologic/Psychiatric: other (RUE and RLE flaccid, facial droop right sided; LLE and LUE chronically weak 4/5; aphasic) Skin: No rash on exposed areas, No ulcerations on exposed areas Results/Procedures: Labs Laboratory Tests 10/08/21 15:28: Glucometer 114H 10/08/21 20:36: Glucometer 98 10/08/21 23:32: Glucometer 99 10/09/21 06:08: White Blood Count 8.8, Red Blood Count 4.70, Hemoglobin 13.1L, Hematocrit 40, Mean Corpuscular Volume 86, Mean Corpuscular Hemoglobin 28, Mean Corpuscular Hemoglobin Concent 33, Red Cell Distribution Width 13.2, Platelet Count 312, Mean Platelet Volume 10.1, Immature Granulocyte % (Auto) 0, Neutrophils (%) (Auto) 68, Lymphocytes (%) (Auto) 17, Monocytes (%) (Auto) 11, Eosinophils (%) (Auto) 3, Basophils (%) (Auto) 1, Neutrophils # (Auto) 6.0, Lymphocytes # (Auto) 1.5, Monocytes # (Auto) 1.0, Eosinophils # (Auto) 0.2, Basophils # (Auto) 0.1, Immature Granulocyte # (Auto) 0.0, Sodium Level 139, Potassium Level 3.3L, Chloride Level 106, Carbon Dioxide Level 24, Anion Gap 9, Blood Urea Nitrogen 10, Creatinine 0.61, Estimat Glomerular Filtration Rate 116, BUN/Creatinine Ratio 16, Glucose Level 108H, Calcium Level 8.7, Corrected Calcium 9.1, Magnesium Level 1.8, Total Bilirubin 1.6H, Aspartate Amino Transf (AST/SGOT) 10, Alanine Aminotransferase (ALT/SGPT) 8, Alkaline Phosphatase 77, Total Protein 6.8, Albumin 3.5 10/09/21 10:34: Blood Gas Puncture Site RIGHT RAD, Blood Gas Patient Temperature 37, Arterial Blood pH 7.34*L, Arterial Blood Partial Pressure CO2 52H, Arterial Blood Partial Pressure O2 50L, Arterial Blood HCO3 27, Arterial Blood Total CO2 28.5, Arterial Blood Oxygen Saturation 86L, Arterial Blood Base Excess 1.7, Shan Test YES-POS, Blood Gas Ventilator Setting NO, Blood Gas Inspired Oxygen 95% 10/09/21 12:48: Glucometer 118H Microbiology 10/08/21 MRSA Screen - Final, Complete MRSA not isolated A/P: Assessment: CVA with right sided hemiparesis, aphasia, dysphagia - reported h/o several CVA/TIA's following COVID infection in 2020 with left sided weakness - presents this time with righ sided hemiparesis/aphasia/dysphagia - The stroke team at was consulted with no further recommendations other than continuing aspirin and Plavix and obtaining an MRI - Management per stroke team - Follows with Dr. Grant of neurology services at [facility] - Carotid u/s7-02-18: Very limited exam. The right carotid artery shows no hemodynamic disease with minimal plaquing. Left carotid system and vertebral arteries were not adequately evaluated due to patient's pain and position. Previous CT angiography of the neck on 10/05/2021 suggested the carotid and vertebral arteries to be widely patent without significant stenosis - ILR implanted on 10/08/21 to eval for occult A Fib as the source of his CVA ?Angioedema - Lisinopril stopped Fall at home Sleep apnea - non-complaint with sleep study ? aspiration - NPO HTN Crohn's dz - h/o colectomy DM 2 Plan: CVA - management per stroke team - please see recs per [facility] as above - source undetermined - implanted ILR 10-08-21 to r/o possible a-fib/flutter as cause BP not well controlled Remains NPO d/t concerns of aspiration - Continue IV Lopressor - start Catapress patch - advise NG or G-tube placement of administration of nourishment and medications - management per medical services Monitor lab closely Replace electrolytes RUPA BALTAZAR MD FACP [facility] Oct 09, 2021 12:59
--- NOTE | 2021-10-09 14:11 | Occupational Ther Daily Note ---
OT Current Status-Daily Note Subjective Pt laying in bed with present at bedside upon OT arrival, agreeable to tx. Pt was nonverbal throughout session, but was able to communication with hand gestures and head nods. Mental Status/Objective Patient Orientation: Person, Non-Verbal/Aphasic, Situation Attachments: Drains, Cazares Catheter, IV, Oxygen, Telemetry ADL-Treatment Therapy Code Descriptions/Definitions Functional [place] Measure: 0=Not Assessed/NA 4=Minimal Assistance 1=Total Assistance 5=Supervision or Setup 2=Maximal Assistance 6=Modified [place] 3=Moderate Assistance 7=Complete IndependenceSCALE: Activities may be completed with or without assistive devices. 5-Eqkvftbpye-pfrdgsn completes the activity by him/herself with no assistance from a helper. 5-Set-up or Clean-up Assistance-helper sets up or cleans up; patient completes activity. [place] assists only prior to or following the activity. 4-Supervision or Touching Assistance-helper provides verbal cues and/or touching/steadying and/or contact guard assistance as patient completes ac tivity. Assistance may be provided throughout the activity or intermittently. 3-Partial/Moderate Assistance-helper does LESS THAN HALF the effort. [place] lifts, holds or supports trunk or limbs, but provides less than half the effort. 2-Substantial/Maximal Assistance-helper does MORE THAN HALF the effort. [place] lifts or holds trunk or limbs and provides more than half the effort. 6-Gefkmsleu-vkmrkc does ALL the effort. Patient does none of the effort to complete the activity. Or, the assistance of 2 or more helpers is required for the patient to complete the activity. If activity was not attempted, code reason: 7-Patient Refused. 9-Not Applicable-not attempted and the patient did not perform the activity before the current illness, exacerbation or injury. 10-Not Attempted due to Environmental Limitations-(lack of equipment, weather restraints, etc.). 88-Not Attempted due to Medical Conditions or Safety Concerns. Other Treatment Pt remained in bed throughout duration of tx. He declined any ADLs at this time, but he was willing to participate in BUE neuromuscular training exercises to increase AROM in RUE. He completed 10 reps of the following BUE exercises: fist squeezes, bicep curls, wrist flexion/extension, and wrist ulnar/radial deviation. He completed the exercises with LUE AROM and RUE PROM. His RUE is flaccid with no muscle contractions noted, however, pt reports that he still has sensation within his RUE. Pt and educated on the importance of continued AAROM and PROM in RUE to increase neuromuscular communication and to prevent swelling and possible contractures, verbalized agreement and pt attempted to return demonstration by clasping hands together and doing wrist flex/exten. educated on positioning in order to provide PROM to pt. Post tx, pt left in bed with call light in reach and all needs met. Education OT Patient Education: Correct positioning, Energy conservation, Exercise program, Instructions to caregiver, Modified ADL techniques, Progress toward Goal/Update tx plan, Purpose of tx/functional activities, Rehab process Teaching Recipient: Patient, Significant Other Teaching Methods: Demonstration, Discussion Response to Teaching: Verbalize Understanding, Return Demonstration OT C4 Planner Goals C4 Planner Goals Time Frame: Nov 08, 2021 Eating (QC): 3 Toileting Hygiene (QC): 3 Shower/Bathe Self (QC): 2 Upper Body Dressing (QC): 3 Lower Body Dressing (QC): 2 On/Off Footwear (QC): 2 Additional Goals: 1-Demonstrate ADL Tasks, 2-Verbalize Understanding, 3- ImproveStrength/Flori 1=Demonstrate adherence to instructed precautions during ADL tasks. 2=Patient will verbalize/demonstrate understanding of assistive devices/modifications for ADL. 3=Patient will improve strength/tolerance for activity to enable patient to perform ADL's. OT Education/Plan Problem List/Assessment Assessment: Decreased Activ Tolerance, Decreased UE Strength, Dependent Transfers, Impaired Bed Mobility, Impaired Coordination, Impaired Funct Balance, Impaired I ADL's, Impaired Self-Care Skills, Restricted Funct UE ROM Pt would benefit from skilled OT services in order to increase functional use of RUE, improve independence and safety with ADLs and functional mobility, and for neuromuscular reeducation in order to maximize LOF for safe return home with spouse. Discharge Recommendations Plan/Recommendations: Continue POC Treatment Plan/Plan of Care Patient would benefit from OT for education, treatment and training to promote independence in ADL's, mobility, safety and/or upper extremity function for ADL's. Plan of Care: ADL Retraining, Functional Mobility, UE Funct Exercise/Act, UE N euromus Re-Ed/Coord Treatment Duration: Nov 08, 2021 Frequency: 5 times per week Estimated Hrs Per Day: .25 hour per day Rehab Potential: Poor Time/GCodes Start Time: 13:21 Stop Time: 13:39 Total Time Billed (hr/min): 18 Billed Treatment Time 1, NEO WINN OT Oct 09, 2021 14:11
--- NOTE | 2021-10-09 15:19 | Physical Therapy Daily Note ---
PT Daily Note-Current Subjective Patient in bed pre tx, agrees to PT, has no complaints of pain. Patient has had a BM, will assist nursing with rolling to clean patient. Appearance Patient in bed post tx with nurse call, phone, tray, laying on right side for pressure relief. Mental Status Patient Orientation: Person, Unable to Assess, Non-Verbal/Aphasic Attachments: Oxygen (bipap), Cazares Catheter, IV Transfers SCALE: Activities may be completed with or without assistive devices. 0-Awajxvvqdj-bgngddp completes the activity by him/herself with no assistance from a helper. 5-Set-up or Clean-up Assistance-helper sets up or cleans up; patient completes activity. [place] assists only prior to or following the activity. 4-Supervision or Touching Assistance-helper provides verbal cues and/or touching/steadying and/or contact guard assistance as patient completes activi ty. Assistance may be provided throughout the activity or intermittently. 3-Partial/Moderate Assistance-helper does LESS THAN HALF the effort. [place] lifts, holds or supports trunk or limbs, but provides less than half the effort. 2-Substantial/Maximal Assistance-helper does MORE THAN HALF the effort. [place] lifts or holds trunk or limbs and provides more than half the effort. 1-Edwndyoxr-jexpum does ALL the effort. Patient does none of the effort to complete the activity. Or, the assistance of 2 or more helpers is required for the patient to complete the activity. If activity was not attempted, code reason: 7-Patient Refused. 9-Not Applicable-not attempted and the patient did not perform the activity before the current illness, exacerbation or injury. 10-Not Attempted due to Environmental Limitations-(lack of equipment, weather restraints, etc.). 88-Not Attempted due to Medical Conditions or Safety Concerns. Roll Left & Right (QC): 1 Sit to Lying (QC): 1 Lying to Sitting/Side of Bed(Q: 1 Patient rolls from side to side with assist of 3 for cleaning and changing pads. When done patient sits to the side of the bed with assist of 3, he is able to sit for several minutes and perform exercises with LLE, he does not have any voluntary movement of the RLE at this time. Patient lays back down after getting fatigued (assist of 3) and is scooted up in bed. Exercises Seated Therapy Exercises: Ankle pumps, Long arc quads, Hip flexion Seated Reps: 20 (LLE) Treatments rolling, cleaning BM, sitting, LE ROM Assessment Current Status: Poor Progress dependent for mobility PT Senior Care Goals Prison Classification Counselor Goals PT Prison Classification Counselor Goals Time Frame: Oct 14, 2021 Roll Left & Right (QC): 3 Sit to Lying (QC): 3 Lying-Sitting on Side/Bed(QC): 3 Sit to Stand (QC): 3 Chair/Epp-pn-Qvqda Xfer(QC): 2 PT Plan Problem List Problem List: Activity Tolerance, Functional Strength, Safety, Balance, Gait, Transfer, Bed Mobility, ROM Treatment/Plan Treatment Plan: Continue Plan of Care Treatment Plan: Bed Mobility, Education, Functional Activity Flori, Functional Strength, Gait, Safety, Therapeutic Exercise, Transfers Treatment Duration: Oct 14, 2021 Frequency: 6 times per week Estimated Hrs Per Day: .25 hour per day Patient and/or Family Agrees t: Yes Safety Risks/Education Patient Education: Correct Positioning, Safety Issues Teaching Recipient: Patient Teaching Methods: Demonstration, Discussion Response to Teaching: Reinforcement Needed Time/GCodes Time In: 1440 Time Out: 1504 Total Billed Treatment Time: 24 Total Billed Treatment 1 visit FA 24' CHELSEA CAMARGO PT Oct 09, 2021 15:19
[2021-10-09] MEDS: EMPAGLIFLOZIN 10 MG TABLET (JARDIANCE) PO SCH (20:49)
[2021-10-10] VITALS (20 sets, daily range): BP systolic 147–194; BP diastolic 71–100
[2021-10-10] MEDS: ENOXAPARIN 40 MG/0.4 ML (LOVENOX) SYR SC SCH ×3 (00:13→23:27)
[2021-10-10] MEDS: meTOprolol 5 MG/5 ML (LOPRESSOR) VIAL IV SCH ×6 (00:13→23:27)
[2021-10-10 05:44] LABS: BASOPHILS # (AUTO) 0.1 10^3/uL (0.0-0.1); BASOPHILS % (AUTO) 1 % (0-10); EOSINOPHILS # (AUTO) 0.3 10^3/uL (0.0-0.3); EOSINOPHILS % (AUTO) 4 % (0-10); HEMATOCRIT 42 % (40-54); LYMPHOCYTES # (AUTO) 1.4 10^3/uL (1.0-4.0); LYMPHOCYTES % (AUTO) 17 % (12-44); MEAN CORPUSCULAR HEMOGLOBIN 28 pg (25-34); MEAN CORPUSCULAR HGB CONC 31 g/dL (32-36); MEAN CORPUSCULAR VOLUME 90 fL (80-99); MEAN PLATELET VOLUME 10.4 fL (9.0-12.2); MONOCYTES # (AUTO) 0.9 10^3/uL (0.0-1.0); MONOCYTES % (AUTO) 11 % (0-12); NEUTROPHILS # (AUTO) 5.5 10^3/uL (1.8-7.8); NEUTROPHILS % (AUTO) 68 % (42-75); PLATELET COUNT 269 10^3/uL (130-400); WHITE BLOOD COUNT 8.2 10^3/uL (4.3-11.0)
[2021-10-10 06:06] LABS: ALBUMIN 3.4 GM/DL (3.2-4.5)
[2021-10-10 06:07] LABS: POTASSIUM 3.6 MMOL/L (3.6-5.0)
[2021-10-10 06:08] LABS: CALCIUM 8.6 MG/DL (8.5-10.1)
[2021-10-10 06:09] LABS: TOTAL PROTEIN 6.6 GM/DL (6.4-8.2)
[2021-10-10 06:11] LABS: BILIRUBIN,TOTAL 1.5 MG/DL (0.1-1.0)
[2021-10-10 06:13] LABS: CREATININE SERUM 0.57 MG/DL (0.60-1.30)
[2021-10-10] MEDS: inSUlin ASPART (NovoLOG) 1 UNIT/0.01 ML (CHARGE PER UNIT) SC SCH ×4 (06:14→22:02)
[2021-10-10 06:15] LABS: MAGNESIUM 1.9 MG/DL (1.6-2.4)
[2021-10-10 07:22] LABS: ABG BASE EXCESS -0.7 MMOL/L (-2.5-2.5); ABG OXYGEN SATURATION 99 % (94-100); ABG PCO2 33 MMHG (35-45); ABG PH 7.45 (7.37-7.43); ABG PO2 165 MMHG (79-93); ABG TCO2 23.9 MMOL/L (21.0-31.0)
[2021-10-10 07:23] LABS: ALLENS TEST YES-POS; INSPIRED O2 45 % BIPAP; PATIENT TEMP 36.6; VENTILATOR NO
[2021-10-10 07:42] LABS: ABG BASE EXCESS 0.7 MMOL/L (-2.5-2.5); ABG OXYGEN SATURATION 98 % (94-100); ABG PCO2 46 MMHG (35-45); ABG PH 7.36 (7.37-7.43); ABG PO2 98 MMHG (79-93); ALLENS TEST YES-POS
[2021-10-10 07:43] LABS: INSPIRED O2 45%; PATIENT TEMP 36.6; VENTILATOR NO
--- NOTE | 2021-10-10 09:10 | Speech Therapy Progress Note ---
Therapy Progress Note The patient remains on increased respiratory support (BiPAP) at this time and is not appropriate for P.O. trials. Speech pathology will continue to monitor the patient's chart for progress and plan of care updates. MINI ZAMORA Oct 10, 2021 09:10
[2021-10-10] MEDS: CLOPIDOGREL 75 MG (PLAVIX) TABLET PO SCH (11:06)
[2021-10-10] MEDS: NS IV 1000 ML 1,000 ML IV SCH (11:06)
[2021-10-10] MEDS: ASPIRIN E.C. 81 MG (ECOTRIN) TAB PO SCH (11:07)
[2021-10-10] MEDS: FAMOTIDINE 20 MG (PEPCID) TABLET PO SCH ×2 (11:07→20:46)
--- NOTE | 2021-10-10 11:49 | Physical Therapy Daily Note ---
PT Daily Note-Current Subjective Patient in bed pre tx, agrees to PT,has no complaints of pain. Appearance Patient in bed post tx with nurse call, phone, tray, all needs met. Mental Status Patient Orientation: Person, Unable to Assess, Non-Verbal/Aphasic Attachments: SCD's, Oxygen (bipap), Cazares Catheter, IV Transfers SCALE: Activities may be completed with or without assistive devices. 3-Zsecbdzfcw-wyqwufq completes the activity by him/herself with no assistance from a helper. 5-Set-up or Clean-up Assistance-helper sets up or cleans up; patient completes activity. [place] assists only prior to or following the activity. 4-Supervision or Touching Assistance-helper provides verbal cues and/or touching/steadying and/or contact guard assistance as patient completes activity. Assistance may be provided throughout the activity or intermittently. 3-Partial/Moderate Assistance-helper does LESS THAN HALF the effort. [place] lifts, holds or supports trunk or limbs, but provides less than half the effort. 2-Substantial/Maximal Assistance-helper does MORE THAN HALF the effort. [place] lifts or holds trunk or limbs and provides more than half the effort. 2-Vrrumavss-gsmzow does ALL the effort. Patient does none of the effort to complete the activity. Or, the assistance of 2 or more helpers is required for the patient to complete the activity. If activity was not attempted, code reason: 7-Patient Refused. 9-Not Applicable-not attempted and the patient did not perform the activity before the current illness, exacerbation or injury. 10-Not Attempted due to Environmental Limitations-(lack of equipment, weather restraints, etc.). 88-Not Attempted due to Medical Conditions or Safety Concerns. Roll Left & Right (QC): 1 Sit to Lying (QC): 1 Lying to Sitting/Side of Bed(Q: 1 Sit to Stand (QC): 1 Assist of 3 to sit patient to the side of the bed, patient stands x2 dependently, therapist wipes patients bottom during one of the stands, patient cannot stand completely, stands about 50% of the way, assist of 3 to lay back down, position patient on left side for pressure relief and scoot up in bed. Treatments bed mobility, standing Assessment Current Status: Poor Progress Patient seemed to assist with standing slightly but was hard to tell, sitting balance was a little better. PT Weight Loss Consultant Goals Senior Living Goals PT Weight Loss Consultant Goals Time Frame: Oct 14, 2021 Roll Left & Right (QC): 3 Sit to Lying (QC): 3 Lying-Sitting on Side/Bed(QC): 3 Sit to Stand (QC): 3 Chair/Ghe-qt-Aqalu Xfer(QC): 2 PT Plan Problem List Problem List: Activity Tolerance, Functional Strength, Safety, Balance, Gait, Transfer, Bed Mobility, ROM Treatment/Plan Treatment Plan: Continue Plan of Care Treatment Plan: Bed Mobility, Education, Functional Activity Flori, Functional Strength, Gait, Safety, Therapeutic Exercise, Transfers Treatment Duration: Oct 14, 2021 Frequency: 6 times per week Estimated Hrs Per Day: .25 hour per day Patient and/or Family Agrees t: Yes Safety Risks/Education Patient Education: Correct Positioning, Safety Issues Teaching Recipient: Patient Teaching Methods: Demonstration, Discussion Response to Teaching: Reinforcement Needed Time/GCodes Time In: 1125 Time Out: 1140 Total Billed Treatment Time: 15 Total Billed Treatment 1 visit FA CHELSEA SAUCEDA PT Oct 10, 2021 11:49
--- NOTE | 2021-10-10 11:53 | Occupational Ther Daily Note ---
OT Current Status-Daily Note Subjective Pt laying in bed with family present upon OT arrival, agreeable to tx. Pt used hand gestures to communicate with clinician. Mental Status/Objective Patient Orientation: Person, Non-Verbal/Aphasic, Situation Attachments: Drains, Cazares Catheter, IV, Oxygen, Telemetry ADL-Treatment Therapy Code Descriptions/Definitions Functional [place] Measure: 0=Not Assessed/NA 4=Minimal Assistance 1=Total Assistance 5=Supervision or Setup 2=Maximal Assistance 6=Modified [place] 3=Moderate Assistance 7=Complete IndependenceSCALE: Activities may be completed with or without assistive devices. 8-Wjvsqosjtf-eoiucnv completes the activity by him/herself with no assistance from a helper. 5-Set-up or Clean-up Assistance-helper sets up or cleans up; patient completes activity. [place] assists only prior to or following the activity. 4-Supervision or Touching Assistance-helper provides verbal cues and/or beckie nakia/steadying and/or contact guard assistance as patient completes activity. Assistance may be provided throughout the activity or intermittently. 3-Partial/Moderate Assistance-helper does LESS THAN HALF the effort. [place] lifts, holds or supports trunk or limbs, but provides less than half the effort. 2-Substantial/Maximal Assistance-helper does MORE THAN HALF the effort. [place] lifts or holds trunk or limbs and provides more than half the effort. 5-Ctmvudhzo-zpilep does ALL the effort. Patient does none of the effort to complete the activity. Or, the assistance of 2 or more helpers is required for the patient to complete the activity. If activity was not attempted, code reason: 7-Patient Refused. 9-Not Applicable-not attempted and the patient did not perform the activity before the current illness, exacerbation or injury. 10-Not Attempted due to Environmental Limitations-(lack of equipment, weather restraints, etc.). 88-Not Attempted due to Medical Conditions or Safety Concerns. Other Treatment Pt required mod-max assist x3 to transfer from supine to seated EOB. Pt required min-mod assist x2-3 to maintain seated balance EOB, and clinicians provided verbal and tactile cues for pt to use BUE for seated balance and to maintain head at midline. Pt required total assist to wipe chest, back, and arms while seated EOB. Pt attempted to stand, but was only able to stand ~50% of the way x2 dependently, repeated twice. Clinician wiped bottom while pt stood. Mod-max assist x3 to return pt to supine and positioned on L side for pressure relief. Post tx, pt left in bed with call light in reach and all needs met. Education OT Patient Education: Correct positioning, Energy conservation, Instructions to caregiver, Modified ADL techniques, Progress toward Goal/Update tx plan, Purpose of tx/functional activities, Rehab process, Safety issues Teaching Recipient: Patient, Family, Significant Other Teaching Methods: Discussion Response to Teaching: Verbalize Understanding OT Steward/Stewardess Dining Room Goals Steward/Stewardess Dining Room Goals Time Frame: Nov 08, 2021 Eating (QC): 3 Toileting Hygiene (QC): 3 Shower/Bathe Self (QC): 2 Upper Body Dressing (QC): 3 Lower Body Dressing (QC): 2 On/Off Footwear (QC): 2 Additional Goals: 1-Demonstrate ADL Tasks, 2-Verbalize Understanding, 3- ImproveStrength/Flori 1=Demonstrate adherence to instructed precautions during ADL tasks. 2=Patient will verbalize/demonstrate understanding of assistive devices/modifications for ADL. 3=Patient will improve strength/tolerance for activity to enable patient to perform ADL's. OT Education/Plan Problem List/Assessment Assessment: Decreased Activ Tolerance, Decreased UE Strength, Dependent Transfers, Impaired Bed Mobility, Impaired Coordination, Impaired Funct Balance, Impaired I ADL's, Impaired Self-Care Skills, Restricted Funct UE ROM Pt would benefit from skilled OT services in order to increase functional use of RUE, improve independence and safety with ADLs and functional mobility, and for neuromuscular reeducation in order to maximize LOF for safe return home with spouse. Discharge Recommendations Plan/Recommendations: Continue POC Treatment Plan/Plan of Care Patient would benefit from OT for education, treatment and training to promote independence in ADL's, mobility, safety and/or upper extremity function for ADL's. Plan of Care: ADL Retraining, Functional Mobility, UE Funct Exercise/Act, UE Neuromus Re-Ed/Coord Treatment Duration: Nov 08, 2021 Frequency: 5 times per week Estimated Hrs Per Day: .25 hour per day Rehab Potential: Poor Time/GCodes Start Time: 11:25 Stop Time: 11:40 Total Time Billed (hr/min): 15 Billed Treatment Time 1, NEO WINN OT Oct 10, 2021 11:53
--- NOTE | 2021-10-10 11:59 | Progress Note - Hospitalist ---
MIKI MENDEZ MED STUDENT 10/10/21 1159: Subjective HPI/CC On Admission Date Seen by Provider: Oct 10, 2021 Time Seen by Provider: 08:15 Patient is a 51yo male, h/o COVID about 1.5y ago and multiple neurologic insults during hospitalization for Covid at that time (TIA vs strokes). He has had chronic debility since then with several ED visits for weakness and strokelike symptoms. Apparently his sons were at home with him and he had a fall in the bathroom with increased weakness to the left side. Unsure of LOC as sons are not here at this time for history. The patient (with significantly slurred speech) is able to tell me that his is working in [place] - which is consistent with prior visits to our ER. He does state he has a mild headache. Otherwise his speech is so slurred he is very difficult to understand. Upon my arrival patient exhibited right neglect tongue was sticking out mildly swollen without erythema. The patient is eyes were open and did orient to voice he was slow to respond and very dysarthric unintelligible speech. He was able to follow simple commands but when asked to use his right hand to touch my finger he only moved his left hand and was able to do so with good control of the left hand. His came later in the day and reports that he had been seeing neurologist Dr. Velasquez had a rather extensive work-up was started on aspirin and Plavix but no apparent large vessel disease was noted. He had an echocardiogram gram and there is been no evidence for atrial fibrillation. He was having no neurologic issues previous to COVID infection in March 2020. He had been doing well at home until the night of his admission when his right leg apparently gave out he stumbled forward they helped him to the bed and again noted that he was dysarthric and his tongue appeared to be swollen. There were no rash issues reported he was confused but there was no loss of consciousness and no reported pallor. He had been feeling well up until that point. Subjective/Events-last exam Pt lying in bed comfortably with family at bedside. Pt status is the same as yesterday. Pt was started on bipap yesterday evening. Pt and family have decided to proceed with PEG tube placement. They are agreeable to short term intubation, but do not want a trach. Pt and family have no concerns at this time. Objective Exam Vital Signs Vital Signs Date Time Temp Pulse Resp B/P (MAP) Pulse Ox O2 Delivery O2 Flow Rate FiO2 10/10/21 09:00 NIV Bilevel 50 10/10/21 08:00 98 21 173/92 (119) 94 35.00 10/10/21 08:00 36.9 Capillary Refill : Less Than 3 Seconds General Appearance: No Apparent Distress, Obese HEENT: PERRL/EOMI, Moist Mucous Membranes Neck: Normal Inspection, Non Tender Respiratory: Chest Non Tender, Rales, Other (aeration improved from yesterday) Cardiovascular: Regular Rate, Rhythm, No Murmur Gastrointestinal: Non Tender, Abnormal Bowel Sounds (hypoactive bowel sounds) Extremity: Normal Capillary Refill, Non Tender Neurologic/Psychiatric: Alert, Oriented x3, Aphasia, Motor Weakness (0 strength in RUE and RLE, 4+ strength in LUE and LLE) Skin: Normal Color, Warm/Dry Lymphatic: No Adenopathy Results/Procedures Lab Laboratory Tests 10/10/21 05:21 Patient resulted labs reviewed. 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 -Carotid ultrasound unremarkable -Cardiology consulted, appreciate their recommendations -CT head showed atrophy and chronic ischemic microvascular changes with lunar infarcts in Left basal ganglia -CTA showed no large vessel occlusion -MRI recommended, but couldn't be done d/t body habitus -Speech therapy, Physical therapy and Occupational therapy -Inpatient Rehab Facility eval pending insurance approval -NPO -Consulted general surgery for PEG tube placement, appreciate their assistance -Pt and family agreeable to placement of PEG tube with short term intubation, but no tracheal intubation -Discussed goals of care with family who are agreeable to plan Acute respiratory distress requiring supplemental oxygen -Bipap 45%- oxygen demand increasing -ABG -CXR showed cardiomegaly and central congestion Angioedema of tongue -Hold lisinopril -Speech therapy advised NPO -Improving HTN -Improving Diabetes -SSI Diet-NPO, PEG tube to be placed soon DVT prophylaxis- SCDs and Lovenox JULIA LIPSCOMB DO 10/11/21 0554: Subjective Subjective/Events-last exam Pt is getting more complicated BiPAP has helped his ABG PEG tube will require intubation and they are agreeable to that If he does maintain intubation mcc he doesn't want a trach and he will be placed on comfort care Overall doing very well otherwise Review of Systems Pulmonary: Dyspnea Objective Exam General Appearance: Chronically ill, Mild Distress, Obese Respiratory: No Accessory Muscle Use, No Respiratory Distress, Decreased Breath Sounds Cardiovascular: Regular Rate, Rhythm Assessment/Plan Assessment and Plan Assess & Plan/Chief Complaint PEG Intubation short term if necessary Supervisory-Addendum Brief Verification & Attestation Participated in pt care: history, MDM, physical Personally performed: exam, history, MDM, supervision of care Care discussed with: Medical Student Procedures: n/a Results interpretation: Verified all documentation Verification and Attestation of Medical Student E/M Service A medical student performed and documented this service in my presence. I reviewed and verified all information documented by the medical student and made modifications to such information, when appropriate. I personally performed the physical exam and medical decision making. Julia Lipscomb, Oct 11, 2021,05:53 MIKI MENDEZ MED STUDENT Oct 10, 2021 11:59 JULIA LIPSCOMB DO Oct 11, 2021 05:54
--- NOTE | 2021-10-10 13:11 | Progress Note-Pre Operative ---
Pre-Operative Progress Note H&P Reviewed The H&P was reviewed, patient examined and no changes noted. Date Seen by Provider: Oct 10, 2021 Time Seen by Provider: 13:00 Date H&P Reviewed: Oct 09, 2021 Time H&P Reviewed: 13:00 Pre-Operative Diagnosis: dysphagia, CVA GRAY BIGGS MD Oct 10, 2021 13:11
--- NOTE | 2021-10-10 14:02 | Speech Therapy Progress Note ---
Therapy Progress Note The patient remains on increased respiratory support (BiPAP) at this time and is not appropriate for P.O. trials or participation in speech pathology treatment. Speech pathology will continue to monitor the patient's chart for progress and plan of care updates. MINI ZAMORA Oct 10, 2021 14:02
[2021-10-10] MEDS ORDERED: MIDAZOLAM 2 MG/2 ML (VERSED) VIAL ONE (15:03)
[2021-10-10] MEDS ORDERED: proPOfol 200 MG/20 ML (DIPRIVAN) VIAL IV ONE (15:03)
[2021-10-10] MEDS ORDERED: LIDOCAINE PF 2% 5 ML (XYLOCAINE) VIAL ONE (15:03)
[2021-10-10] MEDS ORDERED: KETAMINE 50 MG/5 ML SYRINGE ONE (15:04)
[2021-10-10] MEDS ORDERED: ESMOLOL 100 MG/10 ML (BREVIBLOC) VIAL ONE (15:14)
--- NOTE | 2021-10-10 15:43 | Progress Note-Post Operative ---
Post-Operative Progess Note Surgeon (s)/Ice Crusher (s) Surgeon GRAY BIGGS MD Ice Crusher: amanda jacobs IMPROVEMENT LEAD Pre-Operative Diagnosis dysphagia, CVA Post-Operative Diagnosis same Procedure & Operative Findings Date of Procedure 10/10/21 Procedure Performed/Findings PEG tube placement Anesthesia Type mac with local Estimated Blood Loss Estimated blood loss (mL): minimal Specimens/Packing Specimens Removed none GRAY BIGGS MD Oct 10, 2021 15:43
--- NOTE | 2021-10-10 15:59 | Anesthesia-General Post-Op ---
MAC Patient Condition Mental Status/LOC: Same as Preop Cardiovascular: Satisfactory Nausea/Vomiting: Absent Respiratory: Satisfactory Pain: Controlled Complications: Absent Post Op Complications Complications None Follow Up Care/Instructions Patient Instructions None needed. Anesthesiology Discharge Order Discharge Order Patient is doing well in PACU, no complaints, respiratory status is at baseline and having no pain, stable vital signs, no apparent adverse anesthesia problems. No complications reported per nursing. CHATO ATKINSON DO Oct 10, 2021 15:59
[2021-10-10] MEDS ORDERED: LACTATED RINGERS 1,000 ML IV PRN (16:00)
--- NOTE | 2021-10-10 17:56 | Progress Note - Cardiology ---
Cardiology SOAP Progress Note Subjective: Unable to communicate verbally Does not indicate cp or palp or shortness of breath Objective: I&O/Vital Signs 10/10/21 10/10/21 10/10/21 10/10/21 06:00 07:00 08:00 08:00 Temp 36.9 Pulse 101 101 98 Resp 21 B/P (MAP) 173/92 (119) Pulse Ox 95 94 O2 Delivery NIV Bilevel O2 Flow Rate 45.00 35.00 10/10/21 10/10/21 10/10/21 10/10/21 09:00 09:30 12:00 13:00 Pulse 95 93 88 Resp 21 24 B/P (MAP) 164/85 (111) Pulse Ox 95 95 O2 Delivery NIV Bilevel NIV Bilevel O2 Flow Rate 45.00 35.00 FiO2 50 10/10/21 10/10/21 10/10/21 10/10/21 14:00 15:41 15:41 15:45 Temp 36.2 Pulse 93 Resp 20 20 B/P (MAP) 163/96 (118) Pulse Ox 95 98 O2 Delivery Non Rebreather Non Rebreather Non Rebreather O2 Flow Rate 40.00 15.00 15.00 15.00 10/10/21 10/10/21 10/10/21 10/10/21 15:50 16:00 16:00 16:10 Resp 20 20 B/P (MAP) 168/91 (116) 158/89 (112) Pulse Ox 98 96 O2 Delivery Non Rebreather Non Rebreather Non Rebreather Non Rebreather O2 Flow Rate 15.00 15.00 15.00 15.00 10/10/21 10/10/21 10/10/21 10/10/21 16:10 16:15 16:30 16:37 Temp 36.2 Pulse 92 94 Resp 20 22 22 B/P (MAP) 156/89 (111) 179/100 (126) 181/97 (125) Pulse Ox 96 92 92 O2 Delivery Non Rebreather NIV Bilevel NIV Bilevel NIV Bilevel O2 Flow Rate 15.00 45.00 45.00 FiO2 50 10/10/21 00:00 Intake Total 150 ml Output Total 1275 ml Balance -1125 ml Constitutional: well-developed, other (non-verbal - nods head slowly in response to questions) Respiratory: No accessory muscle use, No respiratory distress; chest expansion is symmetric, chest is bilaterally symmetric, lungs clear to auscultation Cardiovascular: regular rate-rhythm; No JVD; tachycardia, S1 and S2 Gastrointestional: No tender; soft, round, audible bowel sounds Extremities: no lower extremity edema bilateral Neurologic/Psychiatric: other (RUE and RLE flaccid, facial droop right sided; LLE and LUE chronically weak 4/5; aphasic) Skin: No rash on exposed areas, No ulcerations on exposed areas Results/Procedures: Labs Laboratory Tests 10/09/21 21:06: Glucometer 111H 10/10/21 05:21: White Blood Count 8.2, Red Blood Count 4.64, Hemoglobin 13.0L, Hematocrit 42, Mean Corpuscular Volume 90, Mean Corpuscular Hemoglobin 28, Mean Corpuscular Hemoglobin Concent 31L, Red Cell Distribution Width 13.3, Platelet Count 269, Mean Platelet Volume 10.4, Immature Granulocyte % (Auto) 1, Neutrophils (%) (Auto) 68, Lymphocytes (%) (Auto) 17, Monocytes (%) (Auto) 11, Eosinophils (%) (Auto) 4, Basophils (%) (Auto) 1, Neutrophils # (Auto) 5.5, Lymphocytes # (Auto) 1.4, Monocytes # (Auto) 0.9, Eosinophils # (Auto) 0.3, Basophils # (Auto) 0.1, Immature Granulocyte # (Auto) 0.1, Sodium Level 140, Potassium Level 3.6, Chloride Level 106, Carbon Dioxide Level 22, Anion Gap 12, Blood Urea Nitrogen 12, Creatinine 0.57L, Estimat Glomerular Filtration Rate 118, BUN/Creatinine Ratio 21, Glucose Level 108H, Calcium Level 8.6, Corrected Calcium 9.1, Magnesium Level 1.9, Total Bilirubin 1.5H, Aspartate Amino Transf (AST/SGOT) 11, Alanine Aminotransferase (ALT/SGPT) 8, Alkaline Phosphatase 72, Total Protein 6.6, Albumin 3.4 10/10/21 07:15: Blood Gas Puncture Site RIGHT RAD, Blood Gas Patient Temperature 36.6, Arterial Blood pH 7.45H, Arterial Blood Partial Pressure CO2 33L, Arterial Blood Partial Pressure O2 165H, Arterial Blood HCO3 23, Arterial Blood Total CO2 23.9, Arterial Blood Oxygen Saturation 99, Arterial Blood Base Excess -0.7, Shan Test YES-POS, Blood Gas Ventilator Setting NO, Blood Gas Inspired Oxygen 45 % BIPAP 10/10/21 07:30: Blood Gas Puncture Site LEFT RAD, Blood Gas Patient Temperature 36.6, Arterial Blood pH 7.36L, Arterial Blood Partial Pressure CO2 46H, Arterial Blood Partial Pressure O2 98H, Arterial Blood HCO3 26, Arterial Blood Total CO2 27.0, Arterial Blood Oxygen Saturation 98, Arterial Blood Base Excess 0.7, Shan Test YES-POS, Blood Gas Ventilator Setting NO, Blood Gas Inspired Oxygen 45% 10/10/21 12:27: Glucometer 108 Microbiology 10/08/21 MRSA Screen - Final, Complete MRSA not isolated Laboratory Tests 10/09/21 06:08 10/10/21 05:21 A/P: Assessment: CVA with right sided hemiparesis, aphasia, dysphagia - reported h/o several CVA/TIA's following COVID infection in 2020 with left sided weakness - presents this time with righ sided hemiparesis/aphasia/dysphagia - The stroke team at was consulted with no further recommendations other than continuing aspirin and Plavix and obtaining an MRI - Management per stroke team - Follows with Dr. Grant of neurology services at [facility] - Carotid u/10-07-21: Very limited exam. The right carotid artery shows no hemodynamic disease with minimal plaquing. Left carotid system and vertebral arteries were not adequately evaluated due to patient's pain and position. Prev ious CT angiography of the neck on 10/05/2021 suggested the carotid and vertebral arteries to be widely patent without significant stenosis - ILR implanted on 10/08/21 to eval for occult A Fib as the source of his CVA ?Angioedema - Lisinopril stopped Fall at home Sleep apnea - non-complaint with sleep study ? aspiration - NPO HTN Crohn's dz - h/o colectomy DM 2 Plan: CVA - management per stroke team - please see recs per [facility] as above - source undetermined - implanted ILR 10-08-21 to r/o possible a-fib/flutter as cause BP not well controlled - increase iv metoprolol to 5 mg q 4 h Remains NPO d/t concerns of aspiration - Continue IV Lopressor - start Catapress patch - advise NG or G-tube placement of administration of nourishment and medications - management per medical services Monitor lab closely Replace electrolytes RUPA BALTAZAR MD FACP [facility] CCDS Oct 10, 2021 17:56
[2021-10-10] MEDS: EMPAGLIFLOZIN 10 MG TABLET (JARDIANCE) PO SCH (20:46)
[2021-10-11] MEDS: meTOprolol 5 MG/5 ML (LOPRESSOR) VIAL IV SCH ×2 (03:16→08:55)
[2021-10-11] MEDS: NS IV 1000 ML 1,000 ML IV SCH ×2 (03:16→18:55)
[2021-10-11 03:57] VITALS: BP 136/89
--- NOTE | 2021-10-11 04:08 | OPERATIVE REPORT ---
DATE OF SERVICE: 10/10/2021 ATTENDING GASTROENTEROLOGY TEACHER: [facility]. ADMITTING PHYSICIAN: Dr. Sundar Mosher. PREOPERATIVE DIAGNOSES: Bilateral cerebrovascular accident with dysphagia. POSTOPERATIVE DIAGNOSES: Bilateral cerebrovascular accident with dysphagia. PROCEDURE: EGD with placement of percutaneous endoscopic gastrostomy tube. SURGEON: Gray Biggs MD. ANESTHESIA: Monitored anesthesia care with local. ESTIMATED BLOOD LOSS: Minimal. FINDINGS: Reflux esophagitis, Rochelle grade C, moderate gastritis. No distal obstructions. DISPOSITION: The patient tolerated the procedure well. INDICATIONS: The patient is a 51-year-old male who initially had significant issues with COVID infection approximately 03/2020. He had TIA versus stroke-like symptoms and has had chronic debility since that time. At home, he had a fall in the bathroom with increased weakness on the left side. They are unsure of any loss of consciousness at that time. He did have slurred speech. The patient did have a CT scan performed, which did show a lacunar infarct of the left basal ganglia. This was nonspecific and an MRI was recommended; however, contraindicated due to the patient's body habitus. Further recommendations by tertiary center was to empirically treat the patient with aspirin and Plavix. The patient has had issues with dysphagia and speech pathology has been consulted and the patient has had continued difficulty swallowing as well as dysarthria and inability to swallow secretions. DESCRIPTION OF PROCEDURE: The patient was brought to the operating room, laid supine on the table. After adequate IV pain and sedative medications and monitored anesthesia care, the mouthpiece was applied. The endoscope was placed in the mouth, visualizing the pharynx and hypopharyngeal region. Vocal cords, epiglottis and vallecula identified and appeared to be normal. The endoscope was then gently intubated into the esophageal opening and esophagus insufflated. At the level of the GE junction, a reflux esophagitis, Rochelle grade C identified. The endoscope was then advanced in the stomach, where a moderate gastritis was noted. The endoscope was then advanced to the pylorus and the first and second portion of the duodenum with no distal obstructions identified. The anterior abdominal wall was palpated, which was visualized through the anterior wall of the stomach through the endoscope. This area was then anesthetized using 1% lidocaine. A vertical skin incision was made using 11 blade and the needle, trocar and sheath were introduced under direct visualization through the endoscope. The guidewire was then inserted through the trocar and looped through the scope and pulled out the mouth. The gastrostomy tube was then placed onto the wire and pulled through and a rubber bolster was firmly opposing the gastric wall. The bactericidal iodine was then placed onto the exit site. The catheter cut down to size and the external rubber bolster was placed after drain sponges were placed. The catheter cut down to size and the rubber stopper placed on to the gastrostomy tube. The endoscope was then withdrawn while taking a second look and suctioning of residual air with no additional findings. The patient tolerated the procedure well. The gastrostomy tube will be accessed and used at any time. Job ID: [id number] DocumentID: [id number] Dictated Date: 10/10/2021 15:49:14 Respiratory Equipment Assistant Date: 10/11/2021 04:07:52 Dictated By: GRAY BIGGS MD
[2021-10-11 05:51] LABS: BASOPHILS # (AUTO) 0.1 10^3/uL (0.0-0.1); BASOPHILS % (AUTO) 1 % (0-10); EOSINOPHILS # (AUTO) 0.3 10^3/uL (0.0-0.3); EOSINOPHILS % (AUTO) 3 % (0-10); HEMATOCRIT 39 % (40-54); HEMOGLOBIN 12.4 g/dL (13.3-17.7); LYMPHOCYTES # (AUTO) 1.7 10^3/uL (1.0-4.0); LYMPHOCYTES % (AUTO) 17 % (12-44); MEAN CORPUSCULAR HEMOGLOBIN 27 pg (25-34); MEAN CORPUSCULAR HGB CONC 32 g/dL (32-36); MEAN CORPUSCULAR VOLUME 86 fL (80-99); MEAN PLATELET VOLUME 9.8 fL (9.0-12.2); MONOCYTES % (AUTO) 11 % (0-12); NEUTROPHILS # (AUTO) 6.6 10^3/uL (1.8-7.8); NEUTROPHILS % (AUTO) 68 % (42-75); PLATELET COUNT 351 10^3/uL (130-400); WHITE BLOOD COUNT 9.7 10^3/uL (4.3-11.0)
[2021-10-11 06:09] LABS: ALBUMIN 3.4 GM/DL (3.2-4.5); POTASSIUM 3.6 MMOL/L (3.6-5.0)
[2021-10-11 06:10] LABS: CALCIUM 8.9 MG/DL (8.5-10.1)
[2021-10-11 06:11] LABS: TOTAL PROTEIN 6.7 GM/DL (6.4-8.2)
[2021-10-11 06:13] LABS: BILIRUBIN,TOTAL 1.2 MG/DL (0.1-1.0)
[2021-10-11] MEDS: inSUlin ASPART (NovoLOG) 1 UNIT/0.01 ML (CHARGE PER UNIT) SC SCH ×4 (06:13→20:51)
[2021-10-11 06:15] LABS: CREATININE SERUM 0.62 MG/DL (0.60-1.30)
[2021-10-11 07:53] VITALS: BP 157/95
[2021-10-11] MEDS: FAMOTIDINE 20 MG (PEPCID) TABLET PO SCH ×2 (08:55→20:51)
[2021-10-11] MEDS: CLOPIDOGREL 75 MG (PLAVIX) TABLET PO SCH (08:55)
[2021-10-11] MEDS: ASPIRIN E.C. 81 MG (ECOTRIN) TAB PO SCH (08:55)
[2021-10-11] MEDS: amLODIPine 5 MG (NORVASC) TAB PO SCH (09:00)
--- NOTE | 2021-10-11 09:00 | Progress Note - Cardiology ---
Cardiology SOAP Progress Note Subjective: Communicating via letter board Spouse at the bedside No c/o at this time S/P successful PEG tube placement yesterday Objective: I&O/Vital Signs 10/13/21 10/14/21 10/14/21 10/14/21 22:30 00:00 02:23 03:52 Temp 36.0 35.6 Pulse 88 90 Resp 18 17 B/P (MAP) 136/82 (100) 136/79 (98) Pulse Ox 94 95 95 92 O2 Delivery Vapotherm Vapotherm Vapotherm Vapotherm O2 Flow Rate 25.00 25.00 25.00 25.00 45.00 45.00 FiO2 45 45 10/14/21 10/14/21 06:05 07:52 Temp 37.4 Pulse 115 Resp 20 B/P (MAP) 164/83 (110) Pulse Ox 91 88 O2 Delivery High Flow N/C High Flow N/C O2 Flow Rate 5.00 5.00 10/14/21 00:00 Intake Total 390 ml Output Total 1750 ml Balance -1360 ml Constitutional: well-developed, other (non-verbal - nods head slowly in response to questions) Respiratory: No accessory muscle use, No respiratory distress; chest expansion is symmetric, chest is bilaterally symmetric, other (coarse breath sounds with productive cough) Cardiovascular: regular rate-rhythm; No JVD; tachycardia, S1 and S2 Gastrointestional: No tender; soft, round, audible bowel sounds, other (PEG tube in place) Extremities: no lower extremity edema bilateral Neurologic/Psychiatric: other (RUE and RLE flaccid, facial droop right sided; LLE and LUE chronically weak 4/5; aphasic) Skin: No rash on exposed areas, No ulcerations on exposed areas Results/Procedures: Labs Laboratory Tests 10/13/21 11:50: Glucometer 128H 10/13/21 17:16: Glucometer 124H 10/14/21 00:13: Glucometer 115H 10/14/21 05:13: Glucometer 126H 10/14/21 05:50: White Blood Count 10.4, Red Blood Count 4.83, Hemoglobin 13.4, Hematocrit 41, Mean Corpuscular Volume 85, Mean Corpuscular Hemoglobin 28, Mean Corpuscular Hemoglobin Concent 33, Red Cell Distribution Width 13.2, Platelet Count 406H, Mean Platelet Volume 10.0, Immature Granulocyte % (Auto) 0, Neutrophils (%) (Auto) 70, Lymphocytes (%) (Auto) 15, Monocytes (%) (Auto) 10, Eosinophils (%) (Auto) 4, Basophils (%) (Auto) 1, Neutrophils # (Auto) 7.4, Lymphocytes # (Auto) 1.5, Monocytes # (Auto) 1.0, Eosinophils # (Auto) 0.4H, Basophils # (Auto) 0.1, Immature Granulocyte # (Auto) 0.0, Sodium Level 144, Potassium Level 3.4L, Chloride Level 104, Carbon Dioxide Level 23, Anion Gap 17H, Blood Urea Nitrogen 14, Creatinine 0.73, Estimat Glomerular Filtration Rate 109, BUN/Creatinine Ratio 19, Glucose Level 119H, Calcium Level 9.4, Corrected Calcium 9.8, Total Bilirubin 0.7, Aspartate Amino Transf (AST/SGOT) 14, Alanine Aminotransferase (ALT/SGPT) 10, Alkaline Phosphatase 74, Total Protein 7.2, Albumin 3.5 Microbiology 10/08/21 MRSA Screen - Final, Complete MRSA not isolated A/P: Assessment: CVA with right sided hemiparesis, aphasia, dysphagia - reported h/o several CVA/TIA's following COVID infection in 2020 with left sided weakness - presents this time with righ sided hemipares is/aphasia/dysphagia - The stroke team at was consulted with no further recommendations other than continuing aspirin and Plavix and obtaining an MRI - Management per stroke team - Follows with Dr. Grant of neurology services at [facility] - Carotid u/10-07-21: Very limited exam. The right carotid artery shows no hemodynamic disease with minimal plaquing. Left carotid system and vertebral arteries were not adequately evaluated due to patient's pain and position. Previous CT angiography of the neck on 10/05/2021 suggested the carotid and vertebral arteries to be widely patent without significant stenosis - ILR implanted on 10/08/21 to eval for occult A Fib as the source of his CVA ?Angioedema - Lisinopril stopped Fall at home Sleep apnea - non-complaint with sleep study ? aspiration - S/P PEG tube placement on 10-10-[address] Marshall HTN Crohn's dz - h/o colectomy DM 2 Plan: CVA - management per stroke team - please see recs per [facility] as above - source undetermined - implanted ILR 10-08-21 to r/o possible a-fib/flutter as cause S/P PEG tube placement - change IV meds to oral Monitor lab closely Replace electrolytes EREN FLOWERS Oct 11, 2021 09:00
--- NOTE | 2021-10-11 09:42 | Physical Therapy Daily Note ---
PT Daily Note-Current Subjective Patient and spouse agree to exercises bilateral LE Transfers SCALE: Activities may be completed with or without assistive devices. 3-Kmirortdao-gylebhp completes the activity by him/herself with no assistance from a helper. 5-Set-up or Clean-up Assistance-helper sets up or cleans up; patient completes activity. [place] assists only prior to or following the activity. 4-Supervision or Touching Assistance-helper provides verbal cues and/or touching/steadying and/or contact guard assistance as patient completes activity. Assistance may be provided throughout the activity or intermittently. 3-Partial/Moderate Assistance-helper does LESS THAN HALF the effort. [place] lifts, holds or supports trunk or limbs, but provides less than half the effort. 2-Substantial/Maximal Assistance-helper does MORE THAN HALF the effort. [place] lifts or holds trunk or limbs and provides more than half the effort. 7-Zvpzbltva-pgtdbf does ALL the effort. Patient does none of the effort to complete the activity. Or, the assistance of 2 or more helpers is required for the patient to complete the activity. If activity was not attempted, code reason: 7-Patient Refused. 9-Not Applicable-not attempted and the patient did not perform the activity before the current illness, exacerbation or injury. 10-Not Attempted due to Environmental Limitations-(lack of equipment, weather restraints, etc.). 88-Not Attempted due to Medical Conditions or Safety Concerns. Exercises Supine Ex: Ankle pumps, Heel Slides, Straight leg raise, Hip abd/add Supine Reps: 15 (PROM right LE/AAROM left LE) Assessment Patient c/o abdominal pain with exercise due to PEG placement yesterday. Increase activity as tolerated by patient. 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 Goals Nursing Home Goals 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 Goals Time Frame: Oct 14, 2021 Roll Left & Right (QC): 3 Sit to Lying (QC): 3 Lying-Sitting on Side/Bed(QC): 3 Sit to Stand (QC): 3 Chair/Ffk-ef-Bwdvx Xfer(QC): 2 PT Plan Treatment/Plan Treatment Plan: Continue Plan of Care Treatment Plan: Bed Mobility, Education, Functional Activity Flori, Functional Strength, Gait, Safety, Therapeutic Exercise, Transfers Treatment Duration: Oct 14, 2021 Frequency: 6 times per week Estimated Hrs Per Day: .25 hour per day Patient and/or Family Agrees t: Yes Time/GCodes Time In: 535 Time Out: 818 Total Billed Treatment Time: 9 Total Billed Treatment 1 visit EX 9 min SHAN GONZALEZ PT Oct 11, 2021 09:42
--- NOTE | 2021-10-11 09:52 | Progress Note - Hospitalist ---
MIKI MENDEZ A MED STUDENT 10/11/21 0952: Subjective HPI/CC On Admission Patient is a 51yo male, h/o COVID about 1.5y ago and multiple neurologic insults during hospitalization for Covid at that time (TIA vs strokes). He has had chronic debility since then with several ED visits for weakness and strokelike symptoms. Apparently his sons were at home with him and he had a fall in the bathroom with increased weakness to the left side. Unsure of LOC as sons are not here at this time for history. The patient (with significantly slurred speech) is able to tell me that his is working in [place] - which is consistent with prior visits to our ER. He does state he has a mild headache. Otherwise his speech is so slurred he is very difficult to understand. Upon my arrival patient exhibited right neglect tongue was sticking out mildly swollen without erythema. The patient is eyes were open and did orient to voice he was slow to respond and very dysarthric unintelligible speech. He was able to follow simple commands but when asked to use his right hand to touch my finger he only moved his left hand and was able to do so with good control of the left hand. His came later in the day and reports that he had been seeing neurologist Dr. Velasquez had a rather extensive work-up was started on aspirin and Plavix but no apparent large vessel disease was noted. He had an echocardiogram gram and there is been no evidence for atrial fibrillation. He was having no neurologic issues previous to COVID infection in March 2020. He had been doing well at home until the night of his admission when his right leg apparently gave out he stumbled forward they helped him to the bed and again noted that he was dysarthric and his tongue appeared to be swollen. There were no rash issues reported he was confused but there was no loss of consciousness and no reported pallor. He had been feeling well up until that point. Subjective/Events-last exam Pt lying in bed comfortably this morning with at bedside. Pt had PEG tube placement and is currently on vapotherm. Pt and his has no concerns today. Objective Exam Vital Signs Vital Signs Date Time Temp Pulse Resp B/P (MAP) Pulse Ox O2 Delivery O2 Flow Rate FiO2 10/11/21 07:53 36.9 93 16 157/95 (115) 95 10/11/21 07:49 Vapotherm 35.00 70 Capillary Refill : Less Than 3 SecondsLess Than 3 Seconds General Appearance: No Apparent Distress, Obese HEENT: PERRL/EOMI, Pharynx Normal Neck: Full Range of Motion, Normal Inspection Respiratory: Chest Non Tender, Other (diffuse course breath sounds bilaterally with diminished breath sounds in R base) Gastrointestinal: Normal Bowel Sounds, Non Tender Extremity: Normal Capillary Refill, Non Tender, No Pedal Edema Neurologic/Psychiatric: Alert, Oriented x3, Motor Weakness (0/5 strength in RUE and RLE, 4/5 strength in LUE and LLE) Skin: Normal Color, Warm/Dry Lymphatic: No Adenopathy Results/Procedures Lab Laboratory Tests 10/11/21 05:25 Patient resulted labs reviewed. 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 -Carotid ultrasound unremarkable -Cardiology consulted, appreciate their recommendations -CT head showed atrophy and chronic ischemic microvascular changes with lunar infarcts in Left basal ganglia -CTA showed no large vessel occlusion -MRI recommended, but couldn't be done d/t body habitus -Speech therapy, Physical therapy and Occupational therapy -PEG tube placed Acute respiratory distress requiring supplemental oxygen -Vapotherm 35L at 70% O2 Angioedema of tongue -Hold lisinopril -Speech therapy advised NPO -Improving HTN -Improving Diabetes -SSI Goals: Decrease oxygen requirement and stabilize pt for IRF Diet-NPO, PEG tube DVT prophylaxis- SCDs and Lovenox JULIA LIPSCOMB DO 10/11/212128: Subjective HPI/CC On Admission Date Seen by Provider: Oct 11, 2021 Time Seen by Provider: 09:00 Subjective/Events-last exam Pt remains on Vapotherm 35/70 PEG tube was placed and functioning great Will remain on cardiac step down due to Vapotherm Review of Systems General: Fatigue Pulmonary: Dyspnea Objective Exam General Appearance: Anxious, Chronically ill, Obese Respiratory: No Accessory Muscle Use, No Respiratory Distress, Decreased Breath Sounds Cardiovascular: Regular Rate, Rhythm Neurologic/Psychiatric: Alert, Oriented x3, Depressed Affect, Motor Weakness (0/5 strength in RUE and RLE, 4/5 strength in LUE and LLE) Assessment/Plan Assessment and Plan Assess & Plan/Chief Complaint TF to continue Monitor lungs High risk for intubation Supervisory-Addendum Brief Verification & Attestation Participated in pt care: history, MDM, physical Personally performed: exam, history, MDM, supervision of care Care discussed with: Medical Student Procedures: n/a Results interpretation: Verified all documentation Verification and Attestation of Medical Student E/M Service A medical student performed and documented this service in my presence. I reviewed and verified all information documented by the medical student and made modifications to such information, when appropriate. I personally performed the physical exam and medical decision making. Julia Lipscomb, Oct 11, 2021,21:28 MIKI MENDEZ MED STUDENT Oct 11, 2021 09:52 JULIA LIPSCOMB DO Oct 11, 2021 21:29
--- NOTE | 2021-10-11 10:46 | Occupational Ther Daily Note ---
OT Current Status-Daily Note Subjective Pt laying in bed with present at bedside upon OT arrival, agreeable to tx. Pt was much more interactive during tx today. Pt is back on O2 via NC, so he attempted to verbally communicate with clinician more, though he speech is still slurred, resorted to communication via hand gestures and printable communication sheet. Mental Status/Objective Patient Orientation: Person, Place, Non-Verbal/Aphasic, Situation Attachments: Drains, Cazares Catheter, IV, Oxygen, PEG Tube, Telemetry ADL-Treatment Therapy Code Descriptions/Definitions Functional [place] Measure: 0=Not Assessed/NA 4=Minimal Assistance 1=Total Assistance 5=Supervision or Setup 2=Maximal Assistance 6=Modified [place] 3=Moderate Assistance 7=Complete IndependenceSCALE: Activities may be completed with or without assistive devices. 6-Moekjqpdzl-nfxepsh completes the activity by him/herself with no assistance from a helper. 5-Set-up or Clean-up Assistance-helper sets up or cleans up; patient completes activity. [place] assists only prior to or following the activity. 4-Supervision or Touching Assistance-helper provides verbal cues and/or touching/steadying and/or contact guard assistance as patient completes activity. Assistance may be provided throughout the activity or intermittently. 3-Partial/Moderate Assistance-helper does LESS THAN HALF the effort. [place] lifts, holds or supports trunk or limbs, but provides less than half the effort. 2-Substantial/Maximal Assistance-helper does MORE THAN HALF the effort. [place] lifts or holds trunk or limbs and provides more than half the effort. 3-Vnwdseoqc-lflfhb does ALL the effort. Patient does none of the effort to complete the activity. Or, the assistance of 2 or more helpers is required for the patient to complete the activity. If activity was not attempted, code reason: 7-Patient Refused. 9-Not Applicable-not attempted and the patient did not perform the activity before the current illness, exacerbation or injury. 10-Not Attempted due to Environmental Limitations-(lack of equipment, weather restraints, etc.). 88-Not Attempted due to Medical Conditions or Safety Concerns. Other Treatment Pt remained supine in bed throughout duration of tx. Clinician used bath wipes to wipe pt's BUE, chest, abdomen, and face prior to beginning of exercises. Pt then participated in 10 reps of the following UE exercises with the goal of increasing neuromuscular communication in RUE and AROM in LUE: shoulder flexion, bicep curls, and fist pumps. Pt was able to complete exercises LUE with AROM and RUE PROM. said that pt is working on self PROM throughout the day when therapy is not present. Post tx, pt left in bed with call light in reach and all needs met. Education OT Patient Education: Correct positioning, Energy conservation, Instructions to caregiver, Modified ADL techniques, Progress toward Goal/Update tx plan, Purpose of tx/functional activities, Rehab process, Safety issues Teaching Recipient: Patient, Significant Other Teaching Methods: Discussion Response to Teaching: Verbalize Understanding OT Life Skills Trainer Goals Life Skills Trainer Goals Time Frame: Nov 08, 2021 Eating (QC): 3 Toileting Hygiene (QC): 3 Shower/Bathe Self (QC): 2 Upper Body Dressing (QC): 3 Lower Body Dressing (QC): 2 On/Off Footwear (QC): 2 Additional Goals: 1-Demonstrate ADL Tasks, 2-Verbalize Understanding, 3- ImproveStrength/Flori 1=Demonstrate adherence to instructed precautions during ADL tasks. 2=Patient will verbalize/demonstrate understanding of assistive devices/modifications for ADL. 3=Patient will improve strength/tolerance for activity to enable patient to perform ADL's. OT Education/Plan Problem List/Assessment Assessment: Decreased Activ Tolerance, Decreased UE Strength, Dependent Tr ansfers, Impaired Bed Mobility, Impaired Coordination, Impaired Funct Balance, Impaired I ADL's, Impaired Self-Care Skills, Restricted Funct UE ROM Pt would benefit from skilled OT services in order to increase functional use of RUE, improve independence and safety with ADLs and functional mobility, and for neuromuscular reeducation in order to maximize LOF for safe return home with spouse. Discharge Recommendations Plan/Recommendations: Continue POC Treatment Plan/Plan of Care Patient would benefit from OT for education, treatment and training to promote independence in ADL's, mobility, safety and/or upper extremity function for ADL's. Plan of Care: ADL Retraining, Functional Mobility, UE Funct Exercise/Act, UE Neuromus Re-Ed/Coord Treatment Duration: Nov 08, 2021 Frequency: 5 times per week Estimated Hrs Per Day: .25 hour per day Rehab Potential: Poor Time/GCodes Start Time: 09:56 Stop Time: 10:10 Total Time Billed (hr/min): 14 Billed Treatment Time 1, NM NEO DUMONT OT Oct 11, 2021 10:46
--- NOTE | 2021-10-11 11:49 | Progress Note ---
Subjective Date Seen by a Provider: Oct 11, 2021 Time Seen by a Provider: 11:00 Subjective/Events-last exam doing ok. tolerating water and TF's, wound exit site clean/dry. Objective Exam Vital Signs Date Time Temp Pulse Resp B/P (MAP) Pulse Ox O2 Delivery O2 Flow Rate FiO2 10/11/21 11:30 96 Vapotherm 35.00 70 10/11/21 07:53 36.9 93 16 157/95 (115) 95 10/11/21 07:49 97 Vapotherm 35.00 70 10/11/21 07:00 90 10/11/21 04:37 Vapotherm 35.00 70.00 10/11/21 04:33 Vapotherm 35.00 70.00 10/11/21 04:30 95 Vapotherm 35.00 70 10/11/21 03:57 36.3 80 17 136/89 (105) 93 NIV Bilevel 10/11/21 02:20 86 18 98 40.00 10/11/21 01:00 81 10/10/21 23:55 86 17 149/95 (113) 95 NIV Bilevel 10/10/21 22:10 85 25 95 40.00 10/10/21 21:00 NIV Bilevel 45 10/10/21 20:00 86 18 184/93 (123) 94 NIV Bilevel 45.00 10/10/21 20:00 36.0 10/10/21 19:00 88 10/10/21 18:37 86 25 94 40.00 10/10/21 18:30 91 24 175/95 (121) 95 NIV Bilevel 45.00 10/10/21 18:00 88 17 187/96 (126) 94 NIV Bilevel 45.00 10/10/21 17:30 87 17 194/95 (128) 93 NIV Bilevel 45.00 10/10/21 17:00 88 17 174/91 (118) 94 NIV Bilevel 45.00 10/10/21 16:45 90 17 182/91 (121) 94 NIV Bilevel 45.00 10/10/21 16:37 NIV Bilevel 50 10/10/21 16:30 94 22 181/97 (125) 92 NIV Bilevel 45.00 10/10/21 16:15 92 22 179/100 (126) 92 NIV Bilevel 45.00 10/10/21 16:10 36.2 20 156/89 (111) 96 Non Rebreather 15.00 10/10/21 16:10 Non Rebreather 15.00 10/10/21 16:00 Non Rebreather 15.00 10/10/21 16:00 20 158/89 (112) 96 Non Rebreather 15.00 10/10/21 15:50 20 168/91 (116) 98 Non Rebreather 15.00 10/10/21 15:45 Non Rebreather 15.00 10/10/21 15:41 Non Rebreather 15.00 10/10/21 15:41 36.2 20 163/96 (118) 98 Non Rebreather 15.00 10/10/21 14:00 93 20 95 40.00 10/10/21 13:00 88 10/10/21 12:00 93 24 164/85 (111) 95 NIV Bilevel 35.00 I & O 10/11/21 07:00 Intake Total 240 ml Output Total 2250 ml Balance -2010 ml Capillary Refill : Less Than 3 SecondsLess Than 3 Seconds General Appearance: No Apparent Distress HEENT: PERRL/EOMI Neck: Full Range of Motion Respiratory: Decreased Breath Sounds, Rhonci Cardiovascular: Regular Rate, Rhythm Gastrointestinal: normal bowel sounds, non tender, soft Extremity: Normal Capillary Refill Neurologic/Psychiatric: Alert, Oriented x3 Skin: Normal Color Lymphatic: No Adenopathy Results Lab Laboratory Tests 10/10/21 12:27: Glucometer 108 10/10/21 18:32: Glucometer 121H 10/11/21 05:25: White Blood Count 9.7, Red Blood Count 4.53, Hemoglobin 12.4L, Hematocrit 39L, Mean Corpuscular Volume 86, Mean Corpuscular Hemoglobin 27, Mean Corpuscular H emoglobin Concent 32, Red Cell Distribution Width 13.4, Platelet Count 351, Mean Platelet Volume 9.8, Immature Granulocyte % (Auto) 1, Neutrophils (%) (Auto) 68, Lymphocytes (%) (Auto) 17, Monocytes (%) (Auto) 11, Eosinophils (%) (Auto) 3, Basophils (%) (Auto) 1, Neutrophils # (Auto) 6.6, Lymphocytes # (Auto) 1.7, Monocytes # (Auto) 1.0, Eosinophils # (Auto) 0.3, Basophils # (Auto) 0.1, Immature Granulocyte # (Auto) 0.1, Sodium Level 142, Potassium Level 3.6, Chloride Level 107, Carbon Dioxide Level 21, Anion Gap 14, Blood Urea Nitrogen 11, Creatinine 0.62, Estimat Glomerular Filtration Rate 115, BUN/Creatinine Ratio 18, Glucose Level 90, Calcium Level 8.9, Corrected Calcium 9.4, Total Bilirubin 1.2H, Aspartate Amino Transf (AST/SGOT) 11, Alanine Aminotransferase (ALT/SGPT) 9, Alkaline Phosphatase 66, Total Protein 6.7, Albumin 3.4 Microbiology 10/08/21 MRSA Screen - Final, Complete MRSA not isolated Assessment/Plan Assessment/Plan Assess & Plan/Chief Complaint s/p PEG. ok to use. drain sponge daily and PRN. GRAY BIGGS MD Oct 11, 2021 11:49
--- NOTE | 2021-10-11 11:52 | Speech Therapy Daily Note ---
Speech Daily Progress Note Subjective Date Seen by Provider: Oct 11, 2021 Time Seen by Provider: 10:20 The patient was lying in bed, awake and alert upon entrance to his room by the clinician. The patient made immediate eye contact following a verbal greeting from the clinician. The patient's remains at bedside. The patient was agreeable to participation in the skilled speech pathology treatment session. The patient continues to use the [place] to clear oral secretions, with visible anterior loss of oral secretions present from the left labial side. Resting to ngue protrusion is present from the oral cavity. The patient additionally displays rigorous coughing following "dry" swallow attempts which the clinician believes is secondary to aspiration of his own secretions. The patient is currently receiving VapoTherm. Objective The patient's vocal quality is "wet" at baseline. The patient is provided five ice chips and three coated teaspoons of puree. The patient displayed a delayed, rigorous cough, red face, and watery eyes follo wing two ice chips. The patient demonstrated an immediate, rigorous cough, red face, and watery eyes with one of three puree trials. Increased manipulation of the puree consistency was noted with the patient's tongue. The patient consistently displayed a cough between bolus trials, as continued aspiration of secretions were suspected. The patient's vocal quality was overtly "wet" f ollowing P.O. trials. P.O. trials were terminated at this time for patient safety and due to the overt s/s of suspected aspiration displayed with each trial. The patient continues to communicate wants and needs efficiently through non- verbal gestures, a communication board (spelling), and yes/no responses. The patient is able to vocalize following requests from the clinician and was encouraged to continue expressive verbal communication attempts regardless of the dysarthria present. The clinician discussed AAC options with the , agreeing that a table with text to speech apps remain the most appropriate. The clinician discussed with the patient's and the patient the continued recommendations of N.P.O., the minimal progress with the oropharyngeal swallow function, and possible timeline of rehabilitation. Per patient's , "I know these signs are concerning to you guys but this is how he always is." Due to this information, the clinician suspects prolonged rehabilitation with a guarded outcome. The patient was provided a swallowing exercise of "effortful swallowing" to practice between treatment sessions. The clinician continues to recommend: - Strict N.P.O. with total PEG tube nutrition. - Frequent and excellent oral care to reduce the transfer of oral bacteria to the lungs should aspiration of secretions occur. - Moist oral swabs (with the water removed) for oral comfort. - The patient should attempt to swallow his own secretions, relying less on the [place]. as his own secretions are excellent oropharyngeal swallowing rehabilitation. The patient's RN were present following the session and agreed with the contin ed recommendations. The clinician believes the oropharyngeal dysphagia is not an acute process and will require long-term rehabilitation with limited/guarded improvement. Assessment Assessment Current Status: Poor Progress Treatment Plan Continue Plan of Care Speech Short Term Goals Short Term Goals Short Term Goals 1. The patient will tolerate the least restrictive consistency of P.O. trials for possible advancement of a P.O. diet consistency. 2. The patient will demonstrate intelligibility strategies with 50% accuracy and maximum clinician verbal and visual cueing. Time Frame-STG: Three Weeks. Speech Belt Tender Goals Longterm Goals 1. The patient will tolerate the least restrictive consistency without s/s of suspected aspiration. 2. The patient will improve expressive communication for increased safety with discharge to the least restricted environment. Time Frame: One Week. Speech-Plan Treatment Plan Speech Therapy Treatment Plan: Continue Plan of Care Treatment Duration: Oct 21, 2021 Frequency: 4 times per week (Four to five times per week.) Estimated Hrs Per Day: .25 hour per day Rehab Potential: Poor Safety Risks/Education Teaching Recipient: Patient, Family Teaching Methods: Discussion Response to Teaching: Reinforcement Needed Education Topics Provided: Plan of Care, Recommendations Time Speech Therapy Time In: 10:20 Speech Therapy Time Out: 10:50 Total Billed Time: 30 Billed Treatment Time ANNEL Blake [facility] No LOY, [facility] Oct 11, 2021 11:52
[2021-10-11 12:00] VITALS: BP 169/96
[2021-10-11] MEDS: meTOprolol TARTRATE 50 MG (LOPRESSOR) TAB PO SCH ×2 (14:46→20:51)
[2021-10-11] MEDS: NYSTATIN CREAM (MYCOSTATIN) 30 GM TUBE TP SCH ×3 (14:46→21:06)
[2021-10-11] MEDS: MICONAZOLE 2% POWDER (DESENEX AF) 90 GM TOP SCH ×2 (14:46→21:06)
[2021-10-11] MEDS: ENOXAPARIN 40 MG/0.4 ML (LOVENOX) SYR SC SCH ×2 (14:47→23:25)
[2021-10-11 20:00] VITALS: BP 154/86
[2021-10-11] MEDS: EMPAGLIFLOZIN 10 MG TABLET (JARDIANCE) PO SCH (20:51)
[2021-10-12] VITALS (11 sets, daily range): BP systolic 151–182; BP diastolic 84–102
[2021-10-12 05:40] LABS: BASOPHILS # (AUTO) 0.1 10^3/uL (0.0-0.1); BASOPHILS % (AUTO) 1 % (0-10); EOSINOPHILS # (AUTO) 0.3 10^3/uL (0.0-0.3); EOSINOPHILS % (AUTO) 3 % (0-10); HEMATOCRIT 40 % (40-54); HEMOGLOBIN 12.7 g/dL (13.3-17.7); LYMPHOCYTES # (AUTO) 1.5 10^3/uL (1.0-4.0); LYMPHOCYTES % (AUTO) 14 % (12-44); MEAN CORPUSCULAR HEMOGLOBIN 28 pg (25-34); MEAN CORPUSCULAR HGB CONC 32 g/dL (32-36); MEAN CORPUSCULAR VOLUME 87 fL (80-99); MEAN PLATELET VOLUME 9.8 fL (9.0-12.2); MONOCYTES % (AUTO) 10 % (0-12); NEUTROPHILS # (AUTO) 7.7 10^3/uL (1.8-7.8); NEUTROPHILS % (AUTO) 72 % (42-75); PLATELET COUNT 342 10^3/uL (130-400); WHITE BLOOD COUNT 10.7 10^3/uL (4.3-11.0)
[2021-10-12 05:54] LABS: ALBUMIN 3.5 GM/DL (3.2-4.5)
[2021-10-12 05:55] LABS: POTASSIUM 3.7 MMOL/L (3.6-5.0)
[2021-10-12 05:57] LABS: TOTAL PROTEIN 6.8 GM/DL (6.4-8.2)
[2021-10-12 05:59] LABS: BILIRUBIN,TOTAL 1.1 MG/DL (0.1-1.0)
[2021-10-12 06:01] LABS: CREATININE SERUM 0.7 MG/DL (0.60-1.30)
[2021-10-12] MEDS: inSUlin ASPART (NovoLOG) 1 UNIT/0.01 ML (CHARGE PER UNIT) SC SCH ×3 (06:02→17:44)
[2021-10-12] MEDS: NS IV 1000 ML 1,000 ML IV SCH (06:58)
[2021-10-12] MEDS: FAMOTIDINE 20 MG (PEPCID) TABLET PO SCH ×2 (10:14→20:16)
[2021-10-12] MEDS: meTOprolol TARTRATE 50 MG (LOPRESSOR) TAB PO SCH ×2 (10:14→20:16)
[2021-10-12] MEDS: ASPIRIN E.C. 81 MG (ECOTRIN) TAB PO SCH (10:14)
[2021-10-12] MEDS: CLOPIDOGREL 75 MG (PLAVIX) TABLET PO SCH (10:14)
[2021-10-12] MEDS: amLODIPine 5 MG (NORVASC) TAB PO SCH (10:14)
[2021-10-12] MEDS: MICONAZOLE 2% POWDER (DESENEX AF) 90 GM TOP SCH ×2 (10:15→20:17)
[2021-10-12] MEDS: NYSTATIN CREAM (MYCOSTATIN) 30 GM TUBE TP SCH ×3 (10:15→20:17)
[2021-10-12] MEDS: ENOXAPARIN 40 MG/0.4 ML (LOVENOX) SYR SC SCH (12:17)
[2021-10-12] MEDS ORDERED: hydrALAZINE (APESOLINE) 20 MG/ML VIAL IV PRN (12:30)
--- NOTE | 2021-10-12 12:43 | Progress Note - Hospitalist ---
Subjective HPI/CC On Admission Date Seen by Provider: Oct 12, 2021 Time Seen by Provider: 12:00 Patient is a 51yo male, h/o COVID about 1.5y ago and multiple neurologic insults during hospitalization for Covid at that time (TIA vs strokes). He has had chronic debility since then with several ED visits for weakness and strokelike s ymptoms. Apparently his sons were at home with him and he had a fall in the bathroom with increased weakness to the left side. Unsure of LOC as sons are not here at this time for history. The patient (with significantly slurred speech) is able to tell me that his is working in [place] - which is consistent with prior visits to our ER. He does state he has a mild headache. Otherwise his speech is so slurred he is very difficult to understand. Upon my arrival patient exhibited right neglect tongue was sticking out mildly swollen without erythema. The patient is eyes were open and did orient to voice he was slow to respond and very dysarthric unintelligible speech. He was able to follow simple commands but when asked to use his right hand to touch my finger he only moved his left hand and was able to do so with good control of the left hand. His came later in the day and reports that he had been seeing neurologist Dr. Velasquez had a rather extensive work-up was started on a spirin and Plavix but no apparent large vessel disease was noted. He had an echocardiogram gram and there is been no evidence for atrial fibrillation. He was having no neurologic issues previous to COVID infection in March 2020. He had been doing well at home until the night of his admission when his right leg apparently gave out he stumbled forward they helped him to the bed and again noted that he was dysarthric and his tongue appeared to be swollen. There were no rash issues reported he was confused but there was no loss of consciousness and no reported pallor. He had been feeling well up until that point. Subjective/Events-last exam Patient about the same BiPAP seems to have pushed secretions in so will just provide Vapotherm all night instead of BiPAP tonight Discussed with his DPOA in-depth regarding his status and prognosis and made him DNR Hospice may be closer than we thought Review of Systems General: Fatigue Pulmonary: Dyspnea Neurological: Weakness Objective Exam Vital Signs Vital Signs Date Time Temp Pulse Resp B/P (MAP) Pulse Ox O2 Delivery O2 Flow Rate FiO2 10/12/21 20:32 36.0 97 26 182/102 (128) 94 Vapotherm 30.00 50.00 10/12/21 19:20 50 Capillary Refill : Less Than 3 SecondsLess Than 3 Seconds General Appearance: WD/WN, Chronically ill, Mild Distress, Obese Respiratory: Accessory Muscle Use, Decreased Breath Sounds Cardiovascular: Regular Rate, Rhythm Neurologic/Psychiatric: Alert, Oriented x3, Aphasia, Depressed Affect, Motor Weakness Results/Procedures Lab Laboratory Tests 10/12/21 05:33 Patient resulted labs reviewed. 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 -Carotid ultrasound unremarkable -Cardiology consulted, appreciate their recommendations -CT head showed atrophy and chronic ischemic microvascular changes with lunar infarcts in Left basal ganglia -CTA showed no large vessel occlusion -MRI recommended, but couldn't be done d/t body habitus -Speech therapy, Physical therapy and Occupational therapy -PEG tube placed Acute respiratory distress requiring supplemental oxygen -Vapotherm 35L at 70% O2 Angioedema of tongue -Hold lisinopril -Speech therapy advised NPO -Improving HTN -Improving Diabetes -SSI Goals: Decrease oxygen requirement and stabilize but may need NHP versus hospice Diet-NPO, PEG tube DVT prophylaxis- SCDs and Lovenox WISAM LIPSCOMB DO Oct 12, 2021 12:42
[2021-10-12] MEDS: EMPAGLIFLOZIN 10 MG TABLET (JARDIANCE) PO SCH (20:16)
[2021-10-12] MEDS ORDERED: morphine INJ 10 MG/ML 1ML (SYR OR VIAL) IVP PRN (20:45)
[2021-10-13] VITALS (7 sets, daily range): BP systolic 113–178; BP diastolic 61–98
[2021-10-13] MEDS: ENOXAPARIN 40 MG/0.4 ML (LOVENOX) SYR SC SCH ×2 (00:29→12:30)
[2021-10-13] MEDS: inSUlin ASPART (NovoLOG) 1 UNIT/0.01 ML (CHARGE PER UNIT) SC SCH ×4 (00:29→17:24)
[2021-10-13] MEDS: HYDROcodone/APAP 5 MG/325 MG (LORTAB) TAB PO PRN ×2 (00:53→09:39)
--- NOTE | 2021-10-13 06:42 | Progress Note - Hospitalist ---
Subjective HPI/CC On Admission Date Seen by Provider: Oct 13, 2021 Time Seen by Provider: 11:00 Patient is a 51yo male, h/o COVID about 1.5y ago and multiple neurologic insults during hospitalization for Covid at that time (TIA vs strokes). He has had chronic debility since then with several ED visits for weakness and strokelike s ymptoms. Apparently his sons were at home with him and he had a fall in the bathroom with increased weakness to the left side. Unsure of LOC as sons are not here at this time for history. The patient (with significantly slurred speech) is able to tell me that his is working in [place] - which is consistent with prior visits to our ER. He does state he has a mild headache. Otherwise his speech is so slurred he is very difficult to understand. Upon my arrival patient exhibited right neglect tongue was sticking out mildly swollen without erythema. The patient is eyes were open and did orient to voice he was slow to respond and very dysarthric unintelligible speech. He was able to follow simple commands but when asked to use his right hand to touch my finger he only moved his left hand and was able to do so with good control of the left hand. His came later in the day and reports that he had been seeing neurologist Dr. Velasquez had a rather extensive work-up was started on a spirin and Plavix but no apparent large vessel disease was noted. He had an echocardiogram gram and there is been no evidence for atrial fibrillation. He was having no neurologic issues previous to COVID infection in March 2020. He had been doing well at home until the night of his admission when his right leg apparently gave out he stumbled forward they helped him to the bed and again noted that he was dysarthric and his tongue appeared to be swollen. There were no rash issues reported he was confused but there was no loss of consciousness and no reported pallor. He had been feeling well up until that point. Subjective/Events-last exam Doing about the same Moving to 4th floor Poor prognosis No recovery noted Cant move and can't express himself DNR Review of Systems Neurological: Weakness, Change in speech Objective Exam Vital Signs Vital Signs Date Time Temp Pulse Resp B/P (MAP) Pulse Ox O2 Delivery O2 Flow Rate FiO2 10/13/21 16:06 36.0 Vapotherm 25.00 45.00 7/17/22 15:33 92 20 95 10/13/21 13:30 40 Capillary Refill : Less Than 3 SecondsLess Than 3 Seconds General Appearance: No Apparent Distress, WD/WN, Chronically ill, Obese Respiratory: No Accessory Muscle Use, No Respiratory Distress, Decreased Breath Sounds Cardiovascular: Regular Rate, Rhythm Neurologic/Psychiatric: Alert, Aphasia, Depressed Affect, Motor Weakness Results/Procedures Lab Laboratory Tests 10/13/21 06:54 Patient resulted labs reviewed. 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 -Carotid ultrasound unremarkable -Cardiology consulted, appreciate their recommendations -CT head showed atrophy and chronic ischemic microvascular changes with lunar infarcts in Left basal ganglia -CTA showed no large vessel occlusion -MRI recommended, but couldn't be done d/t body habitus -Speech therapy, Physical therapy and Occupational therapy -PEG tube placed Acute respiratory distress requiring supplemental oxygen -Vapotherm 20L at 40% O2 Angioedema of tongue -Hold lisinopril -Speech therapy advised NPO -Improving HTN -Improving Diabetes -SSI Goals: Decrease oxygen requirement and stabilize but may need NHP versus hospice Diet-NPO, PEG tube DVT prophylaxis- SCDs and Lovenox Move to 4th floor WISAM LIPSCOMB DO Oct 13, 2021 06:42
[2021-10-13 07:31] LABS: BASOPHILS # (AUTO) 0.1 10^3/uL (0.0-0.1); BASOPHILS % (AUTO) 1 % (0-10); EOSINOPHILS # (AUTO) 0.4 10^3/uL (0.0-0.3); EOSINOPHILS % (AUTO) 4 % (0-10); HEMATOCRIT 41 % (40-54); HEMOGLOBIN 13.2 g/dL (13.3-17.7); LYMPHOCYTES # (AUTO) 1.2 10^3/uL (1.0-4.0); LYMPHOCYTES % (AUTO) 13 % (12-44); MEAN CORPUSCULAR HEMOGLOBIN 28 pg (25-34); MEAN CORPUSCULAR HGB CONC 32 g/dL (32-36); MEAN CORPUSCULAR VOLUME 86 fL (80-99); MEAN PLATELET VOLUME 10.1 fL (9.0-12.2); MONOCYTES % (AUTO) 11 % (0-12); NEUTROPHILS # (AUTO) 6.7 10^3/uL (1.8-7.8); NEUTROPHILS % (AUTO) 72 % (42-75); PLATELET COUNT 360 10^3/uL (130-400); WHITE BLOOD COUNT 9.4 10^3/uL (4.3-11.0)
[2021-10-13 07:49] LABS: ALBUMIN 3.4 GM/DL (3.2-4.5); POTASSIUM 3.4 MMOL/L (3.6-5.0)
[2021-10-13 07:51] LABS: TOTAL PROTEIN 6.9 GM/DL (6.4-8.2)
[2021-10-13 07:53] LABS: BILIRUBIN,TOTAL 0.8 MG/DL (0.1-1.0)
[2021-10-13 07:55] LABS: CREATININE SERUM 0.68 MG/DL (0.60-1.30)
[2021-10-13] MEDS: amLODIPine 5 MG (NORVASC) TAB PO SCH (09:38)
[2021-10-13] MEDS: ASPIRIN E.C. 81 MG (ECOTRIN) TAB PO SCH (09:39)
[2021-10-13] MEDS: meTOprolol TARTRATE 50 MG (LOPRESSOR) TAB PO SCH ×2 (09:39→22:35)
[2021-10-13] MEDS: CLOPIDOGREL 75 MG (PLAVIX) TABLET PO SCH (09:39)
[2021-10-13] MEDS: FAMOTIDINE 20 MG (PEPCID) TABLET PO SCH ×2 (09:40→22:34)
[2021-10-13] MEDS: MICONAZOLE 2% POWDER (DESENEX AF) 90 GM TOP SCH ×2 (09:57→22:35)
[2021-10-13] MEDS: NYSTATIN CREAM (MYCOSTATIN) 30 GM TUBE TP SCH ×3 (09:57→22:35)
--- NOTE | 2021-10-13 15:01 | Progress Note - Cardiology ---
Cardiology SOAP Progress Note Subjective: Communication difficult due to aphasia Able to communicate through gesture Does not indicated cp or palp or syncope or shortness of breath Objective: I&O/Vital Signs 10/13/21 10/13/21 10/13/21 10/13/21 03:53 03:55 04:30 04:31 Temp 35.9 Pulse 85 Resp 20 B/P (MAP) 113/61 (78) Pulse Ox 95 93 O2 Delivery Vapotherm Vapotherm Vapotherm Vapotherm O2 Flow Rate 30.00 20.00 30.00 20.00 40.00 FiO2 50 40 50 10/13/21 10/13/21 10/13/21 10/13/21 07:00 07:53 08:00 08:00 Temp 37.3 Pulse 105 96 Resp 20 B/P (MAP) 160/90 (113) Pulse Ox 92 95 O2 Delivery Vapotherm Vapotherm O2 Flow Rate 20.00 20.00 FiO2 40 40 10/13/21 10/13/21 10/13/21 10/13/21 10:30 11:29 12:00 13:01 Temp 36.0 Pulse 96 Resp 16 B/P (MAP) 153/98 (116) Pulse Ox 93 92 95 O2 Delivery Vapotherm Vapotherm Vapotherm O2 Flow Rate 20.00 20.00 25.00 FiO2 40 40 45 10/13/21 13:15 Temp 36.0 Pulse 100 Resp 18 B/P (MAP) 178/89 (118) Pulse Ox 93 O2 Delivery Vapotherm O2 Flow Rate 25.00 45.00 10/13/21 00:00 Intake Total 1050 ml Output Total 1800 ml Balance -750 ml Constitutional: well-developed, other (non-verbal - nods head slowly in response to questions) Respiratory: No accessory muscle use, No respiratory distress; chest expansion is symmetric, chest is bilaterally symmetric, other (coarse breath sounds with productive cough) Cardiovascular: regular rate-rhythm; No JVD; tachycardia, S1 and S2 Gastrointestional: No tender; soft, round, audible bowel sounds, other (PEG tube in place) Extremities: no lower extremity edema bilateral Neurologic/Psychiatric: other (RUE and RLE flaccid, facial droop right sided; LLE and LUE chronically weak 4/5; aphasic) Skin: No rash on exposed areas, No ulcerations on exposed areas Results/Procedures: Labs Laboratory Tests 10/12/21 17:43: Glucometer 88 10/13/21 00:26: Glucometer 95 10/13/21 06:00: Glucometer 97 10/13/21 06:54: White Blood Count 9.4, Red Blood Count 4.78, Hemoglobin 13.2L, Hematocrit 41, Mean Corpuscular Volume 86, Mean Corpuscular Hemoglobin 28, Mean Corpuscular Hemoglobin Concent 32, Red Cell Distribution Width 13.2, Platelet Count 360, Mean Platelet Volume 10.1, Immature Granulocyte % (Auto) 0, Neutrophils (%) (Auto) 72, Lymphocytes (%) (Auto) 13, Monocytes (%) (Auto) 11, Eosinophils (%) (Auto) 4, Basophils (%) (Auto) 1, Neutrophils # (Auto) 6.7, Lymphocytes # (Auto) 1.2, Monocytes # (Auto) 1.0, Eosinophils # (Auto) 0.4H, Basophils # (Auto) 0.1, Immature Granulocyte # (Auto) 0.0, Sodium Level 141, Potassium Level 3.4L, Chloride Level 106, Carbon Dioxide Level 19L, Anion Gap 16H, Blood Urea Nitrogen 11, Creatinine 0.68, Estimat Glomerular Filtration Rate 112, BUN/Creatinine Ratio 16, Glucose Level 95, Calcium Level 9.0, Corrected Calcium 9.5, Total Abelardo irubin 0.8, Aspartate Amino Transf (AST/SGOT) 11, Alanine Aminotransferase (ALT/SGPT) 8, Alkaline Phosphatase 67, Total Protein 6.9, Albumin 3.4 10/13/21 11:50: Glucometer 128H Microbiology 10/08/21 MRSA Screen - Final, Complete MRSA not isolated A/P: Assessment: CVA with right sided hemiparesis, aphasia, dysphagia - reported h/o several CVA/TIA's following COVID infection in 2020 with left sided weakness - presents this time with righ sided hemiparesis/aphasia/dysphagia - The stroke team at was consulted with no further recommendations other than continuing aspirin and Plavix and obtaining an MRI - Management per stroke team - Follows with Dr. Grant of neurology services at [facility] - Carotid u/[id number]: Very limited exam. The right carotid artery shows no hemodynamic disease with minimal plaquing. Left carotid system and vertebral arteries were not adequately evaluated due to patient's pain and position. Previous CT angiography of the neck on 10/05/2021 suggested the carotid and vertebral arteries to be widely patent without significant stenosis - ILR implanted on 10/08/21 to eval for occult A Fib as the source of his CVA ?Angioedema - Lisinopril stopped Fall at home Sleep apnea - non-complaint with sleep study ? aspiration - S/P PEG tube placement on 10-10-[address] Marshall HTN - currently controlled Crohn's dz - h/o colectomy DM 2 Plan: CVA - management per stroke team - please see recs per [facility] as above - source undetermined - implanted ILR 10-08-21 to r/o possible a-fib/flutter as cause. No significant arrhythmia seen so far S/P PEG tube placement - change IV meds to oral Monitor lab from time to time and replenish electrolytes RUPA BALTAZAR MD FACP [facility] CCDS Oct 13, 2021 15:01
[2021-10-13] MEDS: EMPAGLIFLOZIN 10 MG TABLET (JARDIANCE) PO SCH (22:34)
[2021-10-14] VITALS (8 sets, daily range): BP systolic 134–180; BP diastolic 79–90
[2021-10-14] MEDS: inSUlin ASPART (NovoLOG) 1 UNIT/0.01 ML (CHARGE PER UNIT) SC SCH ×5 (00:21→23:14)
[2021-10-14] MEDS: ENOXAPARIN 40 MG/0.4 ML (LOVENOX) SYR SC SCH ×2 (00:26→12:19)
[2021-10-14 05:58] LABS: BASOPHILS # (AUTO) 0.1 10^3/uL (0.0-0.1); BASOPHILS % (AUTO) 1 % (0-10); EOSINOPHILS # (AUTO) 0.4 10^3/uL (0.0-0.3); EOSINOPHILS % (AUTO) 4 % (0-10); HEMATOCRIT 41 % (40-54); HEMOGLOBIN 13.4 g/dL (13.3-17.7); LYMPHOCYTES # (AUTO) 1.5 10^3/uL (1.0-4.0); LYMPHOCYTES % (AUTO) 15 % (12-44); MEAN CORPUSCULAR HEMOGLOBIN 28 pg (25-34); MEAN CORPUSCULAR HGB CONC 33 g/dL (32-36); MEAN CORPUSCULAR VOLUME 85 fL (80-99); MONOCYTES % (AUTO) 10 % (0-12); NEUTROPHILS # (AUTO) 7.4 10^3/uL (1.8-7.8); NEUTROPHILS % (AUTO) 70 % (42-75); PLATELET COUNT 406 10^3/uL (130-400); WHITE BLOOD COUNT 10.4 10^3/uL (4.3-11.0)
[2021-10-14 06:09] LABS: ALBUMIN 3.5 GM/DL (3.2-4.5)
[2021-10-14 06:10] LABS: POTASSIUM 3.4 MMOL/L (3.6-5.0)
[2021-10-14 06:11] LABS: CALCIUM 9.4 MG/DL (8.5-10.1)
[2021-10-14 06:12] LABS: TOTAL PROTEIN 7.2 GM/DL (6.4-8.2)
[2021-10-14 06:14] LABS: BILIRUBIN,TOTAL 0.7 MG/DL (0.1-1.0)
[2021-10-14 06:16] LABS: CREATININE SERUM 0.73 MG/DL (0.60-1.30)
[2021-10-14] MEDS: FAMOTIDINE 20 MG (PEPCID) TABLET PO SCH ×2 (09:14→19:37)
[2021-10-14] MEDS: ASPIRIN E.C. 81 MG (ECOTRIN) TAB PO SCH (09:14)
[2021-10-14] MEDS: meTOprolol TARTRATE 50 MG (LOPRESSOR) TAB PO SCH ×2 (09:15→19:37)
[2021-10-14] MEDS: amLODIPine 5 MG (NORVASC) TAB PO SCH (09:15)
[2021-10-14] MEDS: MICONAZOLE 2% POWDER (DESENEX AF) 90 GM TOP SCH ×2 (09:16→19:38)
[2021-10-14] MEDS: NYSTATIN CREAM (MYCOSTATIN) 30 GM TUBE TP SCH ×3 (09:17→19:38)
[2021-10-14] MEDS: CLOPIDOGREL 75 MG (PLAVIX) TABLET PO SCH (09:22)
--- NOTE | 2021-10-14 09:26 | Physical Therapy Daily Note ---
PT Daily Note-Current Subjective Patient in bed pre tx, agrees to PT, has unrated pain in left shoulder per . Appearance Patient in bed post tx with nurse call, phone, tray, arms supported on pillows, heel float bilaterally on pillow Mental Status Patient Orientation: Person, Unable to Assess, Non-Verbal/Aphasic Attachments: SCD's, Oxygen, PEG Tube, IV Transfers SCALE: Activities may be completed with or without assistive devices. 6-Msojfujwon-ffvgyum completes the activity by him/herself with no assistance from a helper. 5-Set-up or Clean-up Assistance-helper sets up or cleans up; patient completes activity. [place] assists only prior to or following the activity. 4-Supervision or Touching Assistance-helper provides verbal cues and/or touching/steadying and/or contact guard assistance as patient completes activity. Assistance may be provided throughout the activity or intermittently. 3-Partial/Moderate Assistance-helper does LESS THAN HALF the effort. [place] lifts, holds or supports trunk or limbs, but provides less than half the effort. 2-Substantial/Maximal Assistance-helper does MORE THAN HALF the effort. [place] lifts or holds trunk or limbs and provides more than half the effort. 0-Rvntefztx-ggrple does ALL the effort. Patient does none of the effort to complete the activity. Or, the assistance of 2 or more helpers is required for the patient to complete the activity. If activity was not attempted, code reason: 7-Patient Refused. 9-Not Applicable-not attempted and the patient did not perform the activity before the current illness, exacerbation or injury. 10-Not Attempted due to Environmental Limitations-(lack of equipment, weather restraints, etc.). 88-Not Attempted due to Medical Conditions or Safety Concerns. Roll Left & Right (QC): 1 Sit to Lying (QC): 1 Lying to Sitting/Side of Bed(Q: 1 Sit to Stand (QC): 1 Patient required assist of 3 for supine to sit, needs assist to maintain sitting balance, worked on sitting balance and head positioning, his head still leans to the left side. Attempted to stand x2, dependent, was able to clear patient's bottom from bed for a few inches is all, a new pad and drawsheet were able to be put beneath him. Patient layed back down with assist of 3 and positioned comfortably. 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 Time Frame: Oct 14, 2021 Roll Left & Right (QC): 3 Sit to Lying (QC): 3 Lying-Sitting on Side/Bed(QC): 3 Sit to Stand (QC): 3 Chair/Gde-pa-Xeyto Xfer(QC): 2 PT Plan Problem List Problem List: Activity Tolerance, Functional Strength, Safety, Balance, Gait, Transfer, Bed Mobility, ROM Treatment/Plan Treatment Plan: Continue Plan of Care Treatment Plan: Bed Mobility, Education, Functional Activity Flori, Functional Strength, Gait, Safety, Therapeutic Exercise, Transfers Treatment Duration: Oct 14, 2021 Frequency: 6 times per week Estimated Hrs Per Day: .25 hour per day Patient and/or Family Agrees t: Yes Safety Risks/Education Patient Education: Correct Positioning, Safety Issues Teaching Recipient: Patient Teaching Methods: Demonstration, Discussion Response to Teaching: Reinforcement Needed Time/GCodes Time In: 904 Time Out: 919 Total Billed Treatment Time: 15 Total Billed Treatment 1 visit FA CHELSEA SAUCEDA PT Oct 14, 2021 09:26
--- NOTE | 2021-10-14 09:49 | Occupational Ther Daily Note ---
OT Current Status-Daily Note Subjective Pt alert, lying in bed. Pt is answering questions with thumbs up (yes) thumbs down (no) consistently. and son are present in room. states that pt's R shldr is hurting, pt agrees with thumbs up. After session, pt positioned for comfort. Mental Status/Objective Patient Orientation: Person, Place, Non-Verbal/Aphasic, Time, Situation Attachments: Cazares Catheter, IV, Oxygen, PEG Tube, SCD's ADL-Treatment Pt able to hold on suction with L hand to place in mouth when excess saliva needs to be evacuated from mouth. Dependent for ADLs. Therapy Code Descriptions/Definitions Functional [place] Measure: 0=Not Assessed/NA 4=Minimal Assistance 1=Total Assistance 5=Supervision or Setup 2=Maximal Assistance 6=Modified [place] 3=Moderate Assistance 7=Complete IndependenceSCALE: Activities may be completed with or without assistive devices. 4-Tofmgcmjrm-bjytpzz completes the activity by him/herself with no assistance from a helper. 5-Set-up or Clean-up Assistance-helper sets up or cleans up; patient completes activity. [place] assists only prior to or following the activity. 4-Supervision or Touching Assistance-helper provides verbal cues and/or touching/steadying and/or contact guard assistance as patient completes activity. Assistance may be provided throughout the activity or intermittently. 3-Partial/Moderate Assistance-helper does LESS THAN HALF the effort. [place] li fts, holds or supports trunk or limbs, but provides less than half the effort. 2-Substantial/Maximal Assistance-helper does MORE THAN HALF the effort. [place] lifts or holds trunk or limbs and provides more than half the effort. 9-Xcvhpxiae-xyuxks does ALL the effort. Patient does none of the effort to complete the activity. Or, the assistance of 2 or more helpers is required for the patient to complete the activity. If activity was not attempted, code reason: 7-Patient Refused. 9-Not Applicable-not attempted and the patient did not perform the activity before the current illness, exacerbation or injury. 10-Not Attempted due to Environmental Limitations-(lack of equipment, weather restraints, etc.). 88-Not Attempted due to Medical Conditions or Safety Concerns. Other Treatment Assist x3 for supine to sit, assist to maintain sitting balance, worked on sitting balance and head positioning, head leans to left side. Massage and light stretch to R side of neck to allow positioning of head closer to midline. Assist x2 to stand, was able to clear patient's bottom from bed for a few inches is all, a new pad and drawsheet were able to be put beneath him. Patient layed back down with assist of 3 and positioned comfortably. Nrsg and family in room after session. Call light within reach. All needs met. OT [place] [facility] [place] Goals [place] [facility] [place] Goals Time Frame: Nov 08, 2021 Eating (QC): 3 Toileting Hygiene (QC): 3 Shower/Bathe Self (QC): 2 Upper Body Dressing (QC): 3 Lower Body Dressing (QC): 2 On/Off Footwear (QC): 2 Additional Goals: 1-Demonstrate ADL Tasks, 2-Verbalize Understanding, 3- ImproveStrength/Flori 1=Demonstrate adherence to instructed precautions during ADL tasks. 2=Patient will verbalize/demonstrate understanding of assistive devices/modifications for ADL. 3=Patient will improve strength/tolerance for activity to enable patient to perform ADL's. OT Education/Plan Problem List/Assessment Assessment: Decreased Activ Tolerance, Decreased UE Strength, Dependent Transfers, Impaired Bed Mobility, Impaired Coordination, Impaired Funct Balance, Impaired I ADL's, Impaired Self-Care Skills, Restricted Funct UE ROM, Visual- Perceptual Deficit Pt would benefit from skilled OT services in order to increase functional use of RUE, improve independence and safety with ADLs and functional mobility, and for neuromuscular reeducation in order to maximize LOF for safe return home with spouse. Discharge Recommendations Plan/Recommendations: Continue POC Treatment Plan/Plan of Care Patient would benefit from OT for education, treatment and training to promote independence in ADL's, mobility, safety and/or upper extremity function for ADL's. Plan of Care: ADL Retraining, Functional Mobility, UE Funct Exercise/Act, UE Neuromus Re-Ed/Coord Treatment Duration: Nov 08, 2021 Frequency: 5 times per week Estimated Hrs Per Day: .25 hour per day Rehab Potential: Poor Time/GCodes Start Time: 09:05 Stop Time: 09:20 Total Time Billed (hr/min): 15 Billed Treatment Time 1 visit-FA 1 (15 min) JENNIFER ZARATE Oct 14, 2021 09:49
--- NOTE | 2021-10-14 10:17 | Progress Note - Cardiology ---
Cardiology SOAP Progress Note Subjective: Family at the bedside He nods no regarding questions about CP or SOB Objective: I&O/Vital Signs 10/14/21 10/14/21 10/15/21 10/15/21 23:37 23:37 03:43 07:48 Temp 36.1 36.4 36.1 Pulse 88 104 109 Resp 16 18 24 B/P (MAP) 134/81 (98) 155/91 (112) 157/93 (114) Pulse Ox 96 96 97 95 O2 Delivery High Flow N/C Nasal Cannula High Flow N/C High Flow N/C O2 Flow Rate 8.00 8.00 8.00 8.00 10/15/21 00:00 Intake Total 1260 ml Output Total 1475 ml Balance -215 ml Constitutional: well-developed, other (non-verbal - nods head slowly in response to questions) Respiratory: No accessory muscle use, No respiratory distress; chest expansion is symmetric, chest is bilaterally symmetric, other (coarse breath sounds with productive cough) Cardiovascular: regular rate-rhythm; No JVD; tachycardia, S1 and S2 Gastrointestional: No tender; soft, round, audible bowel sounds, other (PEG tube in place) Extremities: no lower extremity edema bilateral Neurologic/Psychiatric: other (RUE and RLE flaccid, facial droop right sided; LLE and LUE chronically weak 4/5; aphasic) Skin: No rash on exposed areas, No ulcerations on exposed areas Results/Procedures: Labs Laboratory Tests 10/14/21 11:08: Glucometer 129H 10/14/21 23:09: Glucometer 112H 10/15/21 05:13: Glucometer 104 10/15/21 06:13: White Blood Count 9.7, Red Blood Count 4.86, Hemoglobin 13.2L, Hematocrit 41, Mean Corpuscular Volume 85, Mean Corpuscular Hemoglobin 27, Mean Corpuscular Hem oglobin Concent 32, Red Cell Distribution Width 13.3, Platelet Count 392, Mean Platelet Volume 9.9, Immature Granulocyte % (Auto) 0, Neutrophils (%) (Auto) 69, Lymphocytes (%) (Auto) 15, Monocytes (%) (Auto) 10, Eosinophils (%) (Auto) 4, Basophils (%) (Auto) 1, Neutrophils # (Auto) 6.7, Lymphocytes # (Auto) 1.5, Monocytes # (Auto) 1.0, Eosinophils # (Auto) 0.4H, Basophils # (Auto) 0.1, Immature Granulocyte # (Auto) 0.0, Sodium Level 146H, Potassium Level 3.4L, Chloride Level 107, Carbon Dioxide Level 24, Anion Gap 15H, Blood Urea Nitrogen 16, Creatinine 0.66, Estimat Glomerular Filtration Rate 113, BUN/Creatinine Ratio 24, Glucose Level 114H, Calcium Level 9.2, Corrected Calcium 9.7, Total Bilirubin 0.6, Aspartate Amino Transf (AST/SGOT) 11, Alanine Aminotransferase (ALT/SGPT) 10, Alkaline Phosphatase 67, Total Protein 7.0, Albumin 3.4 Microbiology 10/08/21 MRSA Screen - Final, Complete MRSA not isolated A/P: Assessment: CVA with right sided hemiparesis, aphasia, dysphagia - reported h/o several CVA/TIA's following COVID infection in 2020 with left sided weakness - presents this time with righ sided hemiparesis/aphasia/dysphagia - The stroke team at was consulted with no further recommendations other than continuing aspirin and Plavix and obtaining an MRI - Management per stroke team - Follows with Dr. Grant of neurology services at [facility] - Carotid u/10-07-21: Very limited exam. The right carotid artery shows no hemodynamic disease with minimal plaquing. Left carotid system and vertebral arteries were not adequately evaluated due to patient's pain and position. Previous CT angiography of the neck on 10/05/2021 suggested the carotid and vertebral arteries to be widely patent without significant stenosis - ILR implanted on 10/08/21 to eval for occult A Fib as the source of his CVA ?Angioedema - Lisinopril stopped Fall at home Sleep apnea - non-complaint with sleep study ? aspiration - S/P PEG tube placement on 10-10-[address] Marshall HTN - currently controlled Crohn's dz - h/o colectomy DM 2 Plan: CVA - management per stroke team - please see recs per [facility] as above - source undetermined - implanted ILR 10-08-21 to r/o possible a-fib/flutter as cause. No significant arrhythmia seen so far S/P PEG tube placement - continue current medications Monitor lab from time to time and replenish electrolytes EREN FLOWERS Oct 14, 2021 10:17
[2021-10-14] MEDS ORDERED: KCL 20 MEQ TAB (K-DUR) PO ONE (10:30)
--- NOTE | 2021-10-14 13:59 | Progress Note ---
Subjective Subjective/Events-last exam Patient awake and alert, Able to use thumbs up and down and use hand gestures with left hand, otherwise aphasic. Denies any pain. PEG tube in place. Spoke with family regarding goals of care and when he is ready for discharge they would like to d/c home with HH. They have a large family and feel they will be able to provide good care at home. They will need hospital bed. Review of Systems Pulmonary: Dyspnea Cardiovascular: No: Chest Pain, Palpitations Gastrointestinal: No: Nausea, Vomiting Neurological: Weakness, Incoordination, Change in speech Objective Exam Last Set of Vital Signs Vital Signs Date Time Temp Pulse Resp B/P (MAP) Pulse Ox O2 Delivery O2 Flow Rate FiO2 10/14/21 11:06 36.2 95 20 156/90 (112) 96 High Flow N/C 8.00 10/14/21 02:23 45 Capillary Refill : Less Than 3 SecondsLess Than 3 Seconds I&O Intake and Output 10/14/21 00:00 Intake Total 690 ml Output Total 2475 ml Balance -1785 ml Intake Oral 0 ml Tube Feeding 515 ml Other 175 ml Output Urine Total 2475 ml General: Alert, No Acute Distress Lungs: Other (course breath sounds with basilar wheezing and rhonchi, he is able to clear some secreations and uses suction with left hand) Heart: Regular Rate, No Murmurs Abdomen: Soft, No Tenderness Extremities: Other (2+ pitting edema) Neuro: Other (Right sided hemiparesis) Psych/Mental Status: Other (depressed mood) Results/Procedures Lab Laboratory Tests 10/13/21 17:16: Glucometer 124H 10/14/21 00:13: Glucometer 115H 10/14/21 05:13: Glucometer 126H 10/14/21 05:50: White Blood Count 10.4, Red Blood Count 4.83, Hemoglobin 13.4, Hematocrit 41, Mean Corpuscular Volume 85, Mean Corpuscular Hemoglobin 28, Mean Corpuscular Hemoglobin Concent 33, Red Cell Distribution Width 13.2, Platelet Count 406H, Mean Platelet Volume 10.0, Immature Granulocyte % (Auto) 0, Neutrophils (%) (Auto) 70, Lymphocytes (%) (Auto) 15, Monocytes (%) (Auto) 10, Eosinophils (%) (Auto) 4, Basophils (%) (Auto) 1, Neutrophils # (Auto) 7.4, Lymphocytes # (Auto) 1.5, Monocytes # (Auto) 1.0, Eosinophils # (Auto) 0.4H, Basophils # (Auto) 0.1, Immature Granulocyte # (Auto) 0.0, Sodium Level 144, Potassium Level 3.4L, Ch loride Level 104, Carbon Dioxide Level 23, Anion Gap 17H, Blood Urea Nitrogen 14, Creatinine 0.73, Estimat Glomerular Filtration Rate 109, BUN/Creatinine Ratio 19, Glucose Level 119H, Calcium Level 9.4, Corrected Calcium 9.8, Total Bilirubin 0.7, Aspartate Amino Transf (AST/SGOT) 14, Alanine Aminotransferase (ALT/SGPT) 10, Alkaline Phosphatase 74, Total Protein 7.2, Albumin 3.5 10/14/21 11:08: Glucometer 129H Microbiology 10/08/21 MRSA Screen - Final, Complete MRSA not isolated Radiology [place], [place] NAME: RAHAT MARIE [facility] REC#: [id number] PT STATUS: REG ER : 1970 PHYSICIAN: JERRY JAIME ADMIT DATE: 10/05/21/ER Draft Date of Exam:10/05/21 CT HEAD WO-R/O STROKE PROCEDURE: CT head w/o r/o stroke. TECHNIQUE: Multiple contiguous axial images were obtained through the brain without the use of intravenous contrast. Auto Exposure Controls were utilized during the CT exam to meet ALARA standards for radiation dose reduction. INDICATION: Stroke. COMPARISON: Prior examination from 05/07/2021. FINDINGS: The ventricles and sulci are within normal limits. There are a few lacunar infarcts. There is no hydrocephalus. There is no midline shift. There is no mass, hemorrhage or extra-axial fluid collection. The calvarium is intact. Sinuses and mastoid air cells are clear. IMPRESSION: Atrophy and some mild chronic microvascular ischemic disease with a few lacunar infarcts, particularly in the left basal ganglia and to a lesser degree right basal ganglia. No other acute intracranial abnormality. If there is high clinical concern for an acute CVA further evaluation with MRI should be considered. Dictated on workstation # [id number] Dict: 10/05/211952 Trans: 10/05/211956 [facility] [id number] Interpreted by: EKNJI DE JESUS MD Electronically signed by:NAME: RAHAT MARIE [facility] REC#: [id number] PT STATUS: ADM IN : 1970 PHYSICIAN: WISAM LIPSCOMB DO ADMIT DATE: 10/06/21/[facility] Draft Date of Exam:10/07/21 US CAROTID CHILO COMPLETE [id number] PROCEDURE: US carotid duplex bilateral. TECHNIQUE: Multiple Real-time grayscale images were obtained over the carotid arteries in various projections bilaterally. Additional spectral analysis and color Doppler duplex images were also obtained. INDICATION: Followup post-CVA. FINDINGS: The left carotid system and vertebral system could not be adequately interrogated due to patient position and pain. Real-time imaging shows minimal atherosclerotic plaquing within the right carotid bulb and internal and external carotid arteries. Waveforms and peak velocities are normal with normal carotid ratios. IMPRESSION: 1. Very limited exam. The right carotid artery shows no hemodynamic disease with minimal plaquing. 2. Left carotid system and vertebral arteries were not adequately evaluated due to patient's pain and position. 3. Previous CT angiography of the neck on 10/05/2021 suggested the carotid and vertebral arteries to be widely patent without significant stenosis. Parameters based on the consensus panel Santana-Scale and Doppler ultrasound criteria published January 2003, Radiology, Volume 229. DOPPLER (peak systolic velocity M/S Right Left CCA 1.12 1.33 ICA Proximal .50 NOT SEEN ICA Mid .63 NOT SEEN ICA Distal .76 NOT SEEN RATIO .68 N/A ECA .93 NOT SEEN VERT NOT SEEN NOT SEEN Dictated on workstation # [id number] Dict: 10/07/21 1034 Trans: 10/07/21 1047 [id number] Interpreted by: KADIE PERSAUD MD Electronically signed by: Assessment/Plan Assessment/Plan (1) Acute CVA (cerebrovascular accident) Status: Acute Assessment & Plan: 10/14: Extensive workup of cause of multiple TIAs/CVAs with unknown cause, cardiac workup also negative, stroke team consulted upon arrival and patient continued on DAPT, severe dyphagia with PEG tube placed this admission, PT/OT/speech (2) Right hemiparesis Status: Acute (3) Dysphagia due to recent cerebrovascular accident Status: Acute (4) Aphasia due to acute cerebrovascular accident (CVA) Status: Acute (5) Acute and chronic respiratory failure with hypoxia Status: Acute Assessment & Plan: 10/14: requiring HF oxygen, will titrate as tolerated, MAT protocol (6) HTN (hypertension) Status: Chronic Assessment & Plan: 10/14: been normotensive, will restart home meds thru PEG t ube Qualifiers: Qualified Codes: I10 - Essential (primary) hypertension (7) Diabetes mellitus Status: Chronic Assessment & Plan: 10/14: SSI Qualifiers: Qualified Codes: E11.9 - Type 2 diabetes mellitus without complications (8) S/P percutaneous endoscopic gastrostomy (PEG) tube placement (9) DVT prophylaxis Status: Acute Assessment & Plan: - SCDs, lovenox (10) Discharge planning issues Assessment & Plan: 10/14: Planning for d/c home with HH and family caregivers, will need hospital bed, new oxygen start, suction LYDIA SLAUGHTER MD Oct 14, 2021 13:59
--- NOTE | 2021-10-14 18:47 | Progress Note - Cardiology ---
Cardiology SOAP Progress Note Subjective: He does not indicate cp or palp or shortness of breath Communication difficult because of aphasia Objective: I&O/Vital Signs 10/14/21 10/14/21 10/14/21 10/14/21 07:52 08:00 10:38 11:06 Temp 37.4 36.2 Pulse 115 95 Resp 20 20 B/P (MAP) 164/83 (110) 156/90 (112) Pulse Ox 88 95 96 O2 Delivery High Flow N/C Nasal Cannula High Flow N/C High Flow N/C O2 Flow Rate 5.00 8.00 8.00 8.00 10/14/21 16:04 Temp 35.9 Pulse 103 Resp 20 B/P (MAP) 176/81 (112) Pulse Ox 96 O2 Delivery High Flow N/C O2 Flow Rate 8.00 10/14/21 00:00 Intake Total 390 ml Output Total 1750 ml Balance -1360 ml Constitutional: well-developed, other (non-verbal - nods head slowly in response to questions) Respiratory: No accessory muscle use, No respiratory distress; chest expansion is symmetric, chest is bilaterally symmetric, other (coarse breath sounds with productive cough) Cardiovascular: regular rate-rhythm; No JVD; tachycardia, S1 and S2 Gastrointestional: No tender; soft, round, audible bowel sounds, other (PEG tube in place) Extremities: no lower extremity edema bilateral Neurologic/Psychiatric: other (RUE and RLE flaccid, facial droop right sided; LLE and LUE chronically weak 4/5; aphasic) Skin: No rash on exposed areas, No ulcerations on exposed areas Results/Procedures: Labs Laboratory Tests 10/14/21 00:13: Glucometer 115H 10/14/21 05:13: Glucometer 126H 10/14/21 05:50: White Blood Count 10.4, Red Blood Count 4.83, Hemoglobin 13.4, Hematocrit 41, Mean Corpuscular Volume 85, Mean Corpuscular Hemoglobin 28, Mean Corpuscular Hem oglobin Concent 33, Red Cell Distribution Width 13.2, Platelet Count 406H, Mean Platelet Volume 10.0, Immature Granulocyte % (Auto) 0, Neutrophils (%) (Auto) 70, Lymphocytes (%) (Auto) 15, Monocytes (%) (Auto) 10, Eosinophils (%) (Auto) 4, Basophils (%) (Auto) 1, Neutrophils # (Auto) 7.4, Lymphocytes # (Auto) 1.5, Monocytes # (Auto) 1.0, Eosinophils # (Auto) 0.4H, Basophils # (Auto) 0.1, Immature Granulocyte # (Auto) 0.0, Sodium Level 144, Potassium Level 3.4L, Chloride Level 104, Carbon Dioxide Level 23, Anion Gap 17H, Blood Urea Nitrogen 14, Creatinine 0.73, Estimat Glomerular Filtration Rate 109, BUN/Creatinine Ratio 19, Glucose Level 119H, Calcium Level 9.4, Corrected Calcium 9.8, Total Bilirubin 0.7, Aspartate Amino Transf (AST/SGOT) 14, Alanine Aminotransferase (ALT/SGPT) 10, Alkaline Phosphatase 74, Total Protein 7.2, Albumin 3.5 10/14/21 11:08: Glucometer 129H Microbiology 10/08/21 MRSA Screen - Final, Complete MRSA not isolated Laboratory Tests 10/13/21 06:54 10/14/21 05:50 A/P: Assessment: CVA with right sided hemiparesis, aphasia, dysphagia - reported h/o several CVA/TIA's following COVID infection in 2020 with left sided weakness - presents this time with righ sided hemiparesis/aphasia/dysphagia - The stroke team at was consulted with no further recommendations other than continuing aspirin and Plavix and obtaining an MRI - Management per stroke team - Follows with Dr. Grant of neurology services at [facility] - Carotid u/10-07-21: Very limited exam. The right carotid artery shows no hemodynamic disease with minimal plaquing. Left carotid system and vertebral arteries were not adequately evaluated due to patient's pain and position. Previous CT angiography of the neck on 10/05/2021 suggested the carotid and vertebral arteries to be widely patent without significant stenosis - ILR implanted on 10/08/21 to eval for occult A Fib as the source of his CVA ?Angioedema - Lisinopril stopped Fall at home Sleep apnea - non-complaint with sleep study ? aspiration - S/P PEG tube placement on 10-10-[address] Marshall HTN - currently controlled Crohn's dz - h/o colectomy DM 2 Plan: CVA - management per stroke team - please see recs per [facility] as above - source undetermined - implanted ILR 10-08-21 to r/o possible a-fib/flutter as cause. No significant arrhythmia seen so far S/P PEG tube placement - continue current medications Monitor lab from time to time and replenish electrolytes RUPA BALTAZAR MD FACP [facility] Oct 14, 2021 18:47
[2021-10-14] MEDS: EMPAGLIFLOZIN 10 MG TABLET (JARDIANCE) PO SCH (19:37)
[2021-10-14] MEDS: ACETAMINOPHEN 325 MG TABLET PO PRN (19:37)
[2021-10-15] VITALS (7 sets, daily range): BP systolic 136–165; BP diastolic 80–93
[2021-10-15] MEDS: ENOXAPARIN 40 MG/0.4 ML (LOVENOX) SYR SC SCH ×3 (02:26→23:56)
[2021-10-15] MEDS: inSUlin ASPART (NovoLOG) 1 UNIT/0.01 ML (CHARGE PER UNIT) SC SCH ×4 (05:45→23:52)
[2021-10-15 06:17] LABS: BASOPHILS # (AUTO) 0.1 10^3/uL (0.0-0.1); BASOPHILS % (AUTO) 1 % (0-10); EOSINOPHILS # (AUTO) 0.4 10^3/uL (0.0-0.3); EOSINOPHILS % (AUTO) 4 % (0-10); HEMATOCRIT 41 % (40-54); HEMOGLOBIN 13.2 g/dL (13.3-17.7); LYMPHOCYTES # (AUTO) 1.5 10^3/uL (1.0-4.0); LYMPHOCYTES % (AUTO) 15 % (12-44); MEAN CORPUSCULAR HEMOGLOBIN 27 pg (25-34); MEAN CORPUSCULAR HGB CONC 32 g/dL (32-36); MEAN CORPUSCULAR VOLUME 85 fL (80-99); MEAN PLATELET VOLUME 9.9 fL (9.0-12.2); MONOCYTES % (AUTO) 10 % (0-12); NEUTROPHILS # (AUTO) 6.7 10^3/uL (1.8-7.8); NEUTROPHILS % (AUTO) 69 % (42-75); PLATELET COUNT 392 10^3/uL (130-400); WHITE BLOOD COUNT 9.7 10^3/uL (4.3-11.0)
[2021-10-15 06:29] LABS: ALBUMIN 3.4 GM/DL (3.2-4.5); POTASSIUM 3.4 MMOL/L (3.6-5.0)
[2021-10-15 06:30] LABS: CALCIUM 9.2 MG/DL (8.5-10.1)
[2021-10-15 06:34] LABS: BILIRUBIN,TOTAL 0.6 MG/DL (0.1-1.0)
[2021-10-15 06:35] LABS: CREATININE SERUM 0.66 MG/DL (0.60-1.30)
[2021-10-15] MEDS: CLOPIDOGREL 75 MG (PLAVIX) TABLET PO SCH (09:00)
[2021-10-15] MEDS: MICONAZOLE 2% POWDER (DESENEX AF) 90 GM TOP SCH ×2 (09:00→19:50)
[2021-10-15] MEDS ORDERED: cloNIDine 0.2 MG PATCH (CATAPRES TTS) TDSY TD SCH (09:00)
[2021-10-15] MEDS: meTOprolol TARTRATE 50 MG (LOPRESSOR) TAB PO SCH ×2 (09:00→19:50)
[2021-10-15] MEDS: amLODIPine 5 MG (NORVASC) TAB PO SCH (09:00)
[2021-10-15] MEDS: FAMOTIDINE 20 MG (PEPCID) TABLET PO SCH ×2 (09:00→19:50)
[2021-10-15] MEDS: NYSTATIN CREAM (MYCOSTATIN) 30 GM TUBE TP SCH ×3 (09:01→19:50)
[2021-10-15] MEDS: ASPIRIN E.C. 81 MG (ECOTRIN) TAB PO SCH (09:03)
[2021-10-15] MEDS ORDERED: meTOprolol TARTRATE 50 MG (LOPRESSOR) TAB PO NR (10:45)
--- NOTE | 2021-10-15 10:45 | Progress Note - Cardiology ---
Cardiology SOAP Progress Note Objective: I&O/Vital Signs 10/15/21 10/16/21 10/16/21 10/16/21 23:43 00:14 03:14 04:30 Temp 35.6 36.5 Pulse 92 100 Resp 22 B/P (MAP) 152/85 (107) 147/76 (99) Pulse Ox 96 96 96 O2 Delivery High Flow N/C High Flow N/C High Flow N/C O2 Flow Rate 6.00 6.00 6.00 10/16/21 10/16/21 10/16/21 07:33 07:39 08:00 Temp 36.0 Pulse 108 Resp 23 B/P (MAP) 160/98 (118) Pulse Ox 93 95 95 O2 Delivery High Flow N/C High Flow N/C Nasal Cannula O2 Flow Rate 6.00 6.00 6.00 10/16/21 00:00 Intake Total 1470 ml Output Total 1125 ml Balance 345 ml Constitutional: well-developed, other (non-verbal - nods head slowly in response to questions) Respiratory: No accessory muscle use, No respiratory distress; chest expansion is symmetric, chest is bilaterally symmetric, other (coarse breath sounds with productive cough) Cardiovascular: regular rate-rhythm; No JVD; tachycardia, S1 and S2 Gastrointestional: No tender; soft, round, audible bowel sounds, other (PEG tube in place) Extremities: no lower extremity edema bilateral Neurologic/Psychiatric: other (RUE and RLE flaccid, facial droop right sided; LLE and LUE chronically weak 4/5; aphasic) Skin: No rash on exposed areas, No ulcerations on exposed areas Results/Procedures: Labs Laboratory Tests 10/15/21 11:08: Glucometer 124H 10/15/21 17:12: Glucometer 149H 10/15/21 23:48: Glucometer 137H 10/16/21 05:19: Glucometer 125H 10/16/21 07:00: White Blood Count 9.9, Red Blood Count 4.92, Hemoglobin 13.4, Hematocrit 42, Mean Corpuscular Volume 85, Mean Corpuscular Hemoglobin 27, Mean Corpuscular Hemoglobin Concent 32, Red Cell Distribution Width 13.4, Platelet Count 426H, Mean Platelet Volume 10.1, Immature Granulocyte % (Auto) 0, Neutrophils (%) (Aut o) 70, Lymphocytes (%) (Auto) 14, Monocytes (%) (Auto) 11, Eosinophils (%) (Auto) 4, Basophils (%) (Auto) 1, Neutrophils # (Auto) 6.9, Lymphocytes # (Auto) 1.4, Monocytes # (Auto) 1.1H, Eosinophils # (Auto) 0.4H, Basophils # (Auto) 0.1, Immature Granulocyte # (Auto) 0.0, Sodium Level 146H, Potassium Level 3.5L, Chloride Level 105, Carbon Dioxide Level 27, Anion Gap 14, Blood Urea Nitrogen 18, Creatinine 0.64, Estimat Glomerular Filtration Rate 114, BUN/Creatinine Ratio 28, Glucose Level 139H, Calcium Level 9.2, Corrected Calcium 9.7, Total Bilirubin 0.5, Aspartate Amino Transf (AST/SGOT) 13, Alanine Aminotransferase (ALT/SGPT) 8, Alkaline Phosphatase 69, Total Protein 7.2, Albumin 3.4 Microbiology 10/08/21 MRSA Screen - Final, Complete MRSA not isolated A/P: Assessment: CVA with right sided hemiparesis, aphasia, dysphagia - reported h/o several CVA/TIA's following COVID infection in 2020 with left sided weakness - presents this time with righ sided hemiparesis/aphasi a/dysphagia - The stroke team at was consulted with no further recommendations other than continuing aspirin and Plavix and obtaining an MRI - Management per stroke team - Follows with Dr. Grant of neurology services at [facility] - Carotid u/10-07-21: Very limited exam. The right carotid artery shows no hemodynamic disease with minimal plaquing. Left carotid system and vertebral ar teries were not adequately evaluated due to patient's pain and position. Previous CT angiography of the neck on 10/05/2021 suggested the carotid and vertebral arteries to be widely patent without significant stenosis - ILR implanted on 10/08/21 to eval for occult A Fib as the source of his CVA ?Angioedema - Lisinopril stopped Fall at home Sleep apnea - non-complaint with sleep study ? aspiration - S/P PEG tube placement on 10-10-[address] Marshall HTN - currently controlled Crohn's dz - h/o colectomy DM 2 Plan: CVA - management per stroke team - please see recs per [facility] as above - source undetermined - implanted ILR 10-08-21 to r/o possible a-fib/flutter as cause. No significant arrhythmia seen so far S/P PEG tube placement Hypertensive and tachycardic - increase BB Monitor lab from time to time and replenish electrolytes Discharge planning in place - probable home with home health EREN FLOWERS Oct 15, 2021 10:45
--- NOTE | 2021-10-15 11:03 | Physical Therapy Daily Note ---
PT Daily Note-Current Subjective Patient and spouse agree to PT/OT cotreat due to patient's complete dependence for all mobility. Transfers SCALE: Activities may be completed with or without assistive devices. 8-Poobyvvnfz-isudfju completes the activity by him/herself with no assistance from a helper. 5-Set-up or Clean-up Assistance-helper sets up or cleans up; patient completes activity. [place] assists only prior to or following the activity. 4-Supervision or Touching Assistance-helper provides verbal cues and/or touching/steadying and/or contact guard assistance as patient completes activity. Assistance may be provided throughout the activity or intermittently. 3-Partial/Moderate Assistance-helper does LESS THAN HALF the effort. [place] lifts, holds or supports trunk or limbs, but provides less than half the effort. 2-Substantial/Maximal Assistance-helper does MORE THAN HALF the effort. [place] lifts or holds trunk or limbs and provides more than half the effort. 4-Mlppwyvzf-mtfeyz does ALL the effort. Patient does none of the effort to complete the activity. Or, the assistance of 2 or more helpers is required for the patient to complete the activity. If activity was not attempted, code reason: 7-Patient Refused. 9-Not Applicable-not attempted and the patient did not perform the activity before the current illness, exacerbation or injury. 10-Not Attempted due to Environmental Limitations-(lack of equipment, weather restraints, etc.). 88-Not Attempted due to Medical Conditions or Safety Concerns. Roll Left & Right (QC): 1 (x 3) rolling several times to assist with bathing and changing the bed. Assessment Patient very alert and responsive with all treatment. Patient continues to be dependent of several people for bed mobility and bathing. PT Penitentiary Goals Truck And Transport Mechanic Goals PT Penitentiary Goals Time Frame: Oct 14, 2021 Roll Left & Right (QC): 3 Sit to Lying (QC): 3 Lying-Sitting on Side/Bed(QC): 3 Sit to Stand (QC): 3 Chair/Ygt-un-Cokqk Xfer(QC): 2 PT Plan Treatment/Plan Treatment Plan: Continue Plan of Care Treatment Plan: Bed Mobility, Education, Functional Activity Flori, Functional Strength, Gait, Safety, Therapeutic Exercise, Transfers Treatment Duration: Oct 14, 2021 Frequency: 6 times per week Estimated Hrs Per Day: .25 hour per day Patient and/or Family Agrees t: Yes Time/GCodes Time In: 1033 Time Out: 1056 Total Billed Treatment Time: 23 Total Billed Treatment 1 visit FA x 2 23 min SHAN GONZALEZ PT Oct 15, 2021 11:03
--- NOTE | 2021-10-15 11:18 | Occupational Ther Daily Note ---
OT Current Status-Daily Note Subjective Pt alert, lying in bed. present in room. Pt a lot more interactive today, smiling and attempting to joke with staff. Mental Status/Objective Patient Orientation: Person, Place, Non-Verbal/Aphasic, Time, Situation Attachments: Cazares Catheter, IV, Oxygen, Telemetry (loop recorder) ADL-Treatment Dependent for bathing, bed mobility. No movement noted in R UE. Completed bathing with assist x4. Assist x3-4 to scoot pt up in bed. After session, pt lying in bed with call light/phone in reach. All needs met in room. Therapy Code Descriptions/Definitions Functional [place] Measure: 0=Not Assessed/NA 4=Minimal Assistance 1=Total Assistance 5=Supervision or Setup 2=Maximal Assistance 6=Modified [place] 3=Moderate Assistance 7=Complete IndependenceSCALE: Activities may be completed with or without assistive devices. 3-Onlojqayoq-cpqeyco completes the activity by him/herself with no assistance from a helper. 5-Set-up or Clean-up Assistance-helper sets up or cleans up; patient completes activity. [place] assists only prior to or following the activity. 4-Supervision or Touching Assistance-helper provides verbal cues and/or touc yan/steadying and/or contact guard assistance as patient completes activity. Assistance may be provided throughout the activity or intermittently. 3-Partial/Moderate Assistance-helper does LESS THAN HALF the effort. [place] lifts, holds or supports trunk or limbs, but provides less than half the effort. 2-Substantial/Maximal Assistance-helper does MORE THAN HALF the effort. [place] lifts or holds trunk or limbs and provides more than half the effort. 3-Okpclrcpm-sdjaxo does ALL the effort. Patient does none of the effort to complete the activity. Or, the assistance of 2 or more helpers is required for the patient to complete the activity. If activity was not attempted, code reason: 7-Patient Refused. 9-Not Applicable-not attempted and the patient did not perform the activity before the current illness, exacerbation or injury. 10-Not Attempted due to Environmental Limitations-(lack of equipment, weather restraints, etc.). 88-Not Attempted due to Medical Conditions or Safety Concerns. Shower/Bathe Self (QC): 1 OT Account Solutions Analyst Goals [facility] Goals Time Frame: Nov 08, 2021 Eating (QC): 3 Toileting Hygiene (QC): 3 Shower/Bathe Self (QC): 2 Upper Body Dressing (QC): 3 Lower Body Dressing (QC): 2 On/Off Footwear (QC): 2 Additional Goals: 1-Demonstrate ADL Tasks, 2-Verbalize Understanding, 3- ImproveStrength/Flori 1=Demonstrate adherence to instructed precautions during ADL tasks. 2=Patient will verbalize/demonstrate understanding of assistive devices/modifications for ADL. 3=Patient will improve strength/tolerance for activity to enable patient to perform ADL's. OT Education/Plan Problem List/Assessment Assessment: Decreased Activ Tolerance, Decreased UE Strength, Dependent Transfers, Impaired Bed Mobility, Impaired Self-Care Skills, Restricted Funct UE ROM Pt would benefit from skilled OT services in order to increase functional use of RUE, improve independence and safety with ADLs and functional mobility, and for neuromuscular reeducation in order to maximize LOF for safe return home with spouse. Discharge Recommendations Plan/Recommendations: Continue POC Treatment Plan/Plan of Care Patient would benefit from OT for education, treatment and training to promote independence in ADL's, mobility, safety and/or upper extremity function for ADL's. Plan of Care: ADL Retraining, Functional Mobility, UE Funct Exercise/Act, UE Neuromus Re-Ed/Coord Treatment Duration: Nov 08, 2021 Frequency: 5 times per week Estimated Hrs Per Day: .25 hour per day Rehab Potential: Poor Time/GCodes Start Time: 10:33 Stop Time: 10:56 Total Time Billed (hr/min): 23 Billed Treatment Time 1 visit-FA 2 (23 min) JENNIFER ZARATE Oct 15, 2021 11:18
--- NOTE | 2021-10-15 14:36 | ST Dysphagia Evaluation ---
Speech Evaluation-General Medical Diagnosis CVA Onset Date: Oct 06, 2021 Therapy Diagnosis Therapy Diagnosis: severe oropharyngeal dysphagia Precautions Precautions: Aspiration Precautions/Isolations: Aspiration Referral Referring Physician: Julia Yañez Reason for Referral: Evaluation/Treatment Medical History Pertinent Medical History: CVA CVA Current History CVA Reviewed History: Yes Social History Current Living Status: Spouse Speech PLF/Current-Dysphagia Prior Level of Function NPO since receiving care at [facility]. Spouse reported he consumed soft, bite sized solids and thin liquids at home prior to hospitalization Subjective Pt was sitting upright in bed and was cooperative and friendly. Pt was willing to participate in PO trials as indicated by a "thumbs up" nonverbal gesture. Pt's was present at bedside and reported Pt's history due to Pt's expressive aphasia. Pt used nonverbal gestures, AAC, and single words with effortful voicing during the evaluation. Cognitive Status Patient Orientation: Non-Verbal/Aphasic Oral Motor Skills Dentition: Edentalous Ability to Follow Directions: Fair Pt reportedly has dentures, but refuses to wear them. Pt demonstrated minimal o ral secretions and drooling during today's visit. reported secretions are typically excessive. Pt occasionally used oral cavity suction Oral Expression Ability: Severe Impairment Voice Voice Phonatory-Based Quality: Weak Voice Pitch: Normal Voice Loudness: Moderately Soft/Quiet Face Facial Symmetry: Asymmetrical Oral-Facial Assessment Oral-Facial Dentition: Normal Labial Seal Description: Reduced ROM, Weak, Poor Coordination Smile: Reduced ROM, Poor Coordination Puff Cheeks: Reduced Strength Lingual Protrusion: Abnormal lingual protrusion/open mouth posture Lingual ROM: Abnormal did not demonstrate lingual/oral manipulation of ice chips or puree Lingual Strength: Abnormal Volitional Dry Swallow: No Voluntary Cough: No Can Clear Throat Volitionally: No Productive Cough: Yes Productive Throat Clear: Yes Dysphagia Evaluation Consistencies Presented: Thin Liquid, Pureed thin liquid were ice chips only. 1/2 tsp puree. Oral Phase: Unable to Form Bolus, Reduced Oral Transit Pharyngeal Phase: Multiple Swallow Attempts, Clears Throat max verbal prompts to elicit swallow with and without bolus present. demonstrated oral holding. laryngeal elevation present to palpation Funct. Velo/Pharyngeal Symptom: Clears Throat, Cough After Swallow, Wet Voice Dietary Recommendations: NPO Liquid Recommendations: NPO 1) NPO 2) Continued oral care to decrease oral bacteria to lungs should aspiration occur 3) Continue effortful swallow strategy 4) Schedule MBSS. Spouse interested in a MBSS to determine aspiration and consistencies tolerated. S/s of suspected aspiration with own saliva and PO trials (ice chips and 1/2 tsp puree) demonstrated by immediate cough, red face, watery eyes, and wet vocal quality. Dysphagia Evaluation Summary Pt presents with severe oropharyngeal dysphagia characterized by reduced facial, oral, and lingual strength and coordination. Pt demonstrates delayed onset of swallow and poor airway protection with PO trials and own secretions. NPO diet recommended at this time with continued skilled ST to determine possible advancement of PO diet consistencies Barriers to Learning cognition, expressive communication, fatigue Speech Short Term Goals Short Term Goals Short Term Goals 1. The patient will tolerate the least restrictive consistency of P.O. trials for possible advancement of a P.O. diet consistency. 2. The patient will demonstrate intelligibility strategies with 50% accuracy and maximum clinician verbal and visual cueing. Time Frame-STG: Three Weeks. Speech Penitentiary Goals Moss Gatherer Goals 1. The patient will tolerate the least restrictive consistency without s/s of suspected aspiration. 2. The patient will improve expressive communication for increased safety with discharge to the least restricted environment. Time Frame: One Week. Speech-Plan Patient/Family Goals Patient/Family Goals: diet advancement including thin liquids and soft, bite-sized solids Treatment Plan Speech Therapy Treatment Plan: Continue Plan of Care Pt demonstrates severe oropharyngeal dysphagia and NPO diet is recommended at this time. Skilled ST recommended to target diet advancement and safe swallow strategies/precautions Treatment Duration: Oct 28, 2021 Frequency: 4 times per week (Four to five times per week.) Estimated Hrs Per Day: .25 hour per day Rehab Potential: Poor Barriers to Learning: cognition, fatigue, expressive communication Pt/Family Agrees to Plan: Yes Safety Risks/Education Teaching Recipient: Patient, Significant Other Teaching Methods: Discussion Response to Teaching: Verbalize Understanding Education Topics Provided: safe swallow strategies (e.g. effortful swallow) and evaluation results Time Speech Therapy Time In: 13:00 Speech Therapy Time Out: 13:30 Total Billed Time: 30 Billed Treatment Time JOSH Blake VICENTE Solorzano Oct 15, 2021 14:36
[2021-10-15] MEDS: EMPAGLIFLOZIN 10 MG TABLET (JARDIANCE) PO SCH (19:50)
--- NOTE | 2021-10-15 22:02 | Progress Note ---
Subjective Subjective/Events-last exam Patient gives a thumb up this AM to state that he is feeling better. Doing oral suction care himself. Order for home hospital be today. Patient is unable to reposition self and will need frequent repositioning every 2-4 hrs. He is very high risk for pressure sores due to his severe physical debility and hemiparesis. He will need the HOB at least 30 degrees due to difficulty clearing secretions and difficulty breathing. He is unable to be positioned with pillows and needs electric hospital bed. Review of Systems Denies any pain Objective Exam Last Set of Vital Signs Vital Signs Date Time Temp Pulse Resp B/P (MAP) Pulse Ox O2 Delivery O2 Flow Rate FiO2 10/15/21 20:34 Nasal Cannula 6.00 10/15/21 19:29 35.9 105 20 165/90 (115) 97 10/15/21 11:52 98 Capillary Refill : Less Than 3 SecondsLess Than 3 Seconds I&O Intake and Output 10/14/21 23:59 Intake Total 1735 ml Output Total 2175 ml Balance -440 ml Intake Oral 0 ml Tube Feeding 1080 ml Other 655 ml Output Urine Total 2175 ml General: Alert, No Acute Distress Lungs: Other (Normal work of breathing, basilar wheezing) Heart: Regular Rate, No Murmurs Abdomen: Normal Bowel Sounds, Soft, No Tenderness, No Masses Extremities: Other (2+ pitting edema ) Results/Procedures Lab Laboratory Tests 10/14/21 23:09: Glucometer 112H 10/15/21 05:13: Glucometer 104 10/15/21 06:13: White Blood Count 9.7, Red Blood Count 4.86, Hemoglobin 13.2L, Hematocrit 41, Mean Corpuscular Volume 85, Mean Corpuscular Hemoglobin 27, Mean Corpuscular Hem oglobin Concent 32, Red Cell Distribution Width 13.3, Platelet Count 392, Mean Platelet Volume 9.9, Immature Granulocyte % (Auto) 0, Neutrophils (%) (Auto) 69, Lymphocytes (%) (Auto) 15, Monocytes (%) (Auto) 10, Eosinophils (%) (Auto) 4, Basophils (%) (Auto) 1, Neutrophils # (Auto) 6.7, Lymphocytes # (Auto) 1.5, Monocytes # (Auto) 1.0, Eosinophils # (Auto) 0.4H, Basophils # (Auto) 0.1, Immature Granulocyte # (Auto) 0.0, Sodium Level 146H, Potassium Level 3.4L, Chloride Level 107, Carbon Dioxide Level 24, Anion Gap 15H, Blood Urea Nitrogen 16, Creatinine 0.66, Estimat Glomerular Filtration Rate 113, BUN/Creatinine Ratio 24, Glucose Level 114H, Calcium Level 9.2, Corrected Calcium 9.7, Total Bilirubin 0.6, Aspartate Amino Transf (AST/SGOT) 11, Alanine Aminotransferase (ALT/SGPT) 10, Alkaline Phosphatase 67, Total Protein 7.0, Albumin 3.4 10/15/21 11:08: Glucometer 124H 10/15/21 17:12: Glucometer 149H Microbiology 10/08/21 MRSA Screen - Final, Complete MRSA not isolated Radiology [place] NAME: RAHAT MARIE [facility] REC#: [id number] PT STATUS: REG ER : 1970 PHYSICIAN: JERRY JAIME ADMIT DATE: 10/05/21/ER Draft Date of Exam:10/05/21 CT HEAD WO-R/O STROKE PROCEDURE: CT head w/o r/o stroke. TECHNIQUE: Multiple contiguous axial images were obtained through the brain without the use of intravenous contrast. Auto Exposure Controls were utilized during the CT exam to meet ALARA standards for radiation dose reduction. INDICATION: Stroke. COMPARISON: Prior examination from 05/07/2021. FINDINGS: The ventricles and sulci are within normal limits. There are a few lacunar infarcts. There is no hydrocephalus. There is no midline shift. There is no mass, hemorrhage or extra-axial fluid collection. The calvarium is intact. Sinuses and mastoid air cells are clear. IMPRESSION: Atrophy and some mild chronic microvascular ischemic disease with a few lacunar infarcts, particularly in the left basal ganglia and to a lesser degree right basal ganglia. No other acute intracranial abnormality. If there is high clinical concern for an acute CVA further evaluation with MRI should be considered. Dictated on workstation # [id number] Dict: 10/05/211952 Trans: 10/05/211956 PJE [id number] Interpreted by: KENJI DE JESUS MD Electronically signed by:NAME: RAHAT MARIE MED REC#: [id number] PT STATUS: ADM IN : 1970 PHYSICIAN: WISAM LIPSCOMB DO ADMIT DATE: 10/06/21/[place] Draft Date of Exam:10/07/21 US CAROTID CHILO COMPLETE [id number] PROCEDURE: US carotid duplex bilateral. TECHNIQUE: Multiple Real-time grayscale images were obtained over the carotid arteries in various projections bilaterally. Additional spectral analysis and color Doppler duplex images were also obtained. INDICATION: Followup post-CVA. FINDINGS: The left carotid system and vertebral system could not be adequately interrogated due to patient position and pain. Real-time imaging shows minimal atherosclerotic plaquing within the right carotid bulb and internal and external carotid arteries. Waveforms and peak velocities are normal with normal carotid ratios. IMPRESSION: 1. Very limited exam. The right carotid artery shows no hemodynamic disease with minimal plaquing. 2. Left carotid system and vertebral arteries were not adequately evaluated due to patient's pain and position. 3. Previous CT angiography of the neck on 10/05/2021 suggested the carotid and vertebral arteries to be widely patent without significant stenosis. Parameters based on the consensus panel Santana-Scale and Doppler ultrasound criteria published January 2003, Radiology, Volume 229. DOPPLER (peak systolic velocity M/S Right Left CCA 1.12 1.33 ICA Proximal .50 NOT SEEN ICA Mid .63 NOT SEEN ICA Distal .76 NOT SEEN RATIO .68 N/A ECA .93 NOT SEEN VERT NOT SEEN NOT SEEN Dictated on workstation # [id number] Dict: 10/07/21 1034 Trans: 10/07/21 1047 [id number] Interpreted by: KADIE PERSAUD MD Electronically signed by: Assessment/Plan Assessment/Plan (1) Acute CVA (cerebrovascular accident) Status: Acute Assessment & Plan: 10/14: Extensive workup of cause of multiple TIAs/CVAs with unknown cause, cardiac workup also negative, stroke team consulted upon arrival and patient continued on DAPT, severe dyphagia with PEG tube placed this admission, PT/OT/speech 10/15: order for hosp bed, home suction in preperation for home with (2) Right hemiparesis Status: Acute (3) Dysphagia due to recent cerebrovascular accident Status: Acute (4) Aphasia due to acute cerebrovascular accident (CVA) Status: Acute (5) Acute and chronic respiratory failure with hypoxia Status: Acute Assessment & Plan: 10/14: requiring HF oxygen, will titrate as tolerated, MAT protocol (6) HTN (hypertension) Status: Chronic Assessment & Plan: 10/14: been normotensive, will restart home meds thru PEG tube Qualifiers: Qualified Codes: I10 - Essential (primary) hypertension (7) Diabetes mellitus Status: Chronic Assessment & Plan: 10/14: SSI Qualifiers: Qualified Codes: E11.9 - Type 2 diabetes mellitus without complications (8) S/P percutaneous endoscopic gastrostomy (PEG) tube placement Assessment & Plan: 10/15: Bolus feeding Glucerna 5 cans daily with 90 ml free water before and after each meal (9) DVT prophylaxis Status: Acute Assessment & Plan: - SCDs, lovenox (10) Discharge planning issues Assessment & Plan: 10/14: Planning for d/c home with HH and family caregivers, will need hospital bed, new oxygen start, suction LYDIA SLAUGHTER MD Oct 15, 2021 22:02
[2021-10-16 04:30] VITALS: BP 147/76
[2021-10-16] MEDS: inSUlin ASPART (NovoLOG) 1 UNIT/0.01 ML (CHARGE PER UNIT) SC SCH ×4 (05:22→23:33)
[2021-10-16 07:21] LABS: BASOPHILS # (AUTO) 0.1 10^3/uL (0.0-0.1); BASOPHILS % (AUTO) 1 % (0-10); EOSINOPHILS # (AUTO) 0.4 10^3/uL (0.0-0.3); EOSINOPHILS % (AUTO) 4 % (0-10); HEMATOCRIT 42 % (40-54); HEMOGLOBIN 13.4 g/dL (13.3-17.7); LYMPHOCYTES # (AUTO) 1.4 10^3/uL (1.0-4.0); LYMPHOCYTES % (AUTO) 14 % (12-44); MEAN CORPUSCULAR HEMOGLOBIN 27 pg (25-34); MEAN CORPUSCULAR HGB CONC 32 g/dL (32-36); MEAN CORPUSCULAR VOLUME 85 fL (80-99); MEAN PLATELET VOLUME 10.1 fL (9.0-12.2); MONOCYTES # (AUTO) 1.1 10^3/uL (0.0-1.0); MONOCYTES % (AUTO) 11 % (0-12); NEUTROPHILS # (AUTO) 6.9 10^3/uL (1.8-7.8); NEUTROPHILS % (AUTO) 70 % (42-75); PLATELET COUNT 426 10^3/uL (130-400); WHITE BLOOD COUNT 9.9 10^3/uL (4.3-11.0)
[2021-10-16 07:35] LABS: ALBUMIN 3.4 GM/DL (3.2-4.5); POTASSIUM 3.5 MMOL/L (3.6-5.0)
[2021-10-16 07:36] LABS: CALCIUM 9.2 MG/DL (8.5-10.1)
[2021-10-16 07:37] LABS: TOTAL PROTEIN 7.2 GM/DL (6.4-8.2)
[2021-10-16 07:39] VITALS: BP 160/98
[2021-10-16 07:39] LABS: BILIRUBIN,TOTAL 0.5 MG/DL (0.1-1.0)
[2021-10-16 07:41] LABS: CREATININE SERUM 0.64 MG/DL (0.60-1.30)
[2021-10-16] MEDS: ASPIRIN E.C. 81 MG (ECOTRIN) TAB PO SCH (08:29)
[2021-10-16] MEDS: amLODIPine 5 MG (NORVASC) TAB PO SCH (08:30)
[2021-10-16] MEDS: CLOPIDOGREL 75 MG (PLAVIX) TABLET PO SCH (08:30)
[2021-10-16] MEDS: meTOprolol TARTRATE 50 MG (LOPRESSOR) TAB PO SCH ×2 (08:30→21:54)
[2021-10-16] MEDS: MICONAZOLE 2% POWDER (DESENEX AF) 90 GM TOP SCH ×2 (08:31→21:54)
[2021-10-16] MEDS: FAMOTIDINE 20 MG (PEPCID) TABLET PO SCH ×2 (08:31→21:54)
[2021-10-16] MEDS: NYSTATIN CREAM (MYCOSTATIN) 30 GM TUBE TP SCH ×3 (08:31→21:55)
[2021-10-16] MEDS ORDERED: amLODIPine 5 MG (NORVASC) TAB PO ONE (10:30)
--- NOTE | 2021-10-16 10:51 | Progress Note - Cardiology ---
Cardiology SOAP Progress Note Subjective: In bed Spouse at the bedside No c/o CP Objective: I&O/Vital Signs 10/17/21 10/17/21 10/17/21 00:00 04:00 08:05 Temp 36.4 36.6 36.7 Pulse 88 100 109 Resp 18 18 22 B/P (MAP) 138/81 (100) 134/79 (97) 164/85 (111) Pulse Ox 97 94 93 O2 Delivery High Flow N/C High Flow N/C High Flow N/C O2 Flow Rate 6.00 6.00 6.00 10/17/21 00:00 Intake Total 1340 ml Output Total 1100 ml Balance 240 ml Constitutional: well-developed, other (non-verbal - nods head slowly in response to questions) Respiratory: No accessory muscle use, No respiratory distress; chest expansion is symmetric, chest is bilaterally symmetric, other (coarse breath sounds with productive cough) Cardiovascular: regular rate-rhythm; No JVD; tachycardia, S1 and S2 Gastrointestional: No tender; soft, round, audible bowel sounds, other (PEG tube in place) Extremities: no lower extremity edema bilateral Neurologic/Psychiatric: other (RUE and RLE flaccid, facial droop right sided; LLE and LUE chronically weak 4/5; aphasic) Skin: No rash on exposed areas, No ulcerations on exposed areas Results/Procedures: Labs Laboratory Tests 10/16/21 12:14: Glucometer 142H 10/16/21 17:31: Glucometer 146H 10/16/21 23:29: Glucometer 143H 10/17/21 05:17: Glucometer 145H 10/17/21 07:42: White Blood Count 11.6H, Red Blood Count 4.89, Hemoglobin 13.5, Hematocrit 42, Mean Corpuscular Volume 87, Mean Corpuscular Hemoglobin 28, Mean Corpuscular Hemoglobin Concent 32, Red Cell Distribution Width 13.4, Platelet Count 419H, Mean Platelet Volume 10.1, Immature Granulocyte % (Auto) 1, Neutrophils (%) (Auto) 69, Lymphocytes (%) (Auto) 15, Monocytes (%) (Auto) 11, Eosinophils (%) (Auto) 4, Basophils (%) (Auto) 1, Neutrophils # (Auto) 8.0H, Lymphocytes # (Auto) 1.8, Monocytes # (Auto) 1.3H, Eosinophils # (Auto) 0.4H, Basophils # (Auto) 0.1, Immature Granulocyte # (Auto) 0.1, Sodium Level 148H, Potassium Level 3.8, Chloride Level 104, Carbon Dioxide Level 27, Anion Gap 17H, Blood Urea Nitrogen 21H, Creatinine 0.73, Estimat Glomerular Filtration Rate 109, BUN/Creatinine Ratio 29, Glucose Level 141H, Calcium Level 9.2, Corrected Calcium 9.7, Total Bilirubin 0.5, Aspartate Amino Transf (AST/SGOT) 13, Alanine Aminotransferase (ALT/SGPT) 11, Alkaline Phosphatase 71, Total Protein 7.2, Albumin 3.4 Microbiology 10/08/21 MRSA Screen - Final, Complete MRSA not isolated A/P: Assessment: CVA with right sided hemiparesis, aphasia, dysphagia - reported h/o several CVA/TIA's following COVID infection in 2020 with left sided weakness - presents this time with righ sided hemip aresis/aphasia/dysphagia - The stroke team at was consulted with no further recommendations other than continuing aspirin and Plavix and obtaining an MRI - Management per stroke team - Follows with Dr. Grant of neurology services at [facility] - Carotid u/-02-18: Very limited exam. The right carotid artery shows no hemodynamic disease with minimal plaquing. Left carotid system and vertebral arteries were not adequately evaluated due to patient's pain and position. Previous CT angiography of the neck on 10/05/2021 suggested the carotid and vertebral arteries to be widely patent without significant stenosis - ILR implanted on 10/08/21 to eval for occult A Fib as the source of his CVA ?Angioedema - Lisinopril stopped Fall at home Sleep apnea - non-complaint with sleep study ? aspiration - S/P PEG tube placement on 10-10-[address] Marshall HTN - currently controlled Crohn's dz - h/o colectomy DM 2 Plan: CVA - management per stroke team - please see recs per [facility] as above - source undetermined - implanted ILR 10-08-21 to r/o possible a-fib/flutter as cause. No significant arrhythmia seen so far S/P PEG tube placement BP still not well controlled - increase Norvasc Monitor lab from time to time and replenish electrolytes Discharge planning in place - probable home with home health vs [facility] Dr. Grimes will be covering cardiology care EREN FLOWERS Oct 16, 2021 10:51
[2021-10-16 11:23] VITALS: BP 134/75
[2021-10-16] MEDS: ENOXAPARIN 40 MG/0.4 ML (LOVENOX) SYR SC SCH (11:23)
--- NOTE | 2021-10-16 11:27 | Speech Therapy Daily Note ---
Speech Daily Progress Note Subjective Date Seen by Provider: Oct 16, 2021 Time Seen by Provider: 07:58 The patient was lying in bed, awake and alert upon entrance to his room by the clinician. The patient made immediate eye contact following a verbal greeting from the clinician. The patient's remains at bedside. The patient was agreeable to participation in the skilled speech pathology treatment session. The patient continues to use the [place] to clear oral secretions, with visible anterior loss of oral secretions present from the left labial side. Resting to ngue protrusion is present from the oral cavity. The patient additionally displays rigorous coughing following "dry" swallow attempts which the clinician believes is secondary to aspiration of his own secretions. The [place] is resting in the patient's oral cavity upon entrance and removed by the clinician to encourage the patient to attempt swallowing his own secretions for oropha ryngeal swallowing rehabilitation. The patient is currently receiving VapoTherm. Objective The patient was lying in bed, awake and alert upon entrance to his room by the clinician. The patient made immediate eye contact following a verbal greeting from the clinician. The patient's remains at bedside. The patient was agreeable to participation in the skilled speech pathology treatment session. The patient's vocal quality is "wet" at baseline. The patient is provided three ice chips, three teaspoons of water, and eight half teaspoons of puree. The patient displayed a delayed, rigorous cough, red face, and watery eyes following two ice chips. The patient demonstrated an immediate, rigorous cough, red face, and watery eyes with one three teaspoon trials of thin liquid. The patient displayed a delayed, rigorous cough, red face, and watery eyes following the eighth trial of puree. Following the fourth trial of puree, the patient appeared to fatigue, requiring verbal prompts from the clinician to reduce oral holding and elicit posterior transfer of the bolus. Increased manipulation of the puree consistency was noted with the patient's tongue. The patient consistently displayed a cough between bolus trials, as continued aspiration of secretions were suspected. The patient's vocal quality was overtly "wet" following P.O. trials. P.O. trials were terminated at this time for patient safety and due to the overt s/s of suspected aspiration displayed with each trial. The patient continues to communicate wants and needs efficiently through non- verbal gestures, a communication board (spelling), and yes/no responses. The patient completed most interactions on this date with hand gestures. Continued use of the patient's voice is encouraged and attempted on this date. The clinician discussed with the patient's and the patient the continued recommendations of N.P.O., the minimal progress with the oropharyngeal swallow function, and possible timeline of rehabilitation. The patient's asked questions in regards to a modified barium swallow. At this time, a modified barium swallow is not appropriate as the patient displays overt s/s of suspected aspiration with all consistencies tested. The clinician continues to recommend: - Strict N.P.O. with total PEG tube nutrition. - Frequent and excellent oral care to reduce the transfer of oral bacteria to the lungs should aspiration of secretions occur. - Moist oral swabs (with the water removed) for oral comfort. - The patient should attempt to swallow his own secretions, relying less on the Yankeur. as his own secretions are excellent oropharyngeal swallowing rehabilitation. The clinician believes the oropharyngeal dysphagia is not an acute process and will require long-term rehabilitation with limited/guarded improvement. The patient's requested a ron lift for the patient at home. As mobility is outside of the clinician's scope of practice, the patient's was encouraged to follow up with social care or physical therapy. The patient's 's questions were answered to the best of the clinician's ability within the clinician's scope of practice. Assessment Assessment Current Status: Poor Progress Treatment Plan Continue Plan of Care Speech Short Term Goals Short Term Goals Short Term Goals 1. The patient will tolerate the least restrictive consistency of P.O. trials for possible advancement of a P.O. diet consistency. 2. The patient will demonstrate intelligibility strategies with 50% accuracy and maximum clinician verbal and visual cueing. Time Frame-STG: Three Weeks. Speech Can Machine Operator Goals Can Machine Operator Goals 1. The patient will tolerate the least restrictive consistency without s/s of suspected aspiration. 2. The patient will improve expressive communication for increased safety with discharge to the least restricted environment. Time Frame: One Week. Speech-Plan Treatment Plan Speech Therapy Treatment Plan: Continue Plan of Care Treatment Duration: Oct 28, 2021 Frequency: 4 times per week (Four to five times per week.) Estimated Hrs Per Day: .25 hour per day Rehab Potential: Poor Safety Risks/Education Teaching Recipient: Patient, Significant Other Teaching Methods: Discussion Response to Teaching: Reinforcement Needed Education Topics Provided: Plan of Care Time Speech Therapy Time In: 07:58 Speech Therapy Time Out: 08:30 Total Billed Time: 32 Billed Treatment Time 1LIBERTAD DYST No LOY, ELIZABETH ST Oct 16, 2021 11:27
--- NOTE | 2021-10-16 11:47 | Physical Therapy Daily Note ---
PT Daily Note-Current Subjective Patient and spouse agree to PT/OT cotreat due to patient's complete dependence for all mobility. Mental Status Attachments: Oxygen, Cazares Catheter PT responsive and alert throughout treatment Transfers SCALE: Activities may be completed with or without assistive devices. 3-Mzgebramvo-xowlugb completes the activity by him/herself with no assistance from a helper. 5-Set-up or Clean-up Assistance-helper sets up or cleans up; patient completes activity. [place] assists only prior to or following the activity. 4-Supervision or Touching Assistance-helper provides verbal cues and/or touching/steadying and/or contact guard assistance as patient completes activity. Assistance may be provided throughout the activity or intermittently. 3-Partial/Moderate Assistance-helper does LESS THAN HALF the effort. [place] lifts, holds or supports trunk or limbs, but provides less than half the effort. 2-Substantial/Maximal Assistance-helper does MORE THAN HALF the effort. [place] lifts or holds trunk or limbs and provides more than half the effort. 8-Puzxqmvgi-majtfe does ALL the effort. Patient does none of the effort to complete the activity. Or, the assistance of 2 or more helpers is required for the patient to complete the activity. If activity was not attempted, code reason: 7-Patient Refused. 9-Not Applicable-not attempted and the patient did not perform the activity before the current illness, exacerbation or injury. 10-Not Attempted due to Environmental Limitations-(lack of equipment, weather restraints, etc.). 88-Not Attempted due to Medical Conditions or Safety Concerns. Roll Left & Right (QC): 1 (x3) Lying to Sitting/Side of Bed(Q: 1 (x3) Exercises Supine Ex: Ankle pumps, Hip abd/add Supine Reps: 10 (dependent) Treatments Pt dependent x 3 to perform bed mobility. Pt then sits EOB w/ dep assist x 3 for 6 min. Assessment Current Status: Fair Progress Patient still dependent of several people for bed mobility and bathing. PT Contract Administration Manager Goals Contract Administration Manager Goals PT Contract Administration Manager Goals Time Frame: Oct 14, 2021 Roll Left & Right (QC): 3 Sit to Lying (QC): 3 Lying-Sitting on Side/Bed(QC): 3 Sit to Stand (QC): 3 Chair/Svx-tx-Vzoke Xfer(QC): 2 PT Plan Problem List Problem List: Activity Tolerance, Functional Strength, Bed Mobility Treatment/Plan Treatment Plan: Continue Plan of Care Treatment Plan: Bed Mobility, Education, Functional Activity Flori, Functional Strength, Gait, Safety, Therapeutic Exercise, Transfers Treatment Duration: Oct 14, 2021 Frequency: 6 times per week Estimated Hrs Per Day: .25 hour per day Patient and/or Family Agrees t: Yes Safety Risks/Education Patient Education: Correct Positioning Teaching Recipient: Patient, Family Teaching Methods: Discussion Response to Teaching: Return Demonstration Time/GCodes Time In: 1035 Time Out: 1058 Total Billed Treatment Time: 23 Total Billed Treatment 1, FA x 2 JAMILA VARNER PTA Oct 16, 2021 11:47
--- NOTE | 2021-10-16 12:02 | Occupational Ther Daily Note ---
OT Current Status-Daily Note Subjective Pt lying in bed, alert though tired. Pt agrees to therapy with a thumbs up. present in room. Mental Status/Objective Patient Orientation: Person, Place, Non-Verbal/Aphasic, Time, Situation Attachments: Cazares Catheter, IV, PEG Tube ADL-Treatment Therapy Code Descriptions/Definitions Functional [place] Measure: 0=Not Assessed/NA 4=Minimal Assistance 1=Total Assistance 5=Supervision or Setup 2=Maximal Assistance 6=Modified [place] 3=Moderate Assistance 7=Complete IndependenceSCALE: Activities may be completed with or without assistive devices. 2-Okhsizorps-cihcose completes the activity by him/herself with no assistance from a helper. 5-Set-up or Clean-up Assistance-helper sets up or cleans up; patient completes activity. [place] assists only prior to or following the activity. 4-Supervision or Touching Assistance-helper provides verbal cues and/or touching/steadying and/or contact guard assistance as patient completes activity. Assistance may be provided throughout the activity or intermittently. 3-Partial/Moderate Assistance-helper does LESS THAN HALF the effort. [place] lifts, holds or supports trunk or limbs, but provides less than half the effort. 2-Substantial/Maximal Assistance-helper does MORE THAN HALF the effort. [place] lifts or holds trunk or limbs and provides more than half the effort. 2-Zmipboxrq-ufhkag does ALL the effort. Patient does none of the effort to com plete the activity. Or, the assistance of 2 or more helpers is required for the patient to complete the activity. If activity was not attempted, code reason: 7-Patient Refused. 9-Not Applicable-not attempted and the patient did not perform the activity before the current illness, exacerbation or injury. 10-Not Attempted due to Environmental Limitations-(lack of equipment, weather restraints, etc.). 88-Not Attempted due to Medical Conditions or Safety Concerns. Other Treatment Pt able to follow simple directions though initiate of movements on L side is slow, R UE increased tone/stiffness. Assist x3 for rolling and supine <--> EOB and to scoot up in bed with foot of bed elevated. Max to mod A for EOB while pt holds onto bed to stay upright. Facilitation to bring head and upper torso to midline. Pt sat EOB for 6 min. While in sitting, assist to shampoo hair and wash back. Pt positioned for comfort and HOB raised to above 30 degrees. After session, pt lying in bed with call light in reach and present in room. All needs met. OT Supervisor Vacuum Metalizing Goals Supervisor Vacuum Metalizing Goals Time Frame: Nov 08, 2021 Eating (QC): 3 Toileting Hygiene (QC): 3 Shower/Bathe Self (QC): 2 Upper Body Dressing (QC): 3 Lower Body Dressing (QC): 2 On/Off Footwear (QC): 2 Additional Goals: 1-Demonstrate ADL Tasks, 2-Verbalize Understanding, 3- ImproveStrength/Flori 1=Demonstrate adherence to instructed precautions during ADL tasks. 2=Patient will verbalize/demonstrate understanding of assistive devices/modifications for ADL. 3=Patient will improve strength/tolerance for activity to enable patient to perform ADL's. OT Education/Plan Problem List/Assessment Assessment: Decreased Activ Tolerance, Decreased UE Strength, Dependent Transfers, Impaired Bed Mobility, Impaired Coordination, Impaired Funct Balance, Impaired I ADL's, Impaired Self-Care Skills, Restricted Funct UE ROM, Visual- Perceptual Deficit Pt would benefit from skilled OT services in order to increase functional use of RUE, improve independence and safety with ADLs and functional mobility, and for neuromuscular reeducation in order to maximize LOF for safe return home with spouse. Discharge Recommendations Plan/Recommendations: Continue POC Treatment Plan/Plan of Care Patient would benefit from OT for education, treatment and training to promote independence in ADL's, mobility, safety and/or upper extremity function for ADL's. Plan of Care: ADL Retraining, Functional Mobility, UE Funct Exercise/Act, UE Neuromus Re-Ed/Coord Treatment Duration: Nov 08, 2021 Frequency: 5 times per week Estimated Hrs Per Day: .25 hour per day Rehab Potential: Poor Time/GCodes Start Time: 10:35 Stop Time: 10:58 Total Time Billed (hr/min): 23 Billed Treatment Time 1 visit-FA 2 (23 min) JENNIFER ZARATE Oct 16, 2021 12:02
[2021-10-16 15:27] VITALS: BP 158/93
--- NOTE | 2021-10-16 16:05 | Progress Note ---
Subjective Subjective/Events-last exam Patient denies any pain. Gives a thumbs up today. Tolerating tube feedings. Review of Systems Denies any pain Objective Exam Last Set of Vital Signs Vital Signs Date Time Temp Pulse Resp B/P (MAP) Pulse Ox O2 Delivery O2 Flow Rate FiO2 10/16/21 15:27 36.5 101 20 158/93 (114) 95 High Flow N/C 6.00 10/15/21 11:52 98 Capillary Refill : Less Than 3 SecondsLess Than 3 Seconds I&O Intake and Output 10/16/21 00:00 Intake Total 1980 ml Output Total 1725 ml Balance 255 ml Intake Oral 0 ml Tube Feeding 1160 ml Other 820 ml Output Urine Total 1725 ml # Bowel Movements 1 General: Alert, No Acute Distress Lungs: Clear to Auscultation, Normal Air Movement Heart: Regular Rate, No Murmurs Abdomen: Soft, No Tenderness Extremities: Other (1+ pitting edema) Results/Procedures Lab Laboratory Tests 10/15/21 17:12: Glucometer 149H 10/15/21 23:48: Glucometer 137H 10/16/21 05:19: Glucometer 125H 10/16/21 07:00: White Blood Count 9.9, Red Blood Count 4.92, Hemoglobin 13.4, Hematocrit 42, Mean Corpuscular Volume 85, Mean Corpuscular Hemoglobin 27, Mean Corpuscular Hemoglobin Concent 32, Red Cell Distribution Width 13.4, Platelet Count 426H, Mean Platelet Volume 10.1, Immature Granulocyte % (Auto) 0, Neutrophils (%) (Auto) 70, Lymphocytes (%) (Auto) 14, Monocytes (%) (Auto) 11, Eosinophils (%) (Auto) 4, Basophils (%) (Auto) 1, Neutrophils # (Auto) 6.9, Lymphocytes # (Auto) 1.4, Monocytes # (Auto) 1.1H, Eosinophils # (Auto) 0.4H, Basophils # (Auto) 0.1, Immature Granulocyte # (Auto) 0.0, Sodium Level 146H, Potassium Level 3.5L, Chloride Level 105, Carbon Dioxide Level 27, Anion Gap 14, Blood Urea Nitrogen 18, Creatinine 0.64, Estimat Glomerular Filtration Rate 114, BUN/Creatinine Ratio 28, Glucose Level 139H, Calcium Level 9.2, Corrected Calcium 9.7, Total Bilirubin 0.5, Aspartate Amino Transf (AST/SGOT) 13, Alanine Aminotransferase (ALT/SGPT) 8, Alkaline Phosphatase 69, Total Protein 7.2, Albumin 3.4 10/16/21 12:14: Glucometer 142H Microbiology 10/08/21 MRSA Screen - Final, Complete MRSA not isolated Radiology [place] NAME: RAHAT MARIE [facility] REC#: [id number] PT STATUS: REG ER : 1970 PHYSICIAN: JERRY JAIME ADMIT DATE: 10/05/21/ER Draft Date of Exam:10/05/21 CT HEAD WO-R/O STROKE PROCEDURE: CT head w/o r/o stroke. TECHNIQUE: Multiple contiguous axial images were obtained through the brain without the use of intravenous contrast. Auto Exposure Controls were utilized during the CT exam to meet ALARA standards for radiation dose reduction. INDICATION: Stroke. COMPARISON: Prior examination from 05/07/2021. FINDINGS: The ventricles and sulci are within normal limits. There are a few lacunar infarcts. There is no hydrocephalus. There is no midline shift. There is no mass, hemorrhage or extra-axial fluid collection. The calvarium is intact. Sinuses and mastoid air cells are clear. IMPRESSION: Atrophy and some mild chronic microvascular ischemic disease with a few lacunar infarcts, particularly in the left basal ganglia and to a lesser degree right basal ganglia. No other acute intracranial abnormality. If there is high clinical concern for an acute CVA further evaluation with MRI should be considered. Dictated on workstation # [id number] Dict: 10/05/211952 Trans: 10/05/211956 [facility] [id number] Interpreted by: KENJI DE JESUS MD Electronically signed by:NAME: RAHAT MARIE MED REC#: [id number] PT STATUS: ADM IN : 1970 PHYSICIAN: WISAM LIPSCOMB DO ADMIT DATE: 10/06/21/[facility] Draft Date of Exam:10/07/21 US CAROTID CHILO COMPLETE [id number] PROCEDURE: US carotid duplex bilateral. TECHNIQUE: Multiple Real-time grayscale images were obtained over the carotid arteries in various projections bilaterally. Additional spectral analysis and color Doppler duplex images were also obtained. INDICATION: Followup post-CVA. FINDINGS: The left carotid system and vertebral system could not be adequately interrogated due to patient position and pain. Real-time imaging shows minimal atherosclerotic plaquing within the right carotid bulb and internal and external carotid arteries. Waveforms and peak velocities are normal with normal carotid ratios. IMPRESSION: 1. Very limited exam. The right carotid artery shows no hemodynamic disease with minimal plaquing. 2. Left carotid system and vertebral arteries were not adequately evaluated due to patient's pain and position. 3. Previous CT angiography of the neck on 10/05/2021 suggested the carotid and vertebral arteries to be widely patent without significant stenosis. Parameters based on the consensus panel Santana-Scale and Doppler ultrasound criteria published January 2003, Radiology, Volume 229. DOPPLER (peak systolic velocity M/S Right Left CCA 1.12 1.33 ICA Proximal .50 NOT SEEN ICA Mid .63 NOT SEEN ICA Distal .76 NOT SEEN RATIO .68 N/A ECA .93 NOT SEEN VERT NOT SEEN NOT SEEN Dictated on workstation # [id number] Dict: 10/07/21 1034 Trans: 10/07/21 1047 [id number] Interpreted by: KADIE PERSAUD MD Electronically signed by: Assessment/Plan Assessment/Plan (1) Acute CVA (cerebrovascular accident) Status: Acute Assessment & Plan: 10/14: Extensive workup of cause of multiple TIAs/CVAs with unknown cause, cardiac workup also negative, stroke team consulted upon arrival and patient continued on DAPT, severe dyphagia with PEG tube placed this admission, PT/OT/speech 10/15: order for hosp bed, home suction in preperation for home with 10/16: [place] [facility] [place] checking with insurance regarding SNF (2) Right hemiparesis Status: Acute (3) Dysphagia due to recent cerebrovascular accident Status: Acute Assessment & Plan: - OT (4) Aphasia due to acute cerebrovascular accident (CVA) Status: Acute (5) Acute and chronic respiratory failure with hypoxia Status: Acute Assessment & Plan: 10/14: requiring HF oxygen, will titrate as tolerated, MAT protocol (6) HTN (hypertension) Status: Chronic Assessment & Plan: 10/14: been normotensive, will restart home meds thru PEG tube Qualifiers: Qualified Codes: I10 - Essential (primary) hypertension (7) Diabetes mellitus Status: Chronic Assessment & Plan: 10/14: SSI Qualifiers: Qualified Codes: E11.9 - Type 2 diabetes mellitus without complications (8) S/P percutaneous endoscopic gastrostomy (PEG) tube placement Assessment & Plan: 10/15: Bolus feeding Glucerna 5 cans daily with 90 ml free water before and after each meal (9) DVT prophylaxis Status: Acute Assessment & Plan: - SCDs, lovenox (10) Discharge planning issues Assessment & Plan: 10/14: Planning for d/c home with HH and family caregivers, will need hospital bed, new oxygen start, suction LYDIA SLAUGHTER MD Oct 16, 2021 16:05
[2021-10-16 19:20] VITALS: BP 149/79
[2021-10-16] MEDS: EMPAGLIFLOZIN 10 MG TABLET (JARDIANCE) PO SCH (21:54)
[2021-10-17] VITALS: BP 138/81
[2021-10-17] MEDS: ENOXAPARIN 40 MG/0.4 ML (LOVENOX) SYR SC SCH ×2 (00:25→12:10)
[2021-10-17 04:00] VITALS: BP 134/79
[2021-10-17] MEDS: inSUlin ASPART (NovoLOG) 1 UNIT/0.01 ML (CHARGE PER UNIT) SC SCH ×3 (05:55→18:35)
[2021-10-17 07:55] LABS: BASOPHILS # (AUTO) 0.1 10^3/uL (0.0-0.1); BASOPHILS % (AUTO) 1 % (0-10); EOSINOPHILS # (AUTO) 0.4 10^3/uL (0.0-0.3); EOSINOPHILS % (AUTO) 4 % (0-10); HEMATOCRIT 42 % (40-54); HEMOGLOBIN 13.5 g/dL (13.3-17.7); LYMPHOCYTES # (AUTO) 1.8 10^3/uL (1.0-4.0); LYMPHOCYTES % (AUTO) 15 % (12-44); MEAN CORPUSCULAR HEMOGLOBIN 28 pg (25-34); MEAN CORPUSCULAR HGB CONC 32 g/dL (32-36); MEAN CORPUSCULAR VOLUME 87 fL (80-99); MEAN PLATELET VOLUME 10.1 fL (9.0-12.2); MONOCYTES # (AUTO) 1.3 10^3/uL (0.0-1.0); MONOCYTES % (AUTO) 11 % (0-12); NEUTROPHILS % (AUTO) 69 % (42-75); PLATELET COUNT 419 10^3/uL (130-400); WHITE BLOOD COUNT 11.6 10^3/uL (4.3-11.0)
[2021-10-17 08:05] VITALS: BP 164/85
[2021-10-17 08:14] LABS: ALBUMIN 3.4 GM/DL (3.2-4.5); BILIRUBIN,TOTAL 0.5 MG/DL (0.1-1.0); CALCIUM 9.2 MG/DL (8.5-10.1); CREATININE SERUM 0.73 MG/DL (0.60-1.30); POTASSIUM 3.8 MMOL/L (3.6-5.0); TOTAL PROTEIN 7.2 GM/DL (6.4-8.2)
[2021-10-17] MEDS: amLODIPine 5 MG (NORVASC) TAB PO SCH (09:23)
[2021-10-17] MEDS: FAMOTIDINE 20 MG (PEPCID) TABLET PO SCH ×2 (09:23→21:05)
[2021-10-17] MEDS: meTOprolol TARTRATE 50 MG (LOPRESSOR) TAB PO SCH ×2 (09:23→21:06)
[2021-10-17] MEDS: ASPIRIN E.C. 81 MG (ECOTRIN) TAB PO SCH (09:24)
[2021-10-17] MEDS: CLOPIDOGREL 75 MG (PLAVIX) TABLET PO SCH (09:24)
[2021-10-17] MEDS: MICONAZOLE 2% POWDER (DESENEX AF) 90 GM TOP SCH ×2 (09:24→21:06)
[2021-10-17] MEDS: NYSTATIN CREAM (MYCOSTATIN) 30 GM TUBE TP SCH ×3 (09:25→21:06)
--- NOTE | 2021-10-17 11:55 | Progress Note ---
Subjective Subjective/Events-last exam Patient gives thumbs up that he is feeling well and thumbs down that he is in pain. Per nurse no overnight events. Review of Systems Denies any pain Objective Exam Last Set of Vital Signs Vital Signs Date Time Temp Pulse Resp B/P (MAP) Pulse Ox O2 Delivery O2 Flow Rate FiO2 10/17/21 08:05 36.7 109 22 164/85 (111) 93 High Flow N/C 6.00 10/15/21 11:52 98 Capillary Refill : Less Than 3 SecondsLess Than 3 Seconds I&O Intake and Output0 10/16/21 23:59 Intake Total 1890 ml Output Total 1750 ml Balance 140 ml Intake Oral 0 ml Tube Feeding 1200 ml Other 690 ml Output Urine Total 1750 ml General: Alert, No Acute Distress Lungs: Normal Air Movement, Other (course breath sounds) Heart: Regular Rate, No Murmurs Abdomen: Normal Bowel Sounds, Soft, No Tenderness, Other (PEG tube in place) Extremities: No Edema, No Tenderness/Swelling Neuro: Other (Right hemiparesis UE and LE) Results/Procedures Lab Laboratory Tests 10/16/21 12:14: Glucometer 142H 10/16/21 17:31: Glucometer 146H 10/16/21 23:29: Glucometer 143H 10/17/21 05:17: Glucometer 145H 10/17/21 07:42: White Blood Count 11.6H, Red Blood Count 4.89, Hemoglobin 13.5, Hematocrit 42, Mean Corpuscular Volume 87, Mean Corpuscular Hemoglobin 28, Mean Corpuscular Hemoglobin Concent 32, Red Cell Distribution Width 13.4, Platelet Count 419H, Mean Platelet Volume 10.1, Immature Granulocyte % (Auto) 1, Neutrophils (%) (Auto) 69, Lymphocytes (%) (Auto) 15, Monocytes (%) (Auto) 11, Eosinophils (%) (Auto) 4, Basophils (%) (Auto) 1, Neutrophils # (Auto) 8.0H, Lymphocytes # (Auto) 1.8, Monocytes # (Auto) 1.3H, Eosinophils # (Auto) 0.4H, Basophils # (Auto) 0.1, Immature Granulocyte # (Auto) 0.1, Sodium Level 148H, Potassium Level 3.8, Chloride Level 104, Carbon Dioxide Level 27, Anion Gap 17H, Blood Urea Nitrogen 21H, Creatinine 0.73, Estimat Glomerular Filtration Rate 109, BUN/Creatinine Ratio 29, Glucose Level 141H, Calcium Level 9.2, Corrected Calcium 9.7, Total Bilirubin 0.5, Aspartate Amino Transf (AST/SGOT) 13, Alanine Aminotransferase (ALT/SGPT) 11, Alkaline Phosphatase 71, Total Protein 7.2, Albumin 3.4 10/17/21 11:34: Glucometer 150H Microbiology 10/08/21 MRSA Screen - Final, Complete MRSA not isolated Radiology [place], [place] NAME: RAHAT MARIE [facility] REC#: [id number] PT STATUS: REG ER : 1970 PHYSICIAN: JERRY JAIME ADMIT DATE: 10/05/21/ER Draft Date of Exam:10/05/21 CT HEAD WO-R/O STROKE PROCEDURE: CT head w/o r/o stroke. TECHNIQUE: Multiple contiguous axial images were obtained through the brain without the use of intravenous contrast. Auto Exposure Controls were utilized during the CT exam to meet ALARA standards for radiation dose reduction. INDICATION: Stroke. COMPARISON: Prior examination from 05/07/2021. FINDINGS: The ventricles and sulci are within normal limits. There are a few lacunar infarcts. There is no hydrocephalus. There is no midline shift. There is no mass, hemorrhage or extra-axial fluid collection. The calvarium is intact. Sinuses and mastoid air cells are clear. IMPRESSION: Atrophy and some mild chronic microvascular ischemic disease with a few lacunar infarcts, particularly in the left basal ganglia and to a lesser degree right basal ganglia. No other acute intracranial abnormality. If there is high clinical concern for an acute CVA further evaluation with MRI should be considered. Dictated on workstation # [id number] Dict: 10/05/211952 Trans: 10/05/211956 [facility] [id number] Interpreted by: KENJI DE JESUS MD Electronically signed by:NAME: RAHAT MARIE [facility] REC#: [id number] PT STATUS: ADM IN : 1970 PHYSICIAN: WISAM LIPSCOMB DO ADMIT DATE: 10/06/21/[facility] Draft Date of Exam:10/07/21 US CAROTID CHILO COMPLETE [id number] PROCEDURE: US carotid duplex bilateral. TECHNIQUE: Multiple Real-time grayscale images were obtained over the carotid arteries in various projections bilaterally. Additional spectral analysis and color Doppler duplex images were also obtained. INDICATION: Followup post-CVA. FINDINGS: The left carotid system and vertebral system could not be adequately interrogated due to patient position and pain. Real-time imaging shows minimal atherosclerotic plaquing within the right carotid bulb and internal and external carotid arteries. Waveforms and peak velocities are normal with normal carotid ratios. IMPRESSION: 1. Very limited exam. The right carotid artery shows no hemodynamic disease with minimal plaquing. 2. Left carotid system and vertebral arteries were not adequately evaluated due to patient's pain and position. 3. Previous CT angiography of the neck on 10/05/2021 suggested the carotid and vertebral arteries to be widely patent without significant stenosis. Parameters based on the consensus panel Santana-Scale and Doppler ultrasound criteria published January 2003, Radiology, Volume 229. DOPPLER (peak systolic velocity M/S Right Left CCA 1.12 1.33 ICA Proximal .50 NOT SEEN ICA Mid .63 NOT SEEN ICA Distal .76 NOT SEEN RATIO .68 N/A ECA .93 NOT SEEN VERT NOT SEEN NOT SEEN Dictated on workstation # [id number] Dict: 10/07/21 1034 Trans: 10/07/21 1047 [id number] Interpreted by: KADIE PERSAUD MD Electronically signed by: Assessment/Plan Assessment/Plan (1) Acute CVA (cerebrovascular accident) Status: Acute Assessment & Plan: 10/14: Extensive workup of cause of multiple TIAs/CVAs with unknown cause, cardiac workup also negative, stroke team consulted upon arrival and patient continued on DAPT, severe dyphagia with PEG tube placed this admission, PT/OT/speech 10/15: order for hosp bed, home suction in preperation for home with HH 10/16: Waiting on DME, they are checking with insurance regarding SNF 10/17: DME has been ordered, [facility] working on pre approval, he is medically stable (2) Right hemiparesis Status: Acute (3) Dysphagia due to recent cerebrovascular accident Status: Acute Assessment & Plan: - OT (4) Aphasia due to acute cerebrovascular accident (CVA) Status: Acute Assessment & Plan: -OT/speech (5) Acute and chronic respiratory failure with hypoxia Status: Acute Assessment & Plan: 10/14: requiring HF oxygen, will titrate as tolerated, MAT protocol (6) HTN (hypertension) Status: Chronic Assessment & Plan: 10/14: been normotensive, will restart home meds thru PEG tube Qualifiers: Qualified Codes: I10 - Essential (primary) hypertension (7) Diabetes mellitus Status: Chronic Assessment & Plan: 10/14: SSI Qualifiers: Qualified Codes: E11.9 - Type 2 diabetes mellitus without complications (8) S/P percutaneous endoscopic gastrostomy (PEG) tube placement Assessment & Plan: 10/15: Bolus feeding Glucerna 5 cans daily with 90 ml free water before and after each meal 10/17: Sodium trending up, continue to monitor, may need to adjust free water flushes (9) DVT prophylaxis Status: Acute Assessment & Plan: - SCDs, lovenox (10) Discharge planning issues Assessment & Plan: 10/14: Planning for d/c home with HH and family caregivers, will need hospital bed, new oxygen start, suction LYDIA SLAUGHTER MD Oct 17, 2021 11:55
[2021-10-17 11:57] VITALS: BP 135/82
--- NOTE | 2021-10-17 12:18 | Occupational Ther Daily Note ---
OT Current Status-Daily Note Subjective Pt alert, lying in bed. Pt gave thumbs up for feeling good. present in room. Pt agrees to therapy, verbalized 'yes'. Mental Status/Objective Patient Orientation: Person, Place, Non-Verbal/Aphasic, Time, Situation Attachments: Cazares Catheter, IV, Oxygen, PEG Tube ADL-Treatment Therapy Code Descriptions/Definitions Functional [place] Measure: 0=Not Assessed/NA 4=Minimal Assistance 1=Total Assistance 5=Supervision or Setup 2=Maximal Assistance 6=Modified [place] 3=Moderate Assistance 7=Complete IndependenceSCALE: Activities may be completed with or without assistive devices. 3-Mxpvmmvblw-kmyidbj completes the activity by him/herself with no assistance from a helper. 5-Set-up or Clean-up Assistance-helper sets up or cleans up; patient completes activity. [place] assists only prior to or following the activity. 4-Supervision or Touching Assistance-helper provides verbal cues and/or touching/steadying and/or contact guard assistance as patient completes activity. Assistance may be provided throughout the activity or intermittently. 3-Partial/Moderate Assistance-helper does LESS THAN HALF the effort. [place] lifts, holds or supports trunk or limbs, but provides less than half the effort. 2-Substantial/Maximal Assistance-helper does MORE THAN HALF the effort. [place] lifts or holds trunk or limbs and provides more than half the effort. 8-Abywgncoq-mztofm does ALL the effort. Patient does none of the effort to complete the activity. Or, the assistance of 2 or more helpers is required for the patient to complete the activity. If activity was not attempted, code reason: 7-Patient Refused. 9-Not Applicable-not attempted and the patient did not perform the activity before the current illness, exacerbation or injury. 10-Not Attempted due to Environmental Limitations-(lack of equipment, weather restraints, etc.). 88-Not Attempted due to Medical Conditions or Safety Concerns. Other Treatment Dependent with rolling though pt will reach with L UE and assist with rolling back and forth. Divine lift completed from bed to recliner. Pt positioned for comfort in recliner. After therapy, pt sitting in recliner and PT working with pt. All needs met in room. OT Jail Goals Bus Attendant Goals Time Frame: Nov 08, 2021 Eating (QC): 3 Toileting Hygiene (QC): 3 Shower/Bathe Self (QC): 2 Upper Body Dressing (QC): 3 Lower Body Dressing (QC): 2 On/Off Footwear (QC): 2 Additional Goals: 1-Demonstrate ADL Tasks, 2-Verbalize Understanding, 3- ImproveStrength/Flori 1=Demonstrate adherence to instructed precautions during ADL tasks. 2=Patient will verbalize/demonstrate understanding of assistive devices/modifications for ADL. 3=Patient will improve strength/tolerance for activity to enable patient to perform ADL's. OT Education/Plan Problem List/Assessment Assessment: Decreased Activ Tolerance, Decreased UE Strength, Dependent Transfers, Impaired Bed Mobility, Impaired Coordination, Impaired I ADL's, Impaired Self-Care Skills, Restricted Funct UE ROM, Visual-Perceptual Deficit Pt would benefit from skilled OT services in order to increase functional use of RUE, improve independence and safety with ADLs and functional mobility, and for neuromuscular reeducation in order to maximize LOF for safe return home with spouse. Discharge Recommendations Plan/Recommendations: Continue POC Treatment Plan/Plan of Care Patient would benefit from OT for education, treatment and training to promote independence in ADL's, mobility, safety and/or upper extremity function for ADL's. Plan of Care: ADL Retraining, Functional Mobility, UE Funct Exercise/Act, UE Neuromus Re-Ed/Coord Treatment Duration: Nov 08, 2021 Frequency: 5 times per week Estimated Hrs Per Day: .25 hour per day Rehab Potential: Poor Time/GCodes Start Time: 10:50 Stop Time: 11:19 Total Time Billed (hr/min): 29 Billed Treatment Time 1 visit-FA 2 (29 min) JENNIFER ZARATE Oct 17, 2021 12:18
--- NOTE | 2021-10-17 13:38 | Physical Therapy Daily Note ---
PT Daily Note-Current Subjective Patient lying supine in bed upon PT arrival, in the room, agreeable to treatment. Mental Status Patient Orientation: Non-Verbal/Aphasic Attachments: Oxygen, Cazares Catheter, IV Transfers SCALE: Activities may be completed with or without assistive devices. 4-Ozjnidjipc-nmywdve completes the activity by him/herself with no assistance from a helper. 5-Set-up or Clean-up Assistance-helper sets up or cleans up; patient completes activity. [place] assists only prior to or following the activity. 4-Supervision or Touching Assistance-helper provides verbal cues and/or touching/steadying and/or contact guard assistance as patient completes activity. Assistance may be provided throughout the activity or intermittently. 3-Partial/Moderate Assistance-helper does LESS THAN HALF the effort. [place] lifts, holds or supports trunk or limbs, but provides less than half the effort. 2-Substantial/Maximal Assistance-helper does MORE THAN HALF the effort. [place] lifts or holds trunk or limbs and provides more than half the effort. 0-[place]-bmnxkt does ALL the effort. Patient does none of the effort to complete the activity. Or, the assistance of 2 or more helpers is required for the patient to complete the activity. If activity was not attempted, code reason: 7-Patient Refused. 9-Not Applicable-not attempted and the patient did not perform the activity b efore the current illness, exacerbation or injury. 10-Not Attempted due to Environmental Limitations-(lack of equipment, weather restraints, etc.). 88-Not Attempted due to Medical Conditions or Safety Concerns. Roll Left & Right (QC): 1 Chair/Oym-ks-Xymgl Xfer(QC): 1 Patient required total assistance x 2 for rolling in bed for sling placement. Ceiling lift for bed to chair transfer. Gait Training Does the Patient Walk?: No and Walking Goal NOT indicated Exercises Seated Therapy Exercises: Ankle pumps, Long arc quads, Hip flexion, Hamstring Curls, Hip abd/add Seated Reps: 10 Patient performs sitting LE ther ex as listed above. Right LE mostly PROM, however very faint muscle contractions noted in hamstring curls. Left LE AROM/AAROM for all with repetitions ranging from 10-20 depending on patient tolerance. Assessment Current Status: Poor Progress Patient required total assistance x 2 for rolling in bed for sling placement. Ceiling lift for bed to chair transfer. Patient performs sitting LE ther ex as listed above. Right LE mostly PROM, however very faint muscle contractions noted in hamstring curls. Left LE AROM/AAROM for all with repetitions ranging from 10-20 depending on patient tolerance. Patient in chair post treatment with all needs met, nursing notified, call light in reach and in the room. PT Subsurface Augmentee Operator Goals [place] Goals PT Subsurface Augmentee Operator Goals Time Frame: Oct 14, 2021 Roll Left & Right (QC): 3 Sit to Lying (QC): 3 Lying-Sitting on Side/Bed(QC): 3 Sit to Stand (QC): 3 Chair/Yvo-is-Izwqd Xfer(QC): 2 PT Plan Treatment/Plan Treatment Plan: Continue Plan of Care Treatment Plan: Bed Mobility, Education, Functional Activity [place]i, Functional Strength, Gait, Safety, Therapeutic Exercise, Transfers Treatment Duration: Oct 14, 2021 Frequency: 6 times per week Estimated Hrs Per Day: .25 hour per day Patient and/or Family Agrees t: Yes Safety Risks/Education Patient Education: Transfer Techniques, Reviewed Precautions, Safety Issues Teaching Recipient: Patient, Family Teaching Methods: Demonstration, Discussion Response to Teaching: Reinforcement Needed Time/GCodes Time In: 1054 Time Out: 1126 Total Billed Treatment Time: 32 Total Billed Treatment Visit, FA, EX LOGAN VALDEZ PT Oct 17, 2021 13:38
[2021-10-17 15:19] VITALS: BP 138/83
[2021-10-17 19:24] VITALS: BP 148/83
[2021-10-17] MEDS: EMPAGLIFLOZIN 10 MG TABLET (JARDIANCE) PO SCH (21:05)
[2021-10-18] VITALS (7 sets, daily range): BP systolic 130–185; BP diastolic 72–92
[2021-10-18] MEDS: inSUlin ASPART (NovoLOG) 1 UNIT/0.01 ML (CHARGE PER UNIT) SC SCH ×4 (00:22→17:35)
[2021-10-18] MEDS: ENOXAPARIN 40 MG/0.4 ML (LOVENOX) SYR SC SCH ×2 (01:13→12:00)
[2021-10-18 05:22] LABS: BASOPHILS # (AUTO) 0.1 10^3/uL (0.0-0.1); BASOPHILS % (AUTO) 1 % (0-10); EOSINOPHILS # (AUTO) 0.2 10^3/uL (0.0-0.3); EOSINOPHILS % (AUTO) 2 % (0-10); HEMATOCRIT 43 % (40-54); HEMOGLOBIN 13.4 g/dL (13.3-17.7); LYMPHOCYTES # (AUTO) 1.7 10^3/uL (1.0-4.0); LYMPHOCYTES % (AUTO) 15 % (12-44); MEAN CORPUSCULAR HEMOGLOBIN 27 pg (25-34); MEAN CORPUSCULAR HGB CONC 31 g/dL (32-36); MEAN CORPUSCULAR VOLUME 87 fL (80-99); MEAN PLATELET VOLUME 10.6 fL (9.0-12.2); MONOCYTES # (AUTO) 1.4 10^3/uL (0.0-1.0); MONOCYTES % (AUTO) 12 % (0-12); NEUTROPHILS # (AUTO) 8.3 10^3/uL (1.8-7.8); NEUTROPHILS % (AUTO) 71 % (42-75); PLATELET COUNT 398 10^3/uL (130-400); WHITE BLOOD COUNT 11.7 10^3/uL (4.3-11.0)
[2021-10-18 05:40] LABS: ALBUMIN 3.4 GM/DL (3.2-4.5); BILIRUBIN,TOTAL 0.6 MG/DL (0.1-1.0); CALCIUM 9.3 MG/DL (8.5-10.1); CREATININE SERUM 0.8 MG/DL (0.60-1.30); POTASSIUM 3.9 MMOL/L (3.6-5.0); TOTAL PROTEIN 7.2 GM/DL (6.4-8.2)
[2021-10-18] MEDS: FAMOTIDINE 20 MG (PEPCID) TABLET PO SCH ×2 (08:30→21:10)
[2021-10-18] MEDS: CLOPIDOGREL 75 MG (PLAVIX) TABLET PO SCH (08:30)
[2021-10-18] MEDS: HYDROcodone/APAP 5 MG/325 MG (LORTAB) TAB PO PRN ×2 (08:30→21:10)
[2021-10-18] MEDS: ASPIRIN E.C. 81 MG (ECOTRIN) TAB PO SCH (08:30)
[2021-10-18] MEDS: amLODIPine 5 MG (NORVASC) TAB PO SCH (08:30)
[2021-10-18] MEDS: meTOprolol TARTRATE 50 MG (LOPRESSOR) TAB PO SCH ×2 (08:30→21:10)
[2021-10-18] MEDS: MICONAZOLE 2% POWDER (DESENEX AF) 90 GM TOP SCH ×2 (08:31→21:11)
[2021-10-18] MEDS: NYSTATIN CREAM (MYCOSTATIN) 30 GM TUBE TP SCH ×3 (08:31→21:11)
--- NOTE | 2021-10-18 11:25 | Occ Therapy Progress Note ---
Therapy Progress Note Therapy attempted 2x's this am to work with pt. First attempt, declined stating that pt was sleeping and she did not want him disturbed. 2nd attempt nrsg in room monitoring pt's vitals. Nrsg requested for therapy not work with pt at this time due to O2 sat levels. Will attempt at next available time. JENNIFER ZARATE Oct 18, 2021 11:25
--- NOTE | 2021-10-18 12:49 | Progress Note - Hospitalist ---
RJDonyTANJA PETIT 10/18/21 1249: Subjective HPI/CC On Admission Date Seen by Provider: Oct 18, 2021 Time Seen by Provider: 11:00 Patient is a 51yo male, h/o COVID about 1.5y ago and multiple neurologic insults during hospitalization for Covid at that time (TIA vs strokes). He has had chronic debility since then with several ED visits for weakness and stroke like symptoms. Apparently his sons were at home with him and he had a fall in the bathroom with increased weakness to the left side. Unsure of LOC as sons are not here at this time for history. The patient (with significantly slurred speech) is able to tell me that his is working in [place] - which is consistent with prior visits to our ER. He does state he has a mild headache. Otherwise his speech is so slurred he is very difficult to understand. Upon my arrival patient exhibited right neglect tongue was sticking out mildly swollen without erythema. The patient is eyes were open and did orient to voice he was slow to respond and very dysarthric unintelligible speech. He was able to follow simple commands but when asked to use his right hand to touch my finger he only moved his left hand and was able to do so with good control of the left hand. His came later in the day and reports that he had been seeing neurologist Dr. Velasquez had a rather extensive work-up was started on aspirin and Plavix but no apparent large vessel disease was noted. He had an echocardiogram gram and there is been no evidence for atrial fibrillation. He was having no neurologic issues previous to COVID infection in March 2020. He had been doing well at home until the night of his admission when his right leg apparently gave out he stumbled forward they helped him to the bed and again noted that he was dysarthric and his tongue appeared to be swollen. There were no rash issues reported he was confused but there was no loss of consciousness and no reported pallor. He had been feeling well up until that point. Subjective/Events-last exam Brief Hospital Course: Gonzalo Escudero is a 51 yo male with past medical history of Crohns, T2DM, Covid 1.5 years ago followed by multiple TIA/strokes, and chronic debility who was ad mitted to [facility] on 10/05 after experiencing stroke like symptoms and tongue swelling. An extensive stroke workup including carotid ultrasound, cardiac workup with loop recorder placement, CT head, and CTA revealed CVA with unknown cause. He required vapotherm when first admitted, however O2 was titrated to 6L high flow nasal canula. Due to severe dysphagia he was unable to take any food by mouth and a PEG tube was placed successfully. He has been on dual antiplatelet therapy since his admission. His T2DM has been well controlled on Empagliflozin 10mg and SSI. He will be discharged home in stable condition with home health and family caregivers. Today: Patient reports no acute events overnight. He denies any pain, but occasionally has difficulty breathing. Review of Systems General: No Chills, No Night Sweats HEENT: No Head Aches, No Visual Changes Pulmonary: No Cough, No Pleuritic Chest Pain Cardiovascular: No: Chest Pain, Palpitations Gastrointestinal: No: Nausea, Vomiting, Abdominal Pain Genitourinary: No Frequency Neurological: Weakness, Numbness Objective Exam Vital Signs Vital Signs Date Time Temp Pulse Resp B/P (MAP) Pulse Ox O2 Delivery O2 Flow Rate FiO2 10/18/21 11:44 37.2 93 20 134/72 (92) 92 High Flow N/C 10.00 10/15/21 11:52 98 Capillary Refill : Less Than 3 SecondsLess Than 3 Seconds General Appearance: No No Apparent Distress; Chronically ill HEENT: Moist Mucous Membranes Neck: Non Tender, Supple Respiratory: Chest Non Tender, Lungs Clear, No Accessory Muscle Use Cardiovascular: Regular Rate, Rhythm, No JVD Gastrointestinal: Normal Bowel Sounds, Soft Extremity: Normal Capillary Refill, Non Tender Neurologic/Psychiatric: Alert Skin: Normal Color, Warm/Dry Lymphatic: No Adenopathy Results/Procedures Lab Laboratory Tests 10/18/21 04:48 Patient resulted labs reviewed. 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 Acute respiratory distress requiring supplemental oxygen via Vapotherm Angioedema of tongue -Carotid ultrasound unremarkable -Cardiology consulted, appreciate their recommendations -CT head showed atrophy and chronic ischemic microvascular changes with lunar infarcts in Left basal ganglia -CTA showed no large vessel occlusion -MRI recommended, but couldn't be done d/t body habitus -Speech therapy, Physical therapy and Occupational therapy -PEG tube placed 2) Acute respiratory distress requiring supplemental oxygen -Stable on 6L high flow nasal cannula 3) Angioedema of tongue -Hold lisinopril -Speech therapy advised NPO 4) HTN - Well controlled on Amplodipine 10 and Metoprolol 100 BID 5) Diabetes -SSI -Empagliflozin 10mg Diet-NPO, PEG tube DVT prophylaxis- SCDs and Lovenox Dispo: Discharge home with home health and family caregivers. Social workers working on home hospital bed. JULIA LIPSCOMB DO 10/18/212053: Subjective Subjective/Events-last exam Pt is about the same Ordered a chest x-ray due to thick secretions Overall appears to be very debilitated Changed their mind and wants to go home health which seems to be very unrealist ic Overall having no new issues Chest x-ray did show right sided atelectasis Objective Exam General Appearance: No Apparent Distress, WD/WN, Chronically ill, Obese Respiratory: No Accessory Muscle Use, Decreased Breath Sounds Cardiovascular: Regular Rate, Rhythm Neurologic/Psychiatric: Alert, Depressed Affect, Motor Weakness Assessment/Plan Assessment and Plan Assess & Plan/Chief Complaint Poor prognosis High risk for PNA Supervisory-Addendum Brief Verification & Attestation Participated in pt care: history, MDM, physical Personally performed: exam, history, MDM, supervision of care Care discussed with: Medical Student Procedures: n/a Results interpretation: Verified all documentation Verification and Attestation of Medical Student E/M Service A medical student performed and documented this service in my presence. I reviewed and verified all information documented by the medical student and made modifications to such information, when appropriate. I personally performed the physical exam and medical decision making. Julia Lipscomb, Oct 18, 2021,20:53 TANJA WALL Oct 18, 2021 12:49 JULIA LIPSCOMB DO Oct 18, 2021 20:54
--- NOTE | 2021-10-18 13:22 | Diagnostic Imaging Report ---
INDICATION: Pneumonia. TIME OF EXAM: 12:41 p.m. COMPARISON: Correlation is made with prior chest 10/09/2021. FINDINGS: Heart is enlarged. Cardiac loop recorder overlies the lower left chest. There is some mild subsegmental atelectasis at the right base. Otherwise, lungs are clear. There is no failure. No effusion or pneumothorax is detected. IMPRESSION: Cardiomegaly with subsegmental atelectasis at the right lung base. Dictated by: Dictated on workstation # [id number]
--- NOTE | 2021-10-18 13:55 | Occupational Ther Daily Note ---
OT Current Status-Daily Note Subjective Pt's initially asked therapy to hold off today, but pt indicated through gestures he would like to get up to chair. Pt, nurse, and pt's agreeable to OT Tx, ADL-Treatment Therapy Code Descriptions/Definitions Functional [place] Measure: 0=Not Assessed/NA 4=Minimal Assistance 1=Total Assistance 5=Supervision or Setup 2=Maximal Assistance 6=Modified [place] 3=Moderate Assistance 7=Complete IndependenceSCALE: Activities may be completed with or without assistive devices. 1-Aybekcffdd-powehzp completes the activity by him/herself with no assistance from a helper. 5-Set-up or Clean-up Assistance-helper sets up or cleans up; patient completes activity. [place] assists only prior to or following the activity. 4-Supervision or Touching Assistance-helper provides verbal cues and/or touching/steadying and/or contact guard assistance as patient completes activity. Assistance may be provided throughout the activity or intermittently. 3-Partial/Moderate Assistance-helper does LESS THAN HALF the effort. [place] lifts, holds or supports trunk or limbs, but provides less than half the effort. 2-Substantial/Maximal Assistance-helper does MORE THAN HALF the effort. [place] lifts or holds trunk or limbs and provides more than half the effort. 7-Ogowqftqg-rrihts does ALL the effort. Patient does none of the effort to com plete the activity. Or, the assistance of 2 or more helpers is required for the patient to complete the activity. If activity was not attempted, code reason: 7-Patient Refused. 9-Not Applicable-not attempted and the patient did not perform the activity before the current illness, exacerbation or injury. 10-Not Attempted due to Environmental Limitations-(lack of equipment, weather restraints, etc.). 88-Not Attempted due to Medical Conditions or Safety Concerns. Oral Hygiene (QC): 88 (Peg tube) On/Off Footwear: 1 Toileting Hygiene (QC): 1 Other Treatment Pt rolled side to side in bed, total assist in order for pillows to be removed and ron sling adjusted. Pt transferred to recliner via ron lift. Pt positioned to comfort. Pt coughing throughout session, requiring assistance to use suction. Pt gestured with L hand throughout session, but required increased time with movements. Post tx, pt in recliner, call light in reach and all needs met, at bedside. Education OT Patient Education: Correct positioning, Modified ADL techniques, Progress toward Goal/Update tx plan, Purpose of tx/functional activities, Rehab process Teaching Recipient: Patient Teaching Methods: Discussion OT Hearing Aid Technician Goals Snf Goals Time Frame: Nov 08, 2021 Eating (QC): 3 Toileting Hygiene (QC): 3 Shower/Bathe Self (QC): 2 Upper Body Dressing (QC): 3 Lower Body Dressing (QC): 2 On/Off Footwear (QC): 2 Additional Goals: 1-Demonstrate ADL Tasks, 2-Verbalize Understanding, 3- ImproveStrength/Flori 1=Demonstrate adherence to instructed precautions during ADL tasks. 2=Patient will verbalize/demonstrate understanding of assistive devices/modifications for ADL. 3=Patient will improve strength/tolerance for activity to enable patient to perform ADL's. OT Education/Plan Problem List/Assessment Assessment: Decreased Activ Tolerance, Decreased UE Strength, Dependent Transfers, Impaired Bed Mobility, Impaired Coordination, Impaired Funct Balance, Impaired I ADL's, Impaired Self-Care Skills, Restricted Funct UE ROM Pt would benefit from skilled OT services in order to increase functional use of RUE, improve independence and safety with ADLs and functional mobility, and for neuromuscular reeducation in order to maximize LOF for safe return home with spouse. Discharge Recommendations Plan/Recommendations: Continue POC Treatment Plan/Plan of Care Patient would benefit from OT for education, treatment and training to promote independence in ADL's, mobility, safety and/or upper extremity function for ADL's. Plan of Care: ADL Retraining, Functional Mobility, UE Funct Exercise/Act, UE Neuromus Re-Ed/Coord Treatment Duration: Nov 08, 2021 Frequency: 5 times per week Estimated Hrs Per Day: .25 hour per day Rehab Potential: Poor Time/GCodes Start Time: 13:30 Stop Time: 13:50 Total Time Billed (hr/min): 20 Billed Treatment Time 1, NEO BARAJAS OT Oct 18, 2021 13:55
--- NOTE | 2021-10-18 14:06 | Speech Therapy Daily Note ---
Speech Daily Progress Note Subjective Date Seen by Provider: Oct 18, 2021 Time Seen by Provider: 13:55 The patient was recently transferred from his bed to his recliner throughout therapy with physical therapy and occupational therapy. The patient is positioned upright in his recliner with his at bedside. The patient continues to display a head tilt to the left regardless of pillow positioning. The patient is agreeable to participation in the cognitive linguistic and dysphagia skilled treatment session with a thumbs up. Objective The patient displays wet, audible respirations at baseline. Suctioning is attempted by the patient's , however, the location of the secretions appear to be located in the hypopharyngeal and laryngeal regions. The patient is unable to complete a forceful throat clear or cough to eject secretions to the oral cavity for suction. The patient continues to communicate with thumbs up or thumbs down. The clinician verbally prompts the patient for voicing attempts, however, voicing is not achieved on this date. The patient intermittently does not respond to the clinician, requiring repetition of the instruction or direct modeling attempt. The patient is provided ice chips by the clinician. The patient displays minimal lingual and oral manipulation, reduced in comparison to prior sessions. Regardless of the clinician's verbal prompts to elicit a pharyngeal swallow, a pharyngeal swallow is not triggered by the patient and oral holding is displayed. Following oral holding, a swallow is triggered followed by an immediate, rigorous cough. The patient displays the same behavior with each ice chip provided. The patient demonstrated an increasingly, acute redness to his upper chest, neck and face region (including upper arms). The PCT was present at recorded temperature at 100.4. The patient's RN was requested, who presented to the room to care for the patient. Additionally, the patient's RN stated RT would be contacted for deep suctioning. At this time, the ST exited the room. The patient was encouraged to continue attempts of swallowing his own saliva, as well as, attempts at strong coughs to clear hypopharyngeal and laryngeal secretions. Assessment Assessment Current Status: Poor Progress Treatment Plan Continue Plan of Care Speech Short Term Goals Short Term Goals Short Term Goals 1. The patient will tolerate the least restrictive consistency of P.O. trials for possible advancement of a P.O. diet consistency. 2. The patient will demonstrate intelligibility strategies with 50% accuracy and maximum clinician verbal and visual cueing. Time Frame-STG: Three Weeks. Speech [facility] Goals Stonecutter Hand Goals 1. The patient will tolerate the least restrictive consistency without s/s of suspected aspiration. 2. The patient will improve expressive communication for increased safety with discharge to the least restricted environment. Time Frame: One Week. Speech-Plan Treatment Plan Speech Therapy Treatment Plan: Continue Plan of Care Treatment Duration: Oct 28, 2021 Frequency: 4 times per week (Four to five times per week.) Estimated Hrs Per Day: .25 hour per day Rehab Potential: Poor Safety Risks/Education Teaching Recipient: Patient, Significant Other Teaching Methods: Discussion Response to Teaching: Verbalize Understanding Education Topics Provided: Results, Recommendations, Plan of Care Time Speech Therapy Time In: 13:55 Speech Therapy Time Out: 14:20 Total Billed Time: 25 Billed Treatment Time 1LIBERTAD DYST LOY, ELIZABETH ST Oct 18, 2021 14:05
--- NOTE | 2021-10-18 14:15 | Physical Therapy Daily Note ---
PT Daily Note-Current Subjective Patient lying supine in bed upon PT arrival, initially declines treatment, however patient gives the thumbs up in agreement. Transfers SCALE: Activities may be completed with or without assistive devices. 7-Quteazxtnp-fbeqlke completes the activity by him/herself with no assistance from a helper. 5-Set-up or Clean-up Assistance-helper sets up or cleans up; patient completes activity. [place] assists only prior to or following the activity. 4-Supervision or Touching Assistance-helper provides verbal cues and/or touching/steadying and/or contact guard assistance as patient completes activity. Assistance may be provided throughout the activity or intermittently. 3-Partial/Moderate Assistance-helper does LESS THAN HALF the effort. [place] lifts, holds or supports trunk or limbs, but provides less than half the effort. 2-Substantial/Maximal Assistance-helper does MORE THAN HALF the effort. [place] lifts or holds trunk or limbs and provides more than half the effort. 6-Lnkxiyqoc-ebrlnn does ALL the effort. Patient does none of the effort to complete the activity. Or, the assistance of 2 or more helpers is required for the patient to complete the activity. If activity was not attempted, code reason: 7-Patient Refused. 9-Not Applicable-not attempted and the patient did not perform the activity before the current illness, exacerbation or injury. 10-Not Attempted due to Environmental Limitations-(lack of equipment, weather restraints, etc.). 88-Not Attempted due to Medical Conditions or Safety Concerns. Roll Left & Right (QC): 1 Chair/Tlb-px-Emxcf Xfer(QC): 1 Gait Training Does the Patient Walk?: No and Walking Goal NOT indicated Assessment Current Status: Poor Progress Patient tolerated treatment poorly compared to last PT treatment. He demonstrates increased coughing and required suctioning x 2. Patient required total assistance for all bed mobility and ron transfer to chair. Patient in chair post treatment with all needs met, nursing notified, in the room, call light in hand. PT Jail Goals Banking Services Clerk Goals PT Banking Services Clerk Goals Time Frame: Oct 14, 2021 Roll Left & Right (QC): 3 Sit to Lying (QC): 3 Lying-Sitting on Side/Bed(QC): 3 Sit to Stand (QC): 3 Chair/Ajl-uk-Damwq Xfer(QC): 2 PT Plan Treatment/Plan Treatment Plan: Continue Plan of Care Treatment Plan: Bed Mobility, Education, Functional Activity Flori, Functional Strength, Gait, Safety, Therapeutic Exercise, Transfers Treatment Duration: Oct 14, 2021 Frequency: 6 times per week Estimated Hrs Per Day: .25 hour per day Patient and/or Family Agrees t: Yes Safety Risks/Education Patient Education: Transfer Techniques Teaching Recipient: Patient, Family Teaching Methods: Demonstration, Discussion Response to Teaching: Reinforcement Needed Time/GCodes Time In: 1330 Time Out: 1350 Total Billed Treatment Time: 20 Total Billed Treatment Visit, LOGAN YBARRA PT Oct 18, 2021 14:15
[2021-10-18] MEDS: EMPAGLIFLOZIN 10 MG TABLET (JARDIANCE) PO SCH (21:10)
[2021-10-19] VITALS: BP 168/102
[2021-10-19] MEDS: inSUlin ASPART (NovoLOG) 1 UNIT/0.01 ML (CHARGE PER UNIT) SC SCH ×2 (00:01→05:22)
[2021-10-19] MEDS: ENOXAPARIN 40 MG/0.4 ML (LOVENOX) SYR SC SCH (00:02)
[2021-10-19 04:02] VITALS: BP 146/83
[2021-10-19 06:01] LABS: BASOPHILS # (AUTO) 0.1 10^3/uL (0.0-0.1); BASOPHILS % (AUTO) 1 % (0-10); EOSINOPHILS # (AUTO) 0.2 10^3/uL (0.0-0.3); EOSINOPHILS % (AUTO) 1 % (0-10); HEMATOCRIT 43 % (40-54); HEMOGLOBIN 13.5 g/dL (13.3-17.7); LYMPHOCYTES # (AUTO) 1.4 10^3/uL (1.0-4.0); LYMPHOCYTES % (AUTO) 13 % (12-44); MEAN CORPUSCULAR HEMOGLOBIN 27 pg (25-34); MEAN CORPUSCULAR HGB CONC 31 g/dL (32-36); MEAN CORPUSCULAR VOLUME 87 fL (80-99); MEAN PLATELET VOLUME 10.6 fL (9.0-12.2); MONOCYTES # (AUTO) 1.1 10^3/uL (0.0-1.0); MONOCYTES % (AUTO) 11 % (0-12); NEUTROPHILS # (AUTO) 7.6 10^3/uL (1.8-7.8); NEUTROPHILS % (AUTO) 73 % (42-75); PLATELET COUNT 358 10^3/uL (130-400); WHITE BLOOD COUNT 10.5 10^3/uL (4.3-11.0)
[2021-10-19 06:29] LABS: ALBUMIN 3.5 GM/DL (3.2-4.5); BILIRUBIN,TOTAL 0.6 MG/DL (0.1-1.0); CALCIUM 9.4 MG/DL (8.5-10.1); CREATININE SERUM 0.81 MG/DL (0.60-1.30); POTASSIUM 4.3 MMOL/L (3.6-5.0); TOTAL PROTEIN 7.4 GM/DL (6.4-8.2)
--- NOTE | 2021-10-19 07:05 | Progress Note - Hospitalist ---
Subjective HPI/CC On Admission Date Seen by Provider: Oct 19, 2021 Time Seen by Provider: 10:30 Patient is a 51yo male, h/o COVID about 1.5y ago and multiple neurologic insults during hospitalization for Covid at that time (TIA vs strokes). He has had chronic debility since then with several ED visits for weakness and stroke like symptoms. Apparently his sons were at home with him and he had a fall in the bathroom with increased weakness to the left side. Unsure of LOC as sons are not here at this time for history. The patient (with significantly slurred speech) is able to tell me that his is working in [place] - which is consistent with prior visits to our ER. He does state he has a mild headache. Otherwise his speech is so slurred he is very difficult to understand. Upon my arrival patient exhibited right neglect tongue was sticking out mildly swollen without erythema. The patient is eyes were open and did orient to voice he was slow to respond and very dysarthric unintelligible speech. He was able to follow simple commands but when asked to use his right hand to touch my finger he only moved his left hand and was able to do so with good control of the left hand. His came later in the day and reports that he had been seeing neurologist Dr. Velasquez had a rather extensive work-up was started on aspirin and Plavix but no apparent large vessel disease was noted. He had an echocardiogram gram and there is been no evidence for atrial fibrillation. He was having no neurologic issues previous to COVID infection in March 2020. He had been doing well at home until the night of his admission when his right leg apparently gave out he stumbled forward they helped him to the bed and again noted that he was dysarthric and his tongue appeared to be swollen. There were no rash issues reported he was confused but there was no loss of consciousness and no reported pallor. He had been feeling well up until that point. Subjective/Events-last exam Patient declining with fever requests comfort care Objective Exam Vital Signs Vital Signs Date Time Temp Pulse Resp B/P (MAP) Pulse Ox O2 Delivery O2 Flow Rate FiO2 10/19/21 10:33 37.3 10/19/21 08:00 82 Vapotherm 30.00 10/19/21 07:45 60 10/19/21 07:45 129 18 150/84 (106) Capillary Refill : Less Than 3 SecondsLess Than 3 Seconds General Appearance: Obese, Other (lethargic) Results/Procedures Lab Laboratory Tests 10/19/21 05:21 Patient resulted labs reviewed. Assessment/Plan Assessment and Plan Assess & Plan/Chief Complaint Poor prognosis High risk for PNA 1) Acute CVA with Right hemiparesis and dysarthria Acute respiratory distress requiring supplemental oxygen via Vapotherm Angioedema of tongue -Carotid ultrasound unremarkable -Cardiology consulted, appreciate their recommendations -CT head showed atrophy and chronic ischemic microvascular changes with lunar infarcts in Left basal ganglia -CTA showed no large vessel occlusion -MRI recommended, but couldn't be done d/t body habitus -Speech therapy, Physical therapy and Occupational therapy -PEG tube placed 2) Acute respiratory distress requiring supplemental oxygen -Stable on 6L high flow nasal cannula 3) Angioedema of tongue -Hold lisinopril -Speech therapy advised NPO 4) HTN - Well controlled on Amplodipine 10 and Metoprolol 100 BID 5) Diabetes -SSI -Empagliflozin 10mg Diet-NPO, PEG tube DVT prophylaxis- SCDs and Lovenox Dispo: Discharge home with home health and family caregivers. Social workers working on home hospital bed. 10/19/21: Comfort care protocol Imminent WISAM LIPSCOMB DO Oct 19, 2021 07:05
[2021-10-19] MEDS: ASPIRIN E.C. 81 MG (ECOTRIN) TAB PO SCH (07:42)
[2021-10-19] MEDS: amLODIPine 5 MG (NORVASC) TAB PO SCH (07:42)
[2021-10-19] MEDS: CLOPIDOGREL 75 MG (PLAVIX) TABLET PO SCH (07:42)
[2021-10-19] MEDS: FAMOTIDINE 20 MG (PEPCID) TABLET PO SCH (07:43)
[2021-10-19] MEDS: ACETAMINOPHEN 325 MG TABLET PO PRN (07:43)
[2021-10-19] MEDS: NYSTATIN CREAM (MYCOSTATIN) 30 GM TUBE TP SCH (07:44)
[2021-10-19] MEDS: MICONAZOLE 2% POWDER (DESENEX AF) 90 GM TOP SCH (07:44)
[2021-10-19] MEDS: meTOprolol TARTRATE 50 MG (LOPRESSOR) TAB PO SCH (07:44)
[2021-10-19 07:45] VITALS: BP 150/84
[2021-10-19] MEDS ORDERED: SCOPOLAMINE 1.5 MG (TRANSDERM-SCOP) PATCH TOP SCH (08:00)
[2021-10-19] MEDS ORDERED: ONDANSETRON 4 MG/2 ML (SDV) Z0FRAN IVP PRN (08:00)
[2021-10-19] MEDS ORDERED: ARTIFICAL TEARS 0.4 ML UNIT DOSE (REFRESH PLUS) OU PRN (08:00)
[2021-10-19] MEDS ORDERED: GLYCOPYRROLATE 0.2 MG/ML (ROBINUL) 2 ML VIAL IV PRN (08:00)
[2021-10-19] MEDS ORDERED: morphine INJ 10 MG/ML 1ML (SYR OR VIAL) IVP PRN (08:00)
[2021-10-19] MEDS ORDERED: PROMETHAZINE INJ 25 MG/ML (PHENERGAN) AMP IVP PRN (08:00)
[2021-10-19] MEDS ORDERED: SALIVA STIMULANT MOUTH SPRAY (BIOTENE) 1.5 OZ MM PRN (08:00)
[2021-10-19] MEDS ORDERED: BISACODYL 10 MG SUPP (DULCOLAX) PR PRN (08:00)
[2021-10-19] MEDS ORDERED: ATROPINE 1% OPHTHALMIC SOLN 2 ML SL PRN (08:00)
[2021-10-19] MEDS ORDERED: ACETAMINOPHEN 650 MG SUPP (TYLENOL) PR PRN (08:00)
[2021-10-19] MEDS ORDERED: LORazepam 1 MG (ATIVAN) TAB SL PRN (08:00)
[2021-10-19] MEDS ORDERED: LORazepam ORAL CONCENTRATE 2 MG/ML 30 ML (ATIVAN) PO PRN (08:00)
--- NOTE | 2021-10-19 08:11 | Diagnostic Imaging Report ---
EXAMINATION: Chest, 1 view. HISTORY: Pneumonia. Followup. COMPARISON: 10/18/2021. FINDINGS: The lung volumes are low. Persistent bibasilar opacities are seen. No large pleural effusion or pneumothorax is seen. The cardiomediastinal silhouette is enlarged with loop recorder overlying the cardiac silhouette. No acute osseous abnormality is seen. IMPRESSION: 1. Unchanged bibasilar opacities with continued low lung volumes. 2. Stable cardiomegaly. Dictated by: Dictated on workstation # [id number]
[2021-10-19] MEDS: morphine INJ 4 MG/ML 1 ML (VIAL/SYRINGE) IVP PRN ×4 (08:58→18:18)
--- NOTE | 2021-10-20 21:30 | Discharge Summary ---
Discharge Summary Hospital Course Was the Problem List Reviewed?: Yes Problems/Dx: (1) Acute CVA (cerebrovascular accident) Status: Acute (2) Right hemiparesis Status: Acute (3) Dysphagia due to recent cerebrovascular accident Status: Acute (4) S/P percutaneous endoscopic gastrostomy (PEG) tube placement (5) Physical debility (6) Discharge planning issues (7) Aphasia due to acute cerebrovascular accident (CVA) Status: Acute (8) Acute and chronic respiratory failure with hypoxia Status: Acute (9) HTN (hypertension) Status: Chronic Qualifiers: Qualified Codes: I10 - Essential (primary) hypertension (10) Diabetes mellitus Status: Chronic Qualifiers: Qualified Codes: E11.9 - Type 2 diabetes mellitus without complications (11) Dysarthria Status: Acute (12) Left-sided weakness Status: Acute Hospital Course Date of Admission: Oct 06, 2021 at 16:19 Admission Diagnosis : Family Physician/Provider: [facility] Date of Discharge: 10/20/21 Discharge Diagnosis: subacute CVA with right sided weakness, dysphagia requiring PEG, resp failure with PNA Hospital Course: Lengthy course after he was admitted for a subacute CVA with right sided weakness and dysphagia and dysarthria adding to his severe debility following COVID 1 year ago with left sided weakness. Untreated JOSÉ MIGUEL along with non- compliance with other co-morbidities led him to a very progressive decline ending with DNR and hospice conversation but presumed PNA ultimately caused his and prompted end of life comfort care and he Labs and Pending Lab Test: Microbiology 10/08/21 MRSA Screen - Final, Complete MRSA not isolated Home Meds Active Reported Farxiga (Dapagliflozin Propanediol) 10 Mg Tablet 10 Mg PO HS Victoza 3-Luis (Liraglutide) 0.6 Mg/0.1 Ml (18 Mg/3 Ml) Pen.injctr 1.8 Mg SQ HS Vitamin B-12 (Cyanocobalamin (Vitamin B-12)) 50 Mcg Tablet 50 Mcg PO DAILY Aspirin EC (Aspirin) 81 Mg Tablet.dr 81 Mg PO DAILY Famotidine 20 Mg Tablet 20 Mg PO BID Clopidogrel (Clopidogrel Bisulfate) 75 Mg Tablet 75 Mg PO DAILY Lisinopril 20 Mg Tablet 20 Mg PO DAILY Atorvastatin Calcium 40 Mg Tablet 40 Mg PO DAILY Levemir Flextouch (Insulin Detemir) 100 Unit/Ml (3 Ml) Insuln.pen 18 Units SC BID Assessment/Pt Instructions Discharge Planning: <30 minutes discharge planning Discharge Physical Examination Vital Signs Vital Signs Date Time Temp Pulse Resp B/P (MAP) Pulse Ox O2 Delivery O2 Flow Rate FiO2 10/19/21 10:33 37.3 10/19/21 08:00 82 Vapotherm 30.00 10/19/21 07:45 60 10/19/21 07:45 129 18 150/84 (106) Allergies: Coded Allergies: CARMEN Inhibitors (Verified Allergy, Unknown, 10/07/21) angioedema Discharge Summary Date of Admission Oct 06, 2021 at 16:19 Date of Discharge Oct 19, 2021 at 19:20 Admission Diagnosis 1. 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 CTA of the head reveals no significant blockage reported extensive recent work-up negative. The patient had been on aspirin and Plavix for the past year according to . The stroke team at was consulted with no further recommendations other than continuing aspirin and Plavix and obtaining an MRI when available which we will do with and without contrast in the morning. 2. Possible angioedema of the tongue will hold lisinopril and continue to monitor in the unit for any evidence of airways obstruction. For this reason we will initiate n.p.o. status as well as a stroke with speech consultation for swallow evaluation in the morning. 3. History of hypertension holding antihypertensive medication for now. Comfort Measures/ End of Life Care: Comfort Measures Discharge Diagnosis Poor prognosis High risk for PNA 1) Acute CVA with Right hemiparesis and dysarthria Acute respiratory distress requiring supplemental oxygen via Vapotherm Angioedema of tongue -Carotid ultrasound unremarkable -Cardiology consulted, appreciate their recommendations -CT head showed atrophy and chronic ischemic microvascular changes with lunar infarcts in Left basal ganglia -CTA showed no large vessel occlusion -MRI recommended, but couldn't be done d/t body habitus -Speech therapy, Physical therapy and Occupational therapy -PEG tube placed 2) Acute respiratory distress requiring supplemental oxygen -Stable on 6L high flow nasal cannula 3) Angioedema of tongue -Hold lisinopril -Speech therapy advised NPO 4) HTN - Well controlled on Amplodipine 10 and Metoprolol 100 BID 5) Diabetes -SSI -Empagliflozin 10mg Diet-NPO, PEG tube DVT prophylaxis- SCDs and Lovenox Dispo: Discharge home with home health and family caregivers. Social workers working on home hospital bed. 10/19/21: Comfort care protocol Imminent WISAM LIPSCOMB DO Oct 20, 2021 21:30
== END 2021-10-19 19:20 | disposition expired | DRG 40 ==
LOC: EDUNIT# 19:16 → ER 19:17 → ICU 22:29 → OBSVTOIN 10-06 16:19 → CSD 10-06 18:21 → 4TH 10-13 13:30
PROVIDERS: ADMIT Internal Medicine; ATTEND Internal Medicine
PROC: 5A0945A Assistance with Respiratory Ventilation, 24-96 Consecutive Hours, High Flow/Velocity Cannula (ICD-10-PCS; 2021-10-07)
PROC: 0JH632Z Insertion of Monitoring Device into Chest Subcutaneous Tissue and Fascia, Percutaneous Approach (ICD-10-PCS; principal; 2021-10-08)
PROC: 0DH63UZ Insertion of Feeding Device into Stomach, Percutaneous Approach (ICD-10-PCS; 2021-10-10)
PROC: 5A09357 Assistance with Respiratory Ventilation, Less than 24 Consecutive Hours, Continuous Positive Airway Pressure (ICD-10-PCS; 2021-10-10)
DX: I63.9 Cerebral infarction, unspecified (principal); J96.21 Acute and chronic respiratory failure with hypoxia; J18.9 Pneumonia, unspecified organism; G81.91 Hemiplegia, unspecified affecting right dominant side; R41.4 Neurologic neglect syndrome; K50.90 Crohn's disease, unspecified, without complications; Z66 Do not resuscitate; Z51.5 Encounter for palliative care; R29.716 NIHSS score 16; R47.1 Dysarthria and anarthria; R13.10 Dysphagia, unspecified; R29.91 Unspecified symptoms and signs involving the musculoskeletal system; U09.9 Post COVID-19 condition, unspecified; K21.00 Gastro-esophageal reflux disease with esophagitis, without bleeding; K29.70 Gastritis, unspecified, without bleeding; G47.33 Obstructive sleep apnea (adult) (pediatric); I10 Essential (primary) hypertension; E11.9 Type 2 diabetes mellitus without complications; T78.3XXA Angioneurotic edema, initial encounter; Z91.19 Patient's noncompliance with other medical treatment and regimen; Z79.82 Long term (current) use of aspirin; Z79.4 Long term (current) use of insulin
CPT/HCPCS: 33285; 36415; 51701; 70450; 70496; 70498; 71045; 80048; 80053; 80061; 80076; 80306; 80320; 80329; 81000; 82805; 82947; 83735; 84484; 85025; 85379; 85610; 85730; 87081; 93005; 93041; 93306; 93880; 94640; 94660; 94760; 94799; 96360